=== PATIENT | male | born 1945 | race Caucasian/White ===

== ENCOUNTER 2022-12-08 12:51 | Inpatient (IN) | payer MEDICARE, BC ==
[2022-12-08] MEDS ORDERED: amLODIPine 5 MG TAB PO STA (13:08)
[2022-12-08] MEDS ORDERED: FUROSEMIDE 10 MG/ML 4 ML VIAL IV STA (13:16)
--- NOTE | 2022-12-08 13:17 | ED ---
General Adult HPI - General Chief complaint: Shortness of Breath Stated complaint: CHANELL Time Seen by Provider: 12/08/22 13:07 Source: patient, family, RN notes reviewed Mode of arrival: wheelchair Limitations: no limitations - History of Present Illness Initial comments: Patient is a pleasant 77-year-old male presenting to emergency department source of breath. Onset of symptoms was just an hour ago. Patient has had mild cough last couple of days. Patient does have history of atrial fibrillation. No chest pain. Patient does feel fatigued. No leg pain or leg swelling. - Related Data Home Medications Medication Instructions Recorded Confirmed Benzonatate [Tessalon Perles] 200 mg PO TID PRN 12/08/22 12/08/22 Calcium(Unknown Dose) 1 tab PO DAILY 12/08/22 12/08/22 Cholecalciferol [Vitamin D3 (25 25 mcg PO DAILY 12/08/22 12/08/22 Mcg = 1000 Iu)] Co Q-10(Unknown Dose) 1 cap PO DAILY 12/08/22 12/08/22 Insulin Aspart [NovoLOG Flexpen] See Protocol SQ AC-TID 12/08/22 12/08/22 Insulin Glargine,Hum.rec.anlog 17 units SQ HS 12/08/22 12/08/22 [Toujeo Solostar] Metoprolol Tartrate [Lopressor] 50 mg PO DAILY 12/08/22 12/08/22 Multivitamins, Thera [Multivitamin 1 tab PO DAILY 12/08/22 12/08/22 (formulary)] Simvastatin [Zocor] 20 mg PO DAILY 12/08/22 12/08/22 Warfarin Sodium 6 mg PO HS 12/08/22 12/08/22 Warfarin [Coumadin] 1 mg PO SUSA@2100 12/08/22 12/08/22 lisinopriL [Zestril] 10 mg PO DAILY 12/08/22 12/08/22 metFORMIN HCL 1,000 mg PO BID 12/08/22 12/08/22 predniSONE [Deltasone] See Taper PO DAILY 12/08/22 12/08/22 Allergies Allergy/AdvReac Type Severity Reaction Status Date / Time Penicillins Allergy Rash/Hives Verified 12/08/22 13:47 Sulfa (Sulfonamide Allergy Rash/Hives Verified 12/08/22 13:47 Antibiotics) Review of Systems ROS Statement: Those systems with pertinent positive or pertinent negative responses have been documented in the HPI. ROS Other: All systems not noted in ROS Statement are negative. Constitutional: Denies: fever ENT: Denies: ear pain Respiratory: Reports: as per HPI, cough, dyspnea Cardiovascular: Denies: chest pain Endocrine: Reports: fatigue Gastrointestinal: Denies: abdominal pain Genitourinary: Denies: dysuria Past Medical History Past Medical History: Hypertension History of Any Multi-Drug Resistant Organisms: None Reported Past Surgical History: Appendectomy, Orthopedic Surgery Smoking Status: Never smoker Past Alcohol Use History: None Reported Past Drug Use History: None Reported General Exam Limitations: no limitations General appearance: alert Head exam: Present: normocephalic Eye exam: Present: normal appearance Neck exam: Present: normal inspection Respiratory exam: Present: respiratory distress, rales Cardiovascular Exam: Present: tachycardia GI/Abdominal exam: Present: soft. Absent: tenderness Extremities exam: Present: normal inspection. Absent: pedal edema, calf tenderness Neurological exam: Present: alert Psychiatric exam: Present: normal affect, normal mood Skin exam: Present: normal color Course Vital Signs 12/08/22 12/08/22 12/08/22 12:57 13:15 13:40 Temperature 98 F Pulse Rate 140 H 188 H Respiratory 36 H 28 H Rate Blood Pressure 180/120 170/126 O2 Sat by Pulse 84 L 89 L Oximetry Fraction of 100 Inspired Oxygen (FIO2) 12/08/22 12/08/22 12/08/22 14:02 14:30 14:35 Temperature Pulse Rate 158 H Respiratory 35 H Rate Blood Pressure 192/137 O2 Sat by Pulse 89 L Oximetry Fraction of 100 100 Inspired Oxygen (FIO2) EKG Findings - EKG Results: EKG: interpreted by ERMD (Superior axis. Right bundle branch block. Nonspeci fic ST-T.) EKG shows: tachycardia, atrial fibrillation Procedures - Intubation Sedative: Versed Paralytic: Succinylcholine Laryngoscope: Nicole Size: 3 ET Tube Size: 8 Tube Placement Confirmation: visualized tube passing through cords, equal breath sounds bilaterally, no breath sounds over epigastrium Patient Tolerated Procedure: well, no complications Additional Comments: Blood visualized in the trachea Medical Decision Making - Medical Decision Making Was pt. sent in by a medical professional or institution (, PA, CUSTOMER CARE TEAM COACH, urgent care, hospital, or correction...) When possible be specific @ -No Did you speak to anyone other than the patient for history (EMS, parent, family, police, friend...)? What history was obtained from this source @ - is present and helps right history as patient is short of breath and difficulty with speech Did you review nursing and triage notes (agree or disagree)? Why? @ -I reviewed and agree with nursing and triage notes Were old charts reviewed (outside hosp., previous admission, EMS record, old EKG, old radiological studies, urgent care reports/EKG's, correction records)? Report findings @ -No old charts are available although I did look for Differential Diagnosis (chest pain, altered mental status, abdominal pain women, abdominal pain men, vaginal bleeding, weakness, fever, dyspnea, syncope, headache, dizziness, GI bleed, back pain, seizure, CVA, palpatations, mental health, musculoskeletal)? @ -Differential Dyspnea: Coronary syndrome, arrhythmia, tamponade, asthma, COPD, pulmonary embolism, pneumonia, pneumothorax, pulmonary effusion, anaphylaxis, diabetic ketoacidosis, flailed chest, pulmonary contusion, diaphragmatic rupture, anemia, neuromuscular, this is not meant to be an all-inclusive list. EKG interpreted by me (3pts min.). @ -As above X-rays interpreted by me (1pt min.). @ -Chest x-ray shows bilateral diffuse infiltrates CT interpreted by me (1pt min.). @ -None done U/S interpreted by me (1pt. min.). @ -None done What testing was considered but not performed or refused? (CT, X-rays, U/S, labs)? Why? @ -None What meds were considered but not given or refused? Why? @ -None Did you discuss the management of the patient with other professionals (professionals i.e. DrMaria Del Carmen, PA, CUSTOMER CARE TEAM COACH, lab, RT, psych nurse, social media assistant, robotic technician, teacher, transit police officer, case finishing machine adjuster)? Give summary @ -Case discussed with Dr. Gudino, who will admit for hospital call. Case also discussed with Dr. Hairston, who will consult Was smoking cessation discussed for >3mins.? @ -No Was critical care preformed (if so, how long)? @ -31 minutes critical care time Were there social determinants of health that impacted care today? How? (Homelessness, low income, unemployed, alcoholism, drug addiction, transportation, low edu. Level, literacy, decrease access to med. care, long term, rehab)? @ -No Was there de-escalation of care discussed even if they declined (Discuss DNR or withdrawal of care, Hospice)? DNR status @ -No What co-morbidities impacted this encounter? (DM, HTN, Smoking, COPD, CAD, Cancer, CVA, ARF, Chemo, Hep., AIDS, mental health diagnosis, sleep apnea, morbid obesity)? @ -History of atrial fibrillation Was patient admitted / discharged? Hospital course, mention meds given and route, prescriptions, significant lab abnormalities, going to OR and other pertinent info. @ -Patient presents with rest or distress and A. fib RVR. Patient placed on BiPAP however did not improve and started having hemoptysis. Patient was then intubated. Patient will be admitted with pulmonary and cardiology consults. Family is updated. Undiagnosed new problem with uncertain prognosis? @ -No Drug Therapy requiring intensive monitoring for toxicity (Heparin, Nitro, Insulin, Cardizem)? @ -Patient on Cardizem drip and will need monitoring Were any procedures done? @ -Intubation Diagnosis/symptom? @ -Flash pulmonary edema, A. fib with RVR Acute, or Chronic, or Acute on Chronic? @ -Acute, acute Uncomplicated (without systemic symptoms) or Complicated (systemic symptoms)? @ -A. fib, stated with pulmonary edema Side effects of treatment? @ -No Exacerbation, Progression, or Severe Exacerbation? @ -No Poses a threat to life or bodily function? How? (Chest pain, [place], [place], pneumonia, PE, COPD, DKA, ARF, appy, cholecystitis, CVA, Diverticulitis, Homicidal, Suicidal, threat to staff... and all critical care pts) @ -Hypoxia and respiratory failure 2. Threat to life - Lab Data Result diagrams: 12/08/22 13:18 12/08/22 13:18 Lab Results 12/08/22 12/08/22 12/08/22 Range/Units 13:18 13:18 13:18 WBC 13.5 H (3.8-10.6) k/uL RBC 4.79 (4.30-5.90) m/uL Hgb 14.4 (13.0-17.5) gm/dL Hct 44.4 (39.0-53.0) % MCV 92.6 (80.0-100.0) fL MCH 30.0 (25.0-35.0) pg MCHC 32.4 (31.0-37.0) g/dL RDW 13.8 (11.5-15.5) % Plt Count 244 (150-450) k/uL MPV 8.3 Neutrophils % 65 % Lymphocytes % 26 % Monocytes % 5 % Eosinophils % 2 % Basophils % 0 % Neutrophils # 8.8 H (1.3-7.7) k/uL Lymphocytes # 3.6 (1.0-4.8) k/uL Monocytes # 0.6 (0-1.0) k/uL Eosinophils # 0.3 (0-0.7) k/uL Basophils # 0.1 (0-0.2) k/uL PT 49.2 H (9.0-12.0) sec INR 5.0 H (<1.2) APTT 28.5 (22.0-30.0) sec Sodium 140 (137-145) mmol/L Potassium 4.0 (3.5-5.1) mmol/L Chloride 100 (98-107) mmol/L Carbon Dioxide 30 (22-30) mmol/L Anion Gap 10 mmol/L BUN 24 H (9-20) mg/dL Creatinine 0.97 (0.66-1.25) mg/dL Est GFR (CKD-EPI)AfAm 87 (>60 ml/min/1.73 sqM) Est GFR (CKD-EPI)NonAf 76 (>60 ml/min/1.73 sqM) Glucose 178 H (74-99) mg/dL Calcium 9.3 (8.4-10.2) mg/dL Magnesium 1.6 (1.6-2.3) mg/dL Total Bilirubin 0.8 (0.2-1.3) mg/dL AST 41 (17-59) U/L ALT 39 (4-49) U/L Alkaline Phosphatase 126 (38-126) U/L Troponin I (0.000-0.034) ng/mL NT-Pro-B Natriuret Pep 4050 pg/mL Total Protein 7.3 (6.3-8.2) g/dL Albumin 4.3 (3.5-5.0) g/dL TSH 2.420 (0.465-4.680) mIU/L Free T4 1.13 (0.78-2.19) ng/dL Free T3 pg/mL 3.2 (2.8-5.3) pg/ml Influenza Type A (PCR) (Not Detectd) Influenza Type B (PCR) (Not Detectd) RSV (PCR) (Not Detectd) SARS-CoV-2 (PCR) (Not Detectd) 12/08/22 12/08/22 Range/Units 13:18 13:49 WBC (3.8-10.6) k/uL RBC (4.30-5.90) m/uL Hgb (13.0-17.5) gm/dL Hct (39.0-53.0) % MCV (80.0-100.0) fL MCH (25.0-35.0) pg MCHC (31.0-37.0) g/dL RDW (11.5-15.5) % Plt Count (150-450) k/uL MPV Neutrophils % % Lymphocytes % % Monocytes % % Eosinophils % % Basophils % % Neutrophils # (1.3-7.7) k/uL Lymphocytes # (1.0-4.8) k/uL Monocytes # (0-1.0) k/uL Eosinophils # (0-0.7) k/uL Basophils # (0-0.2) k/uL PT (9.0-12.0) sec INR (<1.2) APTT (22.0-30.0) sec Sodium (137-145) mmol/L Potassium (3.5-5.1) mmol/L Chloride (98-107) mmol/L Carbon Dioxide (22-30) mmol/L Anion Gap mmol/L BUN (9-20) mg/dL Creatinine (0.66-1.25) mg/dL Est GFR (CKD-EPI)AfAm (>60 ml/min/1.73 sqM) Est GFR (CKD-EPI)NonAf (>60 ml/min/1.73 sqM) Glucose (74-99) mg/dL Calcium (8.4-10.2) mg/dL Magnesium (1.6-2.3) mg/dL Total Bilirubin (0.2-1.3) mg/dL AST (17-59) U/L ALT (4-49) U/L Alkaline Phosphatase (38-126) U/L Troponin I 0.753 H* (0.000-0.034) ng/mL NT-Pro-B Natriuret Pep pg/mL Total Protein (6.3-8.2) g/dL Albumin (3.5-5.0) g/dL TSH (0.465-4.680) mIU/L Free T4 (0.78-2.19) ng/dL Free T3 pg/mL (2.8-5.3) pg/ml Influenza Type A (PCR) Not Detected (Not Detectd) Influenza Type B (PCR) Not Detected (Not Detectd) RSV (PCR) Not Detected (Not Detectd) SARS-CoV-2 (PCR) Not Detected (Not Detectd) Disposition Clinical Impression: Acute pulmonary edema, Atrial fibrillation with RVR Disposition: ADMITTED IP TO THIS HOSP Condition: Critical Is patient prescribed a controlled substance at d/c from ED?: No Referrals: Nonstaff,Physician [Primary Care Provider] - 1-2 days Time of Disposition: 14:55
[2022-12-08] MEDS ORDERED: DILTIAZEM 125 MG in SODIUM CHLORIDE 0.9% 100 ML IV SCH (13:30)
[2022-12-08 13:34] LABS: Basophils # (A) 0.1 k/uL (0-0.2); Basophils % (A) 0 %; Eosinophils # (A) 0.3 k/uL (0-0.7); Eosinophils % (A) 2 %; HCT 44.4 % (39.0-53.0); HGB 14.4 gm/dL (13.0-17.5); Lymphocytes # (A) 3.6 k/uL (1.0-4.8); Lymphocytes % (A) 26 %; MCHC 32.4 g/dL (31.0-37.0); MCV 92.6 fL (80.0-100.0); Mean Platelet Volume 8.3; Monocytes # (A) 0.6 k/uL (0-1.0); Monocytes % (A) 5 %; Neutrophils # (A) 8.8 k/uL (1.3-7.7); Neutrophils % (A) 65 %; Platelet Count 244 k/uL (150-450); RBC 4.79 m/uL (4.30-5.90); RDW 13.8 % (11.5-15.5); WBC 13.5 k/uL (3.8-10.6)
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
[2022-12-08 13:46] LABS: Partial Thromboplastin Time 28.5 sec (22.0-30.0); Prothrombin Time 49.2 sec (9.0-12.0)
[2022-12-08 13:47] LABS: ALT 39 U/L (4-49); AST 41 U/L (17-59); African American GFR (CKD) 87 (>60 ml/min/1.73 sqM); Albumin 4.3 g/dL (3.5-5.0); Alkaline Phosphatase 126 U/L (38-126); Anion Gap 10 mmol/L; Blood Urea Nitrogen 24 mg/dL (9-20); Calcium 9.3 mg/dL (8.4-10.2); Carbon Dioxide 30 mmol/L (22-30); Chloride 100 mmol/L (98-107); Glucose 178 mg/dL (74-99); Magnesium 1.6 mg/dL (1.6-2.3); Non-African American GFR(CKD) 76 (>60 ml/min/1.73 sqM); Sodium 140 mmol/L (137-145); Total Bilirubin 0.8 mg/dL (0.2-1.3); Total Protein 7.3 g/dL (6.3-8.2)
[2022-12-08 13:53] LABS: NT-Pro-B-Type Natriuretic Pept 4050 pg/mL
[2022-12-08] MEDS ORDERED: DILTIAZEM DRIP BOLUS FROM BAG 1 MG SOLN IV ONE (14:00)
[2022-12-08 14:01] LABS: T4, Free (Free Thyroxine) 1.13 ng/dL (0.78-2.19)
[2022-12-08] MEDS ORDERED: LORazepam 2 MG/ML INJ IV PRN ×2 (14:48)
--- NOTE | 2022-12-08 14:51 | P.HPIM ---
History of Present Illness 77-year-old male came in with complaints of shortness of breath patient is presently being intubated much of the history is unknown. Patient started having mild cold for the last 2 days which progressively gotten worse patient is found to in atrial fibrillation with rapid and regular rate. Patient does have known history of A. fib does take Coumadin at home patient doesn't INR is 5. Chest x-ray showed bilateral infiltrates suspicious for pneumonia although seizures cannot be ruled out I'm unable to assess for JVD doesn't have any pedal edema. Patient does have elevated BNP of around 4000 baseline BNP is a known serum creatinine is within normal limits. No echo cardiac rhythm is available in the system. Patient does take metoprolol for atrial fibrillation. Patient is tachypneic tachycardic because of which patient is being intubated patient blood pressure is although not low. Pro-calcitonin will be ordered. REVIEW OF SYSTEMS: I would obtain due to his clinical condition PHYSICAL EXAMINATION: GENERAL: Patient is alert and respiratory distress is being intubated now HEENT: Pupils are round and equally reacting to light. EOMI. No scleral icterus. No conjunctival pallor. Normocephalic, atraumatic. No pharyngeal erythema. No thyromegaly. CARDIOVASCULAR: S1 and S2 present. No murmurs, rubs, or gallops. Tachycardic irregularly irregular rhythm PULMONARY: Bilateral rhonchi crackles Tachypneic ABDOMEN: Soft, nontender, nondistended, normoactive bowel sounds. No palpable organomegaly. MUSCULOSKELETAL: No joint swelling or deformity. EXTREMITIES: No cyanosis, clubbing, or pedal edema. NEUROLOGICAL: Unable to assess SKIN: No rashes. Assessment and plan -Acute hypoxic respiratory failure: Etiology is not clear, can be either pneumonia or congestive heart failure patient does have elevated troponin but chest x-ray is consistent with the pneumonia. Patient will be continue on Lasix 40 mg IV twice a day, echocardiogram will be obtained. Patient will be started on empiric antibiotics patient doesn't have any fever does have leukocytosis. Blood cultures will be obtained. -Atrial fibrillation with rapid ventricular rate, patient probably has proximal A. fib: Patient is weatherbeaten Coumadin hold off Coumadin patient is presently on Cardizem patient resumed on metoprolol via NG tube. -Hyperlipidemia -Type 2 diabetes mellitus: Sliding scale insulin DVT prophylaxis: Patient has supratherapeutic INR Past Medical History Past Medical History: Hypertension History of Any Multi-Drug Resistant Organisms: None Reported Past Surgical History: Appendectomy, Orthopedic Surgery Smoking Status: Never smoker Past Alcohol Use History: None Reported Past Drug Use History: None Reported Medications and Allergies Home Medications Medication Instructions Recorded Confirmed Type Benzonatate [Tessalon Perles] 200 mg PO TID PRN 12/08/22 12/08/22 History Calcium(Unknown Dose) 1 tab PO DAILY 12/08/22 12/08/22 History Cholecalciferol [Vitamin D3 (25 25 mcg PO DAILY 12/08/22 12/08/22 History Mcg = 1000 Iu)] Co Q-10(Unknown Dose) 1 cap PO DAILY 12/08/22 12/08/22 History Insulin Aspart [NovoLOG Flexpen] See Protocol SQ AC-TID 12/08/22 12/08/22 History Insulin Glargine,Hum.rec.anlog 17 units SQ HS 12/08/22 12/08/22 History [Toujeo Solostar] Metoprolol Tartrate [Lopressor] 50 mg PO DAILY 12/08/22 12/08/22 History Multivitamins, Thera [Multivitamin 1 tab PO DAILY 12/08/22 12/08/22 History (formulary)] Simvastatin [Zocor] 20 mg PO DAILY 12/08/22 12/08/22 History Warfarin Sodium 6 mg PO HS 12/08/22 12/08/22 History Warfarin [Coumadin] 1 mg PO SUSA@2100 12/08/22 12/08/22 History lisinopriL [Zestril] 10 mg PO DAILY 12/08/22 12/08/22 History metFORMIN HCL 1,000 mg PO BID 12/08/22 12/08/22 History predniSONE [Deltasone] See Taper PO DAILY 12/08/22 12/08/22 History Allergies Allergy/AdvReac Type Severity Reaction Status Date / Time Penicillins Allergy Rash/Hives Verified 12/08/22 13:47 Sulfa (Sulfonamide Allergy Rash/Hives Verified 12/08/22 13:47 Antibiotics) Physical Exam Vitals: Vital Signs Temp Pulse Resp BP Pulse Ox FiO2 12/08/22 14:35 100 12/08/22 14:30 100 12/08/22 14:02 158 H 35 H 192/137 89 L 12/08/22 13:40 188 H 28 H 170/126 89 L 12/08/22 13:15 100 12/08/22 12:57 98 F 140 H 36 H 180/120 84 L Intake and Output 12/07/22 12/08/22 12/08/22 22:59 06:59 14:59 Intake Total 2.25 Balance 2.25 Intake: Intake, IV Titration 2.25 Amount Diltiazem 125 mg In 2.25 Sodium Chloride 0.9% 100 ml @ 5 MG/HR 5 mls/hr IV .Q24H [facility] Rx#:[id number] Other: Weight 89.358 kg Results CBC & Chem 7: 12/08/22 13:18 12/08/22 13:18 Labs: Abnormal Lab Results - Last 24 Hours (Table) 12/08/22 12/08/22 12/08/22 Range/Units 13:18 13:18 13:18 WBC 13.5 H (3.8-10.6) k/uL Neutrophils # 8.8 H (1.3-7.7) k/uL PT 49.2 H (9.0-12.0) sec INR 5.0 H (<1.2) BUN 24 H (9-20) mg/dL Glucose 178 H (74-99) mg/dL Troponin I (0.000-0.034) ng/mL 12/08/22 Range/Units 13:18 WBC (3.8-10.6) k/uL Neutrophils # (1.3-7.7) k/uL PT (9.0-12.0) sec INR (<1.2) BUN (9-20) mg/dL Glucose (74-99) mg/dL Troponin I 0.753 H* (0.000-0.034) ng/mL
[2022-12-08] MEDS ORDERED: PHYTONADIONE 5 MG in SODIUM CHLORIDE 0.9% 50 ML IVPB STA (15:07)
[2022-12-08] MEDS ORDERED: PROPOFOL 10 MG/ML 20 ML VIAL IV ONE (15:13)
[2022-12-08] MEDS ORDERED: NOREPINEPHRINE 32 MG in SODIUM CHLORIDE 0.9% 218 ML IV SCH (15:15)
[2022-12-08 15:32] LABS: Glucose,Whole Blood 181 mg/dL (70-110)
[2022-12-08] MEDS: NOREPINEPHRINE 4 MG in SODIUM CHLORIDE 0.9% 250 ML IV ONE ×2 (15:44→20:00)
[2022-12-08] MEDS ORDERED: CISATRACURIUM 2 MG/ML 5 ML VIAL IV ONE (15:54)
--- NOTE | 2022-12-08 16:09 | P.PCN ---
Date of Procedure: 12/08/22 Operative Findings: Date of Procedure: 12/08/22 Preoperative Diagnosis: Acute hypoxic respiratory failure Postoperative Diagnosis: Acute hypoxic respiratory failure Procedure(s) Performed: Central line, arterial line Anesthesia: local Surgeon: Dipika Hairston Pathology: other Condition: critical Disposition: ICU Operative Findings: Indication: Hemodynamic monitoring/Intravenous access. A time-out was completed verifying correct patient, procedure, site, positioning, and implant(s) or special equipment if applicable. The patient was placed in a dependent position appropriate for central line placement based on the vein to be cannulated. The patients left neck prepped and draped in sterile fashion. 1% Lidocaine was used to anesthetize the surrounding skin area. A triple lumen 9F Cordis catheter was introduced into the left internal jugular using Seldinger technique. The catheter was threaded smoothly over the guide wire and appropriate blood return was obtained. Each lumen of the catheter was evacuated of air and flushed with sterile saline. The catheter was then sutured in place to the skin and a sterile dressing applied. Perfusion to the extremity distal to the point of catheter insertion was checked and found to be adequate. The patient tolerated the procedure well and there were no complications. Indication: Hemodynamic monitoring. A time-out was completed verifying correct patient, procedure, site, positioning, and implant(s) or special equipment if applicable. Allens test was performed to ensure adequate perfusion. The patients left wrist was prepped and draped in sterile fashion. 1% Lidocaine was used to anesthetize the area. An 18G Arrow arterial line was introduced into the radial artery. The catheter was threaded over the guide wire and the needle was removed with appropriate pulsatile blood return. Blood loss was minimal. The catheter was then sutured in place to the skin and a sterile dressing applied. Perfusion to the extremity distal to the point of catheter insertion was checked and found to be adequate. The patient tolerated the procedure well and there were no complications.
[2022-12-08] MEDS ORDERED: DEXTROSE 50% SYRINGE 50 ML IVP PRN ×2 (16:11)
[2022-12-08] MEDS ORDERED: DEXTROSE 5% IN WATER 100 ML with AMIODARONE 150 MG IV ONE (16:20)
[2022-12-08 16:25] LABS: ABG Base Excess 1.6 mmol/L; ABG HCO3 26 mmol/L (21-25); ABG PCO2 41 mmHg (35-45); ABG PH 7.42 (7.35-7.45); ABG PO2 84 mmHg (83-108); ABG TCO2 27 mmol/L (19-24)
[2022-12-08 16:26] LABS: Allen Test Performed? no
[2022-12-08] MEDS ORDERED: AMIODARONE 360 MG in DEXTROSE 5% IN WATER 200 ML IV ONE ×2 (16:30)
--- NOTE | 2022-12-08 16:40 | P.CNPUL ---
History of Present Illness Consult date: 12/08/22 Reason for consult: hypoxemia History of present illness: 77-year-old male patient, came into the emergency department because of shortness of breath. [place] and he has a primary care physician in [facility]. The patient was in the hospital with his who was having a mammogram. He acutely became short of breath and he felt that his lungs were filling up with fluid. He was brought into the emergency department. Noted around few days back, he was having some limited cough and the patient was given a course of steroid taper by his primary care physician. No fever. No chills. No chest pain. He is known to have chronic atrial fibrillation and the patient is also known to have diabetes mellitus and hype rlipidemia. No history of any coronary artery disease. No history of any stroke. No history of any DVTs or pulmonary embolism. No history of COPD or asthma. He is a nonsmoker. The patient came into the emergency and he was hypoxic, acutely short of breath, acutely tachycardic and hypertensive with a BP of 192/137 with a heart rate of 158 and the respiration all 35. The patient was placed on a BiPAP. He decompensated. Ultimately, he was intubated and placed on a mechanical ventilator. Chest x-ray showed bilateral lung consolidations mainly in the lower lobes. Post intubation, the patient started having bloody rest or secretions from his orotracheal tube. His cardiac rhythm is the nature fibrillation. At this point in time, the patient is intubated on a mechanical ventilator. I saw the patient in the emergency department and a lipase to the intensive care unit. Currently is on propofol which is currently is up to 50 mcg/kg/m. His well sedated on a mechanical ventilator. He was also given a dose of Nimbex 10 mg IV push as the sedation was being titrated. Note that the patient became also hypotensive while being on sedation. He was started on norepinephrine which is currently running at 0.27 Babar respiratory kilogram per minute. His heart rate is less tachycardic although distal in nature fibrillation. Cardizem drip was discontinued because of underlying hypotension. He was given a dose of Lasix in the emergency department and he has produced a total of 350 mL of urine output. He does have some lower extremity edema. His blood work is showing 15.5, hemoglobin is 14.4, platelet count of 244, sodium is at 140, BUN is at 24 with a creatinine of 0.9. ProBNP level is 4050. Troponin was 0.7. LFTs are normal. The vital screening including Covid 19 was negative. Thyroid function test was within normal limits. His INR was at 5.0 with a PTT of 49.2. The patient was given a total of 5 mg of vitamin K. Lines were established in the ICU including a triple-lumen catheter inserted in his left IJ and an arterial line for blood pressure monitoring. Given a dose of Rocephin. He is currently on a mechanical ventilator on assist control mode with a rate of 26, tidal volume of 450, FiO2 of 100% and a PEEP of 5. Review of Systems ROS unobtainable: due to endotracheal tube Past Medical History Past Medical History: Atrial Fibrillation, Diabetes Mellitus, Hypertension Additional Past Medical History / Comment(s): History of diabetic foot infection from which the patient has recovered and has been adequately treated History of Any Multi-Drug Resistant Organisms: None Reported Past Surgical History: Appendectomy, Orthopedic Surgery Smoking Status: Never smoker Past Alcohol Use History: None Reported Past Drug Use History: None Reported Medications and Allergies Home Medications Medication Instructions Recorded Confirmed Type Benzonatate [Tessalon Perles] 200 mg PO TID PRN 12/08/22 12/08/22 History Calcium(Unknown Dose) 1 tab PO DAILY 12/08/22 12/08/22 History Cholecalciferol [Vitamin D3 (25 25 mcg PO DAILY 12/08/22 12/08/22 History Mcg = 1000 Iu)] Co Q-10(Unknown Dose) 1 cap PO DAILY 12/08/22 12/08/22 History Insulin Aspart [NovoLOG Flexpen] See Protocol SQ AC-TID 12/08/22 12/08/22 History Insulin Glargine,Hum.rec.anlog 17 units SQ HS 12/08/22 12/08/22 History [Toujeo Solostar] Metoprolol Tartrate [Lopressor] 50 mg PO DAILY 12/08/22 12/08/22 History Multivitamins, Thera [Multivitamin 1 tab PO DAILY 12/08/22 12/08/22 History (formulary)] Simvastatin [Zocor] 20 mg PO DAILY 12/08/22 12/08/22 History Warfarin Sodium 6 mg PO HS 12/08/22 12/08/22 History Warfarin [Coumadin] 1 mg PO SUSA@2100 12/08/22 12/08/22 History lisinopriL [Zestril] 10 mg PO DAILY 12/08/22 12/08/22 History metFORMIN HCL 1,000 mg PO BID 12/08/22 12/08/22 History predniSONE [Deltasone] See Taper PO DAILY 12/08/22 12/08/22 History Allergies Allergy/AdvReac Type Severity Reaction Status Date / Time Penicillins Allergy Rash/Hives Verified 12/08/22 13:47 Sulfa (Sulfonamide Allergy Rash/Hives Verified 12/08/22 13:47 Antibiotics) Physical Exam Vitals: Vital Signs Temp Pulse Resp BP Pulse Ox FiO2 12/08/22 15:30 100 12/08/22 15:00 170 H 40 H 155/116 89 L 12/08/22 14:35 100 12/08/22 14:30 176 H 18 218/199 96 100 12/08/22 14:02 158 H 35 H 192/137 89 L 12/08/22 13:40 188 H 28 H 170/126 89 L 12/08/22 13:15 100 12/08/22 12:57 98 F 140 H 36 H 180/120 84 L Intake and Output 12/08/22 12/08/22 12/08/22 06:59 14:59 22:59 Intake Total 2.25 1.966 Balance 2.25 1.966 Intake: Intake, IV Titration 2.25 1.966 Amount Diltiazem 125 mg In 2.25 Sodium Chloride 0.9% 100 ml @ 5 MG/HR 5 mls/hr IV .Q24H VIDAL Rx#:[id number] propofoL 1,000 mg In 1.966 Empty Bag 1 bag @ 15 MCG/ KG/MIN 8.042 mls/hr IV . [id number] VIDAL Rx#:[id number] Other: Weight 89.358 kg Intubated, sedated, currently 6 is a mechanical ventilator. Orogastric and orotracheal tube are both in place. Head exam was generally normal. There was no scleral icterus or corneal arcus. Mucous membranes were moist. Neck was supple and without jugular venous distension, thyromegaly, or carotid bruits. Carotids were easily palpable bilaterally. There was no adenopathy. No significant JVD observed Lungs were clear to auscultation and percussion, and with normal diaphragmatic e xcursion. No wheezes or rales were noted. Diminished breath on lung bases bilaterally along with scattered rhonchi. Heart sounds are regular S1 and S2 consistent with atrial fibrillation. No cervical murmurs appreciated. Abdominal exam revealed normal bowel sounds. The abdomen was soft, non-tender, and without masses, organomegaly, or appreciable enlargement of the abdominal aorta. Examination of the extremities revealed easily palpable radial, femoral and pedal pulses. There was no cyanosis, clubbing and there is trace edema lower oximetry is bilaterally Examination of the skin revealed no evidence of significant rashes, suspicious appearing nevi or other concerning lesions. Neurologically the patient is sedated and the patient is calm and comfortable this point in time. Neurologic exam is nonfocal. Results - Laboratory Findings CBC and BMP: 12/08/22 13:18 12/08/22 13:18 ABG ABG pH 7.42 (7.35-7.45) 12/08/22 16:22 ABG pCO2 41 mmHg (35-45) 12/08/22 16:22 ABG pO2 84 mmHg (83-108) 12/08/22 16:22 ABG O2 Saturation 97.0 % (94-97) 12/08/22 16:22 PT/INR, D-dimer PT 49.2 sec (9.0-12.0) H 12/08/22 13:18 INR 5.0 (<1.2) H 12/08/22 13:18 Abnormal lab findings: Abnormal Labs 12/08/22 12/08/22 12/08/22 13:18 13:18 13:18 WBC 13.5 H Neutrophils # 8.8 H PT 49.2 H INR 5.0 H ABG HCO3 ABG Total CO2 BUN 24 H Glucose 178 H POC Glucose (mg/dL) Troponin I 12/08/22 12/08/22 12/08/22 13:18 15:30 16:22 WBC Neutrophils # PT INR ABG HCO3 26 H ABG Total CO2 27 H BUN Glucose POC Glucose (mg/dL) 181 H Troponin I 0.753 H* - Diagnostic Findings Chest x-ray: image reviewed Assessment and Plan Plan: Acute hypoxic respiratory failure on that investigation. The patient has perihilar and lower lobe pulmonary consolidation and the patient an acute presentation of shortness of breath and hypoxic respiratory failure, failed BiPAP and the patient to be intubated and placed on a mechanical ventilator. Consider acute hypertensive heart disease and flash pulmonary edema as the patient's blood pressure was quite elevated at time of admission to the emergency department. Disability other acute valvular destruction or systolic heart failure. Pneumonia is possible although less likely based on the acute presentation. The patient was having frothy secretions, bloody probably related to acute pulmonary edema. ProBNP level was elevated. Minimal elevation of the troponin. Acute dyspnea secondary to above Acute hypotension under investigation. Consider cardiogenic shock. Consider possibility of a septic shock. Currently on pressors and the patient is on norepinephrine which is being titrated. Atrial fibrillation, chronic with rapid ventricular response at the time of admission Supratherapeutic PT/INR Hemoptysis secondary to above Diabetes mellitus type 2 Hyperlipidemia Mild leukocytosis History of diabetic foot infection, recovered Plan Keep the patient on sedation with propofol and titrate the propofol to maintain adequate sedation and synchrony with a mechanical ventilator Increase the PEEP up to 10 and dropped FiO2 gradually. Blood gas was noted. Lines were established and a chest x-ray will be repeated Stat echocardiogram to evaluate LV function and valvular function Stop Cardizem drip and use amiodarone should the patient become tachycardic with atrial fibrillation. The patient will be started on amiodarone of the heart rate is about 120 Give a total of 5 mg vitamin K and repeat a PT/INR Norepinephrine for blood pressure support Check CVP Antibiotic coverage with IV Rocephin Sputum Gram stain and culture Blood culture NovoLog insulin size coverage IV Protonix Condition is critical. We'll obtain a cardiology consultation. We'll continue to follow make further recommendations based on his progression. Critical care evaluation that was done in more than one hour. Case was discussed with the at the bedside. Time with Patient: Greater than 30
[2022-12-08] MEDS ORDERED: INSULIN ASPART (NovoLOG) 100 UNIT/ML VIAL SQ SCH (17:30)
--- NOTE | 2022-12-08 17:30 | XR ---
EXAMINATION TYPE: XR chest 1V portable DATE OF EXAM: 12/08/2022 5:05 PM COMPARISON: Chest radiographs from 12/08/2022 TECHNIQUE: XR chest 1V portable Frontal view of the chest. CLINICAL INDICATION:Male, 77 years old with history of line placement; FINDINGS: Lungs/Pleura: Persistent bibasilar airspace opacities with improved aeration of the left lung. There is no evidence of pleural effusion, or pneumothorax. Pulmonary vascularity: Unremarkable. Heart/mediastinum: Cardiomediastinal silhouette is unremarkable. Musculoskeletal: No acute osseous pathology. Post fixation changes to the right rotator cuff. Other findings: None Lines/Tubes: Endotracheal tube with distal tip 4.2 Cm above the kelechi. Nasogastric tube with its distal tip and side-port projecting under the diaphragm. Left internal jugular central venous catheter with distal tip at the cavoatrial junction. IMPRESSION: 1. Right basilar airspace opacities with improved aeration of the left lung. 2. Support line and tubes in appropriate position.
[2022-12-08 17:33] LABS: Appearance,Urine Clear (Clear); Bilirubin,Urine Negative (Negative); Blood,Urine Large (Negative); Color,Urine Light Yellow; Glucose,Urine (UA) Negative (Negative); Hyaline Casts,Urine 6 /lpf (0-2); Ketones,Urine Negative (Negative); Leukocyte Esterase,Urine Negative (Negative); Mucus,Urine Rare /hpf; Nitrite,Urine Negative (Negative); Protein,Urine Negative (Negative); RBC,Urine 66 /hpf (0-5); Specific Gravity,Urine 1.009 (1.001-1.035); Squamous Epithelial Cell,Urine <1 /hpf (0-4); Urobilinogen,Urine <2.0 mg/dL (<2.0); WBC,Urine <1 /hpf (0-5)
[2022-12-08 17:58] LABS: Glucose,Whole Blood 240 mg/dL (70-110)
[2022-12-08] MEDS ORDERED: NITROGLYCERIN OINT 1 INCH/GM PACKET TOPICAL SCH (18:00)
[2022-12-08] MEDS: SODIUM CHLORIDE 0.9% 1,000 ML IV SCH (18:29)
[2022-12-08] MEDS ORDERED: LEVOFLOXACIN 750MG-D5W PMX 750 MG in DEXTROSE/WATER 1 150ML.BAG IVPB SCH (18:30)
[2022-12-08] MEDS: INSULIN ASPART (NovoLOG) 100 UNIT/ML VIAL SQ SCH (18:41)
[2022-12-08] MEDS: CEFEPIME 2 GM in SODIUM CHLORIDE 0.9% 100 ML IVPB SCH (19:23)
[2022-12-08 19:42] LABS: HCT 40.8 % (39.0-53.0); HGB 13.6 gm/dL (13.0-17.5); MCHC 33.4 g/dL (31.0-37.0); MCV 89.9 fL (80.0-100.0); Mean Platelet Volume 8.7; Platelet Count 220 k/uL (150-450); RBC 4.54 m/uL (4.30-5.90); RDW 13.9 % (11.5-15.5); WBC 11.3 k/uL (3.8-10.6)
[2022-12-08 19:55] LABS: ALT 29 U/L (4-49); AST 36 U/L (17-59); African American GFR (CKD) 66 (>60 ml/min/1.73 sqM); Alkaline Phosphatase 96 U/L (38-126); Anion Gap 9 mmol/L; Blood Urea Nitrogen 27 mg/dL (9-20); Calcium 8.2 mg/dL (8.4-10.2); Carbon Dioxide 22 mmol/L (22-30); Chloride 103 mmol/L (98-107); Glucose 227 mg/dL (74-99); Non-African American GFR(CKD) 57 (>60 ml/min/1.73 sqM); Potassium 3.8 mmol/L (3.5-5.1); Sodium 134 mmol/L (137-145); Total Bilirubin 0.6 mg/dL (0.2-1.3); Total Protein 5.3 g/dL (6.3-8.2)
[2022-12-08 19:58] LABS: INR 4.2 (<1.2); Partial Thromboplastin Time 27.5 sec (22.0-30.0); Prothrombin Time 40.7 sec (9.0-12.0)
[2022-12-08] MEDS ORDERED: Potassium Replacement Protocol 1 EACH MISC MISCELLANE PRN ×2 (20:21→20:39)
[2022-12-08] MEDS ORDERED: Magnesium Replacement Protocol 1 EACH MISC MISCELLANE PRN ×2 (20:22→20:40)
[2022-12-08 20:29] LABS: Band Neutrophils % 5 %; Basophils # (M) 0.11 k/uL (0-0.2); Eosinophils # (M) 0.23 k/uL (0-0.7); Metamyelocytes # (M) 0.23 k/uL (0); Metamyelocytes % 2 %; Neutrophils % (M) 69 %; Nucleated Red Blood Cells 0 /100 WBC (0-0); RBC Morphology Normal; Total Cells Counted 200
[2022-12-08] MEDS: VASOPRESSIN 20 UNIT in SODIUM CHLORIDE 0.9% 50 ML IV SCH (20:51)
[2022-12-08] MEDS ORDERED: FUROSEMIDE 10 MG/ML 4 ML VIAL IV SCH (21:00)
[2022-12-08] MEDS ORDERED: METOPROLOL TARTRATE 50 MG TAB PO SCH (21:00)
[2022-12-08] MEDS: POTASSIUM CHLORIDE 10 MEQ in WATER FOR INJECTION 1 100ML.BAG IVPB SCH ×2 (21:47→22:55)
[2022-12-08] MEDS: MAGNESIUM SULFATE-D5W PMX 1 GM in DEXTROSE/WATER 1 100ML.BAG IVPB SCH ×2 (21:48→22:56)
--- NOTE | 2022-12-08 22:07 | CONS ---
CONSULTATION HISTORY OF PRESENT ILLNESS: Jacoby is a 77-year-old gentleman with history of fau-[id number]-dlmphmnqz diabetes, permanent atrial fibrillation, and cardiomyopathy, who was at the hospital when he brought his for some testing and developed a sudden-onset shortness of breath and near-syncope. He was short of breath, hypotensive, and in respiratory failure requiring emergent intubation. His chest x-ray shows evidence of pulmonary edema. BNP is elevated at 4050, and the troponin is mildly elevated. TSH is normal. Hemoglobin is 14.4. The patient's states that he has had some runny nose and symptoms of bronchitis a few days ago and has just finished a course of Cipro for a foot infection. His INR is elevated at 5 and had received vitamin K. He is currently in atrial fibrillation with poorly-controlled ventricular rate, and amiodarone is being started for the same. He is on Lasix 40 mg b.i.d., and is also on Levophed. PAST MEDICAL HISTORY: Significant for cardiomyopathy, atrial fibrillation, diabetes, hypertension, and dyslipidemia. MEDICATIONS: Include: 1. Metformin. 2. Zestril. 3. Coumadin. 4. Zocor. 5. Lopressor. 6. Insulin. 7. Prednisone. ALLERGIES: 1. Penicillin. 2. Sulfa. FAMILY HISTORY: I am unable to obtain from the patient. SOCIAL HISTORY: I am unable to obtain from the patient. REVIEW OF SYSTEMS: I am unable to obtain from the patient. PHYSICAL EXAMINATION: VITAL SIGNS: His blood pressure is 110/70, heart rate is 130 beats per minute. CHEST: Reveals diminished air entry at the bases. HEART: Reveals first and second heart sounds. Irregular rhythm with a systolic murmur at the apex. ABDOMEN: Soft. EXTREMITIES: Exam of extremities reveals mild edema. Peripheral pulses are palpable. LABORATORY DATA: Show a potassium of 4, creatinine is 0.97. Troponin is 0.7. BNP is 4050. IMAGING STUDIES: Chest x-ray is as described above. EKG shows atrial fibrillation with right bundle-branch block and nonspecific ST-T wave changes. ASSESSMENT: 1. Acute onset pulmonary edema. 2. Permanent atrial fibrillation with poorly-controlled ventricular rate. 3. Cardiomyopathy. PLAN: Continue with the Levophed and IV Lasix. We will follow echo results. If blood pressure is tolerating, we will add beta-blockers and KASSIDY inhibitor. MMODL / IJN: [id number] /
[2022-12-08] MEDS: AMIODARONE 450 MG in DEXTROSE 5% IN WATER 250 ML IV SCH ×2 (22:44)
[2022-12-08 23:17] LABS: Glucose,Whole Blood 187 mg/dL (70-110)
[2022-12-09] MEDS: MAGNESIUM SULFATE-D5W PMX 1 GM in DEXTROSE/WATER 1 100ML.BAG IVPB SCH ×2 (00:01→01:29)
[2022-12-09] MEDS: NOREPINEPHRINE 4 MG in SODIUM CHLORIDE 0.9% 250 ML IV ONE ×2 (00:21→09:23)
[2022-12-09] MEDS: INSULIN ASPART (NovoLOG) 100 UNIT/ML VIAL SQ SCH ×4 (00:33→18:02)
[2022-12-09] MEDS: VASOPRESSIN 20 UNIT in SODIUM CHLORIDE 0.9% 50 ML IV SCH ×2 (02:06→13:23)
[2022-12-09 04:57] LABS: HCT 38.2 % (39.0-53.0); HGB 12.8 gm/dL (13.0-17.5); MCH 29.8 pg (25.0-35.0); MCHC 33.5 g/dL (31.0-37.0); MCV 88.8 fL (80.0-100.0); Mean Platelet Volume 8.9; Platelet Count 208 k/uL (150-450); WBC 20.7 k/uL (3.8-10.6)
[2022-12-09 05:05] LABS: INR 2.9 (<1.2); Partial Thromboplastin Time 29.2 sec (22.0-30.0); Prothrombin Time 28.5 sec (9.0-12.0)
[2022-12-09 05:17] LABS: ABG HCO3 23 mmol/L (21-25); ABG Oxygen Saturation 99.8 % (94-97); ABG PCO2 26 mmHg (35-45); ABG PH 7.54 (7.35-7.45); ABG PO2 247 mmHg (83-108); ABG TCO2 23 mmol/L (19-24)
[2022-12-09 05:19] LABS: Allen Test Performed? no
[2022-12-09 05:25] LABS: Band Neutrophils % 45 %; Lymphocytes # (M) 2.07 k/uL (1.0-4.8); Metamyelocytes # (M) 0.41 k/uL (0); Metamyelocytes % 2 %; Monocytes # (M) 1.24 k/uL (0-1.0); Neutrophils % (M) 37 %; Nucleated Red Blood Cells 0 /100 WBC (0-0); Total Cells Counted 200
[2022-12-09 05:26] LABS: Toxic Granulation Present; Toxic Vacuolation Present
[2022-12-09 05:35] LABS: ALT 26 U/L (4-49); AST 33 U/L (17-59); African American GFR (CKD) 86 (>60 ml/min/1.73 sqM); Albumin 2.7 g/dL (3.5-5.0); Alkaline Phosphatase 81 U/L (38-126); Anion Gap 8 mmol/L; Blood Urea Nitrogen 25 mg/dL (9-20); Carbon Dioxide 21 mmol/L (22-30); Chloride 101 mmol/L (98-107); Glucose 288 mg/dL (74-99); Magnesium 2.2 mg/dL (1.6-2.3); Non-African American GFR(CKD) 75 (>60 ml/min/1.73 sqM); Potassium 4.5 mmol/L (3.5-5.1); Sodium 130 mmol/L (137-145); Total Bilirubin 0.7 mg/dL (0.2-1.3); Total Protein 4.8 g/dL (6.3-8.2)
[2022-12-09 05:40] LABS: Glucose,Whole Blood 279 mg/dL (70-110)
[2022-12-09 06:21] LABS: Glucose,Whole Blood 262 mg/dL (70-110)
--- NOTE | 2022-12-09 07:19 | CA ---
Transthoracic Echo Report Name: Jacoby Borges Age: 77 Gender: M : 1945 Exam Date: 12/08/2022 16:17 Exam Location: [facility] Ht (in): 69 Wt (lb): 197 Ordering Physician: Chun Gudino MD Attending/Referring Phys: [employer] Project Manager Artemio Leigh Procedure CPT: Indications: Congestive heart failure Cardiac Hx: Technical Quality: Technically difficult study Contrast 1: Total Dose (mL): Contrast 2: Total Dose (mL): MEASUREMENTS (Male / Female) Normal Values 2D ECHO LV Diastolic Diameter PLAX 3.8 cm 4.2 - 5.9 / 3.9 - 5.3 cm IVS Diastolic Thickness 1.7 cm 0.6 - 1.0 / 0.6 - 0.9 cm LVPW Diastolic Thickness 1.0 cm 0.6 - 1.0 / 0.6 - 0.9 cm LV Relative Wall Thickness 0.7 RV Internal Dim ED PLAX 3.1 cm LVOT Diameter 2.0 cm Aortic Root Diameter 3.0 cm LA Systolic Diameter LX 2.9 cm 3.0 - 4.0 / 2.7 - 3.8 cm LV Diastolic Volume MOD BP 49.3 cm??? 67 - 155 / 56 - 104 cm??? LV Systolic Volume MOD BP 22.2 cm??? - 58 / 19 - 49 cm??? LV Ejection Fraction MOD BP 54.9 % >= 55 % LV Cardiac Index MOD BP 1543.8 cm???/min???m??? LV Diastolic Volume MOD 4C 65.3 cm??? LV Systolic Volume MOD 4C 24.2 cm??? LV Ejection Fraction MOD 4C 62.9 % LV Cardiac Index MOD 4C 2339.3 cm???/min???m??? LV Diastolic Length 4C 6.9 cm LV Systolic Length 4C 6.3 cm LV Diastolic Volume MOD 2C 31.0 cm??? LV Systolic Volume MOD 2C 17.9 cm??? LV Ejection Fraction MOD 2C 42.3 % LV Cardiac Index MOD 2C 748.3 cm???/min???m??? LV Diastolic Length 2C 5.8 cm LV Systolic Length 2C 5.4 cm LA Volume 62.1 cm??? 18 - 58 / 22 - 52 cm??? DOPPLER AV Peak Velocity 194.0 cm/s AV Peak Gradient 15.1 mmHg LVOT Peak Velocity 71.3 cm/s LVOT Peak Gradient 2.0 mmHg AV Area Cont Eq pk 1.1 cm??? MV Peak Velocity 138.3 cm/s MV Peak Gradient 7.7 mmHg MV Mean Velocity 66.5 cm/s MV Mean Gradient 2.4 mmHg MV Velocity Time Integral 21.0 cm MR Peak Velocity 288.4 cm/s MR Peak Gradient 33.3 mmHg TR Peak Velocity 240.5 cm/s TR Peak Gradient 23.1 mmHg Right Ventricular Systolic Press 28.1 mmHg FINDINGS Left Ventricle Moderately increased septal wall thickness. Left ventricular cavity size normal. Left ventricular ejection fraction is estimated at 50-55 %. Borderline right ventricle systolic pressure Right Ventricle RVSP= 28 millimeters mercury. Dilated right ventricle. Suggestion of VSD with [id number] shunting Right Atrium Normal right atrial size. Left Atrium LA Volume index= 30ml/m2 Mitral Valve Moderate mitral annulus calcification. Mild to Moderate MR. Aortic Valve Aortic valve not well visualized. AV appears moderate to severely calcified. Estimated AV Area= 1.1cm2 Tricuspid Valve Tricuspid valve not well visualized. Mild TR. Pulmonic Valve Pulmonic valve not well visualized. No pulmonic regurgitation. Pericardium Normal pericardium. Aorta Normal size aortic root . CONCLUSIONS Technically difficult, Limited views. Left ventricle systolic function borderline normal Dilated right ventricle with a suggestion of VSD with [id number] shunting Mild to moderate mitral and mild tricuspid regurgitation with no evidence of pulmonary hypertension Calcified aortic valve Previewed by: Dr. Britney Gray MD (Electronically Signed) Final Date: 09 December 2022 07:18
--- NOTE | 2022-12-09 08:07 | XR ---
EXAMINATION TYPE: XR chest 1V portable DATE OF EXAM: 12/09/2022 6:24 AM COMPARISON: Chest radiographs from 12/08/2022 TECHNIQUE: XR chest 1V portable Portable AP radiograph of the chest. CLINICAL INDICATION:Male, 77 years old with history of Tube placement; FINDINGS: Lungs/Pleura: No pleural effusion or pneumothorax. Slightly improved bibasilar patchy airspace opacit ies. Pulmonary vascularity: Unremarkable. Heart/mediastinum: Cardiomediastinal silhouette is unremarkable. Atherosclerotic calcifications are seen in the aorta. Musculoskeletal: No acute osseous pathology. Degenerative changes of the thoracic spine. Bilateral sh oulder arthropathy. Other findings: None Lines/Tubes: Stable position of endotracheal, left IJ central venous catheter, and NG tube. IMPRESSION: 1. Slightly improved bibasilar patchy airspace opacities. 2. Stable support lines and tubes.
[2022-12-09] MEDS: CEFEPIME 2 GM in SODIUM CHLORIDE 0.9% 100 ML IVPB SCH ×2 (08:34→16:11)
[2022-12-09] MEDS: PANTOPRAZOLE 40 MG/10 ML VIAL IVP SCH ×2 (08:34→21:36)
[2022-12-09] MEDS ORDERED: PANTOPRAZOLE 40 MG/10 ML VIAL IVP SCH (09:00)
[2022-12-09] MEDS: INSULIN DETEMIR (LEVEMIR) 100 UNIT/ML SYR SQ SCH (10:07)
--- NOTE | 2022-12-09 10:25 | P.PN ---
Subjective Progress Note Date: 12/09/22 77-year-old male patient, came into the emergency department because of shortness of breath. The [place] and he has a primary care physician in [facility]. The patient was in the hospital with his who was having a mammogram. He acutely became short of breath and he felt that his lungs were filling up with fluid. He was brought into the emergency department. Noted around few days back, he was having some limited cough and the patient was given a course of steroid taper by his primary care physician. No fever. No chills. No chest pain. He is known to have chronic atrial fibrillation and the patient is also known to have diabetes mellitus and hyperlipidemia. No history of any coronary artery disease. No history of any stroke. No history of any DVTs or pulmonary embolism. No history of COPD or asthma. He is a nonsmoker. The patient came into the emergency and he was hypoxic, acutely short of breath, acutely tachycardic and hypertensive with a BP of 192/137 with a heart rate of 158 and the respiration all 35. The patient was placed on a BiPAP. He decompensated. Ultimately, he was intubated and placed on a mechanical ventilator. Chest x-ray showed bilateral lung consolidations mainly in the lower lobes. Post intubation, the patient started having bloody rest or secretions from his orotracheal tube. His cardiac rhythm is the nature fibrillation. At this point in time, the patient is intubated on a mechanical ventilator. I saw the patient in the emergency department and a lipase to the intensive care unit. Currently is on propofol which is currently is up to 50 mcg/kg/m. His well sedated on a mechanical ventilator. He was also given a dose of Nimbex 10 mg IV push as the sedation was being titrated. Note that the patient became also hypotensive while being on sedation. He was started on norepinephrine which is currently running at 0.27 Babar respiratory kilogram per minute. His heart rate is less tachycardic although distal in nature fibrillation. Cardizem drip was discontinued because of underlying hypotension. He was given a dose of Lasix in the emergency department and he has produced a total of 350 mL of urine output. He does have some lower extremity edema. His blood work is showing 15.5, hemoglobin is 14.4, platelet count of 244, sodium is at 140, BUN is at 24 with a creatinine of 0.9. ProBNP level is 4050. Troponin was 0.7. LFTs are normal. The vital screening including Covid 19 was negative. Thyroid function test was within normal limits. His INR was at 5.0 with a PTT of 49.2. The patient was given a total of 5 mg of vitamin K. Lines were established in the ICU including a triple-lumen catheter inserted in his left IJ and an arterial line for blood pressure monitoring. Given a dose of Rocephin. He is currently on a mechanical ventilator on assist control mode with a rate of 26, tidal volume of 450, FiO2 of 100% and a PEEP of 5. On today's evaluation of a 12/09 2022, the patient remains intubated on a mechanical ventilator. The patient is calm and comfortable on mechanical ventilator. Is currently on propofol running at 45 mcg/kg/m. His symptoms of the mechanical ventilator. This is on assist-control mode of mechanical ventilation with a rate of 26, tidal volume of 450, FiO2 of 40% and a PEEP currently is at 10. The blood gas shows marked improvement and the patient has a pH of 7.54 consistent with respiratory alkalosis with a pCO2 of 26 and pO2 of 247. This was done an FiO2 of 60% and based on the difficult was weaned down to 40%. At the same time, the chest x-ray shows marked improvement compared to yesterday. The orotracheal tube is in a good location. There is improvement in the bibasilar patchy airspace opacities and the lines are all in place. The patient's echoes up to 20.7 with a hemoglobin 12.8. His INR dropped down to 2.9 after being given a total of 5 mg of vitamin K. His lactic acid level is at 2.3. BUN is at 25 with a creatinine of 0.9 and the sodium is at 1:30. His pro calcitonin level is at 0.03. The troponin peaked at 1.7 and cardiology is on the case. His cardiac rhythm is atrial fibrillation and the patient remains on amiodarone which is running at 0.5 mg/m for rate control. Echocardiogram was also completed yesterday that showed a dynamic LV. His left ventricular ejection fraction was normal with an ejection fraction of 50-55%. There was mild to moderate mitral and tricuspid regurgitation. There was some dilation of the right ventricle and there was a suggestion of a VSD with a [id number] shunting. This is to be further evaluated by cardiology. Objective - Vital Signs Vital signs: Vital Signs Temp 97.8 F 12/09/22 08:00 Pulse 77 12/09/22 09:00 Resp 26 H 12/09/22 09:00 BP 122/64 12/09/22 04:15 Pulse Ox 98 12/09/22 09:00 FiO2 40 12/09/22 09:15 Intake & Output 12/08/22 12/09/22 12/09/22 18:59 06:59 18:59 Intake Total 417.486 9688.607 185.639 Output Total 460 1000 175 Balance 128.014 493.607 10.639 Weight 89.358 kg 92.4 kg Intake: IV 700 60 Magnesium Sulfate-D5w Pmx 400 1 gm In Dextrose/Water 1 100ml.bag @ 100 mls/hr IVPB Q1H [facility] Rx#: [id number] Potassium Chloride 10 meq 200 In Water For Injection 1 100ml.bag @ 100 mls/hr IVPB Q1H [facility] Rx#: [id number] Sodium Chloride 0.9% 1, 100 60 000 ml @ 20 mls/hr IV . Q24H [facility] Rx#:[id number] Intake, IV Titration 588.014 793.607 125.639 Amount Amiodarone 360 mg In 33.3 33.3 Dextrose 5% in Water 200 ml @ 1 MG/MIN 33.333 mls/ hr IV .Q6H ONE Rx#: [id number] Dextrose 5% in Water 100 100 ml @ 618 mls/hr IV .Q10M ONE with Amiodarone 150 mg Rx#:[id number] Diltiazem 125 mg In 28.25 Sodium Chloride 0.9% 100 ml @ 5 MG/HR 5 mls/hr IV .Q24H [facility] Rx#:[id number] Levofloxacin 750Mg-D5w 100 Pmx 750 mg In Dextrose/ Water 1 150ml.bag @ 100 mls/hr IVPB Q24H [facility] Rx#: [id number] Norepinephrine 4 mg In 155.247 523.321 44.770 Sodium Chloride 0.9% 250 ml @ 0.03 MCG/KG/MIN 10. 214 mls/hr IV .Q24H [facility] Rx#:[id number] Phytonadione 5 mg In 50 Sodium Chloride 0.9% 50 ml @ 100 mls/hr IVPB ONCE [facility] Rx#:[id number] Sodium Chloride 0.9% 1, 20 000 ml @ 20 mls/hr IV . Q24H [facility] Rx#:[id number] Vasopressin 20 unit In 24.098 Sodium Chloride 0.9% 50 ml @ 0.03 UNITS/MIN 4.59 mls/hr IV .Q11H7M [facility] Rx# :[id number] cefTRIAXone 2 gm In 50 Sodium Chloride 0.9% 50 ml @ 100 mls/hr IVPB Q24HR [facility] Rx#:[id number] propofoL 1,000 mg In 71.217 192.888 80.869 Empty Bag 1 bag @ 15 MCG/ KG/MIN 8.042 mls/hr IV . [id number] [facility] Rx#:[id number] Output: Urine 460 1000 175 Other: Voiding Method Indwelling Catheter Indwelling Catheter Indwelling Catheter ABP, PAP, CO, CI - Last Documented Arterial Blood Pressure 112/52 - Exam Intubated, sedated, currently 6 is a mechanical ventilator. Orogastric and orot renee tube are both in place. Head exam was generally normal. There was no scleral icterus or corneal arcus. Mucous membranes were moist. Neck was supple and without jugular venous distension, thyromegaly, or carotid bruits. Carotids were easily palpable bilaterally. There was no adenopathy. No significant JVD observed Lungs were clear to auscultation and percussion, and with normal diaphragmatic excursion. No wheezes or rales were noted. Diminished breath on lung bases b ilaterally along with scattered rhonchi. Heart sounds are regular S1 and S2 consistent with atrial fibrillation. No cervical murmurs appreciated. Abdominal exam revealed normal bowel sounds. The abdomen was soft, non-tender, and without masses, organomegaly, or appreciable enlargement of the abdominal aorta. Examination of the extremities revealed easily palpable radial, femoral and pedal pulses. There was no cyanosis, clubbing and there is trace edema lower oximetry is bilaterally Examination of the skin revealed no evidence of significant rashes, suspicious a ppearing nevi or other concerning lesions. Neurologically the patient is sedated and the patient is calm and comfortable this point in time. Neurologic exam is nonfocal. - Labs CBC & Chem 7: 12/09/22 04:45 12/09/22 04:45 Labs: Abnormal Lab Results - Last 24 Hours (Table) 12/08/22 12/08/22 12/08/22 Range/Units 13:18 13:18 13:18 WBC 13.5 H (3.8-10.6) k/uL Hgb (13.0-17.5) gm/dL Hct (39.0-53.0) % Neutrophils # 8.8 H (1.3-7.7) k/uL Neutrophils # (Manual) (1.3-7.7) k/uL Monocytes # (Manual) (0-1.0) k/uL Metamyelocytes # (Man) (0) k/uL PT 49.2 H (9.0-12.0) sec INR 5.0 H (<1.2) ABG pH (7.35-7.45) ABG pCO2 (35-45) mmHg ABG pO2 (83-108) mmHg ABG HCO3 (21-25) mmol/L ABG Total CO2 (19-24) mmol/L ABG O2 Saturation (94-97) % ABG Lactic Acid (0.5-1.6) mmol/L Sodium (137-145) mmol/L Carbon Dioxide (22-30) mmol/L BUN 24 H (9-20) mg/dL Glucose 178 H (74-99) mg/dL POC Glucose (mg/dL) (70-110) mg/dL Hemoglobin A1c (<=6.0) % Calcium (8.4-10.2) mg/dL Magnesium (1.6-2.3) mg/dL Troponin I (0.000-0.034) ng/mL Total Protein (6.3-8.2) g/dL Albumin (3.5-5.0) g/dL Urine Blood (Negative) Urine RBC (0-5) /hpf Hyaline Casts (0-2) /lpf Urine Mucus (None) /hpf 12/08/22 12/08/22 12/08/22 Range/Units 13:18 15:30 16:22 WBC (3.8-10.6) k/uL Hgb (13.0-17.5) gm/dL Hct (39.0-53.0) % Neutrophils # (1.3-7.7) k/uL Neutrophils # (Manual) (1.3-7.7) k/uL Monocytes # (Manual) (0-1.0) k/uL Metamyelocytes # (Man) (0) k/uL PT (9.0-12.0) sec INR (<1.2) ABG pH (7.35-7.45) ABG pCO2 (35-45) mmHg ABG pO2 (83-108) mmHg ABG HCO3 26 H (21-25) mmol/L ABG Total CO2 27 H (19-24) mmol/L ABG O2 Saturation (94-97) % ABG Lactic Acid (0.5-1.6) mmol/L Sodium (137-145) mmol/L Carbon Dioxide (22-30) mmol/L BUN (9-20) mg/dL Glucose (74-99) mg/dL POC Glucose (mg/dL) 181 H (70-110) mg/dL Hemoglobin A1c (<=6.0) % Calcium (8.4-10.2) mg/dL Magnesium (1.6-2.3) mg/dL Troponin I 0.753 H* (0.000-0.034) ng/mL Total Protein (6.3-8.2) g/dL Albumin (3.5-5.0) g/dL Urine Blood (Negative) Urine RBC (0-5) /hpf Hyaline Casts (0-2) /lpf Urine Mucus (None) /hpf 12/08/22 12/08/22 12/08/22 Range/Units 17:00 17:57 19:34 WBC 11.3 H (3.8-10.6) k/uL Hgb (13.0-17.5) gm/dL Hct (39.0-53.0) % Neutrophils # (1.3-7.7) k/uL Neutrophils # (Manual) 8.30 H (1.3-7.7) k/uL Monocytes # (Manual) (0-1.0) k/uL Metamyelocytes # (Man) 0.23 H (0) k/uL PT (9.0-12.0) sec INR (<1.2) ABG pH (7.35-7.45) ABG pCO2 (35-45) mmHg ABG pO2 (83-108) mmHg ABG HCO3 (21-25) mmol/L ABG Total CO2 (19-24) mmol/L ABG O2 Saturation (94-97) % ABG Lactic Acid (0.5-1.6) mmol/L Sodium (137-145) mmol/L Carbon Dioxide (22-30) mmol/L BUN (9-20) mg/dL Glucose (74-99) mg/dL POC Glucose (mg/dL) 240 H (70-110) mg/dL Hemoglobin A1c (<=6.0) % Calcium (8.4-10.2) mg/dL Magnesium (1.6-2.3) mg/dL Troponin I (0.000-0.034) ng/mL Total Protein (6.3-8.2) g/dL Albumin (3.5-5.0) g/dL Urine Blood Large H (Negative) Urine RBC 66 H (0-5) /hpf Hyaline Casts 6 H (0-2) /lpf Urine Mucus Rare H (None) /hpf 12/08/22 12/08/22 12/08/22 Range/Units 19:34 19:34 19:34 WBC (3.8-10.6) k/uL Hgb (13.0-17.5) gm/dL Hct (39.0-53.0) % Neutrophils # (1.3-7.7) k/uL Neutrophils # (Manual) (1.3-7.7) k/uL Monocytes # (Manual) (0-1.0) k/uL Metamyelocytes # (Man) (0) k/uL PT 40.7 H (9.0-12.0) sec INR 4.2 H (<1.2) ABG pH (7.35-7.45) ABG pCO2 (35-45) mmHg ABG pO2 (83-108) mmHg ABG HCO3 (21-25) mmol/L ABG Total CO2 (19-24) mmol/L ABG O2 Saturation (94-97) % ABG Lactic Acid 2.3 H* (0.5-1.6) mmol/L Sodium 134 L (137-145) mmol/L Carbon Dioxide (22-30) mmol/L BUN 27 H (9-20) mg/dL Glucose 227 H (74-99) mg/dL POC Glucose (mg/dL) (70-110) mg/dL Hemoglobin A1c (<=6.0) % Calcium 8.2 L (8.4-10.2) mg/dL Magnesium (1.6-2.3) mg/dL Troponin I (0.000-0.034) ng/mL Total Protein 5.3 L (6.3-8.2) g/dL Albumin 3.0 L (3.5-5.0) g/dL Urine Blood (Negative) Urine RBC (0-5) /hpf Hyaline Casts (0-2) /lpf Urine Mucus (None) /hpf 12/08/22 12/08/22 12/08/22 Range/Units 19:34 19:36 20:19 WBC (3.8-10.6) k/uL Hgb (13.0-17.5) gm/dL Hct (39.0-53.0) % Neutrophils # (1.3-7.7) k/uL Neutrophils # (Manual) (1.3-7.7) k/uL Monocytes # (Manual) (0-1.0) k/uL Metamyelocytes # (Man) (0) k/uL PT (9.0-12.0) sec INR (<1.2) ABG pH (7.35-7.45) ABG pCO2 (35-45) mmHg ABG pO2 (83-108) mmHg ABG HCO3 (21-25) mmol/L ABG Total CO2 (19-24) mmol/L ABG O2 Saturation (94-97) % ABG Lactic Acid (0.5-1.6) mmol/L Sodium (137-145) mmol/L Carbon Dioxide (22-30) mmol/L BUN (9-20) mg/dL Glucose (74-99) mg/dL POC Glucose (mg/dL) (70-110) mg/dL Hemoglobin A1c 9.9 H (<=6.0) % Calcium (8.4-10.2) mg/dL Magnesium 1.2 L (1.6-2.3) mg/dL Troponin I 1.700 H* (0.000-0.034) ng/mL Total Protein (6.3-8.2) g/dL Albumin (3.5-5.0) g/dL Urine Blood (Negative) Urine RBC (0-5) /hpf Hyaline Casts (0-2) /lpf Urine Mucus (None) /hpf 12/08/22 12/09/22 12/09/22 Range/Units 23:16 04:45 04:45 WBC 20.7 H (3.8-10.6) k/uL Hgb 12.8 L (13.0-17.5) gm/dL Hct 38.2 L (39.0-53.0) % Neutrophils # (1.3-7.7) k/uL Neutrophils # (Manual) 16.90 H (1.3-7.7) k/uL Monocytes # (Manual) 1.24 H (0-1.0) k/uL Metamyelocytes # (Man) 0.41 H (0) k/uL PT 28.5 H (9.0-12.0) sec INR 2.9 H (<1.2) ABG pH (7.35-7.45) ABG pCO2 (35-45) mmHg ABG pO2 (83-108) mmHg ABG HCO3 (21-25) mmol/L ABG Total CO2 (19-24) mmol/L ABG O2 Saturation (94-97) % ABG Lactic Acid (0.5-1.6) mmol/L Sodium (137-145) mmol/L Carbon Dioxide (22-30) mmol/L BUN (9-20) mg/dL Glucose (74-99) mg/dL POC Glucose (mg/dL) 187 H (70-110) mg/dL Hemoglobin A1c (<=6.0) % Calcium (8.4-10.2) mg/dL Magnesium (1.6-2.3) mg/dL Troponin I (0.000-0.034) ng/mL Total Protein (6.3-8.2) g/dL Albumin (3.5-5.0) g/dL Urine Blood (Negative) Urine RBC (0-5) /hpf Hyaline Casts (0-2) /lpf Urine Mucus (None) /hpf 12/09/22 12/09/22 12/09/22 Range/Units 04:45 05:15 05:38 WBC (3.8-10.6) k/uL Hgb (13.0-17.5) gm/dL Hct (39.0-53.0) % Neutrophils # (1.3-7.7) k/uL Neutrophils # (Manual) (1.3-7.7) k/uL Monocytes # (Manual) (0-1.0) k/uL Metamyelocytes # (Man) (0) k/uL PT (9.0-12.0) sec INR (<1.2) ABG pH 7.54 H (7.35-7.45) ABG pCO2 26 L (35-45) mmHg ABG pO2 247 H (83-108) mmHg ABG HCO3 (21-25) mmol/L ABG Total CO2 (19-24) mmol/L ABG O2 Saturation 99.8 H (94-97) % ABG Lactic Acid (0.5-1.6) mmol/L Sodium 130 L (137-145) mmol/L Carbon Dioxide 21 L (22-30) mmol/L BUN 25 H (9-20) mg/dL Glucose 288 H (74-99) mg/dL POC Glucose (mg/dL) 279 H (70-110) mg/dL Hemoglobin A1c (<=6.0) % Calcium 8.0 L (8.4-10.2) mg/dL Magnesium (1.6-2.3) mg/dL Troponin I (0.000-0.034) ng/mL Total Protein 4.8 L (6.3-8.2) g/dL Albumin 2.7 L (3.5-5.0) g/dL Urine Blood (Negative) Urine RBC (0-5) /hpf Hyaline Casts (0-2) /lpf Urine Mucus (None) /hpf 12/09/22 12/09/22 Range/Units 06:20 08:49 WBC (3.8-10.6) k/uL Hgb (13.0-17.5) gm/dL Hct (39.0-53.0) % Neutrophils # (1.3-7.7) k/uL Neutrophils # (Manual) (1.3-7.7) k/uL Monocytes # (Manual) (0-1.0) k/uL Metamyelocytes # (Man) (0) k/uL PT (9.0-12.0) sec INR (<1.2) ABG pH (7.35-7.45) ABG pCO2 (35-45) mmHg ABG pO2 (83-108) mmHg ABG HCO3 (21-25) mmol/L ABG Total CO2 (19-24) mmol/L ABG O2 Saturation (94-97) % ABG Lactic Acid 2.3 H* (0.5-1.6) mmol/L Sodium (137-145) mmol/L Carbon Dioxide (22-30) mmol/L BUN (9-20) mg/dL Glucose (74-99) mg/dL POC Glucose (mg/dL) 262 H (70-110) mg/dL Hemoglobin A1c (<=6.0) % Calcium (8.4-10.2) mg/dL Magnesium (1.6-2.3) mg/dL Troponin I (0.000-0.034) ng/mL Total Protein (6.3-8.2) g/dL Albumin (3.5-5.0) g/dL Urine Blood (Negative) Urine RBC (0-5) /hpf Hyaline Casts (0-2) /lpf Urine Mucus (None) /hpf Assessment and Plan Plan: Acute hypoxic respiratory failure on that investigation. The patient has perihilar and lower lobe pulmonary consolidation and the patient an acute presentation of shortness of breath and hypoxic respiratory failure, failed BiPAP and the patient to be intubated and placed on a mechanical ventilator. Consider acute hypertensive heart disease and flash pulmonary edema as the patient's blood pressure was quite elevated at time of admission to the emergen cy department. Disability other acute valvular destruction or systolic heart failure. Pneumonia is possible although less likely based on the acute presentation. The patient was having frothy secretions, bloody probably related to acute pulmonary edema. ProBNP level was elevated. The patient's chest x-ray from today shows improvement in the bilateral pulmonary infiltrates and consolidation. Also, the pro calcitonin level is at 0.03 and a patient's sustained an acute non-ST segment elevation myocardial infarction with a troponin level of 1.7 max. Echocardiogram shows a normal LV, questionable VSD based on the echo findings and mild RV dilatation. Acute non-ST segment elevation myocardial infarctions troponin of 1.7. Consider VSD Acute shortness of breath secondary to above Acute hemoptysis secondary to above and the patient's PT/INR was subtherapeutic and INRs currently down to 2.9 after being given vitamin K Acute dyspnea secondary to above Acute hypotension under investigation. Consider cardiogenic shock. Consider possibility of a septic shock. Currently on pressors and the patient is on norepinephrine which is being titrated. The norepinephrine dose has been weaned down to 0.04 mcg/kg/m and the patient is also on a physiologic dose of vasopressin. Noted the patient is also covered with a combination of cefepime and Levaquin regarding the possibility of an underlying pneumonia and this is essentially a broad-spectrum empiric antibiotic coverage. Atrial fibrillation, chronic with rapid ventricular response at the time of admission, rate is under better control and the patient is currently on amiodarone drip Supratherapeutic PT/INR, most his INR is down to 2.9 Hemoptysis secondary to above Diabetes mellitus type 2 Hyperlipidemia Mild leukocytosis History of diabetic foot infection, recovered Plan Keep the patient on sedation with propofol and titrate the propofol to maintain adequate sedation and synchrony with a mechanical ventilator Dropped the PEEP down to 5 acute FiO2 of 40% Dropped respiratory rate down to 16 We'll discuss the echo findings with cardiology and assess the need for the SANJEEV versus a cardiac catheterization Increase the PEEP up to 10 and dropped FiO2 gradually. Blood gas was noted. Lines were established Norepinephrine for blood pressure support, and wean off pressors including the vasopressin and norepinephrine Check CVP level was 6 Give the patient single dose of Lasix 40 mg IV push Antibiotic coverage with IV cefepime and Levaquin for now Sputum Gram stain and culture pending Pro calcitonin level was not elevated Chest x-ray findings are improved Blood culture NovoLog insulin size coverage IV Protonix Condition is critical. We'll obtain a cardiology consultation. We'll continue to follow make further recommendations based on his progression. Critical care evaluation that was done in more than 30 minutes Time with Patient: Greater than 30
[2022-12-09] MEDS ORDERED: FUROSEMIDE 10 MG/ML 4 ML VIAL IV STA (10:47)
[2022-12-09 11:48] LABS: ABG Base Excess 1.3 mmol/L; ABG HCO3 25 mmol/L (21-25); ABG Oxygen Saturation 98.5 % (94-97); ABG PCO2 36 mmHg (35-45); ABG PH 7.45 (7.35-7.45); ABG PO2 120 mmHg (83-108); ABG TCO2 26 mmol/L (19-24); Allen Test Performed? Yes
[2022-12-09 11:50] LABS: Glucose,Whole Blood 280 mg/dL (70-110)
[2022-12-09] MEDS: AMIODARONE 450 MG in DEXTROSE 5% IN WATER 250 ML IV SCH ×4 (13:24→17:09)
[2022-12-09] MEDS: AZITHROMYCIN 500 MG TAB PO SCH (13:37)
[2022-12-09] MEDS: NOREPINEPHRINE 4 MG in SODIUM CHLORIDE 0.9% 250 ML IV SCH (16:10)
--- NOTE | 2022-12-09 16:32 | P.PN ---
Subjective Progress Note Date: 12/09/22 77-year-old male came in with complaints of shortness of breath patient is presently being intubated much of the history is unknown. Patient started having mild cold for the last 2 days which progressively gotten worse patient is found to in atrial fibrillation with rapid and regular rate. Patient does have known history of A. fib does take Coumadin at home patient doesn't INR is 5. Chest x-ray showed bilateral infiltrates suspicious for pneumonia although seizures cannot be ruled out I'm unable to assess for JVD doesn't have any pedal edema. Patient does have elevated BNP of around 4000 baseline BNP is a known serum creatinine is within normal limits. No echo cardiac rhythm is available in the system. Patient does take metoprolol for atrial fibrillation. Patient is tachypneic tachycardic because of which patient is being intubated patient blood pressure is although not low. Pro-calcitonin will be ordered. 12/09/2022 Patient remains in intensive care unit currently intubated and on mechanical vent with FiO2 40%. Oxygen saturations are 98%. He is afebrile last 24 hours. Chest x-ray reveals slightly improved bibasilar patchy airspace opacities. Viral panel is negative for Covid, RSV, influenza. An echocardiogram has been completed revealed an EF of 50-55% with dilated right ventricle with a suggestion of VSD with [id number] shunting, to moderate mitral and mild tricuspid regurgitation with no evidence of pulmonary hypertension. There is a calcified aortic valve. This is a technically difficult study with limited views. Patient remains on IV amiodarone drip with atrophic fibrillation heart rate is now controlled, and Biaxin as well as IV cefepime and IV levofloxacin in place. Patient remains on a propofol drip for sedation and is on vasopressin and norepinephrine. Her blood cell count today is up to 20.7, sodium of 134, blood glucose in the 260s hemoglobin A1c found to be 9.9. A pro-calcitonin level was completed and negative at 0.053. Review of Systems Unable to completely review of systems patient is currently intubated and sedated PHYSICAL EXAMINATION: GENERAL: Patient is sedated HEENT: Pupils are round and equally reacting to light. EOMI. No scleral icterus. No conjunctival pallor. Normocephalic, atraumatic. No pharyngeal erythema. No thyromegaly. CARDIOVASCULAR: S1 and S2 present. No murmurs, rubs, or gallops. Tachycardic irregularly irregular rhythm PULMONARY: Bilateral rhonchi crackles Tachypneic ABDOMEN: Soft, nontender, nondistended, normoactive bowel sounds. No palpable organomegaly. MUSCULOSKELETAL: No joint swelling or deformity. EXTREMITIES: No cyanosis, clubbing, or pedal edema. NEUROLOGICAL: Unable to assess SKIN: No rashes. Assessment and plan -Acute hypoxic respiratory failure is likely due to diastolic heart failure acute although unable to completely rule out pneumonia. Sputum culture and Legionella antigen are pending at this time. Blood cultures have also been completed and are pending. Procalcitonin level was negative. -Shock likely cardiogenic in nature requiring Levophed and Vasopressin -Atrial fibrillation with rapid ventricular rate on amiodarone drip and warfarin is on hold at this time -Leukocytosis likely reactive in nature -History of paroxysmal atrial fibrillation anticoagulated with warfarin outpatient patient had a supratherapeutic INR on admission -Diabetes Mellitus type 2 -Hyperlipidemia -Type 2 diabetes mellitus with hyperglycemia on s/s insulin Q6h and levemir daily has been added for glycemic control -Recently treated outpatient with oral Cipro for a diabetic toe infection which is not evident on physical examination. 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 Empiric antibiotics are continued at this time. Patient is being followed by pulmonary and cardiology services. INR has improved today down to 2.9. We will add a low dose of Levemir for tighter glycemic control and consider adding a scheduled dose every 6 hours. Patient remains on amiodarone drip for the atrial fibrillation rate is now controlled. Echocardiogram has been completed and reviewed. The impression and plan of care has been dictated by Kailyn Heck Nurse Practitioner as directed. Dr. Shahab MD I have performed a history and physical examination and medical decision making of this patient, discussed the same with the dictator, and agree with the dictators assessment and plan as written, documented as a scribe. Based on total visit time, I have performed more than 50% of this visit. Objective - Vital Signs Vital signs: Vital Signs Temp 97.8 F 12/09/22 08:00 Pulse 77 08/03/23 09:00 Resp 26 H 12/09/22 09:00 BP 122/64 12/09/22 04:15 Pulse Ox 98 12/09/22 09:00 FiO2 40 12/09/22 09:15 Intake & Output 12/08/22 12/09/22 12/09/22 18:59 06:59 18:59 Intake Total 667.491 2875.607 185.639 Output Total 460 1000 175 Balance 128.014 493.607 10.639 Weight 89.358 kg 92.4 kg Intake: IV 700 60 Magnesium Sulfate-D5w Pmx 400 1 gm In Dextrose/Water 1 100ml.bag @ 100 mls/hr IVPB Q1H VIDAL Rx#: [id number] Potassium Chloride 10 meq 200 In Water For Injection 1 100ml.bag @ 100 mls/hr IVPB Q1H VIDAL Rx#: [id number] Sodium Chloride 0.9% 1, 100 60 000 ml @ 20 mls/hr IV . Q24H VIDAL Rx#:[id number] Intake, IV Titration 588.014 793.607 125.639 Amount Amiodarone 360 mg In 33.3 33.3 Dextrose 5% in Water 200 ml @ 1 MG/MIN 33.333 mls/ hr IV .Q6H ONE Rx#: [id number] Dextrose 5% in Water 100 100 ml @ 618 mls/hr IV .Q10M ONE with Amiodarone 150 mg Rx#:[id number] Diltiazem 125 mg In 28.25 Sodium Chloride 0.9% 100 ml @ 5 MG/HR 5 mls/hr IV .Q24H VIDAL Rx#:[id number] Levofloxacin 750Mg-D5w 100 Pmx 750 mg In Dextrose/ Water 1 150ml.bag @ 100 mls/hr IVPB Q24H VIDAL Rx#: [id number] Norepinephrine 4 mg In 155.247 523.321 44.770 Sodium Chloride 0.9% 250 ml @ 0.03 MCG/KG/MIN 10. 214 mls/hr IV .Q24H ONE Rx#:[id number] Phytonadione 5 mg In 50 Sodium Chloride 0.9% 50 ml @ 100 mls/hr IVPB ONCE STA Rx#:[id number] Sodium Chloride 0.9% 1, 20 000 ml @ 20 mls/hr IV . Q24H VIDAL Rx#:[id number] Vasopressin 20 unit In 24.098 Sodium Chloride 0.9% 50 ml @ 0.03 UNITS/MIN 4.59 mls/hr IV .Q11H7M VIDAL Rx# :[id number] cefTRIAXone 2 gm In 50 Sodium Chloride 0.9% 50 ml @ 100 mls/hr IVPB Q24HR VIDAL Rx#:[id number] propofoL 1,000 mg In 71.217 192.888 80.869 Empty Bag 1 bag @ 15 MCG/ KG/MIN 8.042 mls/hr IV . [id number] VIDAL Rx#:[id number] Output: Urine 460 1000 175 Other: Voiding Method Indwelling Catheter Indwelling Catheter Indwelling Catheter ABP, PAP, CO, CI - Last Documented Arterial Blood Pressure 112/52 - Labs CBC & Chem 7: 12/09/22 04:45 12/09/22 04:45 Labs: Abnormal Lab Results - Last 24 Hours (Table) 12/08/22 12/08/22 12/08/22 Range/Units 13:18 13:18 13:18 WBC 13.5 H (3.8-10.6) k/uL Hgb (13.0-17.5) gm/dL Hct (39.0-53.0) % Neutrophils # 8.8 H (1.3-7.7) k/uL Neutrophils # (Manual) (1.3-7.7) k/uL Monocytes # (Manual) (0-1.0) k/uL Metamyelocytes # (Man) (0) k/uL PT 49.2 H (9.0-12.0) sec INR 5.0 H (<1.2) ABG pH (7.35-7.45) ABG pCO2 (35-45) mmHg ABG pO2 (83-108) mmHg ABG HCO3 (21-25) mmol/L ABG Total CO2 (19-24) mmol/L ABG O2 Saturation (94-97) % ABG Lactic Acid (0.5-1.6) mmol/L Sodium (137-145) mmol/L Carbon Dioxide (22-30) mmol/L BUN 24 H (9-20) mg/dL Glucose 178 H (74-99) mg/dL POC Glucose (mg/dL) (70-110) mg/dL Hemoglobin A1c (<=6.0) % Calcium (8.4-10.2) mg/dL Magnesium (1.6-2.3) mg/dL Troponin I (0.000-0.034) ng/mL Total Protein (6.3-8.2) g/dL Albumin (3.5-5.0) g/dL Urine Blood (Negative) Urine RBC (0-5) /hpf Hyaline Casts (0-2) /lpf Urine Mucus (None) /hpf 12/08/22 12/08/22 12/08/22 Range/Units 13:18 15:30 16:22 WBC (3.8-10.6) k/uL Hgb (13.0-17.5) gm/dL Hct (39.0-53.0) % Neutrophils # (1.3-7.7) k/uL Neutrophils # (Manual) (1.3-7.7) k/uL Monocytes # (Manual) (0-1.0) k/uL Metamyelocytes # (Man) (0) k/uL PT (9.0-12.0) sec INR (<1.2) ABG pH (7.35-7.45) ABG pCO2 (35-45) mmHg ABG pO2 (83-108) mmHg ABG HCO3 26 H (21-25) mmol/L ABG Total CO2 27 H (19-24) mmol/L ABG O2 Saturation (94-97) % ABG Lactic Acid (0.5-1.6) mmol/L Sodium (137-145) mmol/L Carbon Dioxide (22-30) mmol/L BUN (9-20) mg/dL Glucose (74-99) mg/dL POC Glucose (mg/dL) 181 H (70-110) mg/dL Hemoglobin A1c (<=6.0) % Calcium (8.4-10.2) mg/dL Magnesium (1.6-2.3) mg/dL Troponin I 0.753 H* (0.000-0.034) ng/mL Total Protein (6.3-8.2) g/dL Albumin (3.5-5.0) g/dL Urine Blood (Negative) Urine RBC (0-5) /hpf Hyaline Casts (0-2) /lpf Urine Mucus (None) /hpf 12/08/22 12/08/22 12/08/22 Range/Units 17:00 17:57 19:34 WBC 11.3 H (3.8-10.6) k/uL Hgb (13.0-17.5) gm/dL Hct (39.0-53.0) % Neutrophils # (1.3-7.7) k/uL Neutrophils # (Manual) 8.30 H (1.3-7.7) k/uL Monocytes # (Manual) (0-1.0) k/uL Metamyelocytes # (Man) 0.23 H (0) k/uL PT (9.0-12.0) sec INR (<1.2) ABG pH (7.35-7.45) ABG pCO2 (35-45) mmHg ABG pO2 (83-108) mmHg ABG HCO3 (21-25) mmol/L ABG Total CO2 (19-24) mmol/L ABG O2 Saturation (94-97) % ABG Lactic Acid (0.5-1.6) mmol/L Sodium (137-145) mmol/L Carbon Dioxide (22-30) mmol/L BUN (9-20) mg/dL Glucose (74-99) mg/dL POC Glucose (mg/dL) 240 H (70-110) mg/dL Hemoglobin A1c (<=6.0) % Calcium (8.4-10.2) mg/dL Magnesium (1.6-2.3) mg/dL Troponin I (0.000-0.034) ng/mL Total Protein (6.3-8.2) g/dL Albumin (3.5-5.0) g/dL Urine Blood Large H (Negative) Urine RBC 66 H (0-5) /hpf Hyaline Casts 6 H (0-2) /lpf Urine Mucus Rare H (None) /hpf 12/08/22 12/08/22 12/08/22 Range/Units 19:34 19:34 19:34 WBC (3.8-10.6) k/uL Hgb (13.0-17.5) gm/dL Hct (39.0-53.0) % Neutrophils # (1.3-7.7) k/uL Neutrophils # (Manual) (1.3-7.7) k/uL Monocytes # (Manual) (0-1.0) k/uL Metamyelocytes # (Man) (0) k/uL PT 40.7 H (9.0-12.0) sec INR 4.2 H (<1.2) ABG pH (7.35-7.45) ABG pCO2 (35-45) mmHg ABG pO2 (83-108) mmHg ABG HCO3 (21-25) mmol/L ABG Total CO2 (19-24) mmol/L ABG O2 Saturation (94-97) % ABG Lactic Acid 2.3 H* (0.5-1.6) mmol/L Sodium 134 L (137-145) mmol/L Carbon Dioxide (22-30) mmol/L BUN 27 H (9-20) mg/dL Glucose 227 H (74-99) mg/dL POC Glucose (mg/dL) (70-110) mg/dL Hemoglobin A1c (<=6.0) % Calcium 8.2 L (8.4-10.2) mg/dL Magnesium (1.6-2.3) mg/dL Troponin I (0.000-0.034) ng/mL Total Protein 5.3 L (6.3-8.2) g/dL Albumin 3.0 L (3.5-5.0) g/dL Urine Blood (Negative) Urine RBC (0-5) /hpf Hyaline Casts (0-2) /lpf Urine Mucus (None) /hpf 12/08/22 12/08/22 12/08/22 Range/Units 19:34 19:36 20:19 WBC (3.8-10.6) k/uL Hgb (13.0-17.5) gm/dL Hct (39.0-53.0) % Neutrophils # (1.3-7.7) k/uL Neutrophils # (Manual) (1.3-7.7) k/uL Monocytes # (Manual) (0-1.0) k/uL Metamyelocytes # (Man) (0) k/uL PT (9.0-12.0) sec INR (<1.2) ABG pH (7.35-7.45) ABG pCO2 (35-45) mmHg ABG pO2 (83-108) mmHg ABG HCO3 (21-25) mmol/L ABG Total CO2 (19-24) mmol/L ABG O2 Saturation (94-97) % ABG Lactic Acid (0.5-1.6) mmol/L Sodium (137-145) mmol/L Carbon Dioxide (22-30) mmol/L BUN (9-20) mg/dL Glucose (74-99) mg/dL POC Glucose (mg/dL) (70-110) mg/dL Hemoglobin A1c 9.9 H (<=6.0) % Calcium (8.4-10.2) mg/dL Magnesium 1.2 L (1.6-2.3) mg/dL Troponin I 1.700 H* (0.000-0.034) ng/mL Total Protein (6.3-8.2) g/dL Albumin (3.5-5.0) g/dL Urine Blood (Negative) Urine RBC (0-5) /hpf Hyaline Casts (0-2) /lpf Urine Mucus (None) /hpf 12/08/22 12/09/22 12/09/22 Range/Units 23:16 04:45 04:45 WBC 20.7 H (3.8-10.6) k/uL Hgb 12.8 L (13.0-17.5) gm/dL Hct 38.2 L (39.0-53.0) % Neutrophils # (1.3-7.7) k/uL Neutrophils # (Manual) 16.90 H (1.3-7.7) k/uL Monocytes # (Manual) 1.24 H (0-1.0) k/uL Metamyelocytes # (Man) 0.41 H (0) k/uL PT 28.5 H (9.0-12.0) sec INR 2.9 H (<1.2) ABG pH (7.35-7.45) ABG pCO2 (35-45) mmHg ABG pO2 (83-108) mmHg ABG HCO3 (21-25) mmol/L ABG Total CO2 (19-24) mmol/L ABG O2 Saturation (94-97) % ABG Lactic Acid (0.5-1.6) mmol/L Sodium (137-145) mmol/L Carbon Dioxide (22-30) mmol/L BUN (9-20) mg/dL Glucose (74-99) mg/dL POC Glucose (mg/dL) 187 H (70-110) mg/dL Hemoglobin A1c (<=6.0) % Calcium (8.4-10.2) mg/dL Magnesium (1.6-2.3) mg/dL Troponin I (0.000-0.034) ng/mL Total Protein (6.3-8.2) g/dL Albumin (3.5-5.0) g/dL Urine Blood (Negative) Urine RBC (0-5) /hpf Hyaline Casts (0-2) /lpf Urine Mucus (None) /hpf 12/09/22 12/09/22 12/09/22 Range/Units 04:45 05:15 05:38 WBC (3.8-10.6) k/uL Hgb (13.0-17.5) gm/dL Hct (39.0-53.0) % Neutrophils # (1.3-7.7) k/uL Neutrophils # (Manual) (1.3-7.7) k/uL Monocytes # (Manual) (0-1.0) k/uL Metamyelocytes # (Man) (0) k/uL PT (9.0-12.0) sec INR (<1.2) ABG pH 7.54 H (7.35-7.45) ABG pCO2 26 L (35-45) mmHg ABG pO2 247 H (83-108) mmHg ABG HCO3 (21-25) mmol/L ABG Total CO2 (19-24) mmol/L ABG O2 Saturation 99.8 H (94-97) % ABG Lactic Acid (0.5-1.6) mmol/L Sodium 130 L (137-145) mmol/L Carbon Dioxide 21 L (22-30) mmol/L BUN 25 H (9-20) mg/dL Glucose 288 H (74-99) mg/dL POC Glucose (mg/dL) 279 H (70-110) mg/dL Hemoglobin A1c (<=6.0) % Calcium 8.0 L (8.4-10.2) mg/dL Magnesium (1.6-2.3) mg/dL Troponin I (0.000-0.034) ng/mL Total Protein 4.8 L (6.3-8.2) g/dL Albumin 2.7 L (3.5-5.0) g/dL Urine Blood (Negative) Urine RBC (0-5) /hpf Hyaline Casts (0-2) /lpf Urine Mucus (None) /hpf 12/09/22 12/09/22 Range/Units 06:20 08:49 WBC (3.8-10.6) k/uL Hgb (13.0-17.5) gm/dL Hct (39.0-53.0) % Neutrophils # (1.3-7.7) k/uL Neutrophils # (Manual) (1.3-7.7) k/uL Monocytes # (Manual) (0-1.0) k/uL Metamyelocytes # (Man) (0) k/uL PT (9.0-12.0) sec INR (<1.2) ABG pH (7.35-7.45) ABG pCO2 (35-45) mmHg ABG pO2 (83-108) mmHg ABG HCO3 (21-25) mmol/L ABG Total CO2 (19-24) mmol/L ABG O2 Saturation (94-97) % ABG Lactic Acid 2.3 H* (0.5-1.6) mmol/L Sodium (137-145) mmol/L Carbon Dioxide (22-30) mmol/L BUN (9-20) mg/dL Glucose (74-99) mg/dL POC Glucose (mg/dL) 262 H (70-110) mg/dL Hemoglobin A1c (<=6.0) % Calcium (8.4-10.2) mg/dL Magnesium (1.6-2.3) mg/dL Troponin I (0.000-0.034) ng/mL Total Protein (6.3-8.2) g/dL Albumin (3.5-5.0) g/dL Urine Blood (Negative) Urine RBC (0-5) /hpf Hyaline Casts (0-2) /lpf Urine Mucus (None) /hpf Assessment and Plan Time with Patient: Less than 30
[2022-12-09 17:32] LABS: Glucose,Whole Blood 247 mg/dL (70-110)
[2022-12-09] MEDS ORDERED: POTASSIUM BICARBONATE/CIT AC 20 MEQ TABLET.EFF NG-TUBE SCH (19:00)
[2022-12-09] MEDS: SODIUM CHLORIDE 0.9% 1,000 ML IV SCH (21:18)
[2022-12-09 23:46] LABS: Glucose,Whole Blood 163 mg/dL (70-110)
[2022-12-10] MEDS: CEFEPIME 2 GM in SODIUM CHLORIDE 0.9% 100 ML IVPB SCH ×4 (00:28→23:29)
[2022-12-10] MEDS: INSULIN ASPART (NovoLOG) 100 UNIT/ML VIAL SQ SCH ×4 (00:33→18:19)
[2022-12-10] MEDS: AMIODARONE 450 MG in DEXTROSE 5% IN WATER 250 ML IV SCH ×2 (03:42)
[2022-12-10 05:37] LABS: ALT 23 U/L (4-49); AST 31 U/L (17-59); African American GFR (CKD) >90 (>60 ml/min/1.73 sqM); Albumin 2.7 g/dL (3.5-5.0); Alkaline Phosphatase 78 U/L (38-126); Anion Gap 5 mmol/L; Blood Urea Nitrogen 24 mg/dL (9-20); Calcium 7.7 mg/dL (8.4-10.2); Carbon Dioxide 27 mmol/L (22-30); Chloride 96 mmol/L (98-107); Glucose 157 mg/dL (74-99); Non-African American GFR(CKD) 83 (>60 ml/min/1.73 sqM); Potassium 3.5 mmol/L (3.5-5.1); Sodium 128 mmol/L (137-145); Total Protein 4.9 g/dL (6.3-8.2)
[2022-12-10] MEDS ORDERED: Potassium Replacement Protocol 1 EACH MISC MISCELLANE PRN (05:42)
[2022-12-10 05:45] LABS: Basophils % (A) 0 %; Eosinophils # (A) 0.4 k/uL (0-0.7); Eosinophils % (A) 3 %; HCT 33.8 % (39.0-53.0); HGB 11.8 gm/dL (13.0-17.5); Lymphocytes # (A) 0.9 k/uL (1.0-4.8); Lymphocytes % (A) 7 %; MCH 30.6 pg (25.0-35.0); MCHC 34.8 g/dL (31.0-37.0); MCV 87.8 fL (80.0-100.0); Mean Platelet Volume 8.6; Monocytes # (A) 0.6 k/uL (0-1.0); Monocytes % (A) 4 %; Neutrophils # (A) 12.3 k/uL (1.3-7.7); Neutrophils % (A) 86 %; Platelet Count 159 k/uL (150-450); RBC 3.85 m/uL (4.30-5.90); RDW 13.9 % (11.5-15.5); WBC 14.3 k/uL (3.8-10.6)
[2022-12-10 06:18] LABS: Glucose,Whole Blood 160 mg/dL (70-110)
[2022-12-10] MEDS: POTASSIUM CHLORIDE 20 MEQ in WATER FOR INJECTION 1 100ML.BAG IVPB SCH ×2 (06:24→08:55)
[2022-12-10 06:27] LABS: ABG Base Excess 4.5 mmol/L; ABG HCO3 28 mmol/L (21-25); ABG Oxygen Saturation 98.1 % (94-97); ABG PCO2 37 mmHg (35-45); ABG PH 7.48 (7.35-7.45); ABG PO2 103 mmHg (83-108); ABG TCO2 29 mmol/L (19-24)
[2022-12-10] MEDS: VASOPRESSIN 20 UNIT in SODIUM CHLORIDE 0.9% 50 ML IV SCH ×2 (06:48→17:16)
[2022-12-10] MEDS: INSULIN DETEMIR (LEVEMIR) 100 UNIT/ML SYR SQ SCH (07:01)
--- NOTE | 2022-12-10 08:25 | XR ---
EXAMINATION TYPE: XR chest 1V portable DATE OF EXAM: 12/10/2022 Comparison: 12/09/2022 Clinical History: 77-year-old male Tube placement Findings: Heart normal size. Atherosclerotic arch calcifications. Hazy densities in the right mid and lower pamela g and retrocardiac region have increased. NG tube is in place. ET tube satisfactory. Left IJ CVC tip at the mid SVC level. Impression: Increasing hazy density right mid and lower lung as well as in the left retrocardiac region.
[2022-12-10] MEDS ORDERED: DILTIAZEM DRIP BOLUS FROM BAG 1 MG SOLN IV ONE (08:45)
[2022-12-10] MEDS ORDERED: DIGOXIN 250 MCG/ML 2 ML AMP IVP ONE (09:00)
[2022-12-10] MEDS: DILTIAZEM 125 MG in SODIUM CHLORIDE 0.9% 100 ML IV SCH ×3 (09:04→20:02)
[2022-12-10] MEDS: AZITHROMYCIN 500 MG TAB PO SCH (09:05)
[2022-12-10] MEDS: AMIODARONE 200 MG TAB PO SCH ×2 (09:05→20:04)
[2022-12-10] MEDS ORDERED: FUROSEMIDE 10 MG/ML 4 ML VIAL IV STA (09:38)
--- NOTE | 2022-12-10 09:42 | P.PN ---
Subjective Progress Note Date: 12/10/22 77-year-old male patient, came into the emergency department because of shortness of breath. The patient lives up [place] and he has a primary care physician in [place]. The patient was in the hospital with his who was having a mammogram. He acutely became short of breath and he felt that his lungs were filling up with fluid. He was brought into the emergency department. Noted around few days back, he was having some limited cough and the patient was given a course of steroid taper by his primary care physician. No fever. No chills. No chest pain. He is known to have chronic atrial fibrillation and the patient is also known to have diabetes mellitus and hyperlipidemia. No history of any coronary artery disease. No history of any stroke. No history of any DVTs or pulmonary embolism. No history of COPD or asthma. He is a nonsmoker. The patient came into the emergency and he was hypoxic, acutely short of breath, acutely tachycardic and hypertensive with a BP of 192/137 with a heart rate of 158 and the respiration all 35. The patient was placed on a BiPAP. He decompensated. Ultimately, he was intubated and placed on a mechanical ventilator. Chest x-ray showed bilateral lung consolidations mainly in the lower lobes. Post intubation, the patient started having bloody rest or secretions from his orotracheal tube. His cardiac rhythm is the nature fibrillation. At this point in time, the patient is intubated on a mechanical ventilator. I saw the patient in the emergency department and a lipase to the intensive care unit. Currently is on propofol which is currently is up to 50 mcg/kg/m. His well sedated on a mechanical ventilator. He was also given a dose of Nimbex 10 mg IV push as the sedation was being titrated. Note that the patient became also hypotensive while being on sedation. He was started on norepinephrine which is currently running at 0.27 Babar respiratory kilogram per minute. His heart rate is less tachycardic although distal in nature fibrillation. Cardizem drip was discontinued because of underlying hypotension. He was given a dose of Lasix in the emergency department and he has produced a total of 350 mL of urine output. He does have some lower extremity edema. His blood work is showing 15.5, hemoglobin is 14.4, platelet count of 244, sodium is at 140, BUN is at 24 with a creatinine of 0.9. ProBNP level is 4050. Troponin was 0.7. LFTs are normal. The vital screening including Covid 19 was negative. Thyroid function test was within normal limits. His INR was at 5.0 with a PTT of 49.2. The patient was given a total of 5 mg of vitamin K. Lines were established in the ICU including a triple-lumen catheter inserted in his left IJ and an arterial line for blood pressure monitoring. Given a dose of Rocephin. He is currently on a mechanical ventilator on assist control mode with a rate of 26, tidal volume of 450, FiO2 of 100% and a PEEP of 5. On today's evaluation of a 12/09 2022, the patient remains intubated on a mechanical ventilator. The patient is calm and comfortable on mechanical ventilator. Is currently on propofol running at 45 mcg/kg/m. His symptoms of the mechanical ventilator. This is on assist-control mode of mechanical ventilation with a rate of 26, tidal volume of 450, FiO2 of 40% and a PEEP currently is at 10. The blood gas shows marked improvement and the patient has a pH of 7.54 consistent with respiratory alkalosis with a pCO2 of 26 and pO2 of 247. This was done an FiO2 of 60% and based on the difficult was weaned down to 40%. At the same time, the chest x-ray shows marked improvement compared to yesterday. The orotracheal tube is in a good location. There is improvement in the bibasilar patchy airspace opacities and the lines are all in place. The patient's echoes up to 20.7 with a hemoglobin 12.8. His INR dropped down to 2.9 after being given a total of 5 mg of vitamin K. His lactic acid level is at 2.3. BUN is at 25 with a creatinine of 0.9 and the sodium is at 1:30. His pro calcitonin level is at 0.03. The troponin peaked at 1.7 and cardiology is on the case. His cardiac rhythm is atrial fibrillation and the patient remains on amiodarone which is running at 0.5 mg/m for rate control. Echocardiogram was also completed yesterday that showed a dynamic LV. His left ventricular ejection fraction was normal with an ejection fraction of 50-55%. There was mild to moderate mitral and tricuspid regurgitation. There was some dilation of the right ventricle and there was a suggestion of a VSD with a [id number] shunting. This is to be further evaluated by cardiology. On 12/10/2022, the patient is being seen for a follow-up. The patient is still on a mechanical ventilator. Propofol is being weaned this morning. Overnight, the patient was kept on propofol for sedation. At the same time, the patient is currently on a mechanical ventilator on assist control mode with a rate of 16, tidal volume of 450, FiO2 down to 40% with a PEEP of 5. Pulse ox is in order of 97%.Chest x-ray showing increased haziness in the right middle and right lower lobe as well as the left atrial cardiac area. This was not seen on yesterday's chest x-ray. Blood gas from today shows a pH of 7.48 with a pCO2 of 37 and pO2 of 103 and this was done above-mentioned ventilator setting. The patient remained nature fibrillation. He is currently on a Cardizem drip at 10 mg an hour and amiodarone by mouth 400 mg twice a day. He was also given digoxin by cardiology 250 g on a daily basis and this was given to him for rate control. His INR today is pending. Yesterday's INR was at 2.9 and the warfarin was discontinued. The patient was in negative fluid balance of 1.3 L over the past 24 hours. A repeat echocardiogram was done today and I was informed by cardiology and there is no concern for underlying VSD. The BMs thousand 14.3 with a hemoglobin 11.8. He has 24 with a creatinine of 0.8 and a sodium level is at 128. LFTs are within normal limits. Objective - Vital Signs Vital signs: Vital Signs Temp 98.5 F 12/10/22 08:00 Pulse 149 H 12/10/22 08:30 Resp 16 12/10/22 08:30 BP 95/69 12/09/22 22:30 Pulse Ox 95 12/10/22 08:30 FiO2 40 12/10/22 08:00 Intake & Output 12/09/22 12/10/22 12/10/22 18:59 06:59 18:59 Intake Total 1337.721 882.962 65.556 Output Total 3055 530 370 Balance -1717.279 352.962 -304.444 Weight 92.4 kg 90.6 kg Intake: IV 240 440 40 Cefepime 2 gm In Sodium 100 Chloride 0.9% 100 ml @ 25 mls/hr IVPB Q12HR [facility] Rx #:[id number] Potassium Chloride 20 meq 100 In Water For Injection 1 100ml.bag @ 50 mls/hr IVPB Q2H [facility] Rx#: [id number] Sodium Chloride 0.9% 1, 240 240 40 000 ml @ 20 mls/hr IV . Q24H [facility] Rx#:[id number] Intake, IV Titration 977.721 442.962 25.556 Amount Amiodarone 450 mg In 244.449 Dextrose 5% in Water 250 ml @ 0.5 MG/MIN 16.667 mls/hr IV .Q15H [facility] Rx#: [id number] Amiodarone 450 mg In 149.4 16.6 Dextrose 5% in Water 250 ml @ 0.5 MG/MIN 16.667 mls/hr IV .Q15H [facility] Rx#: [id number] Cefepime 2 gm In Sodium 100 Chloride 0.9% 100 ml @ 25 mls/hr IVPB Q8HR [facility] Rx# :[id number] Norepinephrine 4 mg In 133.062 Sodium Chloride 0.9% 250 ml @ 0.03 MCG/KG/MIN 10. 214 mls/hr IV .Q24H [facility] Rx#:[id number] Norepinephrine 4 mg In 28.338 35.027 Sodium Chloride 0.9% 250 ml @ 0.03 MCG/KG/MIN 10. 561 mls/hr IV .Q24H [facility] Rx#:[id number] Vasopressin 20 unit In 51 51 Sodium Chloride 0.9% 50 ml @ 0.03 UNITS/MIN 4.59 mls/hr IV .Q11H7M [facility] Rx# :[id number] propofoL 1,000 mg In 271.472 340.335 25.556 Empty Bag 1 bag @ 15 MCG/ KG/MIN 8.042 mls/hr IV . [id number] [facility] Rx#:[id number] Other 120 Output: Gastric Drainage 100 Urine 2855 530 270 Oral Regurgitation 200 Other: Voiding Method Indwelling Catheter Indwelling Catheter ABP, PAP, CO, CI - Last Documented Arterial Blood Pressure 109/61 - Exam Intubated, sedated, currently 6 is a mechanical ventilator. Orogastric and orotracheal tube are both in place. Head exam was generally normal. There was no scleral icterus or corneal arcus. Mucous membranes were moist. Neck was supple and without jugular venous distension, thyromegaly, or carotid bruits. Carotids were easily palpable bilaterally. There was no adenopathy. No significant JVD observed Lungs were clear to auscultation and percussion, and with normal diaphragmatic excursion. No wheezes or rales were noted. Diminished breath on lung bases bilaterally along with scattered rhonchi. Heart sounds are regular S1 and S2 consistent with atrial fibrillation. No cervical murmurs appreciated. Abdominal exam revealed normal bowel sounds. The abdomen was soft, non-tender, and without masses, organomegaly, or appreciable enlargement of the abdominal aorta. Examination of the extremities revealed easily palpable radial, femoral and pedal pulses. There was no cyanosis, clubbing and there is trace edema lower oximetry is bilaterally Examination of the skin revealed no evidence of significant rashes, suspicious appearing nevi or other concerning lesions. Neurologically the patient is sedated and the patient is calm and comfortable this point in time. Neurologic exam is nonfocal. - Labs CBC & Chem 7: 12/10/22 05:15 12/10/22 05:15 Labs: Abnormal Lab Results - Last 24 Hours (Table) 12/09/22 12/09/22 12/09/22 Range/Units 11:44 11:46 17:30 WBC (3.8-10.6) k/uL RBC (4.30-5.90) m/uL Hgb (13.0-17.5) gm/dL Hct (39.0-53.0) % Neutrophils # (1.3-7.7) k/uL Lymphocytes # (1.0-4.8) k/uL ABG pH (7.35-7.45) ABG pO2 120 H (83-108) mmHg ABG HCO3 (21-25) mmol/L ABG Total CO2 26 H (19-24) mmol/L ABG O2 Saturation 98.5 H (94-97) % Sodium (137-145) mmol/L Chloride (98-107) mmol/L BUN (9-20) mg/dL Glucose (74-99) mg/dL POC Glucose (mg/dL) 280 H 247 H (70-110) mg/dL Calcium (8.4-10.2) mg/dL Total Protein (6.3-8.2) g/dL Albumin (3.5-5.0) g/dL 12/09/22 12/10/22 12/10/22 Range/Units 23:45 05:15 05:15 WBC 14.3 H (3.8-10.6) k/uL RBC 3.85 L (4.30-5.90) m/uL Hgb 11.8 L (13.0-17.5) gm/dL Hct 33.8 L (39.0-53.0) % Neutrophils # 12.3 H (1.3-7.7) k/uL Lymphocytes # 0.9 L (1.0-4.8) k/uL ABG pH (7.35-7.45) ABG pO2 (83-108) mmHg ABG HCO3 (21-25) mmol/L ABG Total CO2 (19-24) mmol/L ABG O2 Saturation (94-97) % Sodium 128 L (137-145) mmol/L Chloride 96 L (98-107) mmol/L BUN 24 H (9-20) mg/dL Glucose 157 H (74-99) mg/dL POC Glucose (mg/dL) 163 H (70-110) mg/dL Calcium 7.7 L (8.4-10.2) mg/dL Total Protein 4.9 L (6.3-8.2) g/dL Albumin 2.7 L (3.5-5.0) g/dL 12/10/22 12/10/22 Range/Units 06:16 06:23 WBC (3.8-10.6) k/uL RBC (4.30-5.90) m/uL Hgb (13.0-17.5) gm/dL Hct (39.0-53.0) % Neutrophils # (1.3-7.7) k/uL Lymphocytes # (1.0-4.8) k/uL ABG pH 7.48 H (7.35-7.45) ABG pO2 (83-108) mmHg ABG HCO3 28 H (21-25) mmol/L ABG Total CO2 29 H (19-24) mmol/L ABG O2 Saturation 98.1 H (94-97) % Sodium (137-145) mmol/L Chloride (98-107) mmol/L BUN (9-20) mg/dL Glucose (74-99) mg/dL POC Glucose (mg/dL) 160 H (70-110) mg/dL Calcium (8.4-10.2) mg/dL Total Protein (6.3-8.2) g/dL Albumin (3.5-5.0) g/dL Microbiology - Last 24 Hours (Table) 12/08/22 17:00 Gram Stain - Final Sputum Sputum Culture - Final 12/08/22 17:00 Blood Culture - Preliminary Blood Assessment and Plan Plan: Acute hypoxic respiratory failure on that investigation. The patient has perihilar and lower lobe pulmonary consolidation and the patient an acute presentation of shortness of breath and hypoxic respiratory failure, failed BiPAP and the patient to be intubated and placed on a mechanical ventilator. Consider acute hypertensive heart disease and flash pulmonary edema as the patient's blood pressure was quite elevated at time of admission to the emergency department. Disability other acute valvular destruction or systolic heart failure. Pneumonia is possible although less likely based on the acute presentation. The patient was having frothy secretions, bloody probably related to acute pulmonary edema. ProBNP level was elevated. The patient's chest x-ray from today shows improvement in the bilateral pulmonary infiltrates and consolidation. Also, the pro calcitonin level is at 0.03 and a patient's sustained an acute non-ST segment elevation myocardial infarction with a troponin level of 1.7 max. Echocardiogram shows a normal LV, questionable VSD based on the echo findings and mild RV dilatation. Noted the patient's subsequent chest x-ray showed significant clearing and a chest x-ray showing some haziness in lung bases more so on the right. Oxygenation is improved. The patient is hemodynamically stable still in atrial fibrillation. Remains on mechanical ventilation. Chest x-ray and blood gases were noted from today. He'll Acute non-ST segment elevation myocardial infarctions troponin of 1.7. Repeat echocardiogram today showed no concerns of VSD Acute shortness of breath secondary to above Acute hemoptysis secondary to above and the patient's PT/INR was subtherapeutic and INRs currently down to 2.9 after being given vitamin K, awaiting PT/INR from today Acute dyspnea secondary to above Acute hypotension under investigation. Consider cardiogenic shock. Consider possibility of a septic shock. The patient is currently off pressors Atrial fibrillation, chronic with rapid ventricular response at the time of admission, rate is under better control and the patient is currently on amiodarone by mouth, digoxin and Cardizem drip at 10 mg an hour Supratherapeutic PT/INR, most his INR is down to 2.9 from yesterday Hemoptysis secondary to above Diabetes mellitus type 2 Hyperlipidemia Mild leukocytosis History of diabetic foot infection, recovered Plan Continue vent support, dropped a tidal volume to 400 Give the patient goes of Lasix 40 mg IV push Pressors have been discontinued Continue IV cefepime and Levaquin for now, pending cultures Sputum Gram stain and culture pending Pro calcitonin level was not elevated Chest x-ray findings showing haziness in lung bases worse on the right NovoLog insulin size coverage IV Protonix Condition is critical. We'll obtain a cardiology consultation. We'll continue to follow make further recommendations based on his progression. I'm inclined in giving this patient has sedation holiday and checking his weaning parameters and assessing his readiness to wean. Overall condition is more stable. Critical care evaluation that was done in more than 30 minutes Time with Patient: Greater than 30
[2022-12-10] MEDS: PANTOPRAZOLE 40 MG/10 ML VIAL IVP SCH ×2 (09:48→20:04)
[2022-12-10] MEDS ORDERED: MAGNESIUM SULFATE-D5W PMX 1 GM in DEXTROSE/WATER 1 100ML.BAG IVPB ONE (10:00)
[2022-12-10 10:05] LABS: INR 1.5 (<1.2); Partial Thromboplastin Time 28.1 sec (22.0-30.0); Prothrombin Time 14.8 sec (9.0-12.0)
--- NOTE | 2022-12-10 10:44 | PN ---
PROGRESS NOTE SUBJECTIVE: This is a 77-year-old gentleman with history of obesity, permanent atrial fibrillation, dyslipidemia, and insulin-requiring diabetes who presented to hospital with shortness of breath and sudden onset respiratory failure and had to be intubated and then placed on vent. He was in atrial fibrillation with rapid ventricular rate and has been treated with intravenous amiodarone. Heart rate was better controlled yesterday, but he is back in atrial fibrillation with RVR this morning. I am switching him to oral amiodarone at 400 b.i.d., start him on digoxin 0.25 mg daily and start him on intravenous Cardizem. He was hypotensive and required pressors and is currently off them. His echocardiogram showed preserved LV function with mild apical hypokinesis and limited bedside echo that I performed, there is no evidence of ventricular septal defect. His physical exam does not reveal any murmur either. Plan at this stage is to control the heart rate, wait until he is extubated and consider doing a cardiac catheterization on him. His INR today is 1.5 and I will start him on heparin per protocol. OBJECTIVE: VITAL SIGNS: On exam, heart rate is 110 beats per minute, blood pressure is 110/59, respiratory rate 18, O2 saturation is 97% with an FiO2 of 40%. NECK: There is no jugular venous distention. CHEST: Diminished air entry at the bases without any crackles or rhonchi. HEART: First and second heart sounds. Irregular rhythm. ABDOMEN: Soft. EXTREMITIES: Did not reveal any edema. Peripheral pulses are felt. LABORATORY DATA: Renal functions are normal. INR is 1.5. His chest x-ray showed resolution of the pulmonary congestion on his initial presentation. ASSESSMENT: 1. Acute onset respiratory failure, probably related to the pulmonary edema. 2. Permanent atrial fibrillation with rapid ventricular rate. 3. [id number] elevation CA with a troponin of 1.5. PLAN: I will start the patient on heparin, wait until he is extubated and decide on further course of action. MMODL / IJN: [id number] /
[2022-12-10] MEDS: DIGOXIN 250 MCG TAB PO SCH (11:53)
[2022-12-10 11:59] LABS: Glucose,Whole Blood 133 mg/dL (70-110)
[2022-12-10] MEDS: HEPARIN SOD,PORK IN 0.45% NACL 25,000 UNIT in 0.45% NACL 1 250ML.BAG IV SCH (12:53)
--- NOTE | 2022-12-10 15:16 | P.PN ---
Subjective Progress Note Date: 12/10/22 77-year-old male came in with complaints of shortness of breath patient is presently being intubated much of the history is unknown. Patient started having mild cold for the last 2 days which progressively gotten worse patient is found to in atrial fibrillation with rapid and regular rate. Patient does have known history of A. fib does take Coumadin at home patient doesn't INR is 5. Chest x-ray showed bilateral infiltrates suspicious for pneumonia although seizures cannot be ruled out I'm unable to assess for JVD doesn't have any pedal edema. Patient does have elevated BNP of around 4000 baseline BNP is a known serum creatinine is within normal limits. No echo cardiac rhythm is available in the system. Patient does take metoprolol for atrial fibrillation. Patient is tachypneic tachycardic because of which patient is being intubated patient blood pressure is although not low. Pro-calcitonin will be ordered. 12/09/2022 Patient remains in intensive care unit currently intubated and on mechanical vent with FiO2 40%. Oxygen saturations are 98%. He is afebrile last 24 hours. Chest x-ray reveals slightly improved bibasilar patchy airspace opacities. Viral panel is negative for Covid, RSV, influenza. An echocardiogram has been completed revealed an EF of 50-55% with dilated right ventricle with a suggestion of VSD with orxm-ak-zqiop shunting, to moderate mitral and mild tricuspid regurgitation with no evidence of pulmonary hypertension. There is a calcified aortic valve. This is a technically difficult study with limited views. Patient remains on IV amiodarone drip with atrophic fibrillation heart rate is now controlled, and Biaxin as well as IV cefepime and IV levofloxacin in place. Patient remains on a propofol drip for sedation and is on vasopressin and norepinephrine. Her blood cell count today is up to 20.7, sodium of 134, blood glucose in the 260s hemoglobin A1c found to be 9.9. A pro-calcitonin level was completed and negative at 0.053. 12/10/2022 Patient is evaluated today remains in the intensive care unit currently intubated and on mechanical ventilator with FiO2 40% and a PEEP of 5. X-ray today shows an increased hazy density right mid lower lung as well as in the left retrocardiac region. Chest x-ray does look improved as compared to admission x-ray. He continues on propofol for sedation has been weaned off levo fed and vasopressin at this time. Continues on IV heparin. He remains on IV Cardizem drip has been transitioned to oral amiodarone also been started on oral digoxin daily. Continues on antibiotics in the form of IV cefepime and oral azithromycin. Continues on enteral tube feedings with vital high protein. White count is down to 14.3, sodium at 128, BUN 24, creatinine 0.89, blood glucose in the 130s. Sputum culture is negative and blood culture remains negative and pending final results. Review of Systems Unable to completely review of systems patient is currently intubated and sedated PHYSICAL EXAMINATION: GENERAL: Patient is sedated HEENT: Pupils are round and equally reacting to light. EOMI. No scleral icterus. No conjunctival pallor. Normocephalic, atraumatic. No pharyngeal erythema. No thyromegaly. CARDIOVASCULAR: S1 and S2 present. No murmurs, rubs, or gallops. Tachycardic irregularly irregular rhythm PULMONARY: Bilateral rhonchi crackles Tachypneic ABDOMEN: Soft, nontender, nondistended, normoactive bowel sounds. No palpable organomegaly. MUSCULOSKELETAL: No joint swelling or deformity. EXTREMITIES: No cyanosis, clubbing, or pedal edema. NEUROLOGICAL: Unable to assess SKIN: No rashes. Assessment and plan -Acute hypoxic respiratory failure is likely due to diastolic heart failure acut e although unable to completely rule out pneumonia. Procalcitonin level was negative. -Shock likely cardiogenic in nature requiring Levophed and Vasopressin currently weaned off -Atrial fibrillation with rapid ventricular rate -Troponin elevation due to acute nstemi -Leukocytosis likely reactive in nature -History of paroxysmal atrial fibrillation anticoagulated with warfarin outpatient patient had a supratherapeutic INR on admission -Hyperlipidemia -Type 2 diabetes mellitus with hyperglycemia on s/s insulin Q6h and levemir daily -Recently treated outpatient with oral Cipro for a diabetic toe infection which is not evident on physical examination. He follows with a bilingual administrative assistant DVT prophylaxis: IV heparin GI prophylaxis: IV protonix Full Code Plan patient remains in the intensive care unit intubated and sedated. He has been weaned off vasopressin and levophed. Empiric antibiotics are continued at this time. Patient is being followed by pulmonary and cardiology services. Patient placed on cardizem gtt has been weaned off IV amiodarone and on oral amiodarone now he has also been started on daily digoxin by cardiology for rate control. Received IV lasix yesterday sodium down to 128 today and will repeat labs in the AM. The impression and plan of care has been dictated by Kailyn Heck, Nurse Practitioner as directed. Dr. Shahab MD I have performed a history and physical examination and medical decision making of this patient, discussed the same with the dictator, and agree with the dictators assessment and plan as written, documented as a scribe. Based on total visit time, I have performed more than 50% of this visit. Objective - Vital Signs Vital signs: Vital Signs Temp 97.9 F 12/10/22 12:00 Pulse 108 H 12/10/22 14:00 Resp 17 12/10/22 14:00 BP 95/69 12/09/22 22:30 Pulse Ox 97 12/10/22 14:00 FiO2 40 12/10/22 14:00 Intake & Output 12/09/22 12/10/22 12/10/22 18:59 06:59 18:59 Intake Total 1337.721 882.962 696.486 Output Total 3055 530 3060 Balance -1717.279 352.962 -2363.514 Weight 92.4 kg 90.6 kg 90.6 kg Intake: IV 240 440 460 Cefepime 2 gm In Sodium 100 100 Chloride 0.9% 100 ml @ 25 mls/hr IVPB Q12HR [facility] Rx #:[id number] Magnesium Sulfate-D5w Pmx 100 1 gm In Dextrose/Water 1 100ml.bag @ 100 mls/hr IVPB ONCE ONE Rx#: [id number] Potassium Chloride 20 meq 100 100 In Water For Injection 1 100ml.bag @ 50 mls/hr IVPB Q2H [facility] Rx#: [id number] Sodium Chloride 0.9% 1, 240 240 160 000 ml @ 20 mls/hr IV . Q24H [facility] Rx#:[id number] Intake, IV Titration 977.721 442.962 226.486 Amount Amiodarone 450 mg In 244.449 Dextrose 5% in Water 250 ml @ 0.5 MG/MIN 16.667 mls/hr IV .Q15H [facility] Rx#: [id number] Amiodarone 450 mg In 149.4 16.6 Dextrose 5% in Water 250 ml @ 0.5 MG/MIN 16.667 mls/hr IV .Q15H [facility] Rx#: [id number] Cefepime 2 gm In Sodium 100 Chloride 0.9% 100 ml @ 25 mls/hr IVPB Q8HR [facility] Rx# :[id number] Norepinephrine 4 mg In 133.062 Sodium Chloride 0.9% 250 ml @ 0.03 MCG/KG/MIN 10. 214 mls/hr IV .Q24H [facility] Rx#:[id number] Norepinephrine 4 mg In 28.338 35.027 Sodium Chloride 0.9% 250 ml @ 0.03 MCG/KG/MIN 10. 561 mls/hr IV .Q24H [facility] Rx#:[id number] Vasopressin 20 unit In 51 51 Sodium Chloride 0.9% 50 ml @ 0.03 UNITS/MIN 4.59 mls/hr IV .[id number] [facility] Rx# :[id number] propofoL 1,000 mg In 271.472 340.335 226.486 Empty Bag 1 bag @ 15 MCG/ KG/MIN 8.042 mls/hr IV . [id number] [facility] Rx#:[id number] Tube Feeding 10 Other 120 Output: Gastric Drainage 100 Urine 2855 530 2960 Oral Regurgitation 200 Other: Voiding Method Indwelling Catheter Indwelling Catheter Indwelling Catheter ABP, PAP, CO, CI - Last Documented Arterial Blood Pressure 122/51 - Labs CBC & Chem 7: 12/10/22 05:15 12/10/22 05:15 Labs: Abnormal Lab Results - Last 24 Hours (Table) 12/09/22 12/09/22 12/10/22 Range/Units 17:30 23:45 05:15 WBC 14.3 H (3.8-10.6) k/uL RBC 3.85 L (4.30-5.90) m/uL Hgb 11.8 L (13.0-17.5) gm/dL Hct 33.8 L (39.0-53.0) % Neutrophils # 12.3 H (1.3-7.7) k/uL Lymphocytes # 0.9 L (1.0-4.8) k/uL PT (9.0-12.0) sec INR (<1.2) ABG pH (7.35-7.45) ABG HCO3 (21-25) mmol/L ABG Total CO2 (19-24) mmol/L ABG O2 Saturation (94-97) % Sodium (137-145) mmol/L Chloride (98-107) mmol/L BUN (9-20) mg/dL Glucose (74-99) mg/dL POC Glucose (mg/dL) 247 H 163 H (70-110) mg/dL Calcium (8.4-10.2) mg/dL Total Protein (6.3-8.2) g/dL Albumin (3.5-5.0) g/dL 12/10/22 12/10/22 12/10/22 Range/Units 05:15 06:16 06:23 WBC (3.8-10.6) k/uL RBC (4.30-5.90) m/uL Hgb (13.0-17.5) gm/dL Hct (39.0-53.0) % Neutrophils # (1.3-7.7) k/uL Lymphocytes # (1.0-4.8) k/uL PT (9.0-12.0) sec INR (<1.2) ABG pH 7.48 H (7.35-7.45) ABG HCO3 28 H (21-25) mmol/L ABG Total CO2 29 H (19-24) mmol/L ABG O2 Saturation 98.1 H (94-97) % Sodium 128 L (137-145) mmol/L Chloride 96 L (98-107) mmol/L BUN 24 H (9-20) mg/dL Glucose 157 H (74-99) mg/dL POC Glucose (mg/dL) 160 H (70-110) mg/dL Calcium 7.7 L (8.4-10.2) mg/dL Total Protein 4.9 L (6.3-8.2) g/dL Albumin 2.7 L (3.5-5.0) g/dL 12/10/22 12/10/22 Range/Units 09:40 11:58 WBC (3.8-10.6) k/uL RBC (4.30-5.90) m/uL Hgb (13.0-17.5) gm/dL Hct (39.0-53.0) % Neutrophils # (1.3-7.7) k/uL Lymphocytes # (1.0-4.8) k/uL PT 14.8 H (9.0-12.0) sec INR 1.5 H (<1.2) ABG pH (7.35-7.45) ABG HCO3 (21-25) mmol/L ABG Total CO2 (19-24) mmol/L ABG O2 Saturation (94-97) % Sodium (137-145) mmol/L Chloride (98-107) mmol/L BUN (9-20) mg/dL Glucose (74-99) mg/dL POC Glucose (mg/dL) 133 H (70-110) mg/dL Calcium (8.4-10.2) mg/dL Total Protein (6.3-8.2) g/dL Albumin (3.5-5.0) g/dL Microbiology - Last 24 Hours (Table) 12/08/22 17:00 Gram Stain - Final Sputum Sputum Culture - Final 12/08/22 17:00 Blood Culture - Preliminary Blood Assessment and Plan Time with Patient: Less than 30
[2022-12-10 16:19] LABS: ABG Base Excess 5.1 mmol/L; ABG HCO3 30 mmol/L (21-25); ABG PCO2 46 mmHg (35-45); ABG PH 7.41 (7.35-7.45); ABG PO2 168 mmHg (83-108); ABG TCO2 31 mmol/L (19-24)
[2022-12-10] MEDS: NOREPINEPHRINE 4 MG in SODIUM CHLORIDE 0.9% 250 ML IV SCH (17:16)
[2022-12-10] MEDS: ACETAMINOPHEN IV (For NPO) 1,000 MG in EMPTY BAG 1 BAG IVPB PRN (18:03)
[2022-12-10 18:13] LABS: Glucose,Whole Blood 134 mg/dL (70-110)
[2022-12-10] MEDS: HEPARIN SODIUM 1,000 UN/ML (10ML VL) IV PRN (19:16)
[2022-12-10] MEDS: SODIUM CHLORIDE 0.9% 1,000 ML IV SCH (20:04)
[2022-12-10 20:16] LABS: Glucose,Whole Blood 120 mg/dL (70-110)
[2022-12-11 00:40] LABS: Glucose,Whole Blood 115 mg/dL (70-110)
[2022-12-11] MEDS: INSULIN ASPART (NovoLOG) 100 UNIT/ML VIAL SQ SCH ×6 (00:40→22:05)
[2022-12-11] MEDS: VASOPRESSIN 20 UNIT in SODIUM CHLORIDE 0.9% 50 ML IV SCH (04:58)
[2022-12-11 05:07] LABS: Glucose,Whole Blood 126 mg/dL (70-110)
[2022-12-11 05:26] LABS: Basophils # (A) 0.1 k/uL (0-0.2); Basophils % (A) 0 %; Eosinophils # (A) 0.5 k/uL (0-0.7); Eosinophils % (A) 4 %; HCT 40.2 % (39.0-53.0); HGB 13.3 gm/dL (13.0-17.5); Lymphocytes % (A) 8 %; MCH 29.7 pg (25.0-35.0); MCHC 33.1 g/dL (31.0-37.0); MCV 89.7 fL (80.0-100.0); Mean Platelet Volume 8.9; Monocytes # (A) 0.7 k/uL (0-1.0); Monocytes % (A) 5 %; Neutrophils # (A) 11.1 k/uL (1.3-7.7); Neutrophils % (A) 82 %; Platelet Count 204 k/uL (150-450); RBC 4.48 m/uL (4.30-5.90); RDW 14.1 % (11.5-15.5); WBC 13.5 k/uL (3.8-10.6)
[2022-12-11] MEDS: DILTIAZEM 125 MG in SODIUM CHLORIDE 0.9% 100 ML IV SCH ×3 (05:56→14:35)
[2022-12-11 05:59] LABS: ALT 33 U/L (4-49); AST 82 U/L (17-59); African American GFR (CKD) >90 (>60 ml/min/1.73 sqM); Albumin 3.1 g/dL (3.5-5.0); Alkaline Phosphatase 101 U/L (38-126); Anion Gap 8 mmol/L; Blood Urea Nitrogen 19 mg/dL (9-20); Calcium 8.4 mg/dL (8.4-10.2); Carbon Dioxide 28 mmol/L (22-30); Chloride 104 mmol/L (98-107); Glucose 131 mg/dL (74-99); Non-African American GFR(CKD) 80 (>60 ml/min/1.73 sqM); Potassium 4.1 mmol/L (3.5-5.1); Sodium 140 mmol/L (137-145); Total Bilirubin 1.5 mg/dL (0.2-1.3); Total Protein 5.6 g/dL (6.3-8.2)
[2022-12-11] MEDS: INSULIN DETEMIR (LEVEMIR) 100 UNIT/ML SYR SQ SCH (06:55)
[2022-12-11] MEDS ORDERED: DIGOXIN 250 MCG TAB PO SCH (09:00)
[2022-12-11] MEDS: CEFEPIME 2 GM in SODIUM CHLORIDE 0.9% 100 ML IVPB SCH (09:40)
[2022-12-11] MEDS: PANTOPRAZOLE 40 MG/10 ML VIAL IVP SCH ×2 (09:42→21:36)
[2022-12-11] MEDS: AZITHROMYCIN 500 MG TAB PO SCH (09:50)
[2022-12-11] MEDS: DIGOXIN 250 MCG TAB PO SCH (09:50)
[2022-12-11] MEDS: AMIODARONE 200 MG TAB PO SCH ×2 (09:57→21:37)
--- NOTE | 2022-12-11 10:08 | P.PN ---
Subjective Progress Note Date: 12/11/22 77-year-old male patient, came into the emergency department because of shortness of breath. The patient lives up [place] and he has a primary care physician in [facility]. The patient was in the hospital with his who was having a mammogram. He acutely became short of breath and he felt that his lungs were filling up with fluid. He was brought into the emergency department. Noted around few days back, he was having some limited cough and the patient was given a course of steroid taper by his primary care physician. No fever. No chills. No chest pain. He is known to have chronic atrial fibrillation and the patient is also known to have diabetes mellitus and hyperlipidemia. No history of any coronary artery disease. No history of any stroke. No history of any DVTs or pulmonary embolism. No history of COPD or asthma. He is a nonsmoker. The patient came into the emergency and he was hypoxic, acutely short of breath, acutely tachycardic and hypertensive with a BP of 192/137 with a heart rate of 158 and the respiration all 35. The patient was placed on a BiPAP. He decompensated. Ultimately, he was intubated and placed on a mechanical ventilator. Chest x-ray showed bilateral lung consolidations mainly in the lower lobes. Post intubation, the patient started having bloody rest or secretions from his orotracheal tube. His cardiac rhythm is the nature fibrillation. At this point in time, the patient is intubated on a mechanical ventilator. I saw the patient in the emergency department and a lipase to the intensive care unit. Currently is on propofol which is currently is up to 50 mcg/kg/m. His well sedated on a mechanical ventilator. He was also given a dose of Nimbex 10 mg IV push as the sedation was being titrated. Note that the patient became also hypotensive while being on sedation. He was started on norepinephrine which is currently running at 0.27 Babar respiratory kilogram per minute. His heart rate is less tachycardic although distal in nature fibrillation. Cardizem drip was discontinued because of underlying hypotension. He was given a dose of Lasix in the emergency department and he has produced a total of 350 mL of urine output. He does have some lower extremity edema. His blood work is showing 15.5, hemoglobin is 14.4, platelet count of 244, sodium is at 140, BUN is at 24 with a creatinine of 0.9. ProBNP level is 4050. Troponin was 0.7. LFTs are normal. The vital screening including Covid 19 was negative. Thyroid function test was within normal limits. His INR was at 5.0 with a PTT of 49.2. The patient was given a total of 5 mg of vitamin K. Lines were established in the ICU including a triple-lumen catheter inserted in his left IJ and an arterial line for blood pressure monitoring. Given a dose of Rocephin. He is currently on a mechanical ventilator on assist control mode with a rate of 26, tidal volume of 450, FiO2 of 100% and a PEEP of 5. On today's evaluation of a 12/09 2022, the patient remains intubated on a mechanical ventilator. The patient is calm and comfortable on mechanical ventilator. Is currently on propofol running at 45 mcg/kg/m. His symptoms of the mechanical ventilator. This is on assist-control mode of mechanical ventilation with a rate of 26, tidal volume of 450, FiO2 of 40% and a PEEP currently is at 10. The blood gas shows marked improvement and the patient has a pH of 7.54 consistent with respiratory alkalosis with a pCO2 of 26 and pO2 of 247. This was done an FiO2 of 60% and based on the difficult was weaned down to 40%. At the same time, the chest x-ray shows marked improvement compared to yesterday. The orotracheal tube is in a good location. There is improvement in the bibasilar patchy airspace opacities and the lines are all in place. The patient's echoes up to 20.7 with a hemoglobin 12.8. His INR dropped down to 2.9 after being given a total of 5 mg of vitamin K. His lactic acid level is at 2.3. BUN is at 25 with a creatinine of 0.9 and the sodium is at 1:30. His pro calcitonin level is at 0.03. The troponin peaked at 1.7 and cardiology is on the case. His cardiac rhythm is atrial fibrillation and the patient remains on amiodarone which is running at 0.5 mg/m for rate control. Echocardiogram was also completed yesterday that showed a dynamic LV. His left ventricular ejection fraction was normal with an ejection fraction of 50-55%. There was mild to moderate mitral and tricuspid regurgitation. There was some dilation of the right ventricle and there was a suggestion of a VSD with a clav-rv-zyygq shunting. This is to be further evaluated by cardiology. On 12/10/2022, the patient is being seen for a follow-up. The patient is still on a mechanical ventilator. Propofol is being weaned this morning. Overnight, the patient was kept on propofol for sedation. At the same time, the patient is currently on a mechanical ventilator on assist control mode with a rate of 16, tidal volume of 450, FiO2 down to 40% with a PEEP of 5. Pulse ox is in order of 97%.Chest x-ray showing increased haziness in the right middle and right lower lobe as well as the left atrial cardiac area. This was not seen on yesterday's chest x-ray. Blood gas from today shows a pH of 7.48 with a pCO2 of 37 and pO2 of 103 and this was done above-mentioned ventilator setting. The patient remained nature fibrillation. He is currently on a Cardizem drip at 10 mg an hour and amiodarone by mouth 400 mg twice a day. He was also given digoxin by cardiology 250 g on a daily basis and this was given to him for rate control. His INR today is pending. Yesterday's INR was at 2.9 and the warfarin was discontinued. The patient was in negative fluid balance of 1.3 L over the past 24 hours. A repeat echocardiogram was done today and I was informed by cardiology and there is no concern for underlying VSD. The BMs thousand 14.3 with a hemoglobin 11.8. He has 24 with a creatinine of 0.8 and a sodium level is at 128. LFTs are within normal limits. On today's evaluation of 12/11/2022, I'm seeing the patient for a follow-up. Th e patient was weaned off the mechanical ventilator and the patient was extubated yesterday without any major difficulties. This morning, he is extubated and is currently on oxygen at room air. The patient is in negative fluid balance. He has been in negative fluid balance of 4.5 L over the past 24 hours as the patient was diuresed. He was already making adequate urine without diuretics. He was given Lasix also to augment his urine output. No major respiratory difficulties. His cardiac rhythm is a chest fibrillation. The patient is currently on IV heparin. The patient is also on Cardizem at 15 mg an hour. PTT therapeutic. BUN is at 19 with a creatinine of 0.9. LFTs are normal at this point in time. The white suppositive 13.5, hemoglobin 13.3 and a platelet count is at 208. Noted the patient was on warfarin prior to him coming into the hospital. His INR was supratherapeutic and his INR on yesterday's down to 1.5. He does have a deep tissue injury to his left buttocks and currently is laying down his right. Antibiotic coverage included a combination of cefepime and Zith romax. His pro calcitonin level was low. Cultures were negative. White cell cause that 13.5. His pro calcitonin level is at 0.03. Objective - Vital Signs Vital signs: Vital Signs Temp 97.9 F 12/11/22 08:00 Pulse 93 12/11/22 09:00 Resp 10 L 12/11/22 09:00 BP 127/68 12/11/22 09:00 Pulse Ox 95 12/11/22 09:00 FiO2 4 12/10/22 16:30 Intake & Output 12/10/22 12/11/22 12/11/22 18:59 06:59 18:59 Intake Total 860.819 480.667 180 Output Total 4160 1700 190 Balance -3299.181 -1219.333 -10 Weight 90.6 kg 82.4 kg Intake: IV 540 240 60 Cefepime 2 gm In Sodium 100 Chloride 0.9% 100 ml @ 25 mls/hr IVPB Q12HR [facility] Rx #:[id number] Magnesium Sulfate-D5w Pmx 100 1 gm In Dextrose/Water 1 100ml.bag @ 100 mls/hr IVPB ONCE ONE Rx#: [id number] Potassium Chloride 20 meq 100 In Water For Injection 1 100ml.bag @ 50 mls/hr IVPB Q2H [facility] Rx#: [id number] Sodium Chloride 0.9% 1, 240 240 60 000 ml @ 20 mls/hr IV . Q24H [facility] Rx#:[id number] Intake, IV Titration 300.819 240.667 Amount Diltiazem 125 mg In 74.333 178 Sodium Chloride 0.9% 100 ml @ 15 MG/HR 15 mls/hr IV .Q8H20M [facility] Rx#: [id number] Heparin Sod,Pork in 0.45% 62.667 NaCl 25,000 unit In 0.45 % NaCl 1 250ml.bag @ 11. 038 UNITS/KG/HR 10 mls/hr IV .Q24H [facility] Rx#: [id number] Norepinephrine 4 mg In 0 Sodium Chloride 0.9% 250 ml @ 0.03 MCG/KG/MIN 10. 561 mls/hr IV .Q24H [facility] Rx#:[id number] propofoL 1,000 mg In 226.486 Empty Bag 1 bag @ 15 MCG/ KG/MIN 8.042 mls/hr IV . [id number] [facility] Rx#:[id number] Oral 120 Tube Feeding 20 Output: Gastric Drainage 100 Urine 4060 1700 190 Other: Voiding Method Indwelling Catheter Indwelling Catheter Indwelling Catheter ABP, PAP, CO, CI - Last Documented Arterial Blood Pressure 133/56 - Exam Intubated, sedated, currently extubated on room air oxygen Head exam was generally normal. There was no scleral icterus or corneal arcus. Mucous membranes were moist. Neck was supple and without jugular venous distension, thyromegaly, or carotid bruits. Carotids were easily palpable bilaterally. There was no adenopathy. No significant JVD observed Lungs were clear to auscultation and percussion, and with normal diaphragmatic excursion. No wheezes or rales were noted. Diminished breath on lung bases bilaterally along with scattered rhonchi. Heart sounds are regular S1 and S2 consistent with atrial fibrillation. No cervical murmurs appreciated. Abdominal exam revealed normal bowel sounds. The abdomen was soft, non-tender, and without masses, organomegaly, or appreciable enlargement of the abdominal ao rta. Examination of the extremities revealed easily palpable radial, femoral and pedal pulses. There was no cyanosis, clubbing and there is trace edema lower oximetry is bilaterally Examination of the skin revealed no evidence of significant rashes, suspicious appearing nevi or other concerning lesions. DTI to his left buttocks Neurologically the patient is awake and oriented 3 - Labs CBC & Chem 7: 12/11/22 05:00 12/11/22 05:00 Labs: Abnormal Lab Results - Last 24 Hours (Table) 12/10/22 12/10/22 12/10/22 Range/Units 09:40 11:58 16:16 WBC (3.8-10.6) k/uL Neutrophils # (1.3-7.7) k/uL PT 14.8 H (9.0-12.0) sec INR 1.5 H (<1.2) APTT (22.0-30.0) sec ABG pCO2 46 H (35-45) mmHg ABG pO2 168 H (83-108) mmHg ABG HCO3 30 H (21-25) mmol/L ABG Total CO2 31 H (19-24) mmol/L ABG O2 Saturation 99.0 H (94-97) % Glucose (74-99) mg/dL POC Glucose (mg/dL) 133 H (70-110) mg/dL Total Bilirubin (0.2-1.3) mg/dL AST (17-59) U/L Total Protein (6.3-8.2) g/dL Albumin (3.5-5.0) g/dL 12/10/22 12/10/22 12/10/22 Range/Units 18:05 18:11 20:15 WBC (3.8-10.6) k/uL Neutrophils # (1.3-7.7) k/uL PT (9.0-12.0) sec INR (<1.2) APTT 38.1 H (22.0-30.0) sec ABG pCO2 (35-45) mmHg ABG pO2 (83-108) mmHg ABG HCO3 (21-25) mmol/L ABG Total CO2 (19-24) mmol/L ABG O2 Saturation (94-97) % Glucose (74-99) mg/dL POC Glucose (mg/dL) 134 H 120 H (70-110) mg/dL Total Bilirubin (0.2-1.3) mg/dL AST (17-59) U/L Total Protein (6.3-8.2) g/dL Albumin (3.5-5.0) g/dL 12/11/22 12/11/22 12/11/22 Range/Units 00:38 00:39 05:00 WBC 13.5 H (3.8-10.6) k/uL Neutrophils # 11.1 H (1.3-7.7) k/uL PT (9.0-12.0) sec INR (<1.2) APTT 77.3 H (22.0-30.0) sec ABG pCO2 (35-45) mmHg ABG pO2 (83-108) mmHg ABG HCO3 (21-25) mmol/L ABG Total CO2 (19-24) mmol/L ABG O2 Saturation (94-97) % Glucose (74-99) mg/dL POC Glucose (mg/dL) 115 H (70-110) mg/dL Total Bilirubin (0.2-1.3) mg/dL AST (17-59) U/L Total Protein (6.3-8.2) g/dL Albumin (3.5-5.0) g/dL 12/11/22 12/11/22 12/11/22 Range/Units 05:00 05:05 05:06 WBC (3.8-10.6) k/uL Neutrophils # (1.3-7.7) k/uL PT (9.0-12.0) sec INR (<1.2) APTT 58.9 H (22.0-30.0) sec ABG pCO2 (35-45) mmHg ABG pO2 (83-108) mmHg ABG HCO3 (21-25) mmol/L ABG Total CO2 (19-24) mmol/L ABG O2 Saturation (94-97) % Glucose 131 H (74-99) mg/dL POC Glucose (mg/dL) 126 H (70-110) mg/dL Total Bilirubin 1.5 H (0.2-1.3) mg/dL AST 82 H (17-59) U/L Total Protein 5.6 L (6.3-8.2) g/dL Albumin 3.1 L (3.5-5.0) g/dL Microbiology - Last 24 Hours (Table) 12/08/22 17:00 Blood Culture - Preliminary Blood 12/08/22 17:00 Gram Stain - Final Sputum Sputum Culture - Final Assessment and Plan Plan: Acute hypoxic respiratory failure on that investigation. The patient has perihilar and lower lobe pulmonary consolidation and the patient an acute presentation of shortness of breath and hypoxic respiratory failure, failed BiPAP and the patient to be intubated and placed on a mechanical ventilator. Consider acute hypertensive heart disease and flash pulmonary edema as the patient's blood pressure was quite elevated at time of admission to the emergency department. The patient was extubated and the patient is currently on room and oxygen. Chest x-ray findings are improved considerably. He does have some residual perihilar infiltration on today's chest x-ray. Is using the incentive spirometer. He is using it on a regular basis and pulling approximately thousand. He is hemodynamically stable. He remains in nature fibrillation. Acute non-ST segment elevation myocardial infarctions troponin of 1.7. Repeat echocardiogram today showed no concerns of VSD Acute shortness of breath secondary to above, improved Acute hemoptysis secondary to above and the patient's PT/INR was subtherapeutic at time of admission, INR is down to 1.7 the patient is currently on IV heparin Acute dyspnea secondary to above, improved Acute hypotension under investigation. Consider cardiogenic shock. Consider possibility of a septic shock. The patient is currently off pressors Atrial fibrillation, chronic with rapid ventricular response at the time of admission, rate is under better control and the patient is currently on amiodarone by mouth, digoxin and Cardizem drip at 15 mg an hour Supratherapeutic PT/INR, , treated Hemoptysis secondary to above, recovered Diabetes mellitus type 2 Hyperlipidemia Mild leukocytosis History of diabetic foot infection, recovered Deep tissue injury to his left buttocks Plan start The patient on metoprolol 25 mg by mouth twice a day and wean down the Cardizem drip and discontinue Continue amiodarone Continue IV heparin May start the patient back on warfarin over the next 24 hours Discontinue antibiotics Pro calcitonin level was not elevated NovoLog insulin size coverage IV Protonix optifoam and Silvadene cream to his left buttocks Advance diet Urine output is still adequate. No need for any further diuretics Continue using incentive spirometer Advance diet We'll follow
[2022-12-11] MEDS: METOPROLOL TARTRATE 25 MG TAB PO SCH ×2 (11:11→21:36)
[2022-12-11] MEDS: HEPARIN SOD,PORK IN 0.45% NACL 25,000 UNIT in 0.45% NACL 1 250ML.BAG IV SCH (11:11)
[2022-12-11] MEDS: ACETAMINOPHEN IV (For NPO) 1,000 MG in EMPTY BAG 1 BAG IVPB PRN (11:12)
[2022-12-11 11:24] LABS: Glucose,Whole Blood 175 mg/dL (70-110)
--- NOTE | 2022-12-11 11:50 | PN ---
PROGRESS NOTE SUBJECTIVE: Jacoby is a 77-year-old gentleman that is admitted to hospital with pulmonary edema with respiratory failure. He remains in atrial fibrillation with better controlled ventricular rate. Metoprolol had been resumed and Cardizem is going to be tapered. He is on IV heparin and the plan at this stage is to perform a cardiac catheterization on him when he is most stable. OBJECTIVE: VITAL SIGNS: On exam today, heart rate is 90 beats per minute, blood pressure is 124/57, respiratory rate is 14, O2 saturation is 92% on room air. NECK: There is no jugular venous distention. Carotid upstroke is normal. There is no bruit. CHEST: Reveals diminished air entry at the bases. HEART: Reveals first and second heart sounds. Irregular rhythm and a systolic murmur at the apex. ABDOMEN: Soft. EXTREMITIES: Exam of extremities did not reveal any edema. Peripheral pulses are felt. LABORATORY DATA: Labs showed creatinine 0.9, hemoglobin is 13.3, and platelet count is 204. ASSESSMENT AND PLAN: 1. Acute pulmonary edema with vent requiring respiratory failure. 2. Atrial fibrillation with rapid ventricular rate. 3. [id number] elevation myocardial infarction. PLAN: I will taper and stop the Cardizem. Increase the dose of metoprolol. Continue the amiodarone. Continue the IV heparin. Cardiac catheterization over the next 48 hours. MMODL / IJN: [id number] /
[2022-12-11] MEDS: BENZOCAINE/MENTHOL LOZENG 1 EACH LOZENGE MUCOUS MEM PRN ×2 (12:51→21:36)
--- NOTE | 2022-12-11 16:22 | P.PN ---
Subjective Progress Note Date: 12/11/22 77-year-old male came in with complaints of shortness of breath patient is presently being intubated much of the history is unknown. Patient started having mild cold for the last 2 days which progressively gotten worse patient is found to in atrial fibrillation with rapid and regular rate. Patient does have known history of A. fib does take Coumadin at home patient doesn't INR is 5. Chest x-ray showed bilateral infiltrates suspicious for pneumonia although seizures cannot be ruled out I'm unable to assess for JVD doesn't have any pedal edema. Patient does have elevated BNP of around 4000 baseline BNP is a known serum creatinine is within normal limits. No echo cardiac rhythm is available in the system. Patient does take metoprolol for atrial fibrillation. Patient is tachypneic tachycardic because of which patient is being intubated patient blood pressure is although not low. Pro-calcitonin will be ordered. 12/09/2022 Patient remains in intensive care unit currently intubated and on mechanical vent with FiO2 40%. Oxygen saturations are 98%. He is afebrile last 24 hours. Chest x-ray reveals slightly improved bibasilar patchy airspace opacities. Viral panel is negative for Covid, RSV, influenza. An echocardiogram has been completed revealed an EF of 50-55% with dilated right ventricle with a suggestion of VSD with [id number] shunting, to moderate mitral and mild tricuspid regurgitation with no evidence of pulmonary hypertension. There is a calcified aortic valve. This is a technically difficult study with limited views. Patient remains on IV amiodarone drip with atrophic fibrillation heart rate is now controlled, and Biaxin as well as IV cefepime and IV levofloxacin in place. Patient remains on a propofol drip for sedation and is on vasopressin and norepinephrine. Her blood cell count today is up to 20.7, sodium of 134, blood glucose in the 260s hemoglobin A1c found to be 9.9. A pro-calcitonin level was completed and negative at 0.053. 12/10/2022 Patient is evaluated today remains in the intensive care unit currently intubated and on mechanical ventilator with FiO2 40% and a PEEP of 5. X-ray today shows an increased hazy density right mid lower lung as well as in the left retrocardiac region. Chest x-ray does look improved as compared to admission x-ray. He continues on propofol for sedation has been weaned off levo fed and vasopressin at this time. Continues on IV heparin. He remains on IV Cardizem drip has been transitioned to oral amiodarone also been started on oral digoxin daily. Continues on antibiotics in the form of IV cefepime and oral azithromycin. Continues on enteral tube feedings with vital high protein. White count is down to 14.3, sodium at 128, BUN 24, creatinine 0.89, blood glucose in the 130s. Sputum culture is negative and blood culture remains negative and pending final results. 12/11/2022 Patient is evaluated today in intensive care unit. He was extubated and is now on 2 L of nasal cannula with oxygen saturation of 95%. Chest x-ray appears to be improving at this time although the radiology report has not been read yet. Remains on IV Cardizem transitioned to oral amiodarone and has been started on oral digoxin heart rate is improved today down to the 80-90s and he is controlled at this time. Patient remains on IV heparin. Oral and IV antibiotics have been discontinued. Currently denying any shortness of breath denies any chest pain. White count was down to 13.5 today. Sodium is improving 143 function is normal. Blood glucose is 170s. Patient is noted to have a large ulcer on his left buttock which is causing him significant pain and tenderness to touch. There is shearing of the skin with bruising underneath likely a deep tissue injury. Review of Systems Constitutional: Reports fatigue denied any fever. Cardio vascular: denied any chest pain, palpitations Gastrointestinal: denied any nausea, vomiting, diarrhea Pulmonary: Reports shortness of breath and cough. Neurologic denied any new focal deficits Reports diffuse weakness. All inpatient medications were reviewed and appropriate changes in these medications as dictated in the interval history and assessment and plan. PHYSICAL EXAMINATION: GENERAL: The patient is alert and oriented x3, not in any acute distress. Well developed, well nourished. on 2L nasal cannula. HEENT: Pupils are round and equally reacting to light. EOMI. No scleral icterus. No conjunctival pallor. Normocephalic, atraumatic. No pharyngeal erythema. No thyromegaly. CARDIOVASCULAR: S1 and S2 present. No murmurs, rubs, or gallops. PULMONARY: Chest is clear to auscultation, no wheezing or crackles. ABDOMEN: Soft, nontender, nondistended, normoactive bowel sounds. No palpable organomegaly. MUSCULOSKELETAL: No joint swelling or deformity. EXTREMITIES: No cyanosis, clubbing, or pedal edema. NEUROLOGICAL: Gross neurological examination did not reveal any focal deficits. Diffuse weakness. SKIN: No rashes. Has deep tissue injury to the left buttock with shearing of skin and bruised. Tender to touch/palpate. Assessment and plan -Acute hypoxic respiratory failure is likely due to diastolic heart failure acute although unable to completely rule out pneumonia. Procalcitonin level was negative. Patient was given IV lasix. -Shock likely cardiogenic in nature requiring Levophed and Vasopressin currently weaned off -Acute pulmonary edema -Atrial fibrillation with rapid ventricular rate currently rate controlled -Troponin elevation due to acute nstemi -Leukocytosis likely reactive in nature -History of paroxysmal atrial fibrillation anticoagulated with warfarin outpatient patient had a supratherapeutic INR on admission -Hyperlipidemia -Type 2 diabetes mellitus with hyperglycemia -Recently treated outpatient with oral Cipro for a diabetic toe infection which is not evident on physical examination. 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 Antibiotics have been discontinued. Wound care has been consult to the deep tissue injury to the left buttock and patient can use medihoney for this change daily and cover with Optifoam in the mean time. Continue with pressure offloading. PT/OT consultation. Continue to encourage incentive spirometer use in the next 24 hours. The impression and plan of care has been dictated by Kailyn Heck Nurse Practitioner as directed. Dr. Shahab MD I have performed a history and physical examination and medical decision making of this patient, discussed the same with the dictator, and agree with the dictators assessment and plan as written, documented as a scribe. Based on total visit time, I have performed more than 50% of this visit. Objective - Vital Signs Vital signs: Vital Signs Temp 97.9 F 12/11/22 08:00 Pulse 97 12/11/22 08:00 Resp 16 12/11/22 08:00 BP 95/69 12/09/22 22:30 Pulse Ox 93 L 12/11/22 08:00 FiO2 4 12/10/22 16:30 Intake & Output 12/10/22 12/11/22 12/11/22 18:59 06:59 18:59 Intake Total 860.819 480.667 40 Output Total 4160 1700 110 Balance -3299.181 -1219.333 -70 Weight 90.6 kg 82.4 kg Intake: IV 540 240 40 Cefepime 2 gm In Sodium 100 Chloride 0.9% 100 ml @ 25 mls/hr IVPB Q12HR VIDAL Rx #:[id number] Magnesium Sulfate-D5w Pmx 100 1 gm In Dextrose/Water 1 100ml.bag @ 100 mls/hr IVPB ONCE ONE Rx#: [id number] Potassium Chloride 20 meq 100 In Water For Injection 1 100ml.bag @ 50 mls/hr IVPB Q2H VIDAL Rx#: [id number] Sodium Chloride 0.9% 1, 240 240 40 000 ml @ 20 mls/hr IV . Q24H VIDAL Rx#:[id number] Intake, IV Titration 300.819 240.667 Amount Diltiazem 125 mg In 74.333 178 Sodium Chloride 0.9% 100 ml @ 15 MG/HR 15 mls/hr IV .Q8H20M [facility]IDAL Rx#: [id number] Heparin Sod,Pork in 0.45% 62.667 NaCl 25,000 unit In 0.45 % NaCl 1 250ml.bag @ 11. 038 UNITS/KG/HR 10 mls/hr IV .Q24H VIDAL Rx#: [id number] Norepinephrine 4 mg In 0 Sodium Chloride 0.9% 250 ml @ 0.03 MCG/KG/MIN 10. 561 mls/hr IV .Q24H VIDAL Rx#:[id number] propofoL 1,000 mg In 226.486 Empty Bag 1 bag @ 15 MCG/ KG/MIN 8.042 mls/hr IV . [id number] VIDAL Rx#:[id number] Tube Feeding 20 Output: Gastric Drainage 100 Urine 4060 1700 110 Other: Voiding Method Indwelling Catheter Indwelling Catheter Indwelling Catheter ABP, PAP, CO, CI - Last Documented Arterial Blood Pressure 114/44 - Labs CBC & Chem 7: 12/11/22 05:00 12/11/22 05:00 Labs: Abnormal Lab Results - Last 24 Hours (Table) 12/10/22 12/10/22 12/10/22 Range/Units 09:40 11:58 16:16 WBC (3.8-10.6) k/uL Neutrophils # (1.3-7.7) k/uL PT 14.8 H (9.0-12.0) sec INR 1.5 H (<1.2) APTT (22.0-30.0) sec ABG pCO2 46 H (35-45) mmHg ABG pO2 168 H (83-108) mmHg ABG HCO3 30 H (21-25) mmol/L ABG Total CO2 31 H (19-24) mmol/L ABG O2 Saturation 99.0 H (94-97) % Glucose (74-99) mg/dL POC Glucose (mg/dL) 133 H (70-110) mg/dL Total Bilirubin (0.2-1.3) mg/dL AST (17-59) U/L Total Protein (6.3-8.2) g/dL Albumin (3.5-5.0) g/dL 12/10/22 12/10/22 12/10/22 Range/Units 18:05 18:11 20:15 WBC (3.8-10.6) k/uL Neutrophils # (1.3-7.7) k/uL PT (9.0-12.0) sec INR (<1.2) APTT 38.1 H (22.0-30.0) sec ABG pCO2 (35-45) mmHg ABG pO2 (83-108) mmHg ABG HCO3 (21-25) mmol/L ABG Total CO2 (19-24) mmol/L ABG O2 Saturation (94-97) % Glucose (74-99) mg/dL POC Glucose (mg/dL) 134 H 120 H (70-110) mg/dL Total Bilirubin (0.2-1.3) mg/dL AST (17-59) U/L Total Protein (6.3-8.2) g/dL Albumin (3.5-5.0) g/dL 12/11/22 12/11/22 12/11/22 Range/Units 00:38 00:39 05:00 WBC 13.5 H (3.8-10.6) k/uL Neutrophils # 11.1 H (1.3-7.7) k/uL PT (9.0-12.0) sec INR (<1.2) APTT 77.3 H (22.0-30.0) sec ABG pCO2 (35-45) mmHg ABG pO2 (83-108) mmHg ABG HCO3 (21-25) mmol/L ABG Total CO2 (19-24) mmol/L ABG O2 Saturation (94-97) % Glucose (74-99) mg/dL POC Glucose (mg/dL) 115 H (70-110) mg/dL Total Bilirubin (0.2-1.3) mg/dL AST (17-59) U/L Total Protein (6.3-8.2) g/dL Albumin (3.5-5.0) g/dL 12/11/22 12/11/22 12/11/22 Range/Units 05:00 05:05 05:06 WBC (3.8-10.6) k/uL Neutrophils # (1.3-7.7) k/uL PT (9.0-12.0) sec INR (<1.2) APTT 58.9 H (22.0-30.0) sec ABG pCO2 (35-45) mmHg ABG pO2 (83-108) mmHg ABG HCO3 (21-25) mmol/L ABG Total CO2 (19-24) mmol/L ABG O2 Saturation (94-97) % Glucose 131 H (74-99) mg/dL POC Glucose (mg/dL) 126 H (70-110) mg/dL Total Bilirubin 1.5 H (0.2-1.3) mg/dL AST 82 H (17-59) U/L Total Protein 5.6 L (6.3-8.2) g/dL Albumin 3.1 L (3.5-5.0) g/dL Microbiology - Last 24 Hours (Table) 12/08/22 17:00 Blood Culture - Preliminary Blood 12/08/22 17:00 Gram Stain - Final Sputum Sputum Culture - Final Assessment and Plan Time with Patient: Less than 30
[2022-12-11 17:58] LABS: Glucose,Whole Blood 381 mg/dL (70-110)
[2022-12-11] MEDS: SODIUM CHLORIDE 0.9% 1,000 ML IV SCH (20:11)
[2022-12-11 21:36] LABS: Glucose,Whole Blood 209 mg/dL (70-110)
--- NOTE | 2022-12-12 00:01 | XR ---
EXAMINATION TYPE: XR chest 1V portable DATE OF EXAM: 12/11/2022 COMPARISON: 12/10/2022 INDICATION: Short of breath TECHNIQUE: Single frontal view of the chest is obtained. FINDINGS: The heart size is normal. The pulmonary vasculature is normal. The lungs are clear. Left central venous catheter tip is in the proximal superior vena cava region. Endotracheal tube and nasogastric tube is been removed. There is improved aeration. IMPRESSION: 1. No acute pulmonary process.
[2022-12-12] MEDS: BENZOCAINE/MENTHOL LOZENG 1 EACH LOZENGE MUCOUS MEM PRN ×3 (02:02→11:37)
[2022-12-12 05:06] LABS: Basophils % (A) 0 %; Eosinophils # (A) 0.5 k/uL (0-0.7); Eosinophils % (A) 4 %; HCT 36.1 % (39.0-53.0); HGB 12.2 gm/dL (13.0-17.5); Lymphocytes # (A) 1.4 k/uL (1.0-4.8); Lymphocytes % (A) 13 %; MCH 30.3 pg (25.0-35.0); MCHC 33.8 g/dL (31.0-37.0); MCV 89.9 fL (80.0-100.0); Mean Platelet Volume 8.7; Monocytes # (A) 0.7 k/uL (0-1.0); Monocytes % (A) 6 %; Neutrophils # (A) 7.9 k/uL (1.3-7.7); Neutrophils % (A) 74 %; Platelet Count 204 k/uL (150-450); RBC 4.02 m/uL (4.30-5.90); RDW 13.7 % (11.5-15.5); WBC 10.7 k/uL (3.8-10.6)
[2022-12-12 05:40] LABS: ALT 28 U/L (4-49); AST 51 U/L (17-59); African American GFR (CKD) >90 (>60 ml/min/1.73 sqM); Albumin 2.8 g/dL (3.5-5.0); Alkaline Phosphatase 109 U/L (38-126); Anion Gap 2 mmol/L; Blood Urea Nitrogen 16 mg/dL (9-20); Calcium 8.2 mg/dL (8.4-10.2); Carbon Dioxide 30 mmol/L (22-30); Chloride 104 mmol/L (98-107); Glucose 185 mg/dL (74-99); Non-African American GFR(CKD) 87 (>60 ml/min/1.73 sqM); Potassium 4.5 mmol/L (3.5-5.1); Sodium 136 mmol/L (137-145); Total Bilirubin 1.5 mg/dL (0.2-1.3); Total Protein 5.3 g/dL (6.3-8.2)
[2022-12-12] MEDS: HEPARIN SOD,PORK IN 0.45% NACL 25,000 UNIT in 0.45% NACL 1 250ML.BAG IV SCH (05:58)
[2022-12-12 06:07] LABS: Glucose,Whole Blood 178 mg/dL (70-110)
[2022-12-12] MEDS: INSULIN DETEMIR (LEVEMIR) 100 UNIT/ML SYR SQ SCH ×2 (06:13→21:13)
[2022-12-12] MEDS: INSULIN ASPART (NovoLOG) 100 UNIT/ML VIAL SQ SCH ×4 (06:13→21:13)
[2022-12-12] MEDS: DILTIAZEM 125 MG in SODIUM CHLORIDE 0.9% 100 ML IV SCH (08:10)
--- NOTE | 2022-12-12 08:50 | XR ---
EXAMINATION TYPE: XR chest 1V portable DATE OF EXAM: 12/12/2022 COMPARISON: 12/11/2022 INDICATION: Pulmonary edema TECHNIQUE: Single frontal view of the chest is obtained. FINDINGS: The heart size is normal. The pulmonary vasculature is normal. The lungs are clear. IMPRESSION: 1. No acute pulmonary process.
[2022-12-12] MEDS: DIGOXIN 250 MCG TAB PO SCH (08:52)
[2022-12-12] MEDS: METOPROLOL TARTRATE 50 MG TAB PO SCH ×2 (08:52→21:14)
[2022-12-12] MEDS: PANTOPRAZOLE 40 MG/10 ML VIAL IVP SCH ×2 (08:52→21:14)
--- NOTE | 2022-12-12 09:23 | P.PN ---
Subjective Progress Note Date: 12/12/22 77-year-old male patient, came into the emergency department because of shortness of breath. The patient lives [place] and he has a primary care physician in [place]. The patient was in the hospital with his who was having a mammogram. He acutely became short of breath and he felt that his lungs were filling up with fluid. He was brought into the emergency department. Noted around few days back, he was having some limited cough and the patient was given a course of steroid taper by his primary care physician. No fever. No chills. No chest pain. He is known to have chronic atrial fibrillation and the patient is also known to have diabetes mellitus and hyperlipidemia. No history of any coronary artery disease. No history of any stroke. No history of any DVTs or pulmonary embolism. No history of COPD or asthma. He is a nonsmoker. The patient came into the emergency and he was hypoxic, acutely short of breath, acutely tachycardic and hypertensive with a BP of 192/137 with a heart rate of 158 and the respiration all 35. The patient was placed on a BiPAP. He decompensated. Ultimately, he was intubated and placed on a mechanical ventilator. Chest x-ray showed bilateral lung consolidations mainly in the lower lobes. Post intubation, the patient started having bloody rest or secretions from his orotracheal tube. His cardiac rhythm is the nature fibrillation. At this point in time, the patient is intubated on a mechanical ventilator. I saw the patient in the emergency department and a lipase to the intensive care unit. Currently is on propofol which is currently is up to 50 mcg/kg/m. His well sedated on a mechanical ventilator. He was also given a dose of Nimbex 10 mg IV push as the sedation was being titrated. Note that the patient became also hypotensive while being on sedation. He was started on norepinephrine which is currently running at 0.27 Babar respiratory kilogram per minute. His heart rate is less tachycardic although distal in nature fibrillation. Cardizem drip was discontinued because of underlying hypotension. He was given a dose of Lasix in the emergency department and he has produced a total of 350 mL of urine output. He does have some lower extremity edema. His blood work is showing 15.5, hemoglobin is 14.4, platelet count of 244, sodium is at 140, BUN is at 24 with a creatinine of 0.9. ProBNP level is 4050. Troponin was 0.7. LFTs are normal. The vital screening including Covid 19 was negative. Thyroid function test was within normal limits. His INR was at 5.0 with a PTT of 49.2. The patient was given a total of 5 mg of vitamin K. Lines were established in the ICU including a triple-lumen catheter inserted in his left IJ and an arterial line for blood pressure monitoring. Given a dose of Rocephin. He is currently on a mechanical ventilator on assist control mode with a rate of 26, tidal volume of 450, FiO2 of 100% and a PEEP of 5. On today's evaluation of a 12/09 2022, the patient remains intubated on a mechanical ventilator. The patient is calm and comfortable on mechanical ventilator. Is currently on propofol running at 45 mcg/kg/m. His symptoms of the mechanical ventilator. This is on assist-control mode of mechanical ventilation with a rate of 26, tidal volume of 450, FiO2 of 40% and a PEEP currently is at 10. The blood gas shows marked improvement and the patient has a pH of 7.54 consistent with respiratory alkalosis with a pCO2 of 26 and pO2 of 247. This was done an FiO2 of 60% and based on the difficult was weaned down to 40%. At the same time, the chest x-ray shows marked improvement compared to yesterday. The orotracheal tube is in a good location. There is improvement in the bibasilar patchy airspace opacities and the lines are all in place. The patient's echoes up to 20.7 with a hemoglobin 12.8. His INR dropped down to 2.9 after being given a total of 5 mg of vitamin K. His lactic acid level is at 2.3. BUN is at 25 with a creatinine of 0.9 and the sodium is at 1:30. His pro calcitonin level is at 0.03. The troponin peaked at 1.7 and cardiology is on the case. His cardiac rhythm is atrial fibrillation and the patient remains on amiodarone which is running at 0.5 mg/m for rate control. Echocardiogram was also completed yesterday that showed a dynamic LV. His left ventricular ejection fraction was normal with an ejection fraction of 50-55%. There was mild to moderate mitral and tricuspid regurgitation. There was some dilation of the right ventricle and there was a suggestion of a VSD with a [id number] shunting. This is to be further evaluated by cardiology. On 12/10/2022, the patient is being seen for a follow-up. The patient is still on a mechanical ventilator. Propofol is being weaned this morning. Overnight, the patient was kept on propofol for sedation. At the same time, the patient is currently on a mechanical ventilator on assist control mode with a rate of 16, tidal volume of 450, FiO2 down to 40% with a PEEP of 5. Pulse ox is in order of 97%.Chest x-ray showing increased haziness in the right middle and right lower lobe as well as the left atrial cardiac area. This was not seen on yesterday's chest x-ray. Blood gas from today shows a pH of 7.48 with a pCO2 of 37 and pO2 of 103 and this was done above-mentioned ventilator setting. The patient remained nature fibrillation. He is currently on a Cardizem drip at 10 mg an hour and amiodarone by mouth 400 mg twice a day. He was also given digoxin by cardiology 250 g on a daily basis and this was given to him for rate control. His INR today is pending. Yesterday's INR was at 2.9 and the warfarin was discontinued. The patient was in negative fluid balance of 1.3 L over the past 24 hours. A repeat echocardiogram was done today and I was informed by cardiology and there is no concern for underlying VSD. The BMs thousand 14.3 with a hemoglobin 11.8. He has 24 with a creatinine of 0.8 and a sodium level is at 128. LFTs are within normal limits. On today's evaluation of 12/11/2022, I'm seeing the patient for a follow-up. Th e patient was weaned off the mechanical ventilator and the patient was extubated yesterday without any major difficulties. This morning, he is extubated and is currently on oxygen at room air. The patient is in negative fluid balance. He has been in negative fluid balance of 4.5 L over the past 24 hours as the patient was diuresed. He was already making adequate urine without diuretics. He was given Lasix also to augment his urine output. No major respiratory difficulties. His cardiac rhythm is a chest fibrillation. The patient is currently on IV heparin. The patient is also on Cardizem at 15 mg an hour. PTT therapeutic. BUN is at 19 with a creatinine of 0.9. LFTs are normal at this point in time. The white suppositive 13.5, hemoglobin 13.3 and a platelet count is at 208. Noted the patient was on warfarin prior to him coming into the hospital. His INR was supratherapeutic and his INR on yesterday's down to 1.5. He does have a deep tissue injury to his left buttocks and currently is laying down his right. Antibiotic coverage included a combination of cefepime and Zith romax. His pro calcitonin level was low. Cultures were negative. White cell cause that 13.5. His pro calcitonin level is at 0.03. 12/11/2022, the patient is doing well and he remains extubated and currently is on oxygen at 2 L. Pulse ox is adequate. He remains in atrial fibrillation. Hemodynamically stable. He is on no pressors at this point in time. The patient remains on IV heparin. Warfarin will be started today. He was taken off the Cardizem drip and currently is on a combination of metoprolol at a dose of 50 mg by mouth twice a day, Cardizem drip has been discontinued and the patient was also given digoxin 0.25 mg on a daily basis. He is on Levemir insulin 10 units and the signs Coverage. His oral intake is still diminished over this is improving. The chest x-ray is rotated minutes essentially clear. The patient has developed a deep tissue injury to his left buttocks. This could be related also to a prior to intubation trauma. His respiratory failure was brief to cause this extent of deep tissue injury. Currently he has a Opteform applied to the area. seconds at 10.7. Hemoglobin is 12.2. Platelet count is 204. BUN is 16. Creatinine is at 0.8. Urine operas adequate. Cardiac rhythm is A. fib Objective - Vital Signs Vital signs: Vital Signs Temp 98.0 F 12/12/22 04:00 Pulse 98 12/12/22 07:00 Resp 20 12/12/22 07:00 BP 149/76 12/12/22 07:00 Pulse Ox 97 12/12/22 07:00 FiO2 4 12/10/22 16:30 Intake & Output 12/11/22 12/12/22 12/12/22 18:59 06:59 18:59 Intake Total 1041.083 533.869 26 Output Total 835 1155 75 Balance 206.083 -621.131 -49 Weight 85.8 kg Intake: IV 270 312 26 0.9 sodium chloride for 70 72 6 pressure bag Sodium Chloride 0.9% 1, 200 240 20 000 ml @ 20 mls/hr IV . Q24H [facility]IDAL Rx#:[id number] Intake, IV Titration 281.083 221.869 Amount Diltiazem 125 mg In 93.75 Sodium Chloride 0.9% 100 ml @ 15 MG/HR 15 mls/hr IV .Q8H20M [facility] Rx#: [id number] Heparin Sod,Pork in 0.45% 187.333 221.869 NaCl 25,000 unit In 0.45 % NaCl 1 250ml.bag @ 11. 038 UNITS/KG/HR 10 mls/hr IV .Q24H [facility]AL Rx#: [id number] Oral 490 Output: Urine 835 1155 75 Other: Voiding Method Indwelling Catheter Indwelling Catheter ABP, PAP, CO, CI - Last Documented Arterial Blood Pressure 80/45 - Exam Awake and alert currently extubated on 2 L O2 nasal cannula Head exam was generally normal. There was no scleral icterus or corneal arcus. Mucous membranes were moist. Neck was supple and without jugular venous distension, thyromegaly, or carotid bruits. Carotids were easily palpable bilaterally. There was no adenopathy. No significant JVD observed Lungs were clear to auscultation and percussion, and with normal diaphragmatic excursion. No wheezes or rales were noted. Diminished breath on lung bases bilaterally along with scattered rhonchi. Heart sounds are regular S1 and S2 consistent with atrial fibrillation. No cervical murmurs appreciated. Abdominal exam revealed normal bowel sounds. The abdomen was soft, non-tender, and without masses, organomegaly, or appreciable enlargement of the abdominal aorta. Examination of the extremities revealed easily palpable radial, femoral and pedal pulses. There was no cyanosis, clubbing and there is trace edema lower oximetry is bilaterally Examination of the skin revealed no evidence of significant rashes, suspicious appearing nevi or other concerning lesions. DTI to his left buttocks Neurologically the patient is awake and oriented 3 - Labs CBC & Chem 7: 12/12/22 04:05 12/12/22 04:05 Labs: Abnormal Lab Results - Last 24 Hours (Table) 12/11/22 12/11/22 12/11/22 Range/Units 11:22 17:57 21:34 WBC (3.8-10.6) k/uL RBC (4.30-5.90) m/uL Hgb (13.0-17.5) gm/dL Hct (39.0-53.0) % Neutrophils # (1.3-7.7) k/uL APTT (22.0-30.0) sec Sodium (137-145) mmol/L Glucose (74-99) mg/dL POC Glucose (mg/dL) 175 H 381 H 209 H (70-110) mg/dL Calcium (8.4-10.2) mg/dL Total Bilirubin (0.2-1.3) mg/dL Total Protein (6.3-8.2) g/dL Albumin (3.5-5.0) g/dL 12/12/22 12/12/22 12/12/22 Range/Units 04:05 04:05 04:05 WBC 10.7 H (3.8-10.6) k/uL RBC 4.02 L (4.30-5.90) m/uL Hgb 12.2 L (13.0-17.5) gm/dL Hct 36.1 L (39.0-53.0) % Neutrophils # 7.9 H (1.3-7.7) k/uL APTT 53.6 H (22.0-30.0) sec Sodium 136 L (137-145) mmol/L Glucose 185 H (74-99) mg/dL POC Glucose (mg/dL) (70-110) mg/dL Calcium 8.2 L (8.4-10.2) mg/dL Total Bilirubin 1.5 H (0.2-1.3) mg/dL Total Protein 5.3 L (6.3-8.2) g/dL Albumin 2.8 L (3.5-5.0) g/dL 12/12/22 Range/Units 06:06 WBC (3.8-10.6) k/uL RBC (4.30-5.90) m/uL Hgb (13.0-17.5) gm/dL Hct (39.0-53.0) % Neutrophils # (1.3-7.7) k/uL APTT (22.0-30.0) sec Sodium (137-145) mmol/L Glucose (74-99) mg/dL POC Glucose (mg/dL) 178 H (70-110) mg/dL Calcium (8.4-10.2) mg/dL Total Bilirubin (0.2-1.3) mg/dL Total Protein (6.3-8.2) g/dL Albumin (3.5-5.0) g/dL Microbiology - Last 24 Hours (Table) 12/08/22 17:00 Blood Culture - Preliminary Blood Assessment and Plan Plan: Acute hypoxic respiratory failure on that investigation. The patient has perihilar and lower lobe pulmonary consolidation and the patient an acute presentation of shortness of breath and hypoxic respiratory failure, failed BiPAP and the patient to be intubated and placed on a mechanical ventilator. Consider acute hypertensive heart disease and flash pulmonary edema as the patient's blood pressure was quite elevated at time of admission to the emergency department. The patient was extubated and the patient is currently on room and oxygen. Chest x-ray findings are improved considerably. The chest x- ray from today is normal and the patient is currently on 2 L of oxygen by nasal cannula. No signs of any respiratory distress Acute non-ST segment elevation myocardial infarctions troponin of 1.7. Repeat echocardiogram today showed no concerns of VSD Acute shortness of breath secondary to above, improved Acute hemoptysis secondary to above and the patient's PT/INR was subtherapeutic, treated and this has recovered Acute dyspnea secondary to above, improved Acute hypotension under investigation. Consider cardiogenic shock. Consider possibility of a septic shock. The patient is currently off pressors Atrial fibrillation, chronic with rapid ventricular response at the time of admission, rate is under better control and the patient is currently off the Cardizem drip on IV heparin Supratherapeutic PT/INR, , treated Hemoptysis secondary to above, recovered Diabetes mellitus type 2 Hyperlipidemia Mild leukocytosis History of diabetic foot infection, recovered Deep tissue injury to his left buttocks Plan Continue metoprolol 50 mg by mouth daily Continue digoxin Amiodarone was discontinued Start the patient on Coumadin and given a total dose of 10 mg a day and do a daily PT/INR monitoring Continue IV heparin Levemir insulin NovoLog insulin size coverage IV Protonix optifoam and Silvadene cream to his left buttocks Advance diet Urine output is still adequate Discontinue the arterial line Discontinue Gunderson catheter Continue using incentive spirometer Advance diet We'll follow Allow physical therapy to evaluate this patient.
[2022-12-12 11:12] LABS: Glucose,Whole Blood 239 mg/dL (70-110)
[2022-12-12] MEDS: ACETAMINOPHEN TAB 500 MG TAB PO PRN ×3 (11:41→21:14)
--- NOTE | 2022-12-12 12:41 | PN ---
PROGRESS NOTE SUBJECTIVE: Jacoby is a 77-year-old gentleman, who is admitted to hospital with sudden-onset pulmonary edema and vent requiring respiratory failure. He was also in atrial fibrillation with poorly controlled ventricular rate. This morning, he is awake, alert, and is free of significant symptoms. PHYSICAL EXAMINATION: VITAL SIGNS: Heart rate is around 98 beats per minute, blood pressure is 140/72, respiratory rate is 18. CHEST: Reveals good air entry bilaterally. I do not hear any crackles or rhonchi. HEART: Reveals first and second heart sounds and a systolic murmur at the apex. ABDOMEN: Normal. EXTREMITIES: Do not reveal any edema. LABORATORY DATA: Labs show that the creatinine is 0.8, hemoglobin is 12.2. ASSESSMENT: 1. Non ST-segment elevation myocardial infarction. 2. Acute pulmonary edema. 3. Permanent atrial fibrillation. PLAN: I am going to continue the patient on IV heparin at this time, increase the dose of metoprolol, stop the amiodarone which I was using for rate control, and consider cardiac catheterization. If he is stable, I may do this tomorrow morning. If not, I will do it on Tuesday. MMODL / IJN: [id number] /
--- NOTE | 2022-12-12 15:18 | P.PN ---
Subjective Progress Note Date: 12/12/22 77-year-old male came in with complaints of shortness of breath patient is presently being intubated much of the history is unknown. Patient started having mild cold for the last 2 days which progressively gotten worse patient is found to in atrial fibrillation with rapid and regular rate. Patient does have known history of A. fib does take Coumadin at home patient doesn't INR is 5. Chest x-ray showed bilateral infiltrates suspicious for pneumonia although seizures cannot be ruled out I'm unable to assess for JVD doesn't have any pedal edema. Patient does have elevated BNP of around 4000 baseline BNP is a known serum creatinine is within normal limits. No echo cardiac rhythm is available in the system. Patient does take metoprolol for atrial fibrillation. Patient is tachypneic tachycardic because of which patient is being intubated patient blood pressure is although not low. Pro-calcitonin will be ordered. 12/09/2022 Patient remains in intensive care unit currently intubated and on mechanical vent with FiO2 40%. Oxygen saturations are 98%. He is afebrile last 24 hours. Chest x-ray reveals slightly improved bibasilar patchy airspace opacities. Viral panel is negative for Covid, RSV, influenza. An echocardiogram has been completed revealed an EF of 50-55% with dilated right ventricle with a suggestion of VSD with [id number] shunting, to moderate mitral and mild tricuspid regurgitation with no evidence of pulmonary hypertension. There is a calcified aortic valve. This is a technically difficult study with limited views. Patient remains on IV amiodarone drip with atrophic fibrillation heart rate is now controlled, and Biaxin as well as IV cefepime and IV levofloxacin in place. Patient remains on a propofol drip for sedation and is on vasopressin and norepinephrine. Her blood cell count today is up to 20.7, sodium of 134, blood glucose in the 260s hemoglobin A1c found to be 9.9. A pro-calcitonin level was completed and negative at 0.053. 12/10/2022 Patient is evaluated today remains in the intensive care unit currently intubated and on mechanical ventilator with FiO2 40% and a PEEP of 5. X-ray today shows an increased hazy density right mid lower lung as well as in the left retrocardiac region. Chest x-ray does look improved as compared to admission x-ray. He continues on propofol for sedation has been weaned off levo fed and vasopressin at this time. Continues on IV heparin. He remains on IV Cardizem drip has been transitioned to oral amiodarone also been started on oral digoxin daily. Continues on antibiotics in the form of IV cefepime and oral azithromycin. Continues on enteral tube feedings with vital high protein. White count is down to 14.3, sodium at 128, BUN 24, creatinine 0.89, blood glucose in the 130s. Sputum culture is negative and blood culture remains negative and pending final results. 12/11/2022 Patient is evaluated today in intensive care unit. He was extubated and is now on 2 L of nasal cannula with oxygen saturation of 95%. Chest x-ray appears to be improving at this time although the radiology report has not been read yet. Remains on IV Cardizem transitioned to oral amiodarone and has been started on oral digoxin heart rate is improved today down to the 80-90s and he is controlled at this time. Patient remains on IV heparin. Oral and IV antibiotics have been discontinued. Currently denying any shortness of breath denies any chest pain. White count was down to 13.5 today. Sodium is improving 143 function is normal. Blood glucose is 170s. Patient is noted to have a large ulcer on his left buttock which is causing him significant pain and tenderness to touch. There is shearing of the skin with bruising underneath likely a deep tissue injury. 12/12/2022 Patient remains in the intensive care unit. He has been waned to room air and reporting no shortness of breath. His lungs are clear. Amiodarone and Cardizem has been discontinued he continues on 50 g of oral digoxin daily and his heart rate is controlled. He remains in atrial fibrillation. He continues on IV heparin and warfarin has been resumed. Cardiology planning to perform a cardiac catheterization tomorrow. He has a large deep tissue injury to his left buttock wound care in place and we will consult wound care for evaluation tomorrow. Review of Systems Constitutional: Reports fatigue denied any fever. Cardio vascular: denied any chest pain, palpitations Gastrointestinal: denied any nausea, vomiting, diarrhea Pulmonary: Reports shortness of breath and cough. Neurologic denied any new focal deficits Reports diffuse weakness. All inpatient medications were reviewed and appropriate changes in these m edications as dictated in the interval history and assessment and plan. PHYSICAL EXAMINATION: GENERAL: The patient is alert and oriented x3, not in any acute distress. Well developed, well nourished. on 2L nasal cannula. HEENT: Pupils are round and equally reacting to light. EOMI. No scleral icterus. No conjunctival pallor. Normocephalic, atraumatic. No pharyngeal erythema. No thyromegaly. CARDIOVASCULAR: S1 and S2 present. No murmurs, rubs, or gallops. PULMONARY: Chest is clear to auscultation, no wheezing or crackles. ABDOMEN: Soft, nontender, nondistended, normoactive bowel sounds. No palpable organomegaly. MUSCULOSKELETAL: No joint swelling or deformity. EXTREMITIES: No cyanosis, clubbing, or pedal edema. NEUROLOGICAL: Gross neurological examination did not reveal any focal deficits. Diffuse weakness. SKIN: No rashes. Has deep tissue injury to the left buttock with shearing of skin and bruised. Tender to touch/palpate. Assessment and plan -Acute hypoxic respiratory failure is likely due to diastolic heart failure. Procalcitonin level was negative. Patient was given IV lasix. -Shock likely cardiogenic in nature requiring Levophed and Vasopressin currently weaned off -Acute pulmonary edema -Atrial fibrillation with rapid ventricular rate currently rate controlled -Troponin elevation due to acute nstemi -Leukocytosis likely reactive in nature -History of paroxysmal atrial fibrillation anticoagulated with warfarin outpatient patient had a supratherapeutic INR on admission -Hyperlipidemia -Type 2 diabetes mellitus with hyperglycemia -Recently treated outpatient with oral Cipro for a diabetic toe infection which is not evident on physical examination. 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 GI prophylaxis: IV protonix Full Code Plan Patient is evaluated in intensive care unit. Heart rate remains controlled on o ral digoxin and increased dose of oral metoprolol. Antibiotics have been discontinued. Wound care has been consult to the deep tissue injury to the left buttock and patient can use Kwestrhoney for this change daily and cover with Optifoam in the mean time. Continue with pressure offloading. PT/OT cons ultation. Continue to encourage incentive spirometer use in the next 24 hours. Patient to undergo cardiac catheterization in the next 24 hours. The impression and plan of care has been dictated by Kailyn Heck, Nurse Practitioner as directed. Dr. Shahab MD I have performed a history and physical examination and medical decision making of this patient, discussed the same with the dictator, and agree with the dictators assessment and plan as written, documented as a scribe. Based on total visit time, I have performed more than 50% of this visit. Objective - Vital Signs Vital signs: Vital Signs Temp 98.4 F 12/12/22 08:00 Pulse 84 12/12/22 14:00 Resp 22 12/12/22 14:00 BP 135/76 12/12/22 09:00 Pulse Ox 95 12/12/22 14:00 FiO2 4 12/10/22 16:30 Intake & Output 12/11/22 12/12/22 12/12/22 18:59 06:59 18:59 Intake Total 1041.083 533.869 188 Output Total 835 1155 725 Balance 206.083 -621.131 -537 Weight 85.8 kg Intake: IV 270 312 188 0.9 sodium chloride for 70 72 48 pressure bag Sodium Chloride 0.9% 1, 200 240 140 000 ml @ 20 mls/hr IV . Q24H [facility] Rx#:[id number] Intake, IV Titration 281.083 221.869 Amount Diltiazem 125 mg In 93.75 Sodium Chloride 0.9% 100 ml @ 15 MG/HR 15 mls/hr IV .Q8H20M [facility] Rx#: [id number] Heparin Sod,Pork in 0.45% 187.333 221.869 NaCl 25,000 unit In 0.45 % NaCl 1 250ml.bag @ 11. 038 UNITS/KG/HR 10 mls/hr IV .Q24H [facility] Rx#: [id number] Oral 490 Output: Urine 835 1155 725 Other: Voiding Method Indwelling Catheter Indwelling Catheter Indwelling Catheter ABP, PAP, CO, CI - Last Documented Arterial Blood Pressure 144/46 - Labs CBC & Chem 7: 12/12/22 04:05 12/12/22 04:05 Labs: Abnormal Lab Results - Last 24 Hours (Table) 12/11/22 12/11/22 12/12/22 Range/Units 17:57 21:34 04:05 WBC (3.8-10.6) k/uL RBC (4.30-5.90) m/uL Hgb (13.0-17.5) gm/dL Hct (39.0-53.0) % Neutrophils # (1.3-7.7) k/uL APTT 53.6 H (22.0-30.0) sec Sodium (137-145) mmol/L Glucose (74-99) mg/dL POC Glucose (mg/dL) 381 H 209 H (70-110) mg/dL Calcium (8.4-10.2) mg/dL Total Bilirubin (0.2-1.3) mg/dL Total Protein (6.3-8.2) g/dL Albumin (3.5-5.0) g/dL 12/12/22 12/12/22 12/12/22 Range/Units 04:05 04:05 06:06 WBC 10.7 H (3.8-10.6) k/uL RBC 4.02 L (4.30-5.90) m/uL Hgb 12.2 L (13.0-17.5) gm/dL Hct 36.1 L (39.0-53.0) % Neutrophils # 7.9 H (1.3-7.7) k/uL APTT (22.0-30.0) sec Sodium 136 L (137-145) mmol/L Glucose 185 H (74-99) mg/dL POC Glucose (mg/dL) 178 H (70-110) mg/dL Calcium 8.2 L (8.4-10.2) mg/dL Total Bilirubin 1.5 H (0.2-1.3) mg/dL Total Protein 5.3 L (6.3-8.2) g/dL Albumin 2.8 L (3.5-5.0) g/dL 12/12/22 Range/Units 11:11 WBC (3.8-10.6) k/uL RBC (4.30-5.90) m/uL Hgb (13.0-17.5) gm/dL Hct (39.0-53.0) % Neutrophils # (1.3-7.7) k/uL APTT (22.0-30.0) sec Sodium (137-145) mmol/L Glucose (74-99) mg/dL POC Glucose (mg/dL) 239 H (70-110) mg/dL Calcium (8.4-10.2) mg/dL Total Bilirubin (0.2-1.3) mg/dL Total Protein (6.3-8.2) g/dL Albumin (3.5-5.0) g/dL Microbiology - Last 24 Hours (Table) 12/08/22 17:00 Blood Culture - Preliminary Blood Assessment and Plan Time with Patient: Less than 30
[2022-12-12 16:07] LABS: Glucose,Whole Blood 257 mg/dL (70-110)
[2022-12-12] MEDS ORDERED: WARFARIN 10 MG TAB PO ONE (18:00)
[2022-12-12 19:59] LABS: Glucose,Whole Blood 169 mg/dL (70-110)
[2022-12-12] MEDS: SODIUM CHLORIDE 0.9% 1,000 ML IV SCH (21:23)
[2022-12-13] MEDS: HEPARIN SOD,PORK IN 0.45% NACL 25,000 UNIT in 0.45% NACL 1 250ML.BAG IV SCH (01:47)
[2022-12-13 04:04] LABS: Basophils # (A) 0.1 k/uL (0-0.2); Basophils % (A) 1 %; Eosinophils # (A) 0.5 k/uL (0-0.7); Eosinophils % (A) 5 %; HCT 40.1 % (39.0-53.0); HGB 12.6 gm/dL (13.0-17.5); Hypochromasia Slight; INR 1.1 (<1.2); Lymphocytes # (A) 1.9 k/uL (1.0-4.8); Lymphocytes % (A) 16 %; MCH 28.9 pg (25.0-35.0); MCHC 31.5 g/dL (31.0-37.0); MCV 91.7 fL (80.0-100.0); Mean Platelet Volume 8.6; Monocytes # (A) 1.4 k/uL (0-1.0); Monocytes % (A) 11 %; Neutrophils # (A) 7.6 k/uL (1.3-7.7); Neutrophils % (A) 63 %; Partial Thromboplastin Time 39.5 sec (22.0-30.0); Platelet Count 190 k/uL (150-450); Prothrombin Time 11.8 sec (9.0-12.0); RBC 4.37 m/uL (4.30-5.90); RDW 13.7 % (11.5-15.5); WBC 11.9 k/uL (3.8-10.6)
[2022-12-13 04:11] LABS: African American GFR (CKD) >90 (>60 ml/min/1.73 sqM); Anion Gap 6 mmol/L; Blood Urea Nitrogen 17 mg/dL (9-20); Calcium 8.5 mg/dL (8.4-10.2); Carbon Dioxide 27 mmol/L (22-30); Chloride 103 mmol/L (98-107); Glucose 117 mg/dL (74-99); Non-African American GFR(CKD) 85 (>60 ml/min/1.73 sqM); Potassium 4.7 mmol/L (3.5-5.1); Sodium 136 mmol/L (137-145)
[2022-12-13] MEDS: HEPARIN SODIUM 1,000 UN/ML (10ML VL) IV PRN (05:49)
[2022-12-13] MEDS: INSULIN DETEMIR (LEVEMIR) 100 UNIT/ML SYR SQ SCH ×2 (06:35→20:08)
[2022-12-13 06:37] LABS: Glucose,Whole Blood 135 mg/dL (70-110)
[2022-12-13] MEDS: INSULIN ASPART (NovoLOG) 100 UNIT/ML VIAL SQ SCH ×4 (06:41→20:15)
[2022-12-13] MEDS: DIGOXIN 250 MCG TAB PO SCH (08:57)
[2022-12-13] MEDS: METOPROLOL TARTRATE 50 MG TAB PO SCH ×2 (08:57→20:17)
[2022-12-13] MEDS: PANTOPRAZOLE 40 MG/10 ML VIAL IVP SCH ×2 (08:57→20:17)
[2022-12-13] MEDS ORDERED: NITROGLYCERIN SL TABS 0.4 MG TAB SUBLINGUAL PRN (09:49)
[2022-12-13] MEDS ORDERED: ALPRAZolam 0.5 MG TAB PO PRN (09:49)
[2022-12-13] MEDS ORDERED: ALPRAZolam 0.25 MG TAB PO PRN (09:49)
[2022-12-13] MEDS: ACETAMINOPHEN TAB 500 MG TAB PO PRN (10:17)
[2022-12-13 11:41] LABS: Glucose,Whole Blood 225 mg/dL (70-110)
[2022-12-13 11:41] LABS: Glucose,Whole Blood 255 mg/dL (70-110)
--- NOTE | 2022-12-13 12:06 | P.CONS ---
History of Present Illness - Reason for Consult Consult date: 12/13/22 wound care - History of Present Illness This is a 77-year-old gentleman being seen in ICU for a stage II pressure ulcer to the left buttocks. It appears that the ulceration man started as a skin tear. At this time patient has an ulceration that measures 1.4 x 2.5 x 0.1 cm approximately. Wound edges are attached to the wound base there is granulation noted within the wound bed. Minimal slough noted. No tunneling or undermining noted. Review Of Systems: Constitutional: No fever, no chills, no night sweats. No weight change. No weakness, fatigue or lethargy. No daytime sleepiness. Integumentary:reports wounds, no lesions. No rash or pruritus. No unusual bruising. No change in hair or nails. Physical exam: General Appearance: Alert, cooperative, no distress, appears stated age. Skin: See HPI all other Skin color, texture, tugor normal, no rashes or lesions. Neurologic: Alert oriented x3 Assessment: 1. Stage II pressure ulcer left buttocks 2. Diabetes with skin ulceration Plan: 1. Apply triad to the site daily. May cover with a border foam if necessary. Utilize air-filled cushion when sitting. Turn patient every 2 hours as needed. Thank you for the consultation any questions was contact the wound care center DNP note has been reviewed and discussed with Dr. Leblanc and the impression and plan of care has been directed as dictated. Past Medical History Past Medical History: Atrial Fibrillation, Diabetes Mellitus, Hypertension Additional Past Medical History / Comment(s): History of diabetic foot infection from which the patient has recovered and has been adequately treated History of Any Multi-Drug Resistant Organisms: None Reported Past Surgical History: Appendectomy, Orthopedic Surgery Past Anesthesia/Blood Transfusion Reactions: No Reported Reaction Smoking Status: Never smoker - Past Family History Father Additional Family Medical History / Comment(s): "brown lung", emphysema Brother(s) Family Medical History: AFIB, Congestive Heart Failure (CHF), Diabetes Mellitus Mother Family Medical History: Diabetes Mellitus Medications and Allergies Home Medications Medication Instructions Recorded Confirmed Type Benzonatate [Tessalon Perles] 200 mg PO TID PRN 12/08/22 12/08/22 History Calcium(Unknown Dose) 1 tab PO DAILY 12/08/22 12/08/22 History Cholecalciferol [Vitamin D3 (25 25 mcg PO DAILY 12/08/22 12/08/22 History Mcg = 1000 Iu)] Co Q-10(Unknown Dose) 1 cap PO DAILY 12/08/22 12/08/22 History Insulin Aspart [NovoLOG Flexpen] See Protocol SQ AC-TID 12/08/22 12/08/22 History Insulin Glargine,Hum.rec.anlog 17 units SQ HS 12/08/22 12/08/22 History [Toujeo Solostar] Metoprolol Tartrate [Lopressor] 50 mg PO DAILY 12/08/22 12/08/22 History Multivitamins, Thera [Multivitamin 1 tab PO DAILY 12/08/22 12/08/22 History (formulary)] Simvastatin [Zocor] 20 mg PO DAILY 12/08/22 12/08/22 History Warfarin Sodium 6 mg PO HS 12/08/22 12/08/22 History Warfarin [Coumadin] 1 mg PO SUSA@2100 12/08/22 12/08/22 History lisinopriL [Zestril] 10 mg PO DAILY 12/08/22 12/08/22 History metFORMIN HCL 1,000 mg PO BID 12/08/22 12/08/22 History predniSONE [Deltasone] See Taper PO DAILY 12/08/22 12/08/22 History Allergies Allergy/AdvReac Type Severity Reaction Status Date / Time Penicillins Allergy Rash/Hives Verified 12/08/22 13:47 Sulfa (Sulfonamide Allergy Rash/Hives Verified 12/08/22 13:47 Antibiotics) Physical Exam Vitals: Vital Signs Temp Pulse Pulse Resp BP BP Pulse Ox 12/13/22 08:18 92 L 12/13/22 08:00 98 F 101 H 18 101/73 97 12/13/22 06:00 91 20 137/84 95 12/13/22 05:00 90 22 125/74 95 12/13/22 04:00 93 12 149/79 95 12/13/22 03:00 83 16 123/82 94 L 12/13/22 02:00 88 21 126/66 91 L 12/13/22 01:00 81 23 106/66 95 12/13/22 00:00 81 21 121/65 92 L 12/12/22 23:00 80 19 145/80 92 L 12/12/22 22:00 86 16 126/79 93 L 12/12/22 21:00 88 23 120/81 95 12/12/22 20:00 98.2 F 101 H 16 160/86 94 L 12/12/22 19:00 98 18 96/75 94 L 12/12/22 18:00 105 H 17 139/75 95 12/12/22 17:00 105 H 13 116/65 95 12/12/22 16:00 98.2 F 86 26 H 122/75 95 12/12/22 15:00 85 13 94 L 12/12/22 14:00 84 22 95 12/12/22 13:00 88 18 96 Intake and Output 12/12/22 12/13/22 12/13/22 22:59 06:59 14:59 Intake Total 190 461.913 80 Output Total 675 550 100 Balance -485 -88.087 -20 Intake: IV 190 180 80 0.9 sodium chloride for 30 pressure bag Sodium Chloride 0.9% 1, 160 180 80 000 ml @ 20 mls/hr IV . Q24H [facility] Rx#:[id number] Intake, IV Titration 281.913 Amount Heparin Sod,Pork in 0.45% 281.913 NaCl 25,000 unit In 0.45 % NaCl 1 250ml.bag @ 11. 038 UNITS/KG/HR 10 mls/hr IV .Q24H [facility] Rx#: [id number] Output: Urine 675 550 100 Other: Voiding Method Indwelling Catheter Indwelling Catheter Urinal # Voids 1 1 1 Weight 84.5 kg Results CBC & Chem 7: 12/13/22 03:35 12/13/22 03:35 Labs: Abnormal Lab Results - Last 24 Hours (Table) 12/12/22 12/12/22 12/13/22 Range/Units 16:06 19:57 03:35 WBC (3.8-10.6) k/uL Hgb (13.0-17.5) gm/dL Monocytes # (0-1.0) k/uL APTT 39.5 H (22.0-30.0) sec Sodium (137-145) mmol/L Glucose (74-99) mg/dL POC Glucose (mg/dL) 257 H 169 H (70-110) mg/dL 12/13/22 12/13/22 12/13/22 Range/Units 03:35 03:35 06:36 WBC 11.9 H (3.8-10.6) k/uL Hgb 12.6 L (13.0-17.5) gm/dL Monocytes # 1.4 H (0-1.0) k/uL APTT (22.0-30.0) sec Sodium 136 L (137-145) mmol/L Glucose 117 H (74-99) mg/dL POC Glucose (mg/dL) 135 H (70-110) mg/dL 12/13/22 12/13/22 Range/Units 11:37 11:39 WBC (3.8-10.6) k/uL Hgb (13.0-17.5) gm/dL Monocytes # (0-1.0) k/uL APTT (22.0-30.0) sec Sodium (137-145) mmol/L Glucose (74-99) mg/dL POC Glucose (mg/dL) 225 H 255 H (70-110) mg/dL Assessment and Plan (1) Pressure injury of left buttock, stage 2 Current Visit: Yes Status: Acute Code(s): L89.322 - PRESSURE ULCER OF LEFT BUTTOCK, STAGE 2 SNOMED Code(s): 40311663336357 (2) Type 2 diabetes mellitus with other skin ulcer Current Visit: Yes Status: Acute Code(s): E11.622 - TYPE 2 DIABETES MELLITUS WITH OTHER SKIN ULCER; L98.499 - NON-PRESSURE CHRONIC ULCER OF SKIN OF SITES W UNSP SEVERITY SNOMED Code(s): 298725373
--- NOTE | 2022-12-13 13:54 | P.PN ---
Subjective Progress Note Date: 12/13/22 Principal diagnosis: Acute hypoxic respiratory failure secondary to Acute pulmonary edema with hypertensive emergency and acute non-ST elevation myocardial infarction 77-year-old male patient, came into the emergency department because of shortness of breath. The patient [place] and he has a primary care physician in [facility]. The patient was in the hospital with his who was having a mammogram. He acutely became short of breath and he felt that his lungs were filling up with fluid. He was brought into the emergency department. Noted around few days back, he was having some limited cough and the patient was given a course of steroid taper by his primary care physician. No fever. No chills. No chest pain. He is known to have chronic atrial fi brillation and the patient is also known to have diabetes mellitus and hyperlipidemia. No history of any coronary artery disease. No history of any stroke. No history of any DVTs or pulmonary embolism. No history of COPD or asthma. He is a nonsmoker. The patient came into the emergency and he was hypoxic, acutely short of breath, acutely tachycardic and hypertensive with a BP of 192/137 with a heart rate of 158 and the respiration all 35. The patient was placed on a BiPAP. He decompensated. Ultimately, he was intubated and placed on a mechanical ventilator. Chest x-ray showed bilateral lung consolidations mainly in the lower lobes. Post intubation, the patient started having bloody rest or secretions from his orotracheal tube. His cardiac rhythm is the nature fibrillation. At this point in time, the patient is intubated on a mechanical ventilator. I saw the patient in the emergency department and a lipase to the intensive care unit. Currently is on propofol which is currently is up to 50 mcg/kg/m. His well sedated on a mechanical ventilator. He was also given a dose of Nimbex 10 mg IV push as the sedation was being titrated. Note that the patient became also hypotensive while being on sedation. He was started on norepinephrine which is currently running at 0.27 Babar respiratory kilogram per minute. His heart rate is less tachycardic although distal in nature fibrillation. Cardizem drip was discontinued because of underlying hypotension. He was given a dose of Lasix in the emergency department and he has produced a total of 350 mL of urine output. He does have some lower extremity edema. His blood work is showing 15.5, hemoglobin is 14.4, platelet count of 244, sodium is at 140, BUN is at 24 with a creatinine of 0.9. ProBNP level is 4050. Troponin was 0.7. LFTs are normal. The vital screening including Covid 19 was negative. Thyroid function test was within normal limits. His INR was at 5.0 with a PTT of 49.2. The patient was given a total of 5 mg of vitamin K. Lines were established in the ICU including a triple-lumen catheter inserted in his left IJ and an arterial line for blood pressure monitoring. Given a dose of Rocephin. He is currently on a mechanical ventilator on assist control mode with a rate of 26, tidal volume of 450, FiO2 of 100% and a PEEP of 5. On today's evaluation of a 12/09 2022, the patient remains intubated on a mechanical ventilator. The patient is calm and comfortable on mechanical ventilator. Is currently on propofol running at 45 mcg/kg/m. His symptoms of the mechanical ventilator. This is on assist-control mode of mechanical ventilation with a rate of 26, tidal volume of 450, FiO2 of 40% and a PEEP currently is at 10. The blood gas shows marked improvement and the patient has a pH of 7.54 consistent with respiratory alkalosis with a pCO2 of 26 and pO2 of 247. This was done an FiO2 of 60% and based on the difficult was weaned down to 40%. At the same time, the chest x-ray shows marked improvement compared to yesterday. The orotracheal tube is in a good location. There is improvement in the bibasilar patchy airspace opacities and the lines are all in place. The patient's echoes up to 20.7 with a hemoglobin 12.8. His INR dropped down to 2.9 after being given a total of 5 mg of vitamin K. His lactic acid level is at 2.3. BUN is at 25 with a creatinine of 0.9 and the sodium is at 1:30. His pro calcitonin level is at 0.03. The troponin peaked at 1.7 and cardiology is on the case. His cardiac rhythm is atrial fibrillation and the patient remains on amiodarone which is running at 0.5 mg/m for rate control. Echocardiogram was also completed yesterday that showed a dynamic LV. His left ventricular ejection fraction was normal with an ejection fraction of 50-55%. There was mild to moderate mitral and tricuspid regurgitation. There was some dilation of the right ventricle and there was a suggestion of a VSD with a [id number] shunting. This is to be further evaluated by cardiology. On 12/10/2022, the patient is being seen for a follow-up. The patient is still on a mechanical ventilator. Propofol is being weaned this morning. Overnight, the patient was kept on propofol for sedation. At the same time, the patient is currently on a mechanical ventilator on assist control mode with a rate of 16, tidal volume of 450, FiO2 down to 40% with a PEEP of 5. Pulse ox is in order of 97%.Chest x-ray showing increased haziness in the right middle and right lower lobe as well as the left atrial cardiac area. This was not seen on yesterday's chest x-ray. Blood gas from today shows a pH of 7.48 with a pCO2 of 37 and pO2 of 103 and this was done above-mentioned ventilator setting. The patient remained nature fibrillation. He is currently on a Cardizem drip at 10 mg an hour and amiodarone by mouth 400 mg twice a day. He was also given digoxin by cardiology 250 g on a daily basis and this was given to him for rate control. His INR today is pending. Yesterday's INR was at 2.9 and the warfarin was discontinued. The patient was in negative fluid balance of 1.3 L over the past 24 hours. A repeat echocardiogram was done today and I was informed by cardiology and there is no concern for underlying VSD. The BMs thousand 14.3 with a hemoglobin 11.8. He has 24 with a creatinine of 0.8 and a sodium level is at 128. LFTs are within normal limits. On today's evaluation of 12/11/2022, I'm seeing the patient for a follow-up. The patient was weaned off the mechanical ventilator and the patient was extubated yesterday without any major difficulties. This morning, he is extubated and is currently on oxygen at room air. The patient is in negative fluid balance. He has been in negative fluid balance of 4.5 L over the past 24 hours as the patient was diuresed. He was already making adequate urine without diuretics. He was given Lasix also to augment his urine output. No major respiratory difficulties. His cardiac rhythm is a chest fibrillation. The patient is currently on IV heparin. The patient is also on Cardizem at 15 mg an hour. PTT therapeutic. BUN is at 19 with a creatinine of 0.9. LFTs are normal at this point in time. The white suppositive 13.5, hemoglobin 13.3 and a platelet count is at 208. Noted the patient was on warfarin prior to him coming into the hospital. His INR was supratherapeutic and his INR on yesterday's down to 1.5. He does have a deep tissue injury to his left buttocks and currently is laying down his right. Antibiotic coverage included a combination of cefepime and Zithromax. His pro calcitonin level was low. Cultures were negative. White cell cause that 13.5. His pro calcitonin level is at 0.03. 12/12/2022, the patient is doing well and he remains extubated and currently is on oxygen at 2 L. Pulse ox is adequate. He remains in atrial fibrillation. Hemodynamically stable. He is on no pressors at this point in time. The patient remains on IV heparin. Warfarin will be started today. He was taken off the Cardizem drip and currently is on a combination of metoprolol at a dose of 50 mg by mouth twice a day, Cardizem drip has been discontinued and the patient was also given digoxin 0.25 mg on a daily basis. He is on Levemir insulin 10 units and the signs Coverage. His oral intake is still diminished over this is improving. The chest x-ray is rotated minutes essentially clear. The patient has developed a deep tissue injury to his left buttocks. This could be related also to a prior to intubation trauma. His respiratory failure was brief to cause this extent of deep tissue injury. Currently he has a Opteform applied to the area. seconds at 10.7. Hemoglobin is 12.2. Platelet count is 204. BUN is 16. Creatinine is at 0.8. Urine operas adequate. Cardiac rhythm is A. fib Patient was reevaluated today on 12/13/2022, patient remains in the ICU, he is presently on room air, not in any distress, he is actually an overflow to the cardiac floor 3 S., and he may be scheduled to undergo cardiac catheterization today. Patient was intubated on 12/08, extubated on 12/10 tolerated the extubation well, and he is relatively asymptomatic, remains on heparin PTT is 58/therapeutic the lips count is 11.9 hemoglobin is 12.6 and the first are carolin l renal profile is normal. Chest x-ray from yesterday showed no evidence of acute pulmonary process Objective - Vital Signs Vital signs: Vital Signs Temp 98 F 12/13/22 12:00 Pulse 97 12/13/22 12:00 Resp 18 12/13/22 12:00 BP 134/78 12/13/22 12:00 Pulse Ox 97 12/13/22 12:00 FiO2 4 12/10/22 16:30 Intake & Output 12/12/22 12/13/22 12/13/22 18:59 06:59 18:59 Intake Total 292 547.913 120 Output Total 900 1050 250 Balance -608 -502.087 -130 Weight 84.5 kg 84.5 kg Intake: IV 292 266 120 0.9 sodium chloride for 72 6 pressure bag Sodium Chloride 0.9% 1, 220 260 120 000 ml @ 20 mls/hr IV . Q24H VIDAL Rx#:[id number] Intake, IV Titration 281.913 Amount Heparin Sod,Pork in 0.45% 281.913 NaCl 25,000 unit In 0.45 % NaCl 1 250ml.bag @ 11. 038 UNITS/KG/HR 10 mls/hr IV .Q24H VIDAL Rx#: [id number] Output: Urine 900 1050 250 Other: Voiding Method Indwelling Catheter Indwelling Catheter Urinal # Voids 1 1 1 ABP, PAP, CO, CI - Last Documented Arterial Blood Pressure 165/66 - Exam Physical Exam: Revealed a 77-year-old white male in no distress on room air Head: Atraumatic normocephalic HEENT:[Neck is supple.] [No neck masses.] [No thyromegaly.] [No JVD.] Chest: [Clear throughout, no crackles, no rhonchi, no wheezes.] Cardiac Exam: [Normal S1 and S2, no S3 gallop, no murmur.] Abdomen: [Soft, nontender, no megaly, no rebound, no guarding, normal bowel sounds.] Extremities: [No clubbing, no edema, no cyanosis.] Neurological Exam: [No focal neurologic deficit.] Alert oriented 3 Psychiatric: Normal mood affect and normal mental status exam. Skin: No rashes - Labs CBC & Chem 7: 12/13/22 03:35 12/13/22 03:35 Labs: Abnormal Lab Results - Last 24 Hours (Table) 12/12/22 12/12/22 12/13/22 Range/Units 16:06 19:57 03:35 WBC (3.8-10.6) k/uL Hgb (13.0-17.5) gm/dL Monocytes # (0-1.0) k/uL APTT 39.5 H (22.0-30.0) sec Sodium (137-145) mmol/L Glucose (74-99) mg/dL POC Glucose (mg/dL) 257 H 169 H (70-110) mg/dL 12/13/22 12/13/22 12/13/22 Range/Units 03:35 03:35 06:36 WBC 11.9 H (3.8-10.6) k/uL Hgb 12.6 L (13.0-17.5) gm/dL Monocytes # 1.4 H (0-1.0) k/uL APTT (22.0-30.0) sec Sodium 136 L (137-145) mmol/L Glucose 117 H (74-99) mg/dL POC Glucose (mg/dL) 135 H (70-110) mg/dL 12/13/22 12/13/22 12/13/22 Range/Units 11:37 11:39 12:10 WBC (3.8-10.6) k/uL Hgb (13.0-17.5) gm/dL Monocytes # (0-1.0) k/uL APTT 58.0 H (22.0-30.0) sec Sodium (137-145) mmol/L Glucose (74-99) mg/dL POC Glucose (mg/dL) 225 H 255 H (70-110) mg/dL Assessment and Plan Assessment: Impression: Acute hypoxic respiratory failure secondary to acute pulmonary edema/flash pulmonary edema exact etiology is not clear could be related to hypertension Acute non-ST elevation myocardial infarction Atrial fibrillation, chronic but the patient presented with atrial fibrillation with RVR on admission Type 2 diabetes Dyslipidemia History of diabetic foot infection, recovered Deep tissue injury to his left buttocks Recommendation: Continue present supportive care measures Continue IV heparin until the patient could be restarted back on Coumadin Continue Levemir insulin and NovoLog insulin Continue GI and DVT prophylaxis Continue Silvadene cream and optifoam to left buttock Proceed with cardiac catheterization today Consider transfer to a cardiac floor today once a bed is available Advanced diet as tolerated We'll continue to follow Time with Patient: Less than 30
[2022-12-13] MEDS: HYDROPHILIC CREAM 180 GM TUBE TOPICAL SCH (15:09)
--- NOTE | 2022-12-13 16:17 | P.PN ---
Subjective Progress Note Date: 12/13/22 Subjective: No acute overnight events Summary: Patient is a 77-year-old gentleman who got admitted to the hospital with acute worsening shortness of breath and chest pressure. He was ruled in for non-ST segment elevation myocardial infarction Physical examination: Patient's vitals are stable General: Resting in bed, and alert and oriented Cardiac: Normal S1 and S2, no murmurs appreciated Respiratory: Good air entry in bilateral lung brtiton, some crackles audible in bilateral lower lung britton Abdomen is soft Neurological exam is nonfocal Extremities: No edema Assessment 1 non-ST elevation myocardial conduction 2 acute pulmonary edema 3 terminated fibrillation Plan Continue IV heparin drip, continue metoprolol, continue aspirin Plan for cardiac catheterization with Dr. Mclean tomorrow Objective - Vital Signs Vital signs: Vital Signs Temp 97.8 F 12/13/22 16:01 Pulse 74 12/13/22 16:01 Resp 16 12/13/22 16:01 BP 109/64 12/13/22 16:01 Pulse Ox 98 12/13/22 16:01 FiO2 4 12/10/22 16:30 Intake & Output 12/12/22 12/13/22 12/13/22 18:59 06:59 18:59 Intake Total 292 547.913 380 Output Total 900 1050 350 Balance -608 -502.087 30 Weight 84.5 kg 84.5 kg Intake: IV 292 266 180 0.9 sodium chloride for 72 6 pressure bag Sodium Chloride 0.9% 1, 220 260 180 000 ml @ 20 mls/hr IV . Q24H VIDAL Rx#:[id number] Intake, IV Titration 281.913 Amount Heparin Sod,Pork in 0.45% 281.913 NaCl 25,000 unit In 0.45 % NaCl 1 250ml.bag @ 11. 038 UNITS/KG/HR 10 mls/hr IV .Q24H VIDAL Rx#: [id number] Oral 200 Output: Urine 900 1050 350 Other: Voiding Method Indwelling Catheter Indwelling Catheter Urinal # Voids 1 1 1 ABP, PAP, CO, CI - Last Documented Arterial Blood Pressure 165/66 - Labs CBC & Chem 7: 12/13/22 03:35 12/13/22 03:35 Labs: Abnormal Lab Results - Last 24 Hours (Table) 12/12/22 12/13/22 12/13/22 Range/Units 19:57 03:35 03:35 WBC 11.9 H (3.8-10.6) k/uL Hgb 12.6 L (13.0-17.5) gm/dL Monocytes # 1.4 H (0-1.0) k/uL APTT 39.5 H (22.0-30.0) sec Sodium (137-145) mmol/L Glucose (74-99) mg/dL POC Glucose (mg/dL) 169 H (70-110) mg/dL 12/13/22 12/13/22 12/13/22 Range/Units 03:35 06:36 11:37 WBC (3.8-10.6) k/uL Hgb (13.0-17.5) gm/dL Monocytes # (0-1.0) k/uL APTT (22.0-30.0) sec Sodium 136 L (137-145) mmol/L Glucose 117 H (74-99) mg/dL POC Glucose (mg/dL) 135 H 225 H (70-110) mg/dL 12/13/22 12/13/22 Range/Units 11:39 12:10 WBC (3.8-10.6) k/uL Hgb (13.0-17.5) gm/dL Monocytes # (0-1.0) k/uL APTT 58.0 H (22.0-30.0) sec Sodium (137-145) mmol/L Glucose (74-99) mg/dL POC Glucose (mg/dL) 255 H (70-110) mg/dL
[2022-12-13 17:01] LABS: Glucose,Whole Blood 259 mg/dL (70-110)
[2022-12-13] MEDS: SODIUM CHLORIDE 0.9% 1,000 ML IV SCH (17:12)
[2022-12-13 19:50] LABS: Glucose,Whole Blood 200 mg/dL (70-110)
[2022-12-13] MEDS: SODIUM CHLORIDE 0.9% 1,000 ML in EMPTY BAG 1 BAG IV SCH (23:17)
[2022-12-14] MEDS ORDERED: SODIUM CHLORIDE 0.9% 1,000 ML IV SCH (01:00)
[2022-12-14] MEDS ORDERED: ASPIRIN 325 MG TAB PO ONE (05:00)
[2022-12-14] MEDS ORDERED: ATORVASTATIN 80 MG TAB PO ONE (05:00)
[2022-12-14 05:03] LABS: Glucose,Whole Blood 243 mg/dL (70-110)
[2022-12-14] MEDS: INSULIN DETEMIR (LEVEMIR) 100 UNIT/ML SYR SQ SCH ×2 (05:07→21:34)
[2022-12-14] MEDS: PANTOPRAZOLE 40 MG/10 ML VIAL IVP SCH ×2 (05:31→21:34)
[2022-12-14] MEDS: METOPROLOL TARTRATE 50 MG TAB PO SCH ×2 (05:32→21:34)
[2022-12-14] MEDS: INSULIN ASPART (NovoLOG) 100 UNIT/ML VIAL SQ SCH ×4 (05:32→21:34)
[2022-12-14] MEDS: DIGOXIN 250 MCG TAB PO SCH (06:00)
[2022-12-14] MEDS ORDERED: HEPARIN SODIUM,PORCINE 10,000 UNIT in SODIUM CHLORIDE 0.9% 1,000 ML IRRIGATION PRN (07:00)
[2022-12-14] MEDS ORDERED: HEPARIN SODIUM,PORCINE (1 ML) 2,500 UNIT in SODIUM CHLORIDE 0.9% 250 ML IRRIGATION PRN (07:00)
[2022-12-14] MEDS ORDERED: IV FLUID CONTINUATION 1,000 ML IV ONE (07:27)
[2022-12-14] MEDS ORDERED: MIDAZOLAM 2 MG/2 ML VIAL IVP ONE (07:36)
[2022-12-14] MEDS: fentaNYL (PF) 50 MCG/1 ML VIAL IVP ONE ×2 (07:36→08:23)
[2022-12-14] MEDS ORDERED: LIDOCAINE 1% INJ 10MG/ML (5 ML VIAL-PF) SQ ONE (07:37)
[2022-12-14] MEDS ORDERED: LIDOCAINE 1% INJ 10MG/ML (20 ML MDV) SQ ONE (07:51)
[2022-12-14] MEDS ORDERED: IOPAMIDOL-300 100ML BTL INJ ONE (08:12)
[2022-12-14 08:17] LABS: Basophils # (A) 0.1 k/uL (0-0.2); Basophils % (A) 1 %; Eosinophils # (A) 0.4 k/uL (0-0.7); Eosinophils % (A) 3 %; HCT 35.8 % (39.0-53.0); HGB 11.7 gm/dL (13.0-17.5); Lymphocytes # (A) 1.7 k/uL (1.0-4.8); Lymphocytes % (A) 17 %; MCH 29.5 pg (25.0-35.0); MCHC 32.6 g/dL (31.0-37.0); MCV 90.3 fL (80.0-100.0); Mean Platelet Volume 8.3; Monocytes # (A) 0.9 k/uL (0-1.0); Monocytes % (A) 9 %; Neutrophils # (A) 6.9 k/uL (1.3-7.7); Neutrophils % (A) 67 %; Platelet Count 259 k/uL (150-450); RBC 3.97 m/uL (4.30-5.90); RDW 13.8 % (11.5-15.5); WBC 10.3 k/uL (3.8-10.6)
[2022-12-14 08:39] LABS: ALT 46 U/L (4-49); AST 67 U/L (17-59); African American GFR (CKD) >90 (>60 ml/min/1.73 sqM); Albumin 2.6 g/dL (3.5-5.0); Alkaline Phosphatase 125 U/L (38-126); Anion Gap 4 mmol/L; Blood Urea Nitrogen 20 mg/dL (9-20); Calcium 7.6 mg/dL (8.4-10.2); Carbon Dioxide 29 mmol/L (22-30); Chloride 103 mmol/L (98-107); Glucose 183 mg/dL (74-99); Non-African American GFR(CKD) 85 (>60 ml/min/1.73 sqM); Potassium 4.4 mmol/L (3.5-5.1); Sodium 136 mmol/L (137-145); Total Bilirubin 0.7 mg/dL (0.2-1.3)
[2022-12-14] MEDS ORDERED: IOPAMIDOL-370 100ML BTL INJ ONE (08:42)
[2022-12-14 08:50] LABS: Partial Thromboplastin Time 27.3 sec (22.0-30.0); Prothrombin Time 10.9 sec (9.0-12.0)
--- NOTE | 2022-12-14 09:13 | XR ---
EXAMINATION TYPE: XR chest 1V portable DATE OF EXAM: 12/14/2022 7:13 AM COMPARISON: Chest radiographs from 12/12/2022 TECHNIQUE: XR chest 1V portable Frontal view of the chest. CLINICAL INDICATION:Male, 77 years old with history of CHF; FINDINGS: Lungs/Pleura: There is no evidence of pleural effusion, focal consolidation, or pneumothorax. Pulmonary vascularity: Unremarkable. Heart/mediastinum: Cardiomediastinal silhouette is unremarkable. Musculoskeletal: No acute osseous pathology. IMPRESSION: No acute cardiopulmonary disease/process. No evidence for acute heart failure.
--- NOTE | 2022-12-14 09:20 | PN ---
PROGRESS NOTE DATE OF SERVICE: 12/13/2022 SUBJECTIVE: This 77-year-old gentleman was admitted with acute hypoxic respiratory failure, possibly secondary to acute diastolic CHF, is being closely monitored at this time. The patient is extubated. The patient is mildly confused. Otherwise, the patient also had possibly hypertensive urgency, and acute lyu-VR-iczvpzd-elevation myocardial infarction also. PAST MEDICAL HISTORY: Reviewed. REVIEW OF SYSTEMS: A 14-point review is negative except as mentioned earlier. CURRENT MEDICATIONS: Reviewed include Lanoxin, dose and rest of medications noted. PHYSICAL EXAMINATION: VITAL SIGNS: Pulse is 97, blood pressure 130/70, respirations 18. HEENT: Conjunctivae normal. NECK: No jugular vein distention. CARDIOVASCULAR: S1, S2. RESPIRATIONS: Bilateral scattered rhonchi. ABDOMEN: Soft. NERVOUS SYSTEM: No focal deficits. LABORATORY DATA: Reviewed. ASSESSMENT: 1. Acute hypoxic respiratory failure secondary to CHF exacerbation, acute diastolic is diastolic congestive heart failure. 2. Hypertensive emergency. 3. Acute jtg-TM-vojpmyd-elevation myocardial infarction. 4. Atrial fibrillation. 5. Dyslipidemia. 6. Diabetes mellitus, type 2. 7. Diabetic foot infection. RECOMMENDATIONS: Recommended to continue management, continue symptomatic treatment, otherwise repeat labs. Continue with diuretics, bronchodilators. Ensure oxygenation. DVT prophylaxis. Guarded prognosis because of multiple complex medical problems. See orders for further details. Closely follow with cardiology and pulmonology. MMODL / IJN: [id number] /
[2022-12-14] MEDS ORDERED: RX INFO: IV CONTRAST WAS GIVEN 1 EACH MISC MISCELLANE PRN (10:42)
[2022-12-14 11:30] LABS: Glucose,Whole Blood 330 mg/dL (70-110)
--- NOTE | 2022-12-14 12:35 | P.PN ---
Subjective Progress Note Date: 12/14/22 Principal diagnosis: Acute hypoxic respiratory failure secondary to Acute pulmonary edema with hypertensive emergency and acute non-ST elevation myocardial infarction 77-year-old male patient, came into the emergency department because of shortness of breath. The patient [place] and he has a primary care physician in [facility]. The patient was in the hospital with his who was having a mammogram. He acutely became short of breath and he felt that his lungs were filling up with fluid. He was brought into the emergency department. Noted around few days back, he was having some limited cough and the patient was given a course of steroid taper by his primary care physician. No fever. No chills. No chest pain. He is known to have chronic atrial fi brillation and the patient is also known to have diabetes mellitus and hyperlipidemia. No history of any coronary artery disease. No history of any stroke. No history of any DVTs or pulmonary embolism. No history of COPD or asthma. He is a nonsmoker. The patient came into the emergency and he was hypoxic, acutely short of breath, acutely tachycardic and hypertensive with a BP of 192/137 with a heart rate of 158 and the respiration all 35. The patient was placed on a BiPAP. He decompensated. Ultimately, he was intubated and placed on a mechanical ventilator. Chest x-ray showed bilateral lung consolidations mainly in the lower lobes. Post intubation, the patient started having bloody rest or secretions from his orotracheal tube. His cardiac rhythm is the nature fibrillation. At this point in time, the patient is intubated on a mechanical ventilator. I saw the patient in the emergency department and a lipase to the intensive care unit. Currently is on propofol which is currently is up to 50 mcg/kg/m. His well sedated on a mechanical ventilator. He was also given a dose of Nimbex 10 mg IV push as the sedation was being titrated. Note that the patient became also hypotensive while being on sedation. He was started on norepinephrine which is currently running at 0.27 Babar respiratory kilogram per minute. His heart rate is less tachycardic although distal in nature fibrillation. Cardizem drip was discontinued because of underlying hypotension. He was given a dose of Lasix in the emergency department and he has produced a total of 350 mL of urine output. He does have some lower extremity edema. His blood work is showing 15.5, hemoglobin is 14.4, platelet count of 244, sodium is at 140, BUN is at 24 with a creatinine of 0.9. ProBNP level is 4050. Troponin was 0.7. LFTs are normal. The vital screening including Covid 19 was negative. Thyroid function test was within normal limits. His INR was at 5.0 with a PTT of 49.2. The patient was given a total of 5 mg of vitamin K. Lines were established in the ICU including a triple-lumen catheter inserted in his left IJ and an arterial line for blood pressure monitoring. Given a dose of Rocephin. He is currently on a mechanical ventilator on assist control mode with a rate of 26, tidal volume of 450, FiO2 of 100% and a PEEP of 5. On today's evaluation of a 12/09 2022, the patient remains intubated on a mechanical ventilator. The patient is calm and comfortable on mechanical ventilator. Is currently on propofol running at 45 mcg/kg/m. His symptoms of the mechanical ventilator. This is on assist-control mode of mechanical ventilation with a rate of 26, tidal volume of 450, FiO2 of 40% and a PEEP currently is at 10. The blood gas shows marked improvement and the patient has a pH of 7.54 consistent with respiratory alkalosis with a pCO2 of 26 and pO2 of 247. This was done an FiO2 of 60% and based on the difficult was weaned down to 40%. At the same time, the chest x-ray shows marked improvement compared to yesterday. The orotracheal tube is in a good location. There is improvement in the bibasilar patchy airspace opacities and the lines are all in place. The patient's echoes up to 20.7 with a hemoglobin 12.8. His INR dropped down to 2.9 after being given a total of 5 mg of vitamin K. His lactic acid level is at 2.3. BUN is at 25 with a creatinine of 0.9 and the sodium is at 1:30. His pro calcitonin level is at 0.03. The troponin peaked at 1.7 and cardiology is on the case. His cardiac rhythm is atrial fibrillation and the patient remains on amiodarone which is running at 0.5 mg/m for rate control. Echocardiogram was also completed yesterday that showed a dynamic LV. His left ventricular ejection fraction was normal with an ejection fraction of 50-55%. There was mild to moderate mitral and tricuspid regurgitation. There was some dilation of the right ventricle and there was a suggestion of a VSD with a [id number] shunting. This is to be further evaluated by cardiology. On 12/10/2022, the patient is being seen for a follow-up. The patient is still on a mechanical ventilator. Propofol is being weaned this morning. Overnight, the patient was kept on propofol for sedation. At the same time, the patient is currently on a mechanical ventilator on assist control mode with a rate of 16, tidal volume of 450, FiO2 down to 40% with a PEEP of 5. Pulse ox is in order of 97%.Chest x-ray showing increased haziness in the right middle and right lower lobe as well as the left atrial cardiac area. This was not seen on yesterday's chest x-ray. Blood gas from today shows a pH of 7.48 with a pCO2 of 37 and pO2 of 103 and this was done above-mentioned ventilator setting. The patient remained nature fibrillation. He is currently on a Cardizem drip at 10 mg an hour and amiodarone by mouth 400 mg twice a day. He was also given digoxin by cardiology 250 g on a daily basis and this was given to him for rate control. His INR today is pending. Yesterday's INR was at 2.9 and the warfarin was discontinued. The patient was in negative fluid balance of 1.3 L over the past 24 hours. A repeat echocardiogram was done today and I was informed by cardiology and there is no concern for underlying VSD. The BMs thousand 14.3 with a hemoglobin 11.8. He has 24 with a creatinine of 0.8 and a sodium level is at 128. LFTs are within normal limits. On today's evaluation of 12/11/2022, I'm seeing the patient for a follow-up. The patient was weaned off the mechanical ventilator and the patient was extubated yesterday without any major difficulties. This morning, he is extubated and is currently on oxygen at room air. The patient is in negative fluid balance. He has been in negative fluid balance of 4.5 L over the past 24 hours as the patient was diuresed. He was already making adequate urine without diuretics. He was given Lasix also to augment his urine output. No major respiratory difficulties. His cardiac rhythm is a chest fibrillation. The patient is currently on IV heparin. The patient is also on Cardizem at 15 mg an hour. PTT therapeutic. BUN is at 19 with a creatinine of 0.9. LFTs are normal at this point in time. The white suppositive 13.5, hemoglobin 13.3 and a platelet count is at 208. Noted the patient was on warfarin prior to him coming into the hospital. His INR was supratherapeutic and his INR on yesterday's down to 1.5. He does have a deep tissue injury to his left buttocks and currently is laying down his right. Antibiotic coverage included a combination of cefepime and Zithromax. His pro calcitonin level was low. Cultures were negative. White cell cause that 13.5. His pro calcitonin level is at 0.03. 12/12/2022, the patient is doing well and he remains extubated and currently is on oxygen at 2 L. Pulse ox is adequate. He remains in atrial fibrillation. Hemodynamically stable. He is on no pressors at this point in time. The patient remains on IV heparin. Warfarin will be started today. He was taken off the Cardizem drip and currently is on a combination of metoprolol at a dose of 50 mg by mouth twice a day, Cardizem drip has been discontinued and the patient was also given digoxin 0.25 mg on a daily basis. He is on Levemir insulin 10 units and the signs Coverage. His oral intake is still diminished over this is improving. The chest x-ray is rotated minutes essentially clear. The patient has developed a deep tissue injury to his left buttocks. This could be related also to a prior to intubation trauma. His respiratory failure was brief to cause this extent of deep tissue injury. Currently he has a Opteform applied to the area. seconds at 10.7. Hemoglobin is 12.2. Platelet count is 204. BUN is 16. Creatinine is at 0.8. Urine operas adequate. Cardiac rhythm is A. fib Patient was reevaluated today on 12/13/2022, patient remains in the ICU, he is presently on room air, not in any distress, he is actually an overflow to the cardiac floor 3 S., and he may be scheduled to undergo cardiac catheterization today. Patient was intubated on 12/08, extubated on 12/10 tolerated the extubation well, and he is relatively asymptomatic, remains on heparin PTT is 58/therapeutic the lips count is 11.9 hemoglobin is 12.6 and the first are carolin l renal profile is normal. Chest x-ray from yesterday showed no evidence of acute pulmonary process Patient was reevaluated today on 12/14/2022, patient underwent cardiac catheterization yesterday, and he was found to have triple-vessel coronary artery disease. He is supposed to be seen by cardiothoracic surgery today, and decide on possible surgery in the near future. Patient is on room air, he is not in any distress, and his chest x-ray this morning is reassuring, no evidence of pulmonary edema and no acute pulmonary process. No evidence of heart failure. CBC is relatively normal lites are normal renal profile is normal Objective - Vital Signs Vital signs: Vital Signs Temp 98.9 F 12/14/22 04:00 Pulse 74 12/14/22 10:13 Resp 16 12/14/22 10:13 BP 125/72 12/14/22 10:13 Pulse Ox 98 12/14/22 10:13 FiO2 4 12/10/22 16:30 Intake & Output 12/13/22 12/14/22 12/14/22 18:59 06:59 18:59 Intake Total 380 120 Output Total 450 400 325 Balance -70 -400 -205 Weight 84.5 kg Intake: IV 180 120 Invasive Line 1 10 Invasive Line 5 10 Sodium Chloride 0.9% 1, 180 000 ml @ 20 mls/hr IV . Q24H [facility] Rx#:[id number] Oral 200 Output: Urine 450 400 325 Other: Voiding Method Urinal Urinal Urinal # Voids 1 ABP, PAP, CO, CI - Last Documented Arterial Blood Pressure 165/66 - Exam Physical Exam: Revealed a 77-year-old white male in no distress on room air Head: Atraumatic normocephalic HEENT:[Neck is supple.] [No neck masses.] [No thyromegaly.] [No JVD.] Chest: [Clear throughout, no crackles, no rhonchi, no wheezes.] Cardiac Exam: [Normal S1 and S2, no S3 gallop, no murmur.] Abdomen: [Soft, nontender, no megaly, no rebound, no guarding, normal bowel sounds.] Extremities: [No clubbing, no edema, no cyanosis.] Neurological Exam: [No focal neurologic deficit.] Alert oriented 3 Psychiatric: Normal mood affect and normal mental status exam. Skin: No rashes - Labs CBC & Chem 7: 12/14/22 07:56 12/14/22 07:56 Labs: Abnormal Lab Results - Last 24 Hours (Table) 12/13/22 12/13/22 12/14/22 Range/Units 16:59 19:47 04:59 RBC (4.30-5.90) m/uL Hgb (13.0-17.5) gm/dL Hct (39.0-53.0) % Sodium (137-145) mmol/L Glucose (74-99) mg/dL POC Glucose (mg/dL) 259 H 200 H 243 H (70-110) mg/dL Calcium (8.4-10.2) mg/dL AST (17-59) U/L Total Protein (6.3-8.2) g/dL Albumin (3.5-5.0) g/dL 12/14/22 12/14/22 12/14/22 Range/Units 07:56 07:56 11:29 RBC 3.97 L (4.30-5.90) m/uL Hgb 11.7 L (13.0-17.5) gm/dL Hct 35.8 L (39.0-53.0) % Sodium 136 L (137-145) mmol/L Glucose 183 H (74-99) mg/dL POC Glucose (mg/dL) 330 H (70-110) mg/dL Calcium 7.6 L (8.4-10.2) mg/dL AST 67 H (17-59) U/L Total Protein 5.0 L (6.3-8.2) g/dL Albumin 2.6 L (3.5-5.0) g/dL Microbiology - Last 24 Hours (Table) 12/08/22 17:00 Blood Culture - Final Blood Assessment and Plan Assessment: Impression: Acute hypoxic respiratory failure secondary to acute pulmonary edema/flash pulmonary edema exact etiology is not clear could be related to hypertension Acute non-ST elevation myocardial infarction Triple-vessel coronary artery disease based on his cardiac catheterization awaiting further input from cardiothoracic surgery. Atrial fibrillation, chronic but the patient presented with atrial fibrillation with RVR on admission Type 2 diabetes Dyslipidemia History of diabetic foot infection, recovered Deep tissue injury to his left buttocks Recommendation: Continue present supportive care measures Patient to be seen by cardiothoracic on consultation today. Continue Levemir insulin and NovoLog insulin Continue GI and DVT prophylaxis Continue Silvadene cream and optifoam to left buttock Advanced diet as tolerated We'll continue to follow Time with Patient: Less than 30
[2022-12-14] MEDS: SODIUM CHLORIDE 0.9% 1,000 ML in EMPTY BAG 1 BAG IV SCH (13:47)
[2022-12-14] MEDS: SODIUM CHLORIDE 0.9% 1,000 ML IV SCH ×2 (13:47→19:17)
[2022-12-14] MEDS: ACETAMINOPHEN TAB 500 MG TAB PO PRN (14:01)
[2022-12-14 14:39] LABS: Magnesium 1.8 mg/dL (1.6-2.3)
--- NOTE | 2022-12-14 14:58 | P.PN ---
Subjective Progress Note Date: 12/14/22 This is a 77-year-old male who was recently admitted with toxic respiratory failure secondary to acute diastolic congestive heart failure being closely monitored. Patient was in the ICU currently on cardiac stepdown unit with multiple medical consultations including cardiology, pulmonary, wound care as well as CT surgery for evaluation is following. Chest x-ray today shows no acute cardiopulmonary process or disease and no evidence of acute heart failure. Patient underwent cardiac catheterization yesterday found to have triple-vessel coronary artery disease and being evaluated by cardiothoracic surgery and undergoing workup for possible surgery in the near future. Patient has been weaned off oxygen currently maintaining oxygen saturations above 90% on room air and denies any significant shortness of breath. Patient with significant weakness recommend physical therapy evaluation daily. Patient is afebrile with no reports of chest pain or palpitations. Patient tolerating diet with no r eported nausea or vomiting noted. Discussed with patient and family about possible rehab inpatient per case management refused rehab or home care. We'll discuss further after cardiothoracic evaluation for possible surgical intervention. Review of systems: Constitutional: No reports of fatigue, fever, or chills Cardiovascular: No reports of chest pain or palpitations Respiratory: No reports of worsening shortness of breath or cough GI: No reports of nausea, no reports of vomiting, no diarrhea : No reports of dysuria or retention Neurovascular: reports of generalized weakness All medications have been reviewed Active Medications Acetaminophen (Acetaminophen Tab 500 Mg Tab) 500 mg PO Q6HR PRN PRN Reason: Fever and/ or Pain Last Admin: 12/14/22 14:01 Dose: 500 mg Alprazolam (Alprazolam 0.25 Mg Tab) 0.25 mg PO Q6HR PRN PRN Reason: Mild Anxiety Alprazolam (Alprazolam 0.5 Mg Tab) 0.5 mg PO Q6HR PRN PRN Reason: Moderate Anxiety Benzocaine/Menthol (Benzocaine/Menthol Lozeng 1 Each Lozenge) 1 each MUCOUS MEM Q4HR PRN PRN Reason: Cough Last Admin: 12/12/22 11:37 Dose: 1 each Dextrose/Water (Dextrose 50% Syringe 50 Ml) 25 ml IVP PER PROTOCOL PRN; Protocol PRN Reason: Hypoglycemia Dextrose/Water (Dextrose 50% Syringe 50 Ml) 50 ml IVP PER PROTOCOL PRN; Protocol PRN Reason: Hypoglycemia Digoxin (Digoxin 250 Mcg Tab) 250 mcg PO DAILY [facility] Last Admin: 12/14/22 06:00 Dose: 250 mcg Heparin Sodium (Porcine) (Heparin Sodium 1,000 Un/Ml (10ml Vl)) 0 unit IV PER PROTOCOL PRN; Protocol PRN Reason: Low PTT Last Admin: 12/13/22 05:49 Dose: 2,150 unit Sodium Chloride (Saline 0.9%) 1,000 mls @ 20 mls/hr IV .Q24H [facility] Last Admin: 12/13/22 17:12 Dose: Not Given Heparin Sodium/Sodium Chloride (25,000 unit/ Sodium Chloride) 250 mls @ 10 mls/hr IV .Q24H [facility]; Protocol Last Titration: 12/14/22 13:46 Dose: Infused Heparin Sodium (Porcine) 10, (000 unit/ Sodium Chloride) 1,001 mls @ 999 mls/hr IRRIGATION ONCE PRN PRN Reason: INTRA-OP Stop: 12/14/22 23:00 Heparin Sodium (Porcine) 2,500 (unit/ Sodium Chloride) 250.5 mls @ 250 mls/hr IRRIGATION ONCE PRN PRN Reason: INTRA-OP Stop: 12/14/22 23:00 Sodium Chloride 1,000 ml/ IV (Solution) 1,000 mls @ 84.5 mls/hr IV .[id number] [facility] Last Admin: 12/14/22 13:47 Dose: Not Given Sodium Chloride (Saline 0.9%) 1,000 mls @ 75 mls/hr IV .[id number] [facility] Last Admin: 12/14/22 13:47 Dose: Not Given Insulin Aspart (Insulin Aspart (Novolog) 100 Unit/Ml Vial) 0 unit SQ [facility]; Protocol Last Admin: 12/14/22 11:49 Dose: 8 unit Insulin Detemir (Insulin Detemir (Levemir) 100 Unit/Ml Syr) 10 unit SQ DAILY@0700 [facility] Last Admin: 12/14/22 05:07 Dose: Not Given Insulin Detemir (Insulin Detemir (Levemir) 100 Unit/Ml Syr) 8 unit SQ HS [facility] Last Admin: 12/13/22 20:08 Dose: Not Given Metoprolol Tartrate (Metoprolol Tartrate 50 Mg Tab) 50 mg PO BID [facility] Last Admin: 12/14/22 05:32 Dose: 50 mg Miscellaneous Information (Magnesium Replacement Protocol 1 Each Misc) 1 each M ISCELLANE DAILY PRN; Protocol PRN Reason: Per Protocol Miscellaneous Information (Potassium Replacement Protocol 1 Each Misc) 1 each MISCELLANE DAILY PRN; Protocol PRN Reason: Per Protocol Miscellaneous Information (Warfarin Per Pharmacy) 0 each MISCELLANE DIRECTED PRN PRN Reason: ANTICOAG Miscellaneous Information (Rx Info: Iv Contrast Was Given 1 Each Misc) 1 each MISCELLANE DAILY PRN PRN Reason: Per Protocol Stop: 12/16/22 10:42 Multi-Ingred Cream/Lotion/Oil/Oint (Hydrophilic Cream 180 Gm Tube) 1 applic TOPICAL DAILY [facility]; Protocol Last Admin: 12/13/22 15:09 Dose: Not Given Mupirocin (Mupirocin 2% Oint 22 Gm Tube) 1 applic NASAL BID [facility] Stop: 12/19/22 21:01 Nitroglycerin (Nitroglycerin Sl Tabs 0.4 Mg Tab) 0.4 mg SUBLINGUAL Q5M PRN PRN Reason: Chest Pain Pantoprazole Sodium (Pantoprazole 40 Mg/10 Ml Vial) 40 mg IVP BID [facility] Last Admin: 12/14/22 05:31 Dose: 40 mg PHYSICAL EXAMINATION: GENERAL: The patient is alert and oriented x3, Well developed, well nourished. Ill-appearing, elderly appearing HEENT: Pupils are round and equally reacting to light. EOMI. no scleral icterus. No conjunctival pallor. Normocephalic, atraumatic. No pharyngeal erythema. No thyromegaly. CARDIOVASCULAR: S1 and S2 muffled PULMONARY: diminished breath sounds bilaterally with some scattered rhonchi noted. ABDOMEN: soft. Nontender on exam. non-distended, normoactive bowel sounds. No palpable organomegaly. MUSCULOSKELETAL: No joint swelling or deformity. EXTREMITIES: No cyanosis, clubbing, or pedal edema. NEUROLOGICAL: Gross neurological examination did not reveal any focal deficits. Diffuse weakness SKIN: No rashes. Assessment: Acute hypoxic respiratory failure secondary to CHF exacerbation with acute diastolic dysfunction, acute exacerbation Hypertensive urgency with emergency on admission with shock, likely cardiogenic requiring pressor support, currently weaned off Acute NSTEMI Atrial fibrillation with RVR, currently rate controlled with history of paroxysmal atrial fibrillation Coumadin coagulopathy Hyperlipidemia Diabetes mellitus, type II, uncontrolled with hyperglycemia Diabetic foot infection GI prophylaxis DVT prophylaxis Full code Plan: Multiple medical consultations following an cardiothoracic surgery has been consulted as patient underwent cardiac catheterization found to have triple- vessel disease and undergoing possible surgical workup. Recommend physical therapy evaluation daily and patient has refused rehab and Homecare and will discuss further with family Repeat labs ordered along with additional testing and consults for presurgical clearance Given patient's significant comorbidities, overall prognosis is guarded at this time The impression and plan of care has been dictated by nurse erasto Charles as directed. Dr. Paul MD I have performed a history and examination and MDM of this patient, discussed the same with the dictator, and agree with the dictator's assessment and plan as written ,documented as a scribe. Based on total visit time, I have performed more than 50% of the visit. Any additional findings or plans will be noted. Objective - Vital Signs Vital signs: Vital Signs Temp 98.9 F 12/14/22 04:00 Pulse 74 12/14/22 10:13 Resp 16 12/14/22 10:13 BP 125/72 12/14/22 10:13 Pulse Ox 98 12/14/22 10:13 FiO2 4 12/10/22 16:30 Intake & Output 12/13/22 12/14/22 12/14/22 18:59 06:59 18:59 Intake Total 380 120 Output Total 450 400 325 Balance -70 -400 -205 Weight 84.5 kg Intake: IV 180 120 Invasive Line 1 10 Invasive Line 5 10 Sodium Chloride 0.9% 1, 180 000 ml @ 20 mls/hr IV . Q24H [facility] Rx#:[id number] Oral 200 Output: Urine 450 400 325 Other: Voiding Method Urinal Urinal Urinal # Voids 1 ABP, PAP, CO, CI - Last Documented Arterial Blood Pressure 165/66 - Labs CBC & Chem 7: 12/14/22 07:56 12/14/22 07:56 Labs: Abnormal Lab Results - Last 24 Hours (Table) 12/13/22 12/13/22 12/13/22 Range/Units 12:10 16:59 19:47 RBC (4.30-5.90) m/uL Hgb (13.0-17.5) gm/dL Hct (39.0-53.0) % APTT 58.0 H (22.0-30.0) sec Sodium (137-145) mmol/L Glucose (74-99) mg/dL POC Glucose (mg/dL) 259 H 200 H (70-110) mg/dL Calcium (8.4-10.2) mg/dL AST (17-59) U/L Total Protein (6.3-8.2) g/dL Albumin (3.5-5.0) g/dL 12/14/22 12/14/22 12/14/22 Range/Units 04:59 07:56 07:56 RBC 3.97 L (4.30-5.90) m/uL Hgb 11.7 L (13.0-17.5) gm/dL Hct 35.8 L (39.0-53.0) % APTT (22.0-30.0) sec Sodium 136 L (137-145) mmol/L Glucose 183 H (74-99) mg/dL POC Glucose (mg/dL) 243 H (70-110) mg/dL Calcium 7.6 L (8.4-10.2) mg/dL AST 67 H (17-59) U/L Total Protein 5.0 L (6.3-8.2) g/dL Albumin 2.6 L (3.5-5.0) g/dL 12/14/22 Range/Units 11:29 RBC (4.30-5.90) m/uL Hgb (13.0-17.5) gm/dL Hct (39.0-53.0) % APTT (22.0-30.0) sec Sodium (137-145) mmol/L Glucose (74-99) mg/dL POC Glucose (mg/dL) 330 H (70-110) mg/dL Calcium (8.4-10.2) mg/dL AST (17-59) U/L Total Protein (6.3-8.2) g/dL Albumin (3.5-5.0) g/dL Microbiology - Last 24 Hours (Table) 12/08/22 17:00 Blood Culture - Final Blood
--- NOTE | 2022-12-14 16:30 | US ---
EXAMINATION TYPE: US vein mapping BILAT DATE OF EXAM: 12/14/2022 3:51 PM COMPARISON: NONE CLINICAL INDICATION: Male, 77 years old with history of PreOp Cardiac Surgery; Pre op cardiac surgery SIDE PERFORMED: bilateral TECHNIQUE: Lower extremity saphenous vein is examined and measured utilizing real time linear array sonography. Patient History: Discoloration: yes, lower legs Hypertension: yes Diabetes: yes Paralysis: no DUPLEX FINDINGS: Greater Saphenous: Color flow seen Measurements in mm: Right Greater Saphenous: Groin: 5.3 x 5.6 mm High Thigh: 3.2 x 3.8 mm Mid Thigh: 2.7 x 3.6 mm Above Knee: 2.2 x 2.2 mm Knee: 2.2 x 2.3 mm Below Knee: 2.8 x 3.1 mm Mid Calf: 2.8 x 3.6 mm At Ankle: 2.1 x 2.4 mm Left Greater Saphenous: Groin: 2.8 x 3.8 mm High Thigh: 2.3 x 2.6 mm Mid Thigh: 2.8 x 3.3 mm Above Knee: 2.3 x 2.7 mm Knee: 2.3 x 2.8 mm Below Knee: 2.0 x 2.6 mm Mid Calf: 1.7 x 2.0 mm At Ankle: 2.0 x 2.4 mm IMPRESSION: 1. Bilateral GSV measurements listed above. 2. Performing surgeon to determine viability as conduit.
--- NOTE | 2022-12-14 16:30 | US ---
EXAMINATION TYPE: Pre-Operative Non-Invasive Evaluation of the hand for Potential Radial Artery Hawksirena wells, Measurements only DATE OF EXAM: 12/14/2022 3:58 PM CLINICAL INDICATION: Male, 77 years old with history of Pre-Op Cardiac Surgery; Pre op cardiac surger y SIDE PERFORMED: left TECHNIQUE: Radial artery is measured utilizing real time linear array sonography. Dominant hand: right Duplex Findings: Radial Artery: Color flow seen Measurements in mm, transverse view: Left Radial: Proximal: 2.9 x 3.8 mm Mid: 2.6 x 3.2 mm Distal: 2.8 x 3.3 mm IMPRESSION: 1. Bilateral GSV measurements listed above. 2. Performing surgeon to determine viability as conduit.
--- NOTE | 2022-12-14 16:47 | CT ---
EXAMINATION TYPE: CT chest wo con CT DLP: 583.7 mGycm, Automated exposure control for dose reduction was used. DATE OF EXAM: 12/14/2022 2:38 PM COMPARISON: Radiograph 12/14/2022 CLINICAL INDICATION:Male, 77 years old with history of PreOp Cardiac Surgery, eval aorta; , Pre-op ca rdiac surgery, eval aorta. TECHNIQUE: Multiple axial images were obtained through the chest. Sagittal and coronal reformats were created for review. Contrast used: mL of (None if empty) Oral contrast used: (None if empty) FINDINGS: LUNGS/ PLEURA: The lung parenchyma appears unremarkable. AIRWAY: Patent and unremarkable. HEART: Severe coronary artery calcifications. Severe coronary arteries are present. MEDIASTINUM: No gross evidence of adenopathy. VASCULATURE: Atherosclerotic calcifications are present throughout the aorta and its branches. No ev idence for ascending or descending thoracic aorta aneurysm. MUSCULOSKELETAL: Moderate disc degeneration changes are present throughout the thoracolumbar spine. SOFT TISSUES/LYMPH NODES: Unremarkable. LOWER NECK: No significant findings. UPPER ABDOMEN: Multiple layering gallstones. IMPRESSION: 1. Cardiomegaly with severe coronary artery calcifications and severe aortic valve calcifications. 2. No evidence for aneurysm. 3. Moderate to severe atherosclerosis of the arterial vasculature.
[2022-12-14 16:49] LABS: Glucose,Whole Blood 306 mg/dL (70-110)
[2022-12-14] MEDS: HYDROPHILIC CREAM 180 GM TUBE TOPICAL SCH (16:57)
[2022-12-14] MEDS ORDERED: WARFARIN 10 MG TAB PO ONE (18:00)
--- NOTE | 2022-12-14 18:37 | P.GSCN ---
History of Present Illness Consult date: 12/14/22 Reason for Consult: Coronary artery disease Requesting physician: Carlos Eduardo Mclean History of present illness: This is a 77-year-old gentleman who follows with her primary care physician out of [facility]. He presented to the emergency department here at [facility] on 12/08/2022. He had brought his to the hospital for an elective mammogram, the patient developed acute onset of shortness of breath and felt like his lungs were filling up with fluid. He had complaints of a cough for a couple days prior to coming to the hospital and reports he gets pneumonia twice a year. The patient was taking a steroid taper on an outpatient basis. According to patient he did not have a fever, chills, nausea, vomiting, diarrhea, constipation, headache, chest pain, nausea, palpitations, lightheade dness, presyncope or syncope. He has a past medical history significant for hypertension, hyperlipidemia, chronic atrial fibrillation on Coumadin for anticoagulation as an outpatient, diabetes mellitus type 2, is a lifetime nonsmoker, history of pneumonia in the past, and history of COVID-19 infection. Subsequently, the patient was found to be hypoxic and acutely short of breath in the emergency department with tachycardia and hypertension with a heart rate of 192/37 and a heart rate of 158 with respirations 35. The patient was subsequently intubated and placed on mechanical ventilator support and has recently been extubated and is being seen and examined on the cardiac stepdown unit. Initial laboratory results showed WBC count of 13.5, hemoglobin 14.4, hematocrit 44.4, platelets 244, PTT 49.2, INR 5.0, PTT 28.5, sodium 140, potassium 4.0, BUN 24, creatinine 0.97, glucose 178, magnesium 1.6, calcium 9.3, proBNP 4050, TSH 2.420, free T4 1 0.13, free T3 3 0.2, and the patient did have some positive serial troponins as high as 1.700. Also on 12/08/2022 at transthoracic 2-D echocardiogram was completed which showed a left ventricular systolic function to be borderline normal, a dilated right ventricle with suggestive of VSD with [id number] shunting, mild to moderate mitral and mild tricuspid valve regurgitation with no evidence of pulmonary hypertension. Initial chest x-ray on 12/08/2022 showed bilateral lung consolidations lower lobes. Subsequently, due to the elevated serial troponins and findings on the transthoracic 2-D echocardiogram cardiology was consulted and the patient underwent a cardiac catheterization today 12/14/2022. Cardiac catheterization demonstrated triple-vessel coronary artery disease and due to the findings on the cardiac catheterization a consult was placed to Dr. Bridger Moreira from cardiothoracic surgery for further evaluation and treatment recommendations including myocardial revascularization surgery. Past Medical History Past Medical History: Atrial Fibrillation, Diabetes Mellitus, Hypertension Additional Past Medical History / Comment(s): History of diabetic foot infection from which the patient has recovered and has been adequately treated History of Any Multi-Drug Resistant Organisms: None Reported Past Surgical History: Appendectomy, Orthopedic Surgery Past Anesthesia/Blood Transfusion Reactions: No Reported Reaction Smoking Status: Never smoker - Past Family History Father Additional Family Medical History / Comment(s): "brown lung", emphysema Brother(s) Family Medical History: AFIB, Congestive Heart Failure (CHF), Diabetes Mellitus Mother Family Medical History: Diabetes Mellitus Medications and Allergies Home Medications Medication Instructions Recorded Confirmed Type Benzonatate [Tessalon Perles] 200 mg PO TID PRN 12/08/22 12/08/22 History Calcium(Unknown Dose) 1 tab PO DAILY 12/08/22 12/08/22 History Cholecalciferol [Vitamin D3 (25 25 mcg PO DAILY 12/08/22 12/08/22 History Mcg = 1000 Iu)] Co Q-10(Unknown Dose) 1 cap PO DAILY 12/08/22 12/08/22 History Insulin Aspart [NovoLOG Flexpen] See Protocol SQ AC-TID 12/08/22 12/08/22 History Insulin Glargine,Hum.rec.anlog 17 units SQ HS 12/08/22 12/08/22 History [Toujeo Solostar] Metoprolol Tartrate [Lopressor] 50 mg PO DAILY 12/08/22 12/08/22 History Multivitamins, Thera [Multivitamin 1 tab PO DAILY 12/08/22 12/08/22 History (formulary)] Simvastatin [Zocor] 20 mg PO DAILY 12/08/22 12/08/22 History Warfarin Sodium 6 mg PO HS 12/08/22 12/08/22 History Warfarin [Coumadin] 1 mg PO SUSA@2100 12/08/22 12/08/22 History lisinopriL [Zestril] 10 mg PO DAILY 12/08/22 12/08/22 History metFORMIN HCL 1,000 mg PO BID 12/08/22 12/08/22 History predniSONE [Deltasone] See Taper PO DAILY 12/08/22 12/08/22 History Allergies Allergy/AdvReac Type Severity Reaction Status Date / Time Penicillins Allergy Rash/Hives Verified 12/08/22 13:47 Sulfa (Sulfonamide Allergy Rash/Hives Verified 12/08/22 13:47 Antibiotics) Surgical - Exam Vital Signs Temp Pulse Resp BP Pulse Ox 98 F 140 H 36 H 180/120 84 L 12/08/22 12:57 12/08/22 12:57 12/08/22 12:57 12/08/22 12:57 12/08/22 12:57 Results - Labs 12/14/22 07:56 12/14/22 07:56 Abnormal Lab Results - Last 24 Hours (Table) 12/13/22 12/14/22 12/14/22 Range/Units 19:47 04:59 07:56 RBC 3.97 L (4.30-5.90) m/uL Hgb 11.7 L (13.0-17.5) gm/dL Hct 35.8 L (39.0-53.0) % Sodium (137-145) mmol/L Glucose (74-99) mg/dL POC Glucose (mg/dL) 200 H 243 H (70-110) mg/dL Calcium (8.4-10.2) mg/dL AST (17-59) U/L Total Protein (6.3-8.2) g/dL Albumin (3.5-5.0) g/dL 12/14/22 12/14/22 12/14/22 Range/Units 07:56 11:29 16:48 RBC (4.30-5.90) m/uL Hgb (13.0-17.5) gm/dL Hct (39.0-53.0) % Sodium 136 L (137-145) mmol/L Glucose 183 H (74-99) mg/dL POC Glucose (mg/dL) 330 H 306 H (70-110) mg/dL Calcium 7.6 L (8.4-10.2) mg/dL AST 67 H (17-59) U/L Total Protein 5.0 L (6.3-8.2) g/dL Albumin 2.6 L (3.5-5.0) g/dL Microbiology - Last 24 Hours (Table) 12/08/22 17:00 Blood Culture - Final Blood Diabetes panel 12/14/22 Range/Units 07:56 Sodium 136 L (137-145) mmol/L Potassium 4.4 (3.5-5.1) mmol/L Chloride 103 (98-107) mmol/L Carbon Dioxide 29 (22-30) mmol/L BUN 20 (9-20) mg/dL Creatinine 0.84 (0.66-1.25) mg/dL Glucose 183 H (74-99) mg/dL Calcium 7.6 L (8.4-10.2) mg/dL AST 67 H (17-59) U/L ALT 46 (4-49) U/L Alkaline Phosphatase 125 (38-126) U/L Total Protein 5.0 L (6.3-8.2) g/dL Albumin 2.6 L (3.5-5.0) g/dL Calcium panel 12/14/22 Range/Units 07:56 Calcium 7.6 L (8.4-10.2) mg/dL Albumin 2.6 L (3.5-5.0) g/dL Pituitary panel 12/14/22 Range/Units 07:56 Sodium 136 L (137-145) mmol/L Potassium 4.4 (3.5-5.1) mmol/L Chloride 103 (98-107) mmol/L Carbon Dioxide 29 (22-30) mmol/L BUN 20 (9-20) mg/dL Creatinine 0.84 (0.66-1.25) mg/dL Glucose 183 H (74-99) mg/dL Calcium 7.6 L (8.4-10.2) mg/dL Adrenal panel 12/14/22 Range/Units 07:56 Sodium 136 L (137-145) mmol/L Potassium 4.4 (3.5-5.1) mmol/L Chloride 103 (98-107) mmol/L Carbon Dioxide 29 (22-30) mmol/L BUN 20 (9-20) mg/dL Creatinine 0.84 (0.66-1.25) mg/dL Glucose 183 H (74-99) mg/dL Calcium 7.6 L (8.4-10.2) mg/dL Total Bilirubin 0.7 (0.2-1.3) mg/dL AST 67 H (17-59) U/L ALT 46 (4-49) U/L Alkaline Phosphatase 125 (38-126) U/L Total Protein 5.0 L (6.3-8.2) g/dL Albumin 2.6 L (3.5-5.0) g/dL Assessment and Plan Assessment: Coronary artery disease Non-ST elevated myocardial infarction this admission Acute pulmonary edema Acute hypoxic respiratory failure, resolved room air oxygen saturations currently 96% Acute onset of shortness of breath, likely secondary to above Atrial fibrillation with RVR on admission, on Coumadin as an outpatient for anticoagulation, currently on heparin drip Supratherapeutic PTT and INR on admission, with an INR of 5.0 and PTT 49.2 Hypertension Hyperlipidemia Diabetes mellitus type 2, with history of diabetic foot infection, recovered Plan: The patient was seen and examined at his bedside on the third floor cardiac stepdown unit with Dr. Jay Hernandez. His chart and diagnostics were reviewed. Dr. Hernandez spoke with the patient in detail regarding his cardiac catheterization results and the finding on his transesophageal echocardiogram. Preoperative teaching and preoperative testing has been initiated. Continue to maximize medical therapy. Once his preoperative testing has been obtained more recommendations regarding treatment plan to be discussed with the patient. The patient is scheduled for a transesophageal echocardiogram for tomorrow 12/15/2022 for further evaluation of his valves and VSD. Once the patient is able to ambulate we will do a 5 m walk test with the patient and also calculate a STS risk score which will be discussed with the patient. Medical management of her comorbidities per primary care service and cardiology. Thank you Dr. Mclean for this consult and we will look forward to working with you in the care of this patient. I have personally seen and examined the patient, performed the documentation and the assessment and plan as written. 30 minutes spent on the visit . Dylon MENA
[2022-12-14 19:50] LABS: Glucose,Whole Blood 287 mg/dL (70-110)
[2022-12-14] MEDS: HEPARIN SOD,PORK IN 0.45% NACL 25,000 UNIT in 0.45% NACL 1 250ML.BAG IV SCH (21:10)
[2022-12-14] MEDS: HEPARIN SODIUM 1,000 UN/ML (10ML VL) IV PRN (21:11)
[2022-12-15 03:09] LABS: INR 1.1 (<1.2); Prothrombin Time 11.4 sec (9.0-12.0)
[2022-12-15 03:55] LABS: Chol/HDL Ratio 5.84 Ratio; LDL Cholesterol,Calculated 121.5 mg/dL (0.0-131.0)
[2022-12-15 06:14] LABS: Glucose,Whole Blood 157 mg/dL (70-110)
[2022-12-15] MEDS: SODIUM CHLORIDE 0.9% 1,000 ML in EMPTY BAG 1 BAG IV SCH ×2 (06:26→18:34)
[2022-12-15] MEDS ORDERED: fentaNYL (PF) 50 MCG/ML 2 ML AMP ONE (07:16)
[2022-12-15] MEDS ORDERED: BENZOCAINE SPRAY 1 CAN TOPICAL ONE ×2 (07:20→07:29)
[2022-12-15] MEDS ORDERED: fentaNYL (PF) 50 MCG/ML 2 ML AMP IVP ONE (07:30)
[2022-12-15] MEDS ORDERED: SODIUM CHLORIDE 0.9% 1,000 ML IV ONE (07:30)
[2022-12-15] MEDS ORDERED: MIDAZOLAM 2 MG/2 ML VIAL IVP ONE (07:30)
--- NOTE | 2022-12-15 09:45 | US ---
EXAMINATION TYPE: US carotid duplex BILAT DATE OF EXAM: 12/15/2022 COMPARISON: NONE CLINICAL INDICATION: Male, 77 years old with history of Pre-Op Cardiac Surgery; open heart TECHNIQUE: Carotid duplex ultrasound examination. Indirect Doppler criteria was utilized. FINDINGS: EXAM MEASUREMENTS: RIGHT: Peak Systolic Velocity (PSV) cm/sec ----- Right CCA: 105 ----- Right ICA: 173 ----- Right ECA: 112 ICA/CCA ratio: 1.6 RIGHT: End Diastole cm/sec ----- Right CCA: 14.3 ----- Right ICA: 23.3 ----- Right ECA: 0 LEFT: Peak Systolic Velocity (PSV) cm/sec ----- Left CCA: 96.2 ----- Left ICA: 177 ----- Left ECA: 118 ICA/CCA ratio: 1.8 LEFT: End Diastole cm/sec ----- Left CCA: 13.2 ----- Left ICA: 32.4 ----- Left ECA: 0 VERTEBRALS (direction of flow): Right Vertebral: Antegrade Left Vertebral: Antegrade Rhythm: COSMETIC ASSEMBLER NOTES: Bilateral plaque visualized. Elevated ICA velocities noted. IMPRESSION: Bilateral plaque without evidence for hemodynamically significant stenosis. Criteria for Assigning % of Stenosis / Diameter reduction (Estimation based on the indirect measurements of the internal carotid artery velocities (ICA PSV). 1. Normal (no stenosis)=ICA PSV < 125 cm/s: ratio < 2.0: ICA EDV<40 cm/s. 2. Less than 50% stenosis=ICA PSV < 125 cm/s: ratio < 2.0: ICA EDV<40 cm/s. 3. 50 to 69% stenosis=ICA PSV of 125 to 230 cm/s: ration 2.0 ? 4.0: ICA EDV 40-100 cm/s. 4. Greater than 70% stenosis to near occlusion= ICA PSV > 230 cm/s: ratio > 4.0: ICA EDV > 100 cm/s. 5. Near occlusion= ICA PSV velocities may be low or undetectable: variable ratio and ICA EDV. 6. Total occlusion=unable to detect flow.
[2022-12-15] MEDS: MUPIROCIN 2% OINT 22 GM TUBE NASAL SCH ×3 (10:14→21:30)
[2022-12-15] MEDS: INSULIN ASPART (NovoLOG) 100 UNIT/ML VIAL SQ SCH ×4 (10:14→21:30)
--- NOTE | 2022-12-15 10:57 | P.PN ---
Subjective Progress Note Date: 12/15/22 Principal diagnosis: Acute hypoxic respiratory failure secondary to Acute pulmonary edema with hypertensive emergency and acute non-ST elevation myocardial infarction 77-year-old male patient, came into the emergency department because of shortness of breath. [place] and he has a primary care physician in [facility]. The patient was in the hospital with his who was having a mammogram. He acutely became short of breath and he felt that his lungs were filling up with fluid. He was brought into the emergency department. Noted around few days back, he was having some limited cough and the patient was given a course of steroid taper by his primary care physician. No fever. No chills. No chest pain. He is known to have chronic atrial fi brillation and the patient is also known to have diabetes mellitus and hyperlipidemia. No history of any coronary artery disease. No history of any stroke. No history of any DVTs or pulmonary embolism. No history of COPD or asthma. He is a nonsmoker. The patient came into the emergency and he was hypoxic, acutely short of breath, acutely tachycardic and hypertensive with a BP of 192/137 with a heart rate of 158 and the respiration all 35. The patient was placed on a BiPAP. He decompensated. Ultimately, he was intubated and placed on a mechanical ventilator. Chest x-ray showed bilateral lung consolidations mainly in the lower lobes. Post intubation, the patient started having bloody rest or secretions from his orotracheal tube. His cardiac rhythm is the nature fibrillation. At this point in time, the patient is intubated on a mechanical ventilator. I saw the patient in the emergency department and a lipase to the intensive care unit. Currently is on propofol which is currently is up to 50 mcg/kg/m. His well sedated on a mechanical ventilator. He was also given a dose of Nimbex 10 mg IV push as the sedation was being titrated. Note that the patient became also hypotensive while being on sedation. He was started on norepinephrine which is currently running at 0.27 Babar respiratory kilogram per minute. His heart rate is less tachycardic although distal in nature fibrillation. Cardizem drip was discontinued because of underlying hypotension. He was given a dose of Lasix in the emergency department and he has produced a total of 350 mL of urine output. He does have some lower extremity edema. His blood work is showing 15.5, hemoglobin is 14.4, platelet count of 244, sodium is at 140, BUN is at 24 with a creatinine of 0.9. ProBNP level is 4050. Troponin was 0.7. LFTs are normal. The vital screening including Covid 19 was negative. Thyroid function test was within normal limits. His INR was at 5.0 with a PTT of 49.2. The patient was given a total of 5 mg of vitamin K. Lines were established in the ICU including a triple-lumen catheter inserted in his left IJ and an arterial line for blood pressure monitoring. Given a dose of Rocephin. He is currently on a mechanical ventilator on assist control mode with a rate of 26, tidal volume of 450, FiO2 of 100% and a PEEP of 5. On today's evaluation of a 12/09 2022, the patient remains intubated on a mechanical ventilator. The patient is calm and comfortable on mechanical ventilator. Is currently on propofol running at 45 mcg/kg/m. His symptoms of the mechanical ventilator. This is on assist-control mode of mechanical ventilation with a rate of 26, tidal volume of 450, FiO2 of 40% and a PEEP currently is at 10. The blood gas shows marked improvement and the patient has a pH of 7.54 consistent with respiratory alkalosis with a pCO2 of 26 and pO2 of 247. This was done an FiO2 of 60% and based on the difficult was weaned down to 40%. At the same time, the chest x-ray shows marked improvement compared to yesterday. The orotracheal tube is in a good location. There is improvement in the bibasilar patchy airspace opacities and the lines are all in place. The patient's echoes up to 20.7 with a hemoglobin 12.8. His INR dropped down to 2.9 after being given a total of 5 mg of vitamin K. His lactic acid level is at 2.3. BUN is at 25 with a creatinine of 0.9 and the sodium is at 1:30. His pro calcitonin level is at 0.03. The troponin peaked at 1.7 and cardiology is on the case. His cardiac rhythm is atrial fibrillation and the patient remains on amiodarone which is running at 0.5 mg/m for rate control. Echocardiogram was also completed yesterday that showed a dynamic LV. His left ventricular ejection fraction was normal with an ejection fraction of 50-55%. There was mild to moderate mitral and tricuspid regurgitation. There was some dilation of the right ventricle and there was a suggestion of a VSD with a [id number] shunting. This is to be further evaluated by cardiology. On 12/10/2022, the patient is being seen for a follow-up. The patient is still on a mechanical ventilator. Propofol is being weaned this morning. Overnight, the patient was kept on propofol for sedation. At the same time, the patient is currently on a mechanical ventilator on assist control mode with a rate of 16, tidal volume of 450, FiO2 down to 40% with a PEEP of 5. Pulse ox is in order of 97%.Chest x-ray showing increased haziness in the right middle and right lower lobe as well as the left atrial cardiac area. This was not seen on yesterday's chest x-ray. Blood gas from today shows a pH of 7.48 with a pCO2 of 37 and pO2 of 103 and this was done above-mentioned ventilator setting. The patient remained nature fibrillation. He is currently on a Cardizem drip at 10 mg an hour and amiodarone by mouth 400 mg twice a day. He was also given digoxin by cardiology 250 g on a daily basis and this was given to him for rate control. His INR today is pending. Yesterday's INR was at 2.9 and the warfarin was discontinued. The patient was in negative fluid balance of 1.3 L over the past 24 hours. A repeat echocardiogram was done today and I was informed by cardiology and there is no concern for underlying VSD. The BMs thousand 14.3 with a hemoglobin 11.8. He has 24 with a creatinine of 0.8 and a sodium level is at 128. LFTs are within normal limits. On today's evaluation of 12/11/2022, I'm seeing the patient for a follow-up. The patient was weaned off the mechanical ventilator and the patient was extubated yesterday without any major difficulties. This morning, he is extubated and is currently on oxygen at room air. The patient is in negative fluid balance. He has been in negative fluid balance of 4.5 L over the past 24 hours as the patient was diuresed. He was already making adequate urine without diuretics. He was given Lasix also to augment his urine output. No major respiratory difficulties. His cardiac rhythm is a chest fibrillation. The patient is currently on IV heparin. The patient is also on Cardizem at 15 mg an hour. PTT therapeutic. BUN is at 19 with a creatinine of 0.9. LFTs are normal at this point in time. The white suppositive 13.5, hemoglobin 13.3 and a platelet count is at 208. Noted the patient was on warfarin prior to him coming into the hospital. His INR was supratherapeutic and his INR on yesterday's down to 1.5. He does have a deep tissue injury to his left buttocks and currently is laying down his right. Antibiotic coverage included a combination of cefepime and Zithromax. His pro calcitonin level was low. Cultures were negative. White cell cause that 13.5. His pro calcitonin level is at 0.03. 12/12/2022, the patient is doing well and he remains extubated and currently is on oxygen at 2 L. Pulse ox is adequate. He remains in atrial fibrillation. Hemodynamically stable. He is on no pressors at this point in time. The patient remains on IV heparin. Warfarin will be started today. He was taken off the Cardizem drip and currently is on a combination of metoprolol at a dose of 50 mg by mouth twice a day, Cardizem drip has been discontinued and the patient was also given digoxin 0.25 mg on a daily basis. He is on Levemir insulin 10 units and the signs Coverage. His oral intake is still diminished over this is improving. The chest x-ray is rotated minutes essentially clear. The patient has developed a deep tissue injury to his left buttocks. This could be related also to a prior to intubation trauma. His respiratory failure was brief to cause this extent of deep tissue injury. Currently he has a Opteform applied to the area. seconds at 10.7. Hemoglobin is 12.2. Platelet count is 204. BUN is 16. Creatinine is at 0.8. Urine operas adequate. Cardiac rhythm is A. fib Patient was reevaluated today on 12/13/2022, patient remains in the ICU, he is presently on room air, not in any distress, he is actually an overflow to the cardiac floor 3 S., and he may be scheduled to undergo cardiac catheterization today. Patient was intubated on 12/08, extubated on 12/10 tolerated the extubation well, and he is relatively asymptomatic, remains on heparin PTT is 58/therapeutic the lips count is 11.9 hemoglobin is 12.6 and the first are carolin l renal profile is normal. Chest x-ray from yesterday showed no evidence of acute pulmonary process Patient was reevaluated today on 12/14/2022, patient underwent cardiac catheterization yesterday, and he was found to have triple-vessel coronary artery disease. He is supposed to be seen by cardiothoracic surgery today, and decide on possible surgery in the near future. Patient is on room air, he is not in any distress, and his chest x-ray this morning is reassuring, no evidence of pulmonary edema and no acute pulmonary process. No evidence of heart failure. CBC is relatively normal lites are normal renal profile is normal Evaluated today on 12/15/2022, patient was seen by cardiothoracic surgery, he is being worked up for possible surgery in the next couple of days. His recent cardiac catheterization showed triple vessel coronary artery disease, and workup for possible surgery is in progress. Patient is asymptomatic, denies any cough wheezing or shortness of breath, his pulmonary status seems to be relatively stable at this point. Remains on heparin and PTT is 58 today. Objective - Vital Signs Vital signs: Vital Signs Temp 98.0 F 12/15/22 08:00 Pulse 56 L 12/15/22 08:00 Resp 18 12/15/22 08:00 BP 164/64 12/15/22 08:00 Pulse Ox 98 12/15/22 08:00 FiO2 4 12/10/22 16:30 Intake & Output 12/14/22 12/15/22 12/15/22 18:59 06:59 18:59 Intake Total 460.161 50 Output Total 525 200 Balance -64.839 -200 50 Intake: IV 140 50 Invasive Line 1 20 Invasive Line 5 20 Intake, IV Titration 202.161 Amount Heparin Sod,Pork in 0.45% 202.161 NaCl 25,000 unit In 0.45 % NaCl 1 250ml.bag @ 11. 038 UNITS/KG/HR 10 mls/hr IV .Q24H [facility] Rx#: [id number] Oral 118 Output: Urine 525 200 Other: Voiding Method Urinal Urinal Urinal # Voids 1 # Bowel Movements 1 1 ABP, PAP, CO, CI - Last Documented Arterial Blood Pressure 165/66 - Exam Physical Exam: Revealed a 77-year-old white male in no distress on room air Head: Atraumatic normocephalic HEENT:[Neck is supple.] [No neck masses.] [No thyromegaly.] [No JVD.] Chest: [Clear throughout, no crackles, no rhonchi, no wheezes.] Cardiac Exam: [Normal S1 and S2, no S3 gallop, no murmur.] Abdomen: [Soft, nontender, no megaly, no rebound, no guarding, normal bowel sounds.] Extremities: [No clubbing, no edema, no cyanosis.] Neurological Exam: [No focal neurologic deficit.] Alert oriented 3 Psychiatric: Normal mood affect and normal mental status exam. Skin: No rashes - Labs CBC & Chem 7: 12/14/22 07:56 12/14/22 07:56 Labs: Abnormal Lab Results - Last 24 Hours (Table) 12/14/22 12/14/22 12/14/22 Range/Units 07:56 11:29 16:48 APTT (22.0-30.0) sec POC Glucose (mg/dL) 330 H 306 H (70-110) mg/dL HDL Cholesterol 30.50 L (40.00-60.00) mg/dL 12/14/22 12/14/22 12/15/22 Range/Units 19:47 19:48 02:24 APTT 39.5 H 58.0 H (22.0-30.0) sec POC Glucose (mg/dL) 287 H (70-110) mg/dL HDL Cholesterol (40.00-60.00) mg/dL 12/15/22 Range/Units 06:13 APTT (22.0-30.0) sec POC Glucose (mg/dL) 157 H (70-110) mg/dL HDL Cholesterol (40.00-60.00) mg/dL Assessment and Plan Assessment: Impression: Acute hypoxic respiratory failure secondary to acute pulmonary edema/flash pulmonary edema exact etiology is not clear could be related to hypertension Acute non-ST elevation myocardial infarction Triple-vessel coronary artery disease based on his cardiac catheterization, being considered for surgery/CABG Atrial fibrillation, chronic but the patient presented with atrial fibrillation with RVR on admission, presently on heparin Type 2 diabetes Dyslipidemia History of diabetic foot infection, recovered Deep tissue injury to his left buttocks Recommendation: Continue present supportive care measures Needs to get more ambulation and more physical activity before surgery Continue Levemir insulin and NovoLog insulin Continue GI and DVT prophylaxis Continue Silvadene cream and optifoam to left buttock We'll continue to follow Time with Patient: Less than 30
[2022-12-15] MEDS: METOPROLOL TARTRATE 50 MG TAB PO SCH ×2 (11:36→21:29)
[2022-12-15] MEDS: PANTOPRAZOLE 40 MG/10 ML VIAL IVP SCH ×2 (11:36→21:29)
[2022-12-15] MEDS: INSULIN DETEMIR (LEVEMIR) 100 UNIT/ML SYR SQ SCH ×2 (11:37→21:30)
[2022-12-15] MEDS: DIGOXIN 250 MCG TAB PO SCH (11:37)
[2022-12-15] MEDS: HYDROPHILIC CREAM 180 GM TUBE TOPICAL SCH (11:37)
[2022-12-15 11:56] LABS: Glucose,Whole Blood 155 mg/dL (70-110)
--- NOTE | 2022-12-15 12:49 | P.PN ---
Subjective Progress Note Date: 12/15/22 This is a 77-year-old male who was recently admitted with toxic respiratory failure secondary to acute diastolic congestive heart failure being closely monitored. Patient was in the ICU currently on cardiac stepdown unit with multiple medical consultations including cardiology, pulmonary, wound care as well as CT surgery for evaluation is following. Chest x-ray today shows no acute cardiopulmonary process or disease and no evidence of acute heart failure. Patient underwent cardiac catheterization yesterday found to have triple-vessel coronary artery disease and being evaluated by cardiothoracic surgery and undergoing workup for possible surgery in the near future. Patient has been weaned off oxygen currently maintaining oxygen saturations above 90% on room air and denies any significant shortness of breath. Patient with significant weakness recommend physical therapy evaluation daily. Patient is afebrile with no reports of chest pain or palpitations. Patient tolerating diet with no r eported nausea or vomiting noted. Discussed with patient and family about possible rehab inpatient per case management refused rehab or home care. We'll discuss further after cardiothoracic evaluation for possible surgical intervention. 12/15/2022 Patient is seen and evaluated in follow-up with cardiology, pulmonary, cardiothoracic following undergoing extensive workup to initiate possible aroldo gical intervention with CABG as patient was found to have triple-vessel disease. Patient to undergo SANJEEV and report currently pending. Patient with significant weakness would recommend physical therapy evaluation and working with daily and increased activity as tolerated. Patient reports some improvement in his shortness of breath although continues to be generally weak. Patient reports unsure of what is currently going on. Awaiting on further testing and will follow-up with CT surgery. Patient is currently afebrile with no reports of chest pain or palpitations. Patient is tolerating diet and will continue with Accu-Cheks before meals and at bedtime along with current insulin regimen. Prognosis remains guarded. Review of systems: Constitutional: No reports of fatigue, fever, or chills Cardiovascular: No reports of chest pain or palpitations Respiratory: No reports of worsening shortness of breath or cough GI: No reports of nausea, no reports of vomiting, no diarrhea : No reports of dysuria or retention Neurovascular: reports of generalized weakness All medications have been reviewed PHYSICAL EXAMINATION: GENERAL: The patient is alert and oriented x3, Well developed, well nourished. Ill-appearing, elderly appearing HEENT: Pupils are round and equally reacting to light. EOMI. no scleral icterus. No conjunctival pallor. Normocephalic, atraumatic. No pharyngeal erythema. No thyromegaly. CARDIOVASCULAR: S1 and S2 muffled PULMONARY: diminished breath sounds bilaterally with some scattered rhonchi noted. ABDOMEN: soft. Nontender on exam. non-distended, normoactive bowel sounds. No palpable organomegaly. MUSCULOSKELETAL: No joint swelling or deformity. EXTREMITIES: No cyanosis, clubbing, or pedal edema. NEUROLOGICAL: Gross neurological examination did not reveal any focal deficits. Diffuse weakness SKIN: No rashes. Assessment: Acute hypoxic respiratory failure secondary to CHF exacerbation with acute diastolic dysfunction, acute exacerbation Hypertensive urgency with emergency on admission with shock, likely cardiogenic requiring pressor support, currently weaned off Acute NSTEMI Coronary artery disease, found to have triple-vessel disease on cardiac catheterization this admission Atrial fibrillation with RVR, currently rate controlled with history of paroxysmal atrial fibrillation Coumadin coagulopathy Hyperlipidemia Diabetes mellitus, type II, uncontrolled with hyperglycemia Diabetic foot infection GI prophylaxis DVT prophylaxis Full code Plan: Multiple medical consultations following an cardiothoracic surgery is following and ordered additional testing as patient was found to have triple-vessel disease, continuing workup for possible CABG and if patient is a candidate Recommend physical therapy evaluation daily and patient has refused rehab and Homecare and will discuss further with family Repeat labs ordered Encouraged increased activity as tolerated Continue glycemic control with Accu-Cheks before meals and at bedtime and current insulin regimen Given patient's significant comorbidities, overall prognosis is guarded at this time The impression and plan of care has been dictated by Deyanira Andre, nurse practitioner as directed. Dr. Paul MD I have performed a history and examination and MDM of this patient, discussed the same with the dictator, and agree with the dictator's assessment and plan as written ,documented as a scribe. Based on total visit time, I have performed more than 50% of the visit. Any additional findings or plans will be noted. Objective - Vital Signs Vital signs: Vital Signs Temp 98.0 F 12/15/22 08:00 Pulse 56 L 12/15/22 08:00 Resp 18 12/15/22 08:00 BP 164/64 12/15/22 08:00 Pulse Ox 98 12/15/22 08:00 FiO2 4 12/10/22 16:30 Intake & Output 12/14/22 12/15/22 12/15/22 18:59 06:59 18:59 Intake Total 460.161 50 Output Total 525 200 Balance -64.839 -200 50 Intake: IV 140 50 Invasive Line 1 20 Invasive Line 5 20 Intake, IV Titration 202.161 Amount Heparin Sod,Pork in 0.45% 202.161 NaCl 25,000 unit In 0.45 % NaCl 1 250ml.bag @ 11. 038 UNITS/KG/HR 10 mls/hr IV .Q24H [facility] Rx#: [id number] Oral 118 Output: Urine 525 200 Other: Voiding Method Urinal Urinal Urinal # Voids 1 # Bowel Movements 1 1 ABP, PAP, CO, CI - Last Documented Arterial Blood Pressure 165/66 - Labs CBC & Chem 7: 12/14/22 07:56 12/14/22 07:56 Labs: Abnormal Lab Results - Last 24 Hours (Table) 12/14/22 12/14/22 12/14/22 Range/Units 07:56 16:48 19:47 APTT 39.5 H (22.0-30.0) sec POC Glucose (mg/dL) 306 H (70-110) mg/dL HDL Cholesterol 30.50 L (40.00-60.00) mg/dL 12/14/22 12/15/22 12/15/22 Range/Units 19:48 02:24 06:13 APTT 58.0 H (22.0-30.0) sec POC Glucose (mg/dL) 287 H 157 H (70-110) mg/dL HDL Cholesterol (40.00-60.00) mg/dL 12/15/22 Range/Units 11:49 APTT (22.0-30.0) sec POC Glucose (mg/dL) 155 H (70-110) mg/dL HDL Cholesterol (40.00-60.00) mg/dL
--- NOTE | 2022-12-15 13:40 | US ---
EXAMINATION TYPE: US arterial LE single level DATE OF EXAM: 12/15/2022 12:32 PM CLINICAL INDICATION: Male, 77 years old with history of Ankle Brachial Index (LU) ; Pre op cardiac s urgery. History of: Smoker: Previous Hypertension: Yes Diabetic: Yes Hyperlipidemia: Yes TIA/CVA: No Previous Vascular Surgery: No CAD: ? VA: ? Vascular Ulcers: No Claudication: No Gangrene: No Doppler Waveforms: Right: Monophasic Left: Monophasic Right Brachial Pressure: 120 Left Brachial Pressure: 132 Ankle-Brachial Indices: Right: CNO Left: CNO Toe Brachial Indices: Right: 0.25 Left: 0.17 The left and right ankle-brachial indices were not able to be obtained. IMPRESSION: Unable to obtain left and right ankle-brachial indices. Both toe brachial indices demons trated consistent with severe peripheral arterial disease in the bilateral lower extremities.
--- NOTE | 2022-12-15 14:08 | P.PN ---
Subjective Progress Note Date: 12/15/22 Principal diagnosis: Coronary artery disease, dilated right ventricle with suggestion of VSD with [id number] shunting on 2-D echocardiogram, acute pulmonary edema, non-ST elevated myocardial infarction this admission, acute hypoxic respiratory failure requiring mechanical ventilator support, resolved, and deep tissue injury to his left buttock. Past medical history significant for chronic atrial fibrillation, on Coumadin as an outpatient for anticoagulation, hypertension, hyperlipidemia, diabetes mellitus type 2 with a hemoglobin A1c of 9.9% this admission, history of diabetic foot infection, recovered, and is a lifetime nonsmoker. The patient was seen and examined at his bedside this morning 12/15/2022 on the third floor cardiac stepdown unit. Currently he is laying in bed, is awake, alert, oriented 3 and is in no acute apparent distress. Denies any complaints of shortness of breath or chest pain/pressure this morning. [facility] personnel is at his bedside and is getting ready to transport the patient for his transesophageal echocardiogram. Oxygen saturations are 96% on room air and he is achieving 2000 mL on his incentive spirometry with encouragement. As part of his preoperative workup for myocardial revascularization surgery he underwent a bedside FEV1 yesterday which showed her predicted value of 74% and a base volume of 2.11. A computed tomography scan of his chest was completed which demonstrated cardiomegaly with severe coronary artery calcifications and severe aortic valve calcification, no evidence for aneurysm, and moderate to severe atherosclerosis of the arterial vasculature. Remote telemetry this morning showing atrial fibrillation with bundle branch block heart rate 109 BPM. Heparin drip remains infusing per protocol. Laboratory results from this morning show a PT of 11.4, INR 1.1, and PTT 58.0. Objective - Vital Signs Vital signs: Vital Signs Temp 97.5 F L 12/15/22 06:00 Pulse 62 12/15/22 04:00 Resp 16 12/15/22 04:00 BP 144/71 12/15/22 04:00 Pulse Ox 96 12/15/22 04:00 FiO2 4 12/10/22 16:30 Intake & Output 12/14/22 12/15/22 12/15/22 18:59 06:59 18:59 Intake Total 460.161 Output Total 525 200 Balance -64.839 -200 Intake: IV 140 Invasive Line 1 20 Invasive Line 5 20 Intake, IV Titration 202.161 Amount Heparin Sod,Pork in 0.45% 202.161 NaCl 25,000 unit In 0.45 % NaCl 1 250ml.bag @ 11. 038 UNITS/KG/HR 10 mls/hr IV .Q24H [facility] Rx#: [id number] Oral 118 Output: Urine 525 200 Other: Voiding Method Urinal Urinal # Voids 1 # Bowel Movements 1 1 ABP, PAP, CO, CI - Last Documented Arterial Blood Pressure 165/66 - Exam CONSTITUTIONAL: Lying in bed on the third floor cardiac stepdown unit, appears comfortable, cooperative, no apparent acute distress. HEENT: Neck is supple, no JVD, no lymphadenopathy. RESPIRATORY: Lungs sounds essentially clear throughout, diminished to his bilateral bases. Respirations are symmetrical and nonlabored. Currently on room air with oxygen saturations 96%. Able to achieve 2000 mL on his incentive spirometry. Strong cough. CARDIOVASCULAR: Regular rhythm and rate. S1 and S2 present, negative for S3, or gallop. Systolic murmur 2/6. Remote telemetry showing atrial fibrillation heart rate 109 BPM with right bundle branch block. Palpable peripheral pulses bilaterally. No calf pain or tenderness noted. GASTROINTESTINAL: Abdomen soft, nontender, nondistended. Active bowel sounds present 4 quadrants. Passing flatus. No guarding or rigidity. GENITOURINARY: Continues to void. INTEGUMENTARY: Skin is warm and dry with no evidence of clubbing or cyanosis. Dressing is clean, dry and intact to his deep tissue injury to his left buttocks. NEUROLOGIC: Cranial nerves II through XII intact. No focal deficits. MUSKULOSKELETAL: Able to move all extremities, strength equal bilaterally, generalized weakness. PSYCHIATRIC: Alert and oriented to person place and time, appropriate affect, intact judgment and insight. - Allied health notes Allied health notes reviewed: nursing - Labs CBC & Chem 7: 12/14/22 07:56 12/14/22 07:56 Labs: Abnormal Lab Results - Last 24 Hours (Table) 12/14/22 12/14/22 12/14/22 Range/Units 07:56 07:56 07:56 RBC 3.97 L (4.30-5.90) m/uL Hgb 11.7 L (13.0-17.5) gm/dL Hct 35.8 L (39.0-53.0) % APTT (22.0-30.0) sec Sodium 136 L (137-145) mmol/L Glucose 183 H (74-99) mg/dL POC Glucose (mg/dL) (70-110) mg/dL Calcium 7.6 L (8.4-10.2) mg/dL AST 67 H (17-59) U/L Total Protein 5.0 L (6.3-8.2) g/dL Albumin 2.6 L (3.5-5.0) g/dL HDL Cholesterol 30.50 L (40.00-60.00) mg/dL 12/14/22 12/14/22 12/14/22 Range/Units 11:29 16:48 19:47 RBC (4.30-5.90) m/uL Hgb (13.0-17.5) gm/dL Hct (39.0-53.0) % APTT 39.5 H (22.0-30.0) sec Sodium (137-145) mmol/L Glucose (74-99) mg/dL POC Glucose (mg/dL) 330 H 306 H (70-110) mg/dL Calcium (8.4-10.2) mg/dL AST (17-59) U/L Total Protein (6.3-8.2) g/dL Albumin (3.5-5.0) g/dL HDL Cholesterol (40.00-60.00) mg/dL 12/14/22 12/15/22 12/15/22 Range/Units 19:48 02:24 06:13 RBC (4.30-5.90) m/uL Hgb (13.0-17.5) gm/dL Hct (39.0-53.0) % APTT 58.0 H (22.0-30.0) sec Sodium (137-145) mmol/L Glucose (74-99) mg/dL POC Glucose (mg/dL) 287 H 157 H (70-110) mg/dL Calcium (8.4-10.2) mg/dL AST (17-59) U/L Total Protein (6.3-8.2) g/dL Albumin (3.5-5.0) g/dL HDL Cholesterol (40.00-60.00) mg/dL - Imaging and Cardiology CT scan - chest: report reviewed, image reviewed Results of vein mapping and left radial artery measurements were reviewed. Assessment and Plan Assessment: Coronary artery disease Dilated right ventricle with suggestion of VSD with [id number] shunting on transthoracic 2-D echocardiogram Non-ST elevated myocardial infarction this admission Acute pulmonary edema Acute hypoxic respiratory failure, resolved room air oxygen saturations currently 96% Acute onset of shortness of breath, likely secondary to above Atrial fibrillation with RVR on admission, on Coumadin as an outpatient for anticoagulation, currently on heparin drip Supratherapeutic PTT and INR on admission, with an INR of 5.0 and PTT 49.2 Hypertension Hyperlipidemia Diabetes mellitus type 2, with history of diabetic foot infection, recovered Deep tissue injury, left buttocks Plan: Continue preoperative teaching, myocardial revascularization Carotid duplex study remains pending. Follow transesophageal echocardiogram results. Once the patient's preoperative testing has been obtained we will calculate an STS risk score and discussed with the patient. Continue maximize medical therapy. Heparin drip management and recommendations per cardiology. GI and DVT prophylaxis. A 5 minute walk test was completed with the patient, time 1: 7.97 seconds, time 2: 6.73 seconds,time 3: 6.32 seconds. More recommendations to follow based on patient's clinical course, timing of surgery will be further discussed once all of his preoperative testing has been obtained.
[2022-12-15 17:02] LABS: Glucose,Whole Blood 284 mg/dL (70-110)
[2022-12-15] MEDS ORDERED: WARFARIN 2 MG TAB PO ONE (18:00)
[2022-12-15] MEDS: HEPARIN SOD,PORK IN 0.45% NACL 25,000 UNIT in 0.45% NACL 1 250ML.BAG IV SCH (18:03)
[2022-12-15] MEDS: SODIUM CHLORIDE 0.9% 1,000 ML IV SCH ×2 (18:35)
[2022-12-15 20:19] LABS: Glucose,Whole Blood 282 mg/dL (70-110)
[2022-12-16] MEDS: SODIUM CHLORIDE 0.9% 1,000 ML in EMPTY BAG 1 BAG IV SCH ×3 (01:30→23:50)
[2022-12-16 05:53] LABS: Glucose,Whole Blood 167 mg/dL (70-110)
--- NOTE | 2022-12-16 06:23 | ECHOT ---
TRANSESOPHAGEAL ECHOCARDIOGRAM INDICATION: Aortic stenosis in a patient who is to undergo bypass surgery. PROCEDURE NOTE: After obtaining informed consent, transesophageal echocardiogram was performed in left lateral position using an Omniplane probe. Local and IV sedation were obtained using Xylocaine spray, 2 mg of Versed and 25 mcg of fentanyl. The patient tolerated the procedure well without any obvious immediate complications. Total sedation time was 10 minutes. FINDINGS: 1. Aortic valve is a 3-leaflet valve. Its appears calcified with moderate restriction in leaflet mobility by planimetry. The valve area seems to be between 1 and 1.2 squared cm consistent with moderate aortic stenosis. There is mild aortic regurgitation noted. Mitral valve is anatomically normal. There is mild to moderate central mitral regurgitation noted. Tricuspid valve shows mild tricuspid regurgitation. Interatrial septum, there is no evidence of [id number] shunt by color-flow Doppler or [id number]-kh-efqt shunt by agitated saline contrast study. 2. Left atrium appears enlarged. Right atrium and right ventricle appears mildly enlarged. 3. Left ventricle has normal size and systolic function. 4. Interventricular septum, I do not see any VSD that was noted on a prior echocardiogram. Aorta shows mild to moderate atherosclerotic changes. CONCLUSIONS: Moderate aortic stenosis, mild to moderate central mitral regurgitation. Normal LV systolic function. MMODL / IJN: [id number] /
[2022-12-16] MEDS: INSULIN DETEMIR (LEVEMIR) 100 UNIT/ML SYR SQ SCH ×2 (06:38→20:32)
[2022-12-16] MEDS: INSULIN ASPART (NovoLOG) 100 UNIT/ML VIAL SQ SCH ×4 (06:38→20:16)
[2022-12-16] MEDS: SODIUM CHLORIDE 0.9% 1,000 ML IV SCH ×3 (06:39→18:28)
[2022-12-16 07:55] LABS: Basophils # (A) 0.1 k/uL (0-0.2); Basophils % (A) 1 %; Eosinophils # (A) 0.2 k/uL (0-0.7); Eosinophils % (A) 3 %; HCT 35.7 % (39.0-53.0); Lymphocytes % (A) 21 %; MCH 30.2 pg (25.0-35.0); MCHC 33.7 g/dL (31.0-37.0); MCV 89.8 fL (80.0-100.0); Mean Platelet Volume 8.2; Monocytes # (A) 0.5 k/uL (0-1.0); Monocytes % (A) 6 %; Neutrophils # (A) 6.2 k/uL (1.3-7.7); Neutrophils % (A) 68 %; Platelet Count 296 k/uL (150-450); RBC 3.97 m/uL (4.30-5.90); RDW 14.2 % (11.5-15.5); WBC 9.2 k/uL (3.8-10.6)
[2022-12-16 08:09] LABS: INR 1.4 (<1.2); Prothrombin Time 13.9 sec (9.0-12.0)
[2022-12-16 08:35] LABS: ALT 76 U/L (4-49); AST 100 U/L (17-59); African American GFR (CKD) >90 (>60 ml/min/1.73 sqM); Albumin 3.1 g/dL (3.5-5.0); Alkaline Phosphatase 154 U/L (38-126); Anion Gap 6 mmol/L; Blood Urea Nitrogen 15 mg/dL (9-20); Calcium 8.3 mg/dL (8.4-10.2); Carbon Dioxide 27 mmol/L (22-30); Chloride 103 mmol/L (98-107); Glucose 228 mg/dL (74-99); Magnesium 1.7 mg/dL (1.6-2.3); Non-African American GFR(CKD) 83 (>60 ml/min/1.73 sqM); Potassium 4.6 mmol/L (3.5-5.1); Sodium 136 mmol/L (137-145); Total Bilirubin 0.7 mg/dL (0.2-1.3); Total Protein 5.7 g/dL (6.3-8.2)
[2022-12-16] MEDS: MUPIROCIN 2% OINT 22 GM TUBE NASAL SCH ×2 (09:00→20:16)
[2022-12-16] MEDS: METOPROLOL TARTRATE 50 MG TAB PO SCH ×2 (09:02→20:16)
[2022-12-16] MEDS: ASPIRIN 81 MG PO SCH (09:02)
[2022-12-16] MEDS: DIGOXIN 250 MCG TAB PO SCH (09:03)
[2022-12-16] MEDS: ATORVASTATIN 40 MG TAB PO SCH (09:03)
[2022-12-16] MEDS: PANTOPRAZOLE 40 MG/10 ML VIAL IVP SCH ×2 (09:03→20:16)
--- NOTE | 2022-12-16 10:16 | P.PN ---
Subjective Progress Note Date: 12/16/22 Principal diagnosis: Coronary artery disease, NSTEMI this admission, acute pulmonary edema, acute hypoxic respiratory failure, atrial fibrillation with RVR on admission, supratherapeutic INR on admission, severe PAD. History of hypertension, hyperlipidemia, chronic atrial fibrillation on coumadin outpatient, diabetes mellitus type 2, history of healed diabetic foot infection, deep tissue injury to left buttocks The patient was seen and examined this morning sitting up in a recliner on the cardiac stepdown unit in no acute distress. Denies chest pain or shortness of breath currently. Remains in controlled atrial fibrillation, on room air with oxygen saturation in the high 90s. Remains on IV heparin, last dose of Coumadin 12/14/2022. He did have a SANJEEV yesterday demonstrating a trileaflet aortic valve with area 1-1.2 cm, mild aortic insufficiency, mild to moderate central mitral regurgitation, mild tricuspid regurgitation, normal LV function, and no evidence of VSD. The patient was seen by Dr. Tolentino yesterday, will be seen by Dr. Rosenbaum today. Planning in progress for cardiac surgery. Objective - Vital Signs Vital signs: Vital Signs Temp 97.5 F L 12/16/22 00:00 Pulse 80 12/16/22 04:00 Resp 18 12/16/22 04:00 BP 110/64 12/16/22 04:00 Pulse Ox 97 12/16/22 04:00 FiO2 4 12/10/22 16:30 Intake & Output 12/15/22 12/16/22 12/16/22 18:59 06:59 18:59 Intake Total 720 Output Total 250 175 Balance 470 -175 Weight 84.3 kg Intake: IV 50 Intake, IV Titration 250 Amount Heparin Sod,Pork in 0.45% 250 NaCl 25,000 unit In 0.45 % NaCl 1 250ml.bag @ 11. 038 UNITS/KG/HR 10 mls/hr IV .Q24H [facility] Rx#: [id number] Oral 420 Output: Urine 250 175 Other: Voiding Method Urinal Toilet Urinal # Voids 1 1 ABP, PAP, CO, CI - Last Documented Arterial Blood Pressure 165/66 - Exam CONSTITUTIONAL: Appears comfortable, cooperative, no acute distress RESPIRATORY: Lungs sounds diminished bilaterally. Respirations even, nonlabored. Currently on room air with oxygen saturation 97%. Able to achieve 2250 mL on incentive spirometry. Strong cough. CARDIOVASCULAR: S1, S2 present. Iregular rate and rhythm, controlled atrial fibrillation on telemetry. Palpable peripheral pulses bilaterally. No edema present. No calf pain or tenderness noted. GASTROINTESTINAL: Abdomen soft, nontender, nondistended. Active bowel sounds present 4 quadrants. Tolerating diet. Positive bowel movement 12/14 GENITOURINARY: Continues to void INTEGUMENTARY: Skin is warm and dry NEUROLOGIC: Cranial nerves II through XII intact MUSKULOSKELETAL: Able to move all extremities, strength equal bilaterally, gait normal PSYCHIATRIC: Alert and oriented to person place and time, appropriate affect, intact judgment and insight - Allied health notes Allied health notes reviewed: nursing - Labs CBC & Chem 7: 12/16/22 07:35 12/16/22 07:35 Labs: Abnormal Lab Results - Last 24 Hours (Table) 12/15/22 12/15/22 12/15/22 Range/Units 11:49 16:56 20:17 RBC (4.30-5.90) m/uL Hgb (13.0-17.5) gm/dL Hct (39.0-53.0) % PT (9.0-12.0) sec INR (<1.2) APTT (22.0-30.0) sec Sodium (137-145) mmol/L Glucose (74-99) mg/dL POC Glucose (mg/dL) 155 H 284 H 282 H (70-110) mg/dL Calcium (8.4-10.2) mg/dL AST (17-59) U/L ALT (4-49) U/L Alkaline Phosphatase (38-126) U/L Total Protein (6.3-8.2) g/dL Albumin (3.5-5.0) g/dL 12/16/22 12/16/22 12/16/22 Range/Units 05:51 07:35 07:35 RBC (4.30-5.90) m/uL Hgb (13.0-17.5) gm/dL Hct (39.0-53.0) % PT 13.9 H (9.0-12.0) sec INR 1.4 H (<1.2) APTT 74.2 H (22.0-30.0) sec Sodium (137-145) mmol/L Glucose (74-99) mg/dL POC Glucose (mg/dL) 167 H (70-110) mg/dL Calcium (8.4-10.2) mg/dL AST (17-59) U/L ALT (4-49) U/L Alkaline Phosphatase (38-126) U/L Total Protein (6.3-8.2) g/dL Albumin (3.5-5.0) g/dL 12/16/22 12/16/22 Range/Units 07:35 07:35 RBC 3.97 L (4.30-5.90) m/uL Hgb 12.0 L (13.0-17.5) gm/dL Hct 35.7 L (39.0-53.0) % PT (9.0-12.0) sec INR (<1.2) APTT (22.0-30.0) sec Sodium 136 L (137-145) mmol/L Glucose 228 H (74-99) mg/dL POC Glucose (mg/dL) (70-110) mg/dL Calcium 8.3 L (8.4-10.2) mg/dL AST 100 H (17-59) U/L ALT 76 H (4-49) U/L Alkaline Phosphatase 154 H (38-126) U/L Total Protein 5.7 L (6.3-8.2) g/dL Albumin 3.1 L (3.5-5.0) g/dL Microbiology - Last 24 Hours (Table) 12/14/22 16:58 Nasal Screen MRSA/MSSA - Final Nasal Swab Assessment and Plan Assessment: Coronary artery disease, NSTEMI this admission Moderate aortic stenosis, ROBBY 1-1.2 cm, mild AI Mild to moderate central mitral regurgitation Acute pulmonary edema, resolved Acute hypoxic respiratory failure, resolved, currently on room air Atrial fibrillation with RVR on admission Acute shortness of breath, secondary to above Supratherapeutic INR on admission measured as 5.0 Dilated RV with suggestion of VSD with [id number] shunting on TTE, not seen on SANJEEV the completed 12/15/22 Severe PAD, unable to obtain left and right ABIs History of hypertension History hyperlipidemia, treated, cholesterol 178, LDL 121 Chronic atrial fibrillation on coumadin outpatient Diabetes mellitus type 2, uncontrolled hyperglycemia, hemoglobin A1c 9.9% History of healed diabetic foot infection Deep tissue injury to left buttocks Plan: Continue to maximize medical therapy with aspirin, statin, beta shant, IV heparin Continue to hold Coumadin Increase activity as tolerated Encourage incentive spirometry use Continue preoperative teaching Cardiac surgery planning in progress, more recommendations to follow regarding timing We'll calculate STS risk score and discuss with the patient Dental clearance has been obtained Medical management of other comorbidities per internal medicine, cardiology More recommendations to follow
[2022-12-16 11:22] LABS: Hepatitis A Antibody IgM Nonreactive; Hepatitis B Core IgM Nonreactive; Hepatitis B Surface Antigen Nonreactive; Hepatitis C IgG Antibody Nonreactive
[2022-12-16 11:56] LABS: Glucose,Whole Blood 239 mg/dL (70-110)
[2022-12-16] MEDS: HYDROPHILIC CREAM 180 GM TUBE TOPICAL SCH (12:00)
[2022-12-16] MEDS: HEPARIN SOD,PORK IN 0.45% NACL 25,000 UNIT in 0.45% NACL 1 250ML.BAG IV SCH (12:30)
--- NOTE | 2022-12-16 13:30 | P.PN ---
Subjective Progress Note Date: 12/16/22 77-year-old male patient, came into the emergency department because of shortness of breath. The patient lives up [place] and he has a primary care physician in [facility]. The patient was in the hospital with his who was having a mammogram. He acutely became short of breath and he felt that his lungs were filling up with fluid. He was brought into the emergency department. Noted around few days back, he was having some limited cough and the patient was given a course of steroid taper by his primary care physician. No fever. No chills. No chest pain. He is known to have chronic atrial fibrillation and the patient is also known to have diabetes mellitus and hyperlipidemia. No history of any coronary artery disease. No history of any stroke. No history of any DVTs or pulmonary embolism. No history of COPD or asthma. He is a nonsmoker. The patient came into the emergency and he was hypoxic, acutely short of breath, acutely tachycardic and hypertensive with a BP of 192/137 with a heart rate of 158 and the respiration all 35. The patient was placed on a BiPAP. He decompensated. Ultimately, he was intubated and placed on a mechanical ventilator. Chest x-ray showed bilateral lung consolidations mainly in the lower lobes. Post intubation, the patient started having bloody rest or secretions from his orotracheal tube. His cardiac rhythm is the nature fibrillation. At this point in time, the patient is intubated on a mechanical ventilator. I saw the patient in the emergency department and a lipase to the intensive care unit. Currently is on propofol which is currently is up to 50 mcg/kg/m. His well sedated on a mechanical ventilator. He was also given a dose of Nimbex 10 mg IV push as the sedation was being titrated. Note that the patient became also hypotensive while being on sedation. He was started on norepinephrine which is currently running at 0.27 Babar respiratory kilogram per minute. His heart rate is less tachycardic although distal in nature fibrillation. Cardizem drip was discontinued because of underlying hypotension. He was given a dose of Lasix in the emergency department and he has produced a total of 350 mL of urine output. He does have some lower extremity edema. His blood work is showing 15.5, hemoglobin is 14.4, platelet count of 244, sodium is at 140, BUN is at 24 with a creatinine of 0.9. ProBNP level is 4050. Troponin was 0.7. LFTs are normal. The vital screening including Covid 19 was negative. Thyroid function test was within normal limits. His INR was at 5.0 with a PTT of 49.2. The patient was given a total of 5 mg of vitamin K. Lines were established in the ICU including a triple-lumen catheter inserted in his left IJ and an arterial line for blood pressure monitoring. Given a dose of Rocephin. He is currently on a mechanical ventilator on assist control mode with a rate of 26, tidal volume of 450, FiO2 of 100% and a PEEP of 5. On today's evaluation of a 12/09 2022, the patient remains intubated on a mechanical ventilator. The patient is calm and comfortable on mechanical ventilator. Is currently on propofol running at 45 mcg/kg/m. His symptoms of the mechanical ventilator. This is on assist-control mode of mechanical ventilation with a rate of 26, tidal volume of 450, FiO2 of 40% and a PEEP currently is at 10. The blood gas shows marked improvement and the patient has a pH of 7.54 consistent with respiratory alkalosis with a pCO2 of 26 and pO2 of 247. This was done an FiO2 of 60% and based on the difficult was weaned down to 40%. At the same time, the chest x-ray shows marked improvement compared to yesterday. The orotracheal tube is in a good location. There is improvement in the bibasilar patchy airspace opacities and the lines are all in place. The patient's echoes up to 20.7 with a hemoglobin 12.8. His INR dropped down to 2.9 after being given a total of 5 mg of vitamin K. His lactic acid level is at 2.3. BUN is at 25 with a creatinine of 0.9 and the sodium is at 1:30. His pro calcitonin level is at 0.03. The troponin peaked at 1.7 and cardiology is on the case. His cardiac rhythm is atrial fibrillation and the patient remains on amiodarone which is running at 0.5 mg/m for rate control. Echocardiogram was also completed yesterday that showed a dynamic LV. His left ventricular ejection fraction was normal with an ejection fraction of 50-55%. There was mild to moderate mitral and tricuspid regurgitation. There was some dilation of the right ventricle and there was a suggestion of a VSD with a [id number] shunting. This is to be further evaluated by cardiology. On 12/10/2022, the patient is being seen for a follow-up. The patient is still on a mechanical ventilator. Propofol is being weaned this morning. Overnight, the patient was kept on propofol for sedation. At the same time, the patient is currently on a mechanical ventilator on assist control mode with a rate of 16, tidal volume of 450, FiO2 down to 40% with a PEEP of 5. Pulse ox is in order of 97%.Chest x-ray showing increased haziness in the right middle and right lower lobe as well as the left atrial cardiac area. This was not seen on yesterday's chest x-ray. Blood gas from today shows a pH of 7.48 with a pCO2 of 37 and pO2 of 103 and this was done above-mentioned ventilator setting. The patient remained nature fibrillation. He is currently on a Cardizem drip at 10 mg an hour and amiodarone by mouth 400 mg twice a day. He was also given digoxin by cardiology 250 g on a daily basis and this was given to him for rate control. His INR today is pending. Yesterday's INR was at 2.9 and the warfarin was discontinued. The patient was in negative fluid balance of 1.3 L over the past 24 hours. A repeat echocardiogram was done today and I was informed by cardiology and there is no concern for underlying VSD. The BMs thousand 14.3 with a hemoglobin 11.8. He has 24 with a creatinine of 0.8 and a sodium level is at 128. LFTs are within normal limits. On today's evaluation of 12/11/2022, I'm seeing the patient for a follow-up. The patient was weaned off the mechanical ventilator and the patient was extubated yesterday without any major difficulties. This morning, he is extubated and is currently on oxygen at room air. The patient is in negative fluid balance. He has been in negative fluid balance of 4.5 L over the past 24 hours as the patient was diuresed. He was already making adequate urine without diuretics. He was given Lasix also to augment his urine output. No major respiratory difficulties. His cardiac rhythm is a chest fibrillation. The patient is currently on IV heparin. The patient is also on Cardizem at 15 mg an hour. PTT therapeutic. BUN is at 19 with a creatinine of 0.9. LFTs are normal at this point in time. The white suppositive 13.5, hemoglobin 13.3 and a platelet count is at 208. Noted the patient was on warfarin prior to him coming into the hospital. His INR was supratherapeutic and his INR on yesterday's down to 1.5. He does have a deep tissue injury to his left buttocks and currently is laying down his right. Antibiotic coverage included a combination of cefepime and Zithromax. His pro calcitonin level was low. Cultures were negative. White cell cause that 13.5. His pro calcitonin level is at 0.03. 12/12/2022, the patient is doing well and he remains extubated and currently is on oxygen at 2 L. Pulse ox is adequate. He remains in atrial fibrillation. Hemodynamically stable. He is on no pressors at this point in time. The patient remains on IV heparin. Warfarin will be started today. He was taken off the Cardizem drip and currently is on a combination of metoprolol at a dose of 50 mg by mouth twice a day, Cardizem drip has been discontinued and the p atient was also given digoxin 0.25 mg on a daily basis. He is on Levemir insulin 10 units and the signs Coverage. His oral intake is still diminished over this is improving. The chest x-ray is rotated minutes essentially clear. The patient has developed a deep tissue injury to his left buttocks. This could be related also to a prior to intubation trauma. His respiratory failure was brief to cause this extent of deep tissue injury. Currently he has a Opteform applied to the area. seconds at 10.7. Hemoglobin is 12.2. Platelet count is 204. BUN is 16. Creatinine is at 0.8. Urine operas adequate. Cardiac rhythm is A. fib Patient was reevaluated today on 12/13/2022, patient remains in the ICU, he is presently on room air, not in any distress, he is actually an overflow to the cardiac floor 3 S., and he may be scheduled to undergo cardiac catheterization today. Patient was intubated on 12/08, extubated on 12/10 tolerated the extubation well, and he is relatively asymptomatic, remains on heparin PTT is 58/therapeutic the lips count is 11.9 hemoglobin is 12.6 and the first are normal renal profile is normal. Chest x-ray from yesterday showed no evidence of acute pulmonary process Patient was reevaluated today on 12/14/2022, patient underwent cardiac catheterization yesterday, and he was found to have triple-vessel coronary artery disease. He is supposed to be seen by cardiothoracic surgery today, and decide on possible surgery in the near future. Patient is on room air, he is not in any distress, and his chest x-ray this morning is reassuring, no evidence of pulmonary edema and no acute pulmonary process. No evidence of heart failure. CBC is relatively normal lites are normal renal profile is normal Evaluated today on 12/15/2022, patient was seen by cardiothoracic surgery, he is being worked up for possible surgery in the next couple of days. His recent car diac catheterization showed triple vessel coronary artery disease, and workup for possible surgery is in progress. Patient is asymptomatic, denies any cough wheezing or shortness of breath, his pulmonary status seems to be relatively stable at this point. Remains on heparin and PTT is 58 today. The patient is seen today 12/16/2022 in follow-up on the selective care unit. He is currently resting comfortably in bed. Awake and alert in no acute distress. Maintaining O2 saturations up to 100% on room air. He's afebrile. Hemodynamically stable. Ultrasound of the lower extremities revealed incomplete study. Unable to obtain left and right ankle-brachial indices. Demonstrating severe peripheral arterial disease bilaterally. SANJEEV revealed moderate aortic stenosis, mild to moderate central mitral regurgitation. Normal left ventricular systolic function. White count 9.2. Hemoglobin 12.0. Platelets 296. Sodium 136. Potassium 4.6. Bicarb 27. BUN 15. Creatinine 0.89. Glucose 228. AST 100. ALT 76. Albumin 3.1. Cardiac surgery testing still being performed. Warfarin remains on hold. Objective - Vital Signs Vital signs: Vital Signs Temp 97.5 F L 12/16/22 08:00 Pulse 70 12/16/22 08:00 Resp 18 12/16/22 08:00 BP 139/74 12/16/22 08:00 Pulse Ox 100 12/16/22 08:00 FiO2 4 12/10/22 16:30 Intake & Output 12/15/22 12/16/22 12/16/22 18:59 06:59 18:59 Intake Total 720 Output Total 250 175 Balance 470 -175 Weight 84.3 kg Intake: IV 50 Intake, IV Titration 250 Amount Heparin Sod,Pork in 0.45% 250 NaCl 25,000 unit In 0.45 % NaCl 1 250ml.bag @ 11. 038 UNITS/KG/HR 10 mls/hr IV .Q24H [facility] Rx#: [id number] Oral 420 Output: Urine 250 175 Other: Voiding Method Urinal Toilet Toilet Urinal Urinal # Voids 1 1 ABP, PAP, CO, CI - Last Documented Arterial Blood Pressure 165/66 - Exam GENERAL EXAM: Alert, pleasant 77-year-old male, on room air, comfortable in no apparent distress. HEAD: Normocephalic. EYES: Normal reaction of pupils, equal size. NOSE: Clear with pink turbinates. THROAT: No erythema or exudates. NECK: No masses, no JVD. CHEST: No chest wall deformity. LUNGS: Equal air entry with no crackles, wheeze, rhonchi or dullness. CVS: S1 and S2 normal with no audible murmur, irregular rhythm. ABDOMEN: No hepatosplenomegaly, normal bowel sounds, no guarding or rigidity. SPINE: No scoliosis or deformity SKIN: No rashes CENTRAL NERVOUS SYSTEM: No focal deficits, tone is normal in all 4 extremities. EXTREMITIES: There is no peripheral edema. No clubbing, no cyanosis. Peripheral pulses are intact. - Labs CBC & Chem 7: 12/16/22 07:35 12/16/22 07:35 Labs: Abnormal Lab Results - Last 24 Hours (Table) 12/15/22 12/15/22 12/16/22 Range/Units 16:56 20:17 05:51 RBC (4.30-5.90) m/uL Hgb (13.0-17.5) gm/dL Hct (39.0-53.0) % PT (9.0-12.0) sec INR (<1.2) APTT (22.0-30.0) sec Sodium (137-145) mmol/L Glucose (74-99) mg/dL POC Glucose (mg/dL) 284 H 282 H 167 H (70-110) mg/dL Calcium (8.4-10.2) mg/dL AST (17-59) U/L ALT (4-49) U/L Alkaline Phosphatase (38-126) U/L Total Protein (6.3-8.2) g/dL Albumin (3.5-5.0) g/dL 12/16/22 12/16/22 12/16/22 Range/Units 07:35 07:35 07:35 RBC 3.97 L (4.30-5.90) m/uL Hgb 12.0 L (13.0-17.5) gm/dL Hct 35.7 L (39.0-53.0) % PT 13.9 H (9.0-12.0) sec INR 1.4 H (<1.2) APTT 74.2 H (22.0-30.0) sec Sodium (137-145) mmol/L Glucose (74-99) mg/dL POC Glucose (mg/dL) (70-110) mg/dL Calcium (8.4-10.2) mg/dL AST (17-59) U/L ALT (4-49) U/L Alkaline Phosphatase (38-126) U/L Total Protein (6.3-8.2) g/dL Albumin (3.5-5.0) g/dL 12/16/22 12/16/22 Range/Units 07:35 11:55 RBC (4.30-5.90) m/uL Hgb (13.0-17.5) gm/dL Hct (39.0-53.0) % PT (9.0-12.0) sec INR (<1.2) APTT (22.0-30.0) sec Sodium 136 L (137-145) mmol/L Glucose 228 H (74-99) mg/dL POC Glucose (mg/dL) 239 H (70-110) mg/dL Calcium 8.3 L (8.4-10.2) mg/dL AST 100 H (17-59) U/L ALT 76 H (4-49) U/L Alkaline Phosphatase 154 H (38-126) U/L Total Protein 5.7 L (6.3-8.2) g/dL Albumin 3.1 L (3.5-5.0) g/dL Microbiology - Last 24 Hours (Table) 12/14/22 16:58 Nasal Screen MRSA/MSSA - Final Nasal Swab Assessment and Plan Assessment: Acute hypoxic respiratory failure secondary to acute pulmonary edema/flash pulmonary edema exact etiology is not clear could be related to hypertension Acute non-ST elevation myocardial infarction Triple-vessel coronary artery disease based on his cardiac catheterization, being considered for surgery/CABG Atrial fibrillation, chronic but the patient presented with atrial fibrillation with RVR on admission, presently on heparin Type 2 diabetes Dyslipidemia History of diabetic foot infection, recovered Deep tissue injury to his left buttocks Plan: The patient was seen and evaluated Labs and medications reviewed Currently stable and on room air Working well with the incentive spirometer Cardiothoracic workup still ongoing We will continue to follow I have personally seen and examined the patient, performed the documentation and the assessment and plan as written. Number of minutes spent on the visit: 10.
--- NOTE | 2022-12-16 13:55 | P.PN ---
Subjective HISTORY OF PRESENT ILLNESS: This is a 77-year-old male who presented to the hospital with worsening shortness of breath and chest pain. He was ruled in for non-ST segment elevated myocardial infarction. Patient underwent cardiac catheterization revealing triple vessel coronary artery disease. Patient also underwent SANJEEV revealing moderate aortic stenosis, mild to moderate central mitral regurgitation, normal LV systolic function, and no evidence of VSD that was noted on prior echocardiogram. Patient is being followed by cardiothoracic surgery and plans for surgical intervention are underway. Patient examined this morning. Patient is sitting up in the chair. He denies chest pain or pressure. He denies shortness of breath. He remains on IV heparin. Vital signs are stable. Telemetry reveals sinus mechanism. PHYSICAL EXAM: VITAL SIGNS: Reviewed. GENERAL: Well-developed in no acute distress. NECK: Supple. No JVD or thyromegaly LUNGS: Respirations even and unlabored. Lungs essentially clear to auscultation bilaterally. HEART: Irregular rate and rhythm. S1 and S2 heard. Systolic murmur noted. EXTREMITIES: Normal range of motion. No clubbing or cyanosis. Peripheral pulses intact. No lower extremity edema ASSESSMENT: Non-STEMI Triple vessel coronary artery disease Moderate aortic stenosis [id number] central mitral regurgitation Acute pulmonary edema, resolved Persistent atrial fibrillation with RVR, on Coumadin outpatient Hypertension Hyperlipidemia Diabetes PLAN: Continue current cardiac medications Continue IV heparin Continue to hold Coumadin per CT surgery Await further input from CT surgery regarding timing of surgery Further recommendations pending patient course Nurse practitioner note has been reviewed by physician. Signing provider agrees with the documented findings, assessment, and plan of care. Objective - Vital Signs Vital signs: Vital Signs Temp 97.5 F L 12/16/22 08:00 Pulse 70 12/16/22 08:00 Resp 18 12/16/22 08:00 BP 139/74 12/16/22 08:00 Pulse Ox 100 12/16/22 08:00 FiO2 4 12/10/22 16:30 Intake & Output 12/15/22 12/16/22 12/16/22 18:59 06:59 18:59 Intake Total 720 Output Total 250 175 Balance 470 -175 Weight 84.3 kg Intake: IV 50 Intake, IV Titration 250 Amount Heparin Sod,Pork in 0.45% 250 NaCl 25,000 unit In 0.45 % NaCl 1 250ml.bag @ 11. 038 UNITS/KG/HR 10 mls/hr IV .Q24H [facility] Rx#: [id number] Oral 420 Output: Urine 250 175 Other: Voiding Method Urinal Toilet Toilet Urinal Urinal # Voids 1 1 ABP, PAP, CO, CI - Last Documented Arterial Blood Pressure 165/66 - Labs CBC & Chem 7: 12/16/22 07:35 12/16/22 07:35 Labs: Abnormal Lab Results - Last 24 Hours (Table) 12/15/22 12/15/22 12/16/22 Range/Units 16:56 20:17 05:51 RBC (4.30-5.90) m/uL Hgb (13.0-17.5) gm/dL Hct (39.0-53.0) % PT (9.0-12.0) sec INR (<1.2) APTT (22.0-30.0) sec Sodium (137-145) mmol/L Glucose (74-99) mg/dL POC Glucose (mg/dL) 284 H 282 H 167 H (70-110) mg/dL Calcium (8.4-10.2) mg/dL AST (17-59) U/L ALT (4-49) U/L Alkaline Phosphatase (38-126) U/L Total Protein (6.3-8.2) g/dL Albumin (3.5-5.0) g/dL 12/16/22 12/16/22 12/16/22 Range/Units 07:35 07:35 07:35 RBC 3.97 L (4.30-5.90) m/uL Hgb 12.0 L (13.0-17.5) gm/dL Hct 35.7 L (39.0-53.0) % PT 13.9 H (9.0-12.0) sec INR 1.4 H (<1.2) APTT 74.2 H (22.0-30.0) sec Sodium (137-145) mmol/L Glucose (74-99) mg/dL POC Glucose (mg/dL) (70-110) mg/dL Calcium (8.4-10.2) mg/dL AST (17-59) U/L ALT (4-49) U/L Alkaline Phosphatase (38-126) U/L Total Protein (6.3-8.2) g/dL Albumin (3.5-5.0) g/dL 12/16/22 12/16/22 Range/Units 07:35 11:55 RBC (4.30-5.90) m/uL Hgb (13.0-17.5) gm/dL Hct (39.0-53.0) % PT (9.0-12.0) sec INR (<1.2) APTT (22.0-30.0) sec Sodium 136 L (137-145) mmol/L Glucose 228 H (74-99) mg/dL POC Glucose (mg/dL) 239 H (70-110) mg/dL Calcium 8.3 L (8.4-10.2) mg/dL AST 100 H (17-59) U/L ALT 76 H (4-49) U/L Alkaline Phosphatase 154 H (38-126) U/L Total Protein 5.7 L (6.3-8.2) g/dL Albumin 3.1 L (3.5-5.0) g/dL Microbiology - Last 24 Hours (Table) 12/14/22 16:58 Nasal Screen MRSA/MSSA - Final Nasal Swab
[2022-12-16 16:21] LABS: Glucose,Whole Blood 294 mg/dL (70-110)
--- NOTE | 2022-12-16 16:45 | P.PN ---
Subjective Progress Note Date: 12/16/22 This is a 77-year-old male who was recently admitted with toxic respiratory failure secondary to acute diastolic congestive heart failure being closely monitored. Patient was in the ICU currently on cardiac stepdown unit with multiple medical consultations including cardiology, pulmonary, wound care as well as CT surgery for evaluation is following. Chest x-ray today shows no acute cardiopulmonary process or disease and no evidence of acute heart failure. Patient underwent cardiac catheterization yesterday found to have triple-vessel coronary artery disease and being evaluated by cardiothoracic surgery and undergoing workup for possible surgery in the near future. Patient has been weaned off oxygen currently maintaining oxygen saturations above 90% on room air and denies any significant shortness of breath. Patient with significant weakness recommend physical therapy evaluation daily. Patient is afebrile with no reports of chest pain or palpitations. Patient tolerating diet with no r eported nausea or vomiting noted. Discussed with patient and family about possible rehab inpatient per case management refused rehab or home care. We'll discuss further after cardiothoracic evaluation for possible surgical intervention. 12/15/2022 Patient is seen and evaluated in follow-up with cardiology, pulmonary, cardiothoracic following undergoing extensive workup to initiate possible aroldo gical intervention with CABG as patient was found to have triple-vessel disease. Patient to undergo SANJEEV and report currently pending. Patient with significant weakness would recommend physical therapy evaluation and working with daily and increased activity as tolerated. Patient reports some improvement in his shortness of breath although continues to be generally weak. Patient reports unsure of what is currently going on. Awaiting on further testing and will follow-up with CT surgery. Patient is currently afebrile with no reports of chest pain or palpitations. Patient is tolerating diet and will continue with Accu-Cheks before meals and at bedtime along with current insulin regimen. Prognosis remains guarded. 12/16/2022 Patient is seen and evaluated in follow-up today undergoing thorough workup with CT surgery for possible CABG with valve replacement. Multiple medical consult ations including pulmonary and cardiology following maintained on IV heparin and will continue. Patient underwent SANJEEV which showed moderate aortic stenosis with some mitral regurgitation and LV systolic function is normal. Patient has been up more frequently today and encouraged to increase activity as tolerated with continued PT/OT therapy daily. Patient continuing to undergo workup for possib le surgical intervention and will continue. Patient currently on room air denies worsening shortness of breath. Encouraged continued incentive spirometer use at least 10 times every hour while awake. Patient is afebrile denies chest pain or shortness of breath. Patient tolerating diet with no reported nausea or vomiting. Review of systems: Constitutional: No reports of fatigue, fever, or chills Cardiovascular: No reports of chest pain or palpitations Respiratory: No reports of worsening shortness of breath or cough GI: No reports of nausea, no reports of vomiting, no diarrhea : No reports of dysuria or retention Neurovascular: reports of generalized weakness All medications have been reviewed PHYSICAL EXAMINATION: GENERAL: The patient is alert and oriented x3, Well developed, well nourished. Ill-appearing, elderly appearing HEENT: Pupils are round and equally reacting to light. EOMI. no scleral icterus. No conjunctival pallor. Normocephalic, atraumatic. No pharyngeal erythema. No thyromegaly. CARDIOVASCULAR: S1 and S2 muffled PULMONARY: diminished breath sounds bilaterally with some scattered rhonchi noted. ABDOMEN: soft. Nontender on exam. non-distended, normoactive bowel sounds. No palpable organomegaly. MUSCULOSKELETAL: No joint swelling or deformity. EXTREMITIES: No cyanosis, clubbing, or pedal edema. NEUROLOGICAL: Gross neurological examination did not reveal any focal deficits. Diffuse weakness SKIN: No rashes. Assessment: Acute hypoxic respiratory failure secondary to CHF exacerbation with acute diastolic dysfunction, acute exacerbation Hypertensive urgency with emergency on admission with shock, likely cardiogenic requiring pressor support, currently weaned off Acute NSTEMI Coronary artery disease, found to have triple-vessel disease on cardiac catheterization this admission Atrial fibrillation with RVR, currently rate controlled with history of paroxysmal atrial fibrillation Coumadin coagulopathy Hyperlipidemia Diabetes mellitus, type II, uncontrolled with hyperglycemia Diabetic foot infection GI prophylaxis DVT prophylaxis Full code Plan: Multiple medical consultations following an cardiothoracic surgery is following and continuing to undergo surgical clearance and workup as patient was found to have triple-vessel disease, possible CABG is being planned Recommend physical therapy evaluation daily and patient has refused rehab and Homecare and will discuss further with family Repeat labs ordered Encouraged increased activity as tolerated Continue glycemic control with Accu-Cheks before meals and at bedtime and current insulin regimen Given patient's significant comorbidities, overall prognosis is guarded at this time The impression and plan of care has been dictated by Deyanira Andre, nurse practitioner as directed. Dr. Paul MD I have performed a history and examination and MDM of this patient, discussed the same with the dictator, and agree with the dictator's assessment and plan a s written ,documented as a scribe. Based on total visit time, I have performed more than 50% of the visit. Any additional findings or plans will be noted. Objective - Vital Signs Vital signs: Vital Signs Temp 97.5 F L 12/16/22 08:00 Pulse 74 12/16/22 14:00 Resp 18 12/16/22 14:00 BP 147/75 12/16/22 12:00 Pulse Ox 100 12/16/22 12:00 FiO2 4 12/10/22 16:30 Intake & Output 12/15/22 12/16/22 12/16/22 18:59 06:59 18:59 Intake Total 720 Output Total 250 175 Balance 470 -175 Weight 84.3 kg 84.3 kg Intake: IV 50 Intake, IV Titration 250 Amount Heparin Sod,Pork in 0.45% 250 NaCl 25,000 unit In 0.45 % NaCl 1 250ml.bag @ 11. 038 UNITS/KG/HR 10 mls/hr IV .Q24H [facility] Rx#: [id number] Oral 420 Output: Urine 250 175 Other: Voiding Method Urinal Toilet Toilet Urinal Urinal # Voids 1 1 3 # Bowel Movements 1 ABP, PAP, CO, CI - Last Documented Arterial Blood Pressure 165/66 - Labs CBC & Chem 7: 12/16/22 07:35 12/16/22 07:35 Labs: Abnormal Lab Results - Last 24 Hours (Table) 12/15/22 12/15/22 12/16/22 Range/Units 16:56 20:17 05:51 RBC (4.30-5.90) m/uL Hgb (13.0-17.5) gm/dL Hct (39.0-53.0) % PT (9.0-12.0) sec INR (<1.2) APTT (22.0-30.0) sec Sodium (137-145) mmol/L Glucose (74-99) mg/dL POC Glucose (mg/dL) 284 H 282 H 167 H (70-110) mg/dL Calcium (8.4-10.2) mg/dL AST (17-59) U/L ALT (4-49) U/L Alkaline Phosphatase (38-126) U/L Total Protein (6.3-8.2) g/dL Albumin (3.5-5.0) g/dL 12/16/22 12/16/22 12/16/22 Range/Units 07:35 07:35 07:35 RBC 3.97 L (4.30-5.90) m/uL Hgb 12.0 L (13.0-17.5) gm/dL Hct 35.7 L (39.0-53.0) % PT 13.9 H (9.0-12.0) sec INR 1.4 H (<1.2) APTT 74.2 H (22.0-30.0) sec Sodium (137-145) mmol/L Glucose (74-99) mg/dL POC Glucose (mg/dL) (70-110) mg/dL Calcium (8.4-10.2) mg/dL AST (17-59) U/L ALT (4-49) U/L Alkaline Phosphatase (38-126) U/L Total Protein (6.3-8.2) g/dL Albumin (3.5-5.0) g/dL 12/16/22 12/16/22 12/16/22 Range/Units 07:35 11:55 16:19 RBC (4.30-5.90) m/uL Hgb (13.0-17.5) gm/dL Hct (39.0-53.0) % PT (9.0-12.0) sec INR (<1.2) APTT (22.0-30.0) sec Sodium 136 L (137-145) mmol/L Glucose 228 H (74-99) mg/dL POC Glucose (mg/dL) 239 H 294 H (70-110) mg/dL Calcium 8.3 L (8.4-10.2) mg/dL AST 100 H (17-59) U/L ALT 76 H (4-49) U/L Alkaline Phosphatase 154 H (38-126) U/L Total Protein 5.7 L (6.3-8.2) g/dL Albumin 3.1 L (3.5-5.0) g/dL Microbiology - Last 24 Hours (Table) 12/14/22 16:58 Nasal Screen MRSA/MSSA - Final Nasal Swab
[2022-12-16 19:57] LABS: Glucose,Whole Blood 270 mg/dL (70-110)
[2022-12-17 05:53] LABS: Glucose,Whole Blood 171 mg/dL (70-110)
[2022-12-17 06:37] LABS: HCT 35.7 % (39.0-53.0); HGB 11.7 gm/dL (13.0-17.5); MCH 29.7 pg (25.0-35.0); MCHC 32.7 g/dL (31.0-37.0); MCV 90.8 fL (80.0-100.0); Mean Platelet Volume 8.5; Platelet Count 305 k/uL (150-450); RBC 3.93 m/uL (4.30-5.90); RDW 14.5 % (11.5-15.5); WBC 10.4 k/uL (3.8-10.6)
[2022-12-17] MEDS: INSULIN ASPART (NovoLOG) 100 UNIT/ML VIAL SQ SCH ×4 (06:37→20:45)
[2022-12-17] MEDS: SODIUM CHLORIDE 0.9% 1,000 ML IV SCH (06:37)
[2022-12-17 07:39] LABS: ALT 87 U/L (4-49); AST 100 U/L (17-59); African American GFR (CKD) 86 (>60 ml/min/1.73 sqM); Albumin 3.2 g/dL (3.5-5.0); Alkaline Phosphatase 132 U/L (38-126); Anion Gap 7 mmol/L; Blood Urea Nitrogen 15 mg/dL (9-20); Calcium 8.6 mg/dL (8.4-10.2); Carbon Dioxide 29 mmol/L (22-30); Chloride 102 mmol/L (98-107); Glucose 165 mg/dL (74-99); Non-African American GFR(CKD) 75 (>60 ml/min/1.73 sqM); Potassium 4.3 mmol/L (3.5-5.1); Sodium 138 mmol/L (137-145); Total Bilirubin 0.8 mg/dL (0.2-1.3)
--- NOTE | 2022-12-17 07:57 | P.PN ---
Subjective Progress Note Date: 12/17/22 Principal diagnosis: Coronary artery disease, NSTEMI this admission, acute pulmonary edema, acute hypoxic respiratory failure, atrial fibrillation with RVR on admission, supratherapeutic INR on admission, severe PAD. History of hypertension, hyperlipidemia, chronic atrial fibrillation on coumadin outpatient, diabetes mellitus type 2, history of healed diabetic foot infection, deep tissue injury to left buttocks The patient was seen and examined this morning sitting up in a recliner on the cardiac stepdown unit in no acute distress eating breakfast. Denies chest pain or shortness of breath currently. Remains in controlled atrial fibrillation, on room air with oxygen saturation in the high 90s. Remains on IV heparin, last dose of Coumadin 12/14/2022. The patient was seen yesterday by Dr. Rosenbaum, discussion was had regarding surgery, Dr. Rosenbaum will discuss with Dr. Mclean, likely will perform open heart surgery Tuesday. This is agreeable to the patient. No other new concerns. Objective - Vital Signs Vital signs: Vital Signs Temp 97.8 F 12/17/22 03:30 Pulse 73 12/17/22 03:30 Resp 18 12/17/22 03:30 BP 101/55 12/17/22 03:30 Pulse Ox 100 12/17/22 03:30 FiO2 4 12/10/22 16:30 Intake & Output 12/16/22 12/17/22 12/17/22 18:59 06:59 18:59 Intake Total 368 Balance 368 Weight 84.3 kg 83.9 kg Intake: Intake, IV Titration 250 Amount Heparin Sod,Pork in 0.45% 250 NaCl 25,000 unit In 0.45 % NaCl 1 250ml.bag @ 11. 038 UNITS/KG/HR 10 mls/hr IV .Q24H [facility] Rx#: [id number] Oral 118 Other: Voiding Method Toilet Toilet Urinal Urinal # Voids 3 1 # Bowel Movements 1 ABP, PAP, CO, CI - Last Documented Arterial Blood Pressure 165/66 - Exam CONSTITUTIONAL: Appears comfortable, cooperative, no acute distress RESPIRATORY: Lungs sounds diminished bilaterally. Respirations even, nonlabored. Currently on room air with oxygen saturation 100%. Able to achieve 2250 mL on incentive spirometry. Strong cough. CARDIOVASCULAR: S1, S2 present. Iregular rate and rhythm, controlled atrial fibrillation on telemetry. Palpable peripheral pulses bilaterally. No edema present. No calf pain or tenderness noted. GASTROINTESTINAL: Abdomen soft, nontender, nondistended. Active bowel sounds present 4 quadrants. Tolerating diet. Positive bowel movement 12/16 GENITOURINARY: Continues to void INTEGUMENTARY: Skin is warm and dry NEUROLOGIC: Cranial nerves II through XII intact MUSKULOSKELETAL: Able to move all extremities, strength equal bilaterally, gait normal PSYCHIATRIC: Alert and oriented to person place and time, appropriate affect, intact judgment and insight - Allied health notes Allied health notes reviewed: nursing - Labs CBC & Chem 7: 12/17/22 06:02 12/17/22 06:02 Labs: Abnormal Lab Results - Last 24 Hours (Table) 12/16/22 12/16/22 12/16/22 Range/Units 07:35 07:35 07:35 RBC 3.97 L (4.30-5.90) m/uL Hgb 12.0 L (13.0-17.5) gm/dL Hct 35.7 L (39.0-53.0) % PT 13.9 H (9.0-12.0) sec INR 1.4 H (<1.2) APTT 74.2 H (22.0-30.0) sec Sodium (137-145) mmol/L Glucose (74-99) mg/dL POC Glucose (mg/dL) (70-110) mg/dL Calcium (8.4-10.2) mg/dL AST (17-59) U/L ALT (4-49) U/L Alkaline Phosphatase (38-126) U/L Total Protein (6.3-8.2) g/dL Albumin (3.5-5.0) g/dL 12/16/22 12/16/22 12/16/22 Range/Units 07:35 11:55 16:19 RBC (4.30-5.90) m/uL Hgb (13.0-17.5) gm/dL Hct (39.0-53.0) % PT (9.0-12.0) sec INR (<1.2) APTT (22.0-30.0) sec Sodium 136 L (137-145) mmol/L Glucose 228 H (74-99) mg/dL POC Glucose (mg/dL) 239 H 294 H (70-110) mg/dL Calcium 8.3 L (8.4-10.2) mg/dL AST 100 H (17-59) U/L ALT 76 H (4-49) U/L Alkaline Phosphatase 154 H (38-126) U/L Total Protein 5.7 L (6.3-8.2) g/dL Albumin 3.1 L (3.5-5.0) g/dL 12/16/22 12/17/22 12/17/22 Range/Units 19:56 05:52 06:02 RBC 3.93 L (4.30-5.90) m/uL Hgb 11.7 L (13.0-17.5) gm/dL Hct 35.7 L (39.0-53.0) % PT (9.0-12.0) sec INR (<1.2) APTT (22.0-30.0) sec Sodium (137-145) mmol/L Glucose (74-99) mg/dL POC Glucose (mg/dL) 270 H 171 H (70-110) mg/dL Calcium (8.4-10.2) mg/dL AST (17-59) U/L ALT (4-49) U/L Alkaline Phosphatase (38-126) U/L Total Protein (6.3-8.2) g/dL Albumin (3.5-5.0) g/dL 12/17/22 12/17/22 Range/Units 06:02 06:02 RBC (4.30-5.90) m/uL Hgb (13.0-17.5) gm/dL Hct (39.0-53.0) % PT (9.0-12.0) sec INR (<1.2) APTT 73.8 H (22.0-30.0) sec Sodium (137-145) mmol/L Glucose 165 H (74-99) mg/dL POC Glucose (mg/dL) (70-110) mg/dL Calcium (8.4-10.2) mg/dL AST 100 H (17-59) U/L ALT 87 H (4-49) U/L Alkaline Phosphatase 132 H (38-126) U/L Total Protein 6.0 L (6.3-8.2) g/dL Albumin 3.2 L (3.5-5.0) g/dL Assessment and Plan Assessment: Coronary artery disease, NSTEMI this admission Moderate aortic stenosis, ROBBY 1-1.2 cm, mild AI Mild to moderate central mitral regurgitation Acute pulmonary edema, resolved Acute hypoxic respiratory failure, resolved, currently on room air Atrial fibrillation with RVR on admission, currently controlled Acute shortness of breath, secondary to above Supratherapeutic INR on admission measured as 5.0 Dilated RV with suggestion of VSD with [id number] shunting on TTE, not seen on SANJEEV the completed 12/15/22 Severe PAD, unable to obtain left and right ABIs History of hypertension History hyperlipidemia, treated, cholesterol 178, LDL 121 Chronic atrial fibrillation on coumadin outpatient Diabetes mellitus type 2, uncontrolled hyperglycemia, hemoglobin A1c 9.9% History of healed diabetic foot infection Deep tissue injury to left buttocks Elevated transaminases Plan: Continue to maximize medical therapy with aspirin, statin, beta shant, IV heparin Continue to hold Coumadin Increase activity as tolerated Encourage incentive spirometry use Continue preoperative teaching Dental clearance has been obtained Patient needs tighter blood sugar control as his blood sugars continue to run in the 200s which contributes to infection Likely will perform CABG/aortic valve replacement on Tuesday as per discussion between Dr. Rosenbaum and Dr. Mclean Medical management of other comorbidities per internal medicine, cardiology More recommendations to follow
--- NOTE | 2022-12-17 08:25 | CC ---
CARDIAC CATHETERIZATION REPORT STUDY PERFORMED: Cardiac catheterization. INDICATION: Acute ymu-UP-aiaetak elevation WI with pulmonary edema. PROCEDURE NOTE: After obtaining informed consent, left heart catheterization and coronary angiogram were performed via the left femoral artery. The patient received moderate conscious sedation. Total sedation time was 20 minutes. He received verapamil and heparin per protocol. The patient tolerated the procedure well without any obvious immediate complications. We initially attempted right radial artery access, but we were unsuccessful. I was able to obtain an arterial access, but could not place the 6- [place] sheath. Hence, we decided to proceed with the left femoral catheterization. The patient has very feeble pulses. The patient received moderate conscious sedation. Total sedation time was 70 minutes. We had quite a bit of a difficulty in engaging the right. We had to go through multiple catheter exchanges and documented in the chart. Dr. Gray, the on-call distributor advertising material obtained selective views of the right coronary artery. HEMODYNAMICS: Left ventricular end-diastolic pressure is 6 mm. The mean gradient across the aortic valve was 21 mm, consistent with mild to moderate aortic stenosis. LEFT VENTRICULOGRAM: Left ventriculogram is not performed. ANGIOGRAPHIC DATA: Right coronary artery: Right coronary artery is a codominant vessel, shows a focal 95% stenosis in its midportion. 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 Left main coronary artery appears calcified, but is free of significant stenosis. LAD appears subtotally occluded in the proximal portion with filling of the distal LAD and left injection. Circumflex coronary artery shows a focal 90% stenosis. CONCLUSION: Severe three-vessel coronary artery disease as described above. PLAN: I am going to consult a cardiothoracic surgeon to perform bypass surgery. MMODL / IJN: [id number] /
[2022-12-17] MEDS: ACETAMINOPHEN TAB 500 MG TAB PO PRN ×2 (09:26→16:57)
[2022-12-17] MEDS: DIGOXIN 250 MCG TAB PO SCH (09:26)
[2022-12-17] MEDS: MUPIROCIN 2% OINT 22 GM TUBE NASAL SCH ×2 (09:27→20:45)
[2022-12-17] MEDS: HYDROPHILIC CREAM 180 GM TUBE TOPICAL SCH (09:27)
[2022-12-17] MEDS: ATORVASTATIN 40 MG TAB PO SCH (09:27)
[2022-12-17] MEDS: INSULIN DETEMIR (LEVEMIR) 100 UNIT/ML SYR SQ SCH (09:27)
[2022-12-17] MEDS: ASPIRIN 81 MG PO SCH (09:27)
[2022-12-17] MEDS: PANTOPRAZOLE 40 MG TABLET PO SCH ×2 (09:27→16:53)
[2022-12-17] MEDS: METOPROLOL TARTRATE 50 MG TAB PO SCH ×2 (09:27→20:44)
--- NOTE | 2022-12-17 11:14 | P.PN ---
Subjective HISTORY OF PRESENT ILLNESS: This is a 77-year-old male who presented to the hospital with worsening shortness of breath and chest pain. He was ruled in for non-ST segment elevated myocardial infarction. Patient underwent cardiac catheterization revealing triple vessel coronary artery disease. Patient also underwent SANJEEV revealing moderate aortic stenosis, mild to moderate central mitral regurgitation, normal LV systolic function, and no evidence of VSD that was noted on prior echocardiogram. Patient is being followed by cardiothoracic surgery and plans for surgical intervention are underway. Patient examined this morning. Patient is sitting up in the chair. He denies chest pain or pressure. He denies shortness of breath. He remains on IV heparin. Vital signs are stable. Telemetry reveals sinus mechanism. 12/17/2022 Patient examined this morning. He is resting comfortably in bed. He denies chest pain or pressure. He denies shortness of breath. Vital signs are stable. He remains on IV heparin. PHYSICAL EXAM: VITAL SIGNS: Reviewed. GENERAL: Well-developed in no acute distress. NECK: Supple. No JVD or thyromegaly LUNGS: Respirations even and unlabored. Lungs essentially clear to auscultation bilaterally. HEART: Irregular rate and rhythm. S1 and S2 heard. Systolic murmur noted. EXTREMITIES: Normal range of motion. No clubbing or cyanosis. Peripheral pulses intact. No lower extremity edema ASSESSMENT: Non-STEMI Triple vessel coronary artery disease Moderate aortic stenosis [id number] central mitral regurgitation Acute pulmonary edema, resolved Persistent atrial fibrillation with RVR, on Coumadin outpatient Hypertension Hyperlipidemia Diabetes PLAN: Continue current cardiac medications Continue IV heparin Continue to hold Coumadin Patient tentatively scheduled to undergo CABG/AVR on Tuesday Further recommendations pending patient course Nurse practitioner note has been reviewed by physician. Signing provider agrees with the documented findings, assessment, and plan of care. Objective - Vital Signs Vital signs: Vital Signs Temp 98.4 F 12/17/22 08:20 Pulse 69 12/17/22 08:20 Resp 18 12/17/22 08:20 BP 146/61 12/17/22 08:20 Pulse Ox 96 12/17/22 08:20 FiO2 4 12/10/22 16:30 Intake & Output 12/16/22 12/17/22 12/17/22 18:59 06:59 18:59 Intake Total 368 Balance 368 Weight 84.3 kg 83.9 kg Intake: Intake, IV Titration 250 Amount Heparin Sod,Pork in 0.45% 250 NaCl 25,000 unit In 0.45 % NaCl 1 250ml.bag @ 11. 038 UNITS/KG/HR 10 mls/hr IV .Q24H [facility] Rx#: [id number] Oral 118 Other: Voiding Method Toilet Toilet Urinal Urinal # Voids 3 1 # Bowel Movements 1 ABP, PAP, CO, CI - Last Documented Arterial Blood Pressure 165/66 - Labs CBC & Chem 7: 12/17/22 06:02 12/17/22 06:02 Labs: Abnormal Lab Results - Last 24 Hours (Table) 12/16/22 12/16/22 12/16/22 Range/Units 11:55 16:19 19:56 RBC (4.30-5.90) m/uL Hgb (13.0-17.5) gm/dL Hct (39.0-53.0) % APTT (22.0-30.0) sec Glucose (74-99) mg/dL POC Glucose (mg/dL) 239 H 294 H 270 H (70-110) mg/dL AST (17-59) U/L ALT (4-49) U/L Alkaline Phosphatase (38-126) U/L Total Protein (6.3-8.2) g/dL Albumin (3.5-5.0) g/dL 12/17/22 12/17/22 12/17/22 Range/Units 05:52 06:02 06:02 RBC 3.93 L (4.30-5.90) m/uL Hgb 11.7 L (13.0-17.5) gm/dL Hct 35.7 L (39.0-53.0) % APTT (22.0-30.0) sec Glucose 165 H (74-99) mg/dL POC Glucose (mg/dL) 171 H (70-110) mg/dL AST 100 H (17-59) U/L ALT 87 H (4-49) U/L Alkaline Phosphatase 132 H (38-126) U/L Total Protein 6.0 L (6.3-8.2) g/dL Albumin 3.2 L (3.5-5.0) g/dL 12/17/22 Range/Units 06:02 RBC (4.30-5.90) m/uL Hgb (13.0-17.5) gm/dL Hct (39.0-53.0) % APTT 73.8 H (22.0-30.0) sec Glucose (74-99) mg/dL POC Glucose (mg/dL) (70-110) mg/dL AST (17-59) U/L ALT (4-49) U/L Alkaline Phosphatase (38-126) U/L Total Protein (6.3-8.2) g/dL Albumin (3.5-5.0) g/dL
--- NOTE | 2022-12-17 11:38 | P.PN ---
Subjective Progress Note Date: 12/17/22 77-year-old male patient, came into the emergency department because of shortness of breath. The patient lives [place] and he has a primary care physician in [facility]. The patient was in the hospital with his who was having a mammogram. He acutely became short of breath and he felt that his lungs were filling up with fluid. He was brought into the emergency department. Noted around few days back, he was having some limited cough and the patient was given a course of steroid taper by his primary care physician. No fever. No chills. No chest pain. He is known to have chronic atrial fibrillation and the patient is also known to have diabetes mellitus and hyperlipidemia. No history of any coronary artery disease. No history of any stroke. No history of any DVTs or pulmonary embolism. No history of COPD or asthma. He is a nonsmoker. The patient came into the emergency and he was hypoxic, acutely short of breath, acutely tachycardic and hypertensive with a BP of 192/137 with a heart rate of 158 and the respiration all 35. The patient was placed on a BiPAP. He decompensated. Ultimately, he was intubated and placed on a mechanical ventilator. Chest x-ray showed bilateral lung consolidations mainly in the lower lobes. Post intubation, the patient started having bloody rest or secretions from his orotracheal tube. His cardiac rhythm is the nature fibrillation. At this point in time, the patient is intubated on a mechanical ventilator. I saw the patient in the emergency department and a lipase to the intensive care unit. Currently is on propofol which is currently is up to 50 mcg/kg/m. His well sedated on a mechanical ventilator. He was also given a dose of Nimbex 10 mg IV push as the sedation was being titrated. Note that the patient became also hypotensive while being on sedation. He was started on norepinephrine which is currently running at 0.27 Babar respiratory kilogram per minute. His heart rate is less tachycardic although distal in nature fibrillation. Cardizem drip was discontinued because of underlying hypotension. He was given a dose of Lasix in the emergency department and he has produced a total of 350 mL of urine output. He does have some lower extremity edema. His blood work is showing 15.5, hemoglobin is 14.4, platelet count of 244, sodium is at 140, BUN is at 24 with a creatinine of 0.9. ProBNP level is 4050. Troponin was 0.7. LFTs are normal. The vital screening including Covid 19 was negative. Thyroid function test was within normal limits. His INR was at 5.0 with a PTT of 49.2. The patient was given a total of 5 mg of vitamin K. Lines were established in the ICU including a triple-lumen catheter inserted in his left IJ and an arterial line for blood pressure monitoring. Given a dose of Rocephin. He is currently on a mechanical ventilator on assist control mode with a rate of 26, tidal volume of 450, FiO2 of 100% and a PEEP of 5. On today's evaluation of a 12/09 2022, the patient remains intubated on a mechanical ventilator. The patient is calm and comfortable on mechanical ventilator. Is currently on propofol running at 45 mcg/kg/m. His symptoms of the mechanical ventilator. This is on assist-control mode of mechanical ventilation with a rate of 26, tidal volume of 450, FiO2 of 40% and a PEEP currently is at 10. The blood gas shows marked improvement and the patient has a pH of 7.54 consistent with respiratory alkalosis with a pCO2 of 26 and pO2 of 247. This was done an FiO2 of 60% and based on the difficult was weaned down to 40%. At the same time, the chest x-ray shows marked improvement compared to yesterday. The orotracheal tube is in a good location. There is improvement in the bibasilar patchy airspace opacities and the lines are all in place. The patient's echoes up to 20.7 with a hemoglobin 12.8. His INR dropped down to 2.9 after being given a total of 5 mg of vitamin K. His lactic acid level is at 2.3. BUN is at 25 with a creatinine of 0.9 and the sodium is at 1:30. His pro calcitonin level is at 0.03. The troponin peaked at 1.7 and cardiology is on the case. His cardiac rhythm is atrial fibrillation and the patient remains on amiodarone which is running at 0.5 mg/m for rate control. Echocardiogram was also completed yesterday that showed a dynamic LV. His left ventricular ejection fraction was normal with an ejection fraction of 50-55%. There was mild to moderate mitral and tricuspid regurgitation. There was some dilation of the right ventricle and there was a suggestion of a VSD with a [id number] shunting. This is to be further evaluated by cardiology. On 12/10/2022, the patient is being seen for a follow-up. The patient is still on a mechanical ventilator. Propofol is being weaned this morning. Overnight, the patient was kept on propofol for sedation. At the same time, the patient is currently on a mechanical ventilator on assist control mode with a rate of 16, tidal volume of 450, FiO2 down to 40% with a PEEP of 5. Pulse ox is in order of 97%.Chest x-ray showing increased haziness in the right middle and right lower lobe as well as the left atrial cardiac area. This was not seen on yesterday's chest x-ray. Blood gas from today shows a pH of 7.48 with a pCO2 of 37 and pO2 of 103 and this was done above-mentioned ventilator setting. The patient remained nature fibrillation. He is currently on a Cardizem drip at 10 mg an hour and amiodarone by mouth 400 mg twice a day. He was also given digoxin by cardiology 250 g on a daily basis and this was given to him for rate control. His INR today is pending. Yesterday's INR was at 2.9 and the warfarin was discontinued. The patient was in negative fluid balance of 1.3 L over the past 24 hours. A repeat echocardiogram was done today and I was informed by cardiology and there is no concern for underlying VSD. The BMs thousand 14.3 with a hemoglobin 11.8. He has 24 with a creatinine of 0.8 and a sodium level is at 128. LFTs are within normal limits. On today's evaluation of 12/11/2022, I'm seeing the patient for a follow-up. The patient was weaned off the mechanical ventilator and the patient was extubated yesterday without any major difficulties. This morning, he is extubated and is currently on oxygen at room air. The patient is in negative fluid balance. He has been in negative fluid balance of 4.5 L over the past 24 hours as the patient was diuresed. He was already making adequate urine without diuretics. He was given Lasix also to augment his urine output. No major respiratory difficulties. His cardiac rhythm is a chest fibrillation. The patient is currently on IV heparin. The patient is also on Cardizem at 15 mg an hour. PTT therapeutic. BUN is at 19 with a creatinine of 0.9. LFTs are normal at this point in time. The white suppositive 13.5, hemoglobin 13.3 and a platelet count is at 208. Noted the patient was on warfarin prior to him coming into the hospital. His INR was supratherapeutic and his INR on yesterday's down to 1.5. He does have a deep tissue injury to his left buttocks and currently is laying down his right. Antibiotic coverage included a combination of cefepime and Zithromax. His pro calcitonin level was low. Cultures were negative. White cell cause that 13.5. His pro calcitonin level is at 0.03. 12/12/2022, the patient is doing well and he remains extubated and currently is on oxygen at 2 L. Pulse ox is adequate. He remains in atrial fibrillation. Hemodynamically stable. He is on no pressors at this point in time. The patient remains on IV heparin. Warfarin will be started today. He was taken off the Cardizem drip and currently is on a combination of metoprolol at a dose of 50 mg by mouth twice a day, Cardizem drip has been discontinued and the p atient was also given digoxin 0.25 mg on a daily basis. He is on Levemir insulin 10 units and the signs Coverage. His oral intake is still diminished over this is improving. The chest x-ray is rotated minutes essentially clear. The patient has developed a deep tissue injury to his left buttocks. This could be related also to a prior to intubation trauma. His respiratory failure was brief to cause this extent of deep tissue injury. Currently he has a Opteform applied to the area. seconds at 10.7. Hemoglobin is 12.2. Platelet count is 204. BUN is 16. Creatinine is at 0.8. Urine operas adequate. Cardiac rhythm is A. fib Patient was reevaluated today on 12/13/2022, patient remains in the ICU, he is presently on room air, not in any distress, he is actually an overflow to the cardiac floor 3 S., and he may be scheduled to undergo cardiac catheterization today. Patient was intubated on 12/08, extubated on 12/10 tolerated the extubation well, and he is relatively asymptomatic, remains on heparin PTT is 58/therapeutic the lips count is 11.9 hemoglobin is 12.6 and the first are normal renal profile is normal. Chest x-ray from yesterday showed no evidence of acute pulmonary process Patient was reevaluated today on 12/14/2022, patient underwent cardiac catheterization yesterday, and he was found to have triple-vessel coronary artery disease. He is supposed to be seen by cardiothoracic surgery today, and decide on possible surgery in the near future. Patient is on room air, he is not in any distress, and his chest x-ray this morning is reassuring, no evidence of pulmonary edema and no acute pulmonary process. No evidence of heart failure. CBC is relatively normal lites are normal renal profile is normal Evaluated today on 12/15/2022, patient was seen by cardiothoracic surgery, he is being worked up for possible surgery in the next couple of days. His recent car diac catheterization showed triple vessel coronary artery disease, and workup for possible surgery is in progress. Patient is asymptomatic, denies any cough wheezing or shortness of breath, his pulmonary status seems to be relatively stable at this point. Remains on heparin and PTT is 58 today. The patient is seen today 12/16/2022 in follow-up on the selective care unit. He is currently resting comfortably in bed. Awake and alert in no acute distress. Maintaining O2 saturations up to 100% on room air. He's afebrile. Hemodynamically stable. Ultrasound of the lower extremities revealed incomplete study. Unable to obtain left and right ankle-brachial indices. Demonstrating severe peripheral arterial disease bilaterally. SANJEEV revealed moderate aortic stenosis, mild to moderate central mitral regurgitation. Normal left ventricular systolic function. White count 9.2. Hemoglobin 12.0. Platelets 296. Sodium 136. Potassium 4.6. Bicarb 27. BUN 15. Creatinine 0.89. Glucose 228. AST 100. ALT 76. Albumin 3.1. Cardiac surgery testing still being performed. Warfarin remains on hold. The patient is seen today 12/17/2022 in follow-up on the selective care unit. He is awake and alert in no acute distress. Up ambulating in his room. Continue good O2 saturations in the high 90s on room air. Afebrile. Hemodynamically stable. Denies any chest pain. White count 10.4. Hemoglobin 11.7. Platelets 305. Sodium 138. Potassium 4.3. Bicarb 29. BUN 15. Creatinine 0.9. Glucose 165. AST 100. ALT 87. He remains on a heparin drip. Plan is for coronary revascularization on 12/20/2022. Objective - Vital Signs Vital signs: Vital Signs Temp 98.4 F 12/17/22 08:20 Pulse 69 12/17/22 08:20 Resp 18 12/17/22 08:20 BP 146/61 12/17/22 08:20 Pulse Ox 96 12/17/22 08:20 FiO2 4 12/10/22 16:30 Intake & Output 12/16/22 12/17/22 12/17/22 18:59 06:59 18:59 Intake Total 368 240 Balance 368 240 Weight 84.3 kg 83.9 kg Intake: Intake, IV Titration 250 Amount Heparin Sod,Pork in 0.45% 250 NaCl 25,000 unit In 0.45 % NaCl 1 250ml.bag @ 11. 038 UNITS/KG/HR 10 mls/hr IV .Q24H VIDAL Rx#: [id number] Oral 118 240 Other: Voiding Method Toilet Toilet Urinal Urinal # Voids 3 1 # Bowel Movements 1 ABP, PAP, CO, CI - Last Documented Arterial Blood Pressure 165/66 - Exam GENERAL EXAM: Alert, oriented 77-year-old male, up ambulating in his room, on room air, comfortable in no apparent distress. HEAD: Normocephalic. EYES: Normal reaction of pupils, equal size. NOSE: Clear with pink turbinates. THROAT: No erythema or exudates. NECK: No masses, no JVD. CHEST: No chest wall deformity. LUNGS: Equal air entry with no crackles, wheeze, rhonchi or dullness. CVS: S1 and S2 normal with no audible murmur, irregular rhythm. ABDOMEN: No hepatosplenomegaly, normal bowel sounds, no guarding or rigidity. SPINE: No scoliosis or deformity SKIN: No rashes CENTRAL NERVOUS SYSTEM: No focal deficits, tone is normal in all 4 extremities. EXTREMITIES: There is no peripheral edema. No clubbing, no cyanosis. Peripheral pulses are intact. - Labs CBC & Chem 7: 12/17/22 06:02 12/17/22 06:02 Labs: Abnormal Lab Results - Last 24 Hours (Table) 12/16/22 12/16/22 12/16/22 Range/Units 11:55 16:19 19:56 RBC (4.30-5.90) m/uL Hgb (13.0-17.5) gm/dL Hct (39.0-53.0) % APTT (22.0-30.0) sec Glucose (74-99) mg/dL POC Glucose (mg/dL) 239 H 294 H 270 H (70-110) mg/dL AST (17-59) U/L ALT (4-49) U/L Alkaline Phosphatase (38-126) U/L Total Protein (6.3-8.2) g/dL Albumin (3.5-5.0) g/dL 12/17/22 12/17/22 12/17/22 Range/Units 05:52 06:02 06:02 RBC 3.93 L (4.30-5.90) m/uL Hgb 11.7 L (13.0-17.5) gm/dL Hct 35.7 L (39.0-53.0) % APTT (22.0-30.0) sec Glucose 165 H (74-99) mg/dL POC Glucose (mg/dL) 171 H (70-110) mg/dL AST 100 H (17-59) U/L ALT 87 H (4-49) U/L Alkaline Phosphatase 132 H (38-126) U/L Total Protein 6.0 L (6.3-8.2) g/dL Albumin 3.2 L (3.5-5.0) g/dL 12/17/22 Range/Units 06:02 RBC (4.30-5.90) m/uL Hgb (13.0-17.5) gm/dL Hct (39.0-53.0) % APTT 73.8 H (22.0-30.0) sec Glucose (74-99) mg/dL POC Glucose (mg/dL) (70-110) mg/dL AST (17-59) U/L ALT (4-49) U/L Alkaline Phosphatase (38-126) U/L Total Protein (6.3-8.2) g/dL Albumin (3.5-5.0) g/dL Assessment and Plan Assessment: Acute hypoxic respiratory failure secondary to acute pulmonary edema/flash pulmonary edema, recovered and on room air Acute non-ST elevation myocardial infarction Triple-vessel coronary artery disease based on his cardiac catheterization, plan is for surgery/CABG 12/20/2022 Atrial fibrillation, chronic but the patient presented with atrial fibrillation with RVR on admission, presently on heparin Type 2 diabetes Dyslipidemia History of diabetic foot infection, recovered Deep tissue injury to his left buttocks Plan: The patient was seen and evaluated Labs and medications reviewed Remains on a heparin drip Currently stable and on room air Working well with the incentive spirometer Plan is for surgery 12/20/2022 We will continue to follow I have personally seen and examined the patient, performed the documentation and the assessment and plan as written. Number of minutes spent on the visit: 10.
[2022-12-17 11:46] LABS: Glucose,Whole Blood 343 mg/dL (70-110)
--- NOTE | 2022-12-17 13:59 | XR ---
EXAMINATION TYPE: XR Hip Complete LT DATE OF EXAM: 12/17/2022 CLINICAL HISTORY: pain TECHNIQUE: AP and frogleg views of the left hip are obtained. COMPARISON: None. FINDINGS: There is no acute fracture/dislocation evident. The joint space appears within normal li mits. The overlying soft tissue appears unremarkable. Extensive vascular calcifications noted. IMPRESSION: 1. There is no acute fracture or dislocation.ICD 10 NO FRACTURE, INITIAL EVALUATION
--- NOTE | 2022-12-17 14:02 | XR ---
EXAMINATION TYPE: XR femur LT DATE OF EXAM: 12/17/2022 CLINICAL HISTORY: pain TECHNIQUE: Two views of the left femur are obtained. COMPARISON: None. FINDINGS: There is no acute fracture or dislocation seen of the femur. The hip and knee joints gal ear within normal limits. The overlying soft tissue appears unremarkable. Extensive Vascular calcifi cations are noted. IMPRESSION: There is no acute fracture or dislocation seen of the femur. ICD 10 NO FRACTURE, INITIAL EVALUATION
--- NOTE | 2022-12-17 15:31 | P.PN ---
Subjective Progress Note Date: 12/17/22 This is a 77-year-old male who was recently admitted with toxic respiratory failure secondary to acute diastolic congestive heart failure being closely monitored. Patient was in the ICU currently on cardiac stepdown unit with multiple medical consultations including cardiology, pulmonary, wound care as well as CT surgery for evaluation is following. Chest x-ray today shows no acute cardiopulmonary process or disease and no evidence of acute heart failure. Patient underwent cardiac catheterization yesterday found to have triple-vessel coronary artery disease and being evaluated by cardiothoracic surgery and undergoing workup for possible surgery in the near future. Patient has been weaned off oxygen currently maintaining oxygen saturations above 90% on room air and denies any significant shortness of breath. Patient with significant weakness recommend physical therapy evaluation daily. Patient is afebrile with no reports of chest pain or palpitations. Patient tolerating diet with no r eported nausea or vomiting noted. Discussed with patient and family about possible rehab inpatient per case management refused rehab or home care. We'll discuss further after cardiothoracic evaluation for possible surgical intervention. 12/15/2022 Patient is seen and evaluated in follow-up with cardiology, pulmonary, cardiothoracic following undergoing extensive workup to initiate possible aroldo gical intervention with CABG as patient was found to have triple-vessel disease. Patient to undergo SANJEEV and report currently pending. Patient with significant weakness would recommend physical therapy evaluation and working with daily and increased activity as tolerated. Patient reports some improvement in his shortness of breath although continues to be generally weak. Patient reports unsure of what is currently going on. Awaiting on further testing and will follow-up with CT surgery. Patient is currently afebrile with no reports of chest pain or palpitations. Patient is tolerating diet and will continue with Accu-Cheks before meals and at bedtime along with current insulin regimen. Prognosis remains guarded. 12/16/2022 Patient is seen and evaluated in follow-up today undergoing thorough workup with CT surgery for possible CABG with valve replacement. Multiple medical consult ations including pulmonary and cardiology following maintained on IV heparin and will continue. Patient underwent SANJEEV which showed moderate aortic stenosis with some mitral regurgitation and LV systolic function is normal. Patient has been up more frequently today and encouraged to increase activity as tolerated with continued PT/OT therapy daily. Patient continuing to undergo workup for possib le surgical intervention and will continue. Patient currently on room air denies worsening shortness of breath. Encouraged continued incentive spirometer use at least 10 times every hour while awake. Patient is afebrile denies chest pain or shortness of breath. Patient tolerating diet with no reported nausea or vomiting. 12/17/2022 Patient is seen and evaluated today currently sitting up at the side of the bed with multiple family members present. Patient is undergoing further workup and maintained on IV heparin with cardiology and cardiothoracic surgery following. Plans are for CABG with valve replacement possibly early next week. Patient has been encouraged to increase activity as tolerated and continues with some left hip and pelvic pain and ordered x-rays. Patient does have a wound on the left buttock that is being controlled by wound care and continued wound care with offloading and OptiFoam. Patient has been increasing his activity and reports has been up and walking and walked up and down the [place] today. Family members with questions and concerns that were answered to the best of our ability. Patient is afebrile with no reported chest pain or worsening shortness of breath. Patient has been encouraged to continue using incentive spirometer at least 10 times every hour while awake. Patient is tolerating diet with no reported nausea or vomiting. Review of systems: Constitutional: No reports of fatigue, fever, or chills Cardiovascular: No reports of chest pain or palpitations Respiratory: No reports of worsening shortness of breath or cough GI: No reports of nausea, no reports of vomiting, no diarrhea : No reports of dysuria or retention Neurovascular: reports of generalized weakness, reports left hip and buttock pain All medications have been reviewed PHYSICAL EXAMINATION: GENERAL: The patient is alert and oriented x3, Well developed, well nourished. Ill-appearing, elderly appearing HEENT: Pupils are round and equally reacting to light. EOMI. no scleral icterus. No conjunctival pallor. Normocephalic, atraumatic. No pharyngeal erythema. No thyromegaly. CARDIOVASCULAR: S1 and S2 muffled PULMONARY: diminished breath sounds bilaterally with some scattered rhonchi noted. ABDOMEN: soft. Nontender on exam. non-distended, normoactive bowel sounds. No palpable organomegaly. MUSCULOSKELETAL: No joint swelling or deformity. EXTREMITIES: No cyanosis, clubbing, or pedal edema. Left hip wound currently dressed with Optefoam with noted bruising as patient recently fell NEUROLOGICAL: Gross neurological examination did not reveal any focal deficits. Diffuse weakness SKIN: No rashes. Assessment: Acute hypoxic respiratory failure secondary to CHF exacerbation with acute diastolic dysfunction, acute exacerbation Hypertensive urgency with emergency on admission with shock, likely cardiogenic requiring pressor support, currently weaned off Acute NSTEMI Left hip pain, Left hip contusion with some bruising noted, no fractures on x- ray imaging Coronary artery disease, found to have triple-vessel disease on cardiac catheterization this admission Atrial fibrillation with RVR, currently rate controlled with history of paroxys mal atrial fibrillation Coumadin coagulopathy Hyperlipidemia Diabetes mellitus, type II, uncontrolled with hyperglycemia Diabetic foot infection recently, resolved GI prophylaxis DVT prophylaxis Full code Plan: Multiple medical consultations following an cardiothoracic surgery is following and continuing to undergo surgical clearance and workup as patient was found to have triple-vessel disease, possible CABG is being planned for 12/20/2022 Patient has been up and walking more frequently and working with physical therapy and is noted to have some left hip and leg pain and images were done with no fractures noted. There is a contusion and patient is continued on local wound care and offloading of that area. Recommend physical therapy evaluation daily , discussed with family about frequ ently walking with assistance or with a walker as needed Repeat labs ordered Encouraged increased activity as tolerated Continue glycemic control with Accu-Cheks before meals and at bedtime and curre nt insulin regimen Given patient's significant comorbidities, overall prognosis is guarded at this time The impression and plan of care has been dictated by Deyanira Andre, nurse practitioner as directed. Dr. Paul MD I have performed a history and examination and MDM of this patient, discussed the same with the dictator, and agree with the dictator's assessment and plan as written ,documented as a scribe. Based on total visit time, I have performed more than 50% of the visit. Any additional findings or plans will be noted. Objective - Vital Signs Vital signs: Vital Signs Temp 98.4 F 12/17/22 08:20 Pulse 69 12/17/22 08:20 Resp 18 12/17/22 08:20 BP 146/61 12/17/22 08:20 Pulse Ox 96 12/17/22 08:20 FiO2 4 12/10/22 16:30 Intake & Output 12/16/22 12/17/22 12/17/22 18:59 06:59 18:59 Intake Total 368 240 Balance 368 240 Weight 84.3 kg 83.9 kg Intake: Intake, IV Titration 250 Amount Heparin Sod,Pork in 0.45% 250 NaCl 25,000 unit In 0.45 % NaCl 1 250ml.bag @ 11. 038 UNITS/KG/HR 10 mls/hr IV .Q24H [facility] Rx#: [id number] Oral 118 240 Other: Voiding Method Toilet Toilet Urinal Urinal # Voids 3 1 # Bowel Movements 1 ABP, PAP, CO, CI - Last Documented Arterial Blood Pressure 165/66 - Labs CBC & Chem 7: 12/17/22 06:02 12/17/22 06:02 Labs: Abnormal Lab Results - Last 24 Hours (Table) 12/16/22 12/16/22 12/17/22 Range/Units 16:19 19:56 05:52 RBC (4.30-5.90) m/uL Hgb (13.0-17.5) gm/dL Hct (39.0-53.0) % APTT (22.0-30.0) sec Glucose (74-99) mg/dL POC Glucose (mg/dL) 294 H 270 H 171 H (70-110) mg/dL AST (17-59) U/L ALT (4-49) U/L Alkaline Phosphatase (38-126) U/L Total Protein (6.3-8.2) g/dL Albumin (3.5-5.0) g/dL 12/17/22 12/17/22 12/17/22 Range/Units 06:02 06:02 06:02 RBC 3.93 L (4.30-5.90) m/uL Hgb 11.7 L (13.0-17.5) gm/dL Hct 35.7 L (39.0-53.0) % APTT 73.8 H (22.0-30.0) sec Glucose 165 H (74-99) mg/dL POC Glucose (mg/dL) (70-110) mg/dL AST 100 H (17-59) U/L ALT 87 H (4-49) U/L Alkaline Phosphatase 132 H (38-126) U/L Total Protein 6.0 L (6.3-8.2) g/dL Albumin 3.2 L (3.5-5.0) g/dL 12/17/22 Range/Units 11:43 RBC (4.30-5.90) m/uL Hgb (13.0-17.5) gm/dL Hct (39.0-53.0) % APTT (22.0-30.0) sec Glucose (74-99) mg/dL POC Glucose (mg/dL) 343 H (70-110) mg/dL AST (17-59) U/L ALT (4-49) U/L Alkaline Phosphatase (38-126) U/L Total Protein (6.3-8.2) g/dL Albumin (3.5-5.0) g/dL
[2022-12-17] MEDS: HEPARIN SOD,PORK IN 0.45% NACL 25,000 UNIT in 0.45% NACL 1 250ML.BAG IV SCH (15:47)
[2022-12-17 16:18] LABS: Glucose,Whole Blood 253 mg/dL (70-110)
[2022-12-17 20:11] LABS: Glucose,Whole Blood 243 mg/dL (70-110)
[2022-12-17] MEDS ORDERED: INSULIN DETEMIR (LEVEMIR) 100 UNIT/ML SYR SQ SCH (21:00)
[2022-12-18 06:05] LABS: Glucose,Whole Blood 140 mg/dL (70-110)
[2022-12-18] MEDS: INSULIN ASPART (NovoLOG) 100 UNIT/ML VIAL SQ SCH ×5 (06:06→20:24)
[2022-12-18] MEDS ORDERED: INSULIN DETEMIR (LEVEMIR) 100 UNIT/ML SYR SQ SCH (07:00)
--- NOTE | 2022-12-18 08:08 | P.PN ---
Subjective Progress Note Date: 12/18/22 Principal diagnosis: Coronary artery disease, NSTEMI this admission, acute pulmonary edema, acute hypoxic respiratory failure, atrial fibrillation with RVR on admission, supratherapeutic INR on admission, severe PAD. History of hypertension, hyperlipidemia, chronic atrial fibrillation on coumadin outpatient, diabetes mellitus type 2, history of healed diabetic foot infection, deep tissue injury to left buttocks The patient was seen and examined this morning sitting up in a recliner on the cardiac stepdown unit in no acute distress eating breakfast. Denies chest pain or shortness of breath currently. His only complaint is of lack of sleep. Remains in controlled atrial fibrillation, on room air with oxygen saturation in the high 90s. Remains on IV heparin, last dose of Coumadin 12/14/2022. Plan is for CABG/AVR Tuesday with Dr. Rosenbaum. Discussed in depth with patient and family yesterday. No new concerns. Objective - Vital Signs Vital signs: Vital Signs Temp 97.4 F L 12/18/22 04:30 Pulse 92 12/18/22 04:30 Resp 18 12/18/22 04:30 BP 122/60 12/18/22 04:30 Pulse Ox 98 12/18/22 04:30 FiO2 4 12/10/22 16:30 Intake & Output 12/17/22 12/18/22 12/18/22 18:59 06:59 18:59 Intake Total 720 Balance 720 Intake: IV 120 Sodium Chloride 0.9% 1, 120 000 ml @ 20 mls/hr IV . Q24H [facility] Rx#:[id number] Oral 600 Other: Voiding Method Toilet Toilet Urinal Urinal # Voids 2 1 ABP, PAP, CO, CI - Last Documented Arterial Blood Pressure 165/66 - Exam CONSTITUTIONAL: Appears comfortable, cooperative, no acute distress RESPIRATORY: Lungs sounds diminished bilaterally. Respirations even, nonlabored. Currently on room air with oxygen saturation 98%. Able to achieve 2250 mL on incentive spirometry. Strong cough. CARDIOVASCULAR: S1, S2 present. Iregular rate and rhythm, controlled atrial fibrillation on telemetry. Palpable peripheral pulses bilaterally. No edema present. No calf pain or tenderness noted. GASTROINTESTINAL: Abdomen soft, nontender, nondistended. Active bowel sounds present 4 quadrants. Tolerating diet. Positive bowel movement 12/16 GENITOURINARY: Continues to void INTEGUMENTARY: Skin is warm and dry NEUROLOGIC: Cranial nerves II through XII intact MUSKULOSKELETAL: Able to move all extremities, strength equal bilaterally, gait normal PSYCHIATRIC: Alert and oriented to person place and time, appropriate affect, intact judgment and insight - Allied health notes Allied health notes reviewed: nursing - Labs CBC & Chem 7: 12/17/22 06:02 12/17/22 06:02 Labs: Abnormal Lab Results - Last 24 Hours (Table) 12/17/22 12/17/22 12/17/22 Range/Units 11:43 16:12 20:10 POC Glucose (mg/dL) 343 H 253 H 243 H (70-110) mg/dL 12/18/22 Range/Units 06:04 POC Glucose (mg/dL) 140 H (70-110) mg/dL Assessment and Plan Assessment: Coronary artery disease, NSTEMI this admission Moderate aortic stenosis, ROBBY 1-1.2 cm, mild AI Mild to moderate central mitral regurgitation Acute pulmonary edema, resolved Acute hypoxic respiratory failure, resolved, currently on room air Atrial fibrillation with RVR on admission, currently controlled Acute shortness of breath, secondary to above Supratherapeutic INR on admission measured as 5.0 Dilated RV with suggestion of VSD with [id number] shunting on TTE, not seen on SANJEEV the completed 12/15/22 Severe PAD, unable to obtain left and right ABIs History of hypertension History hyperlipidemia, treated, cholesterol 178, LDL 121 Chronic atrial fibrillation on coumadin outpatient Diabetes mellitus type 2, uncontrolled hyperglycemia, hemoglobin A1c 9.9% History of healed diabetic foot infection Deep tissue injury to left buttocks Elevated transaminases Plan: Continue to maximize medical therapy with aspirin, statin, beta shant, IV heparin Continue to hold Coumadin Increase activity as tolerated Encourage incentive spirometry use Continue preoperative teaching Dental clearance has been obtained Scheduled for CABG/aortic valve replacement on Tuesday as per discussion between Dr. Rosenbaum and Dr. Mclean Medical management of other comorbidities per internal medicine, cardiology More recommendations to follow
[2022-12-18] MEDS: METOPROLOL TARTRATE 50 MG TAB PO SCH ×2 (08:13→20:25)
[2022-12-18] MEDS: PANTOPRAZOLE 40 MG TABLET PO SCH ×2 (08:13→16:34)
[2022-12-18] MEDS: ASPIRIN 81 MG PO SCH (08:13)
[2022-12-18] MEDS: ATORVASTATIN 40 MG TAB PO SCH (08:13)
[2022-12-18] MEDS: HYDROPHILIC CREAM 180 GM TUBE TOPICAL SCH (08:14)
[2022-12-18] MEDS: MUPIROCIN 2% OINT 22 GM TUBE NASAL SCH ×2 (08:14→20:25)
[2022-12-18] MEDS: SODIUM CHLORIDE 0.9% 1,000 ML IV SCH (08:14)
[2022-12-18] MEDS: DIGOXIN 250 MCG TAB PO SCH (08:14)
--- NOTE | 2022-12-18 10:18 | P.PN ---
Subjective Progress Note Date: 12/18/22 Principal diagnosis: Acute hypoxic respiratory failure secondary to Acute pulmonary edema with hypertensive emergency and acute non-ST elevation myocardial infarction 77-year-old male patient, came into the emergency department because of shortness of breath. The patient lives up [place] and he has a primary care physician in [facility]. The patient was in the hospital with his who was having a mammogram. He acutely became short of breath and he felt that his lungs were filling up with fluid. He was brought into the emergency department. Noted around few days back, he was having some limited cough and the patient was given a course of steroid taper by his primary care physician. No fever. No chills. No chest pain. He is known to have chronic atrial fi brillation and the patient is also known to have diabetes mellitus and hyperlipidemia. No history of any coronary artery disease. No history of any stroke. No history of any DVTs or pulmonary embolism. No history of COPD or asthma. He is a nonsmoker. The patient came into the emergency and he was hypoxic, acutely short of breath, acutely tachycardic and hypertensive with a BP of 192/137 with a heart rate of 158 and the respiration all 35. The patient was placed on a BiPAP. He decompensated. Ultimately, he was intubated and placed on a mechanical ventilator. Chest x-ray showed bilateral lung consolidations mainly in the lower lobes. Post intubation, the patient started having bloody rest or secretions from his orotracheal tube. His cardiac rhythm is the nature fibrillation. At this point in time, the patient is intubated on a mechanical ventilator. I saw the patient in the emergency department and a lipase to the intensive care unit. Currently is on propofol which is currently is up to 50 mcg/kg/m. His well sedated on a mechanical ventilator. He was also given a dose of Nimbex 10 mg IV push as the sedation was being titrated. Note that the patient became also hypotensive while being on sedation. He was started on norepinephrine which is currently running at 0.27 Babar respiratory kilogram per minute. His heart rate is less tachycardic although distal in nature fibrillation. Cardizem drip was discontinued because of underlying hypotension. He was given a dose of Lasix in the emergency department and he has produced a total of 350 mL of urine output. He does have some lower extremity edema. His blood work is showing 15.5, hemoglobin is 14.4, platelet count of 244, sodium is at 140, BUN is at 24 with a creatinine of 0.9. ProBNP level is 4050. Troponin was 0.7. LFTs are normal. The vital screening including Covid 19 was negative. Thyroid function test was within normal limits. His INR was at 5.0 with a PTT of 49.2. The patient was given a total of 5 mg of vitamin K. Lines were established in the ICU including a triple-lumen catheter inserted in his left IJ and an arterial line for blood pressure monitoring. Given a dose of Rocephin. He is currently on a mechanical ventilator on assist control mode with a rate of 26, tidal volume of 450, FiO2 of 100% and a PEEP of 5. On today's evaluation of a 12/09 2022, the patient remains intubated on a mechanical ventilator. The patient is calm and comfortable on mechanical ventilator. Is currently on propofol running at 45 mcg/kg/m. His symptoms of the mechanical ventilator. This is on assist-control mode of mechanical ventilation with a rate of 26, tidal volume of 450, FiO2 of 40% and a PEEP currently is at 10. The blood gas shows marked improvement and the patient has a pH of 7.54 consistent with respiratory alkalosis with a pCO2 of 26 and pO2 of 247. This was done an FiO2 of 60% and based on the difficult was weaned down to 40%. At the same time, the chest x-ray shows marked improvement compared to yesterday. The orotracheal tube is in a good location. There is improvement in the bibasilar patchy airspace opacities and the lines are all in place. The patient's echoes up to 20.7 with a hemoglobin 12.8. His INR dropped down to 2.9 after being given a total of 5 mg of vitamin K. His lactic acid level is at 2.3. BUN is at 25 with a creatinine of 0.9 and the sodium is at 1:30. His pro calcitonin level is at 0.03. The troponin peaked at 1.7 and cardiology is on the case. His cardiac rhythm is atrial fibrillation and the patient remains on amiodarone which is running at 0.5 mg/m for rate control. Echocardiogram was also completed yesterday that showed a dynamic LV. His left ventricular ejection fraction was normal with an ejection fraction of 50-55%. There was mild to moderate mitral and tricuspid regurgitation. There was some dilation of the right ventricle and there was a suggestion of a VSD with a [id number] shunting. This is to be further evaluated by cardiology. On 12/10/2022, the patient is being seen for a follow-up. The patient is still on a mechanical ventilator. Propofol is being weaned this morning. Overnight, the patient was kept on propofol for sedation. At the same time, the patient is currently on a mechanical ventilator on assist control mode with a rate of 16, tidal volume of 450, FiO2 down to 40% with a PEEP of 5. Pulse ox is in order of 97%.Chest x-ray showing increased haziness in the right middle and right lower lobe as well as the left atrial cardiac area. This was not seen on yesterday's chest x-ray. Blood gas from today shows a pH of 7.48 with a pCO2 of 37 and pO2 of 103 and this was done above-mentioned ventilator setting. The patient remained nature fibrillation. He is currently on a Cardizem drip at 10 mg an hour and amiodarone by mouth 400 mg twice a day. He was also given digoxin by cardiology 250 g on a daily basis and this was given to him for rate control. His INR today is pending. Yesterday's INR was at 2.9 and the warfarin was discontinued. The patient was in negative fluid balance of 1.3 L over the past 24 hours. A repeat echocardiogram was done today and I was informed by cardiology and there is no concern for underlying VSD. The BMs thousand 14.3 with a hemoglobin 11.8. He has 24 with a creatinine of 0.8 and a sodium level is at 128. LFTs are within normal limits. On today's evaluation of 12/11/2022, I'm seeing the patient for a follow-up. The patient was weaned off the mechanical ventilator and the patient was extubated yesterday without any major difficulties. This morning, he is extubated and is currently on oxygen at room air. The patient is in negative fluid balance. He has been in negative fluid balance of 4.5 L over the past 24 hours as the patient was diuresed. He was already making adequate urine without diuretics. He was given Lasix also to augment his urine output. No major respiratory difficulties. His cardiac rhythm is a chest fibrillation. The patient is currently on IV heparin. The patient is also on Cardizem at 15 mg an hour. PTT therapeutic. BUN is at 19 with a creatinine of 0.9. LFTs are normal at this point in time. The white suppositive 13.5, hemoglobin 13.3 and a platelet count is at 208. Noted the patient was on warfarin prior to him coming into the hospital. His INR was supratherapeutic and his INR on yesterday's down to 1.5. He does have a deep tissue injury to his left buttocks and currently is laying down his right. Antibiotic coverage included a combination of cefepime and Zithromax. His pro calcitonin level was low. Cultures were negative. White cell cause that 13.5. His pro calcitonin level is at 0.03. 12/12/2022, the patient is doing well and he remains extubated and currently is on oxygen at 2 L. Pulse ox is adequate. He remains in atrial fibrillation. Hemodynamically stable. He is on no pressors at this point in time. The patient remains on IV heparin. Warfarin will be started today. He was taken off the Cardizem drip and currently is on a combination of metoprolol at a dose of 50 mg by mouth twice a day, Cardizem drip has been discontinued and the patient was also given digoxin 0.25 mg on a daily basis. He is on Levemir insulin 10 units and the signs Coverage. His oral intake is still diminished over this is improving. The chest x-ray is rotated minutes essentially clear. The patient has developed a deep tissue injury to his left buttocks. This could be related also to a prior to intubation trauma. His respiratory failure was brief to cause this extent of deep tissue injury. Currently he has a Opteform applied to the area. seconds at 10.7. Hemoglobin is 12.2. Platelet count is 204. BUN is 16. Creatinine is at 0.8. Urine operas adequate. Cardiac rhythm is A. fib Patient was reevaluated today on 12/13/2022, patient remains in the ICU, he is presently on room air, not in any distress, he is actually an overflow to the cardiac floor 3 S., and he may be scheduled to undergo cardiac catheterization today. Patient was intubated on 12/08, extubated on 12/10 tolerated the extubation well, and he is relatively asymptomatic, remains on heparin PTT is 58/therapeutic the lips count is 11.9 hemoglobin is 12.6 and the first are carolin l renal profile is normal. Chest x-ray from yesterday showed no evidence of acute pulmonary process Patient was reevaluated today on 12/14/2022, patient underwent cardiac catheterization yesterday, and he was found to have triple-vessel coronary artery disease. He is supposed to be seen by cardiothoracic surgery today, and decide on possible surgery in the near future. Patient is on room air, he is not in any distress, and his chest x-ray this morning is reassuring, no evidence of pulmonary edema and no acute pulmonary process. No evidence of heart failure. CBC is relatively normal lites are normal renal profile is normal Evaluated today on 12/15/2022, patient was seen by cardiothoracic surgery, he is being worked up for possible surgery in the next couple of days. His recent cardiac catheterization showed triple vessel coronary artery disease, and workup for possible surgery is in progress. Patient is asymptomatic, denies any cough wheezing or shortness of breath, his pulmonary status seems to be relatively stable at this point. Remains on heparin and PTT is 58 today. Reevaluated today on 12/18/2022, patient continues to do well, doing well with incentive spirometry, becoming active in the room and in the hallway, scheduled for myocardial revascularization on Tuesday. No active pulmonary symptoms. Patient is asymptomatic. Denies any chest pain. Remains in controlled atrial fibrillation, and he is on room air remains on IV heparin. CABG/AVR is planned for Tuesday Objective - Vital Signs Vital signs: Vital Signs Temp 97.9 F 12/18/22 08:11 Pulse 108 H 12/18/22 08:11 Resp 19 12/18/22 08:11 BP 104/68 12/18/22 08:11 Pulse Ox 91 L 12/18/22 08:11 FiO2 4 12/10/22 16:30 Intake & Output 12/17/22 12/18/22 12/18/22 18:59 06:59 18:59 Intake Total 720 118 Balance 720 118 Intake: IV 120 Sodium Chloride 0.9% 1, 120 000 ml @ 20 mls/hr IV . Q24H [facility] Rx#:[id number] Oral 600 118 Other: Voiding Method Toilet Toilet Toilet Urinal Urinal Urinal # Voids 2 1 ABP, PAP, CO, CI - Last Documented Arterial Blood Pressure 165/66 - Exam Physical Exam: Revealed a 77-year-old white male in no distress on room air Head: Atraumatic normocephalic HEENT:[Neck is supple.] [No neck masses.] [No thyromegaly.] [No JVD.] Chest: [Clear throughout, no crackles, no rhonchi, no wheezes.] Cardiac Exam: [Normal S1 and S2, no S3 gallop, 2/6 systolic murmur throughout the precordium. Abdomen: [Soft, nontender, no megaly, no rebound, no guarding, normal bowel sounds.] Extremities: [No clubbing, no edema, no cyanosis.] Neurological Exam: [No focal neurologic deficit.] Alert oriented 3 Psychiatric: Normal mood affect and normal mental status exam. Skin: No rashes - Labs CBC & Chem 7: 12/17/22 06:02 12/17/22 06:02 Labs: Abnormal Lab Results - Last 24 Hours (Table) 12/17/22 12/17/22 12/17/22 Range/Units 11:43 16:12 20:10 POC Glucose (mg/dL) 343 H 253 H 243 H (70-110) mg/dL 12/18/22 Range/Units 06:04 POC Glucose (mg/dL) 140 H (70-110) mg/dL Assessment and Plan Assessment: Impression: Acute hypoxic respiratory failure secondary to acute pulmonary edema/flash pu lmonary edema exact etiology is not clear could be related to hypertension Acute non-ST elevation myocardial infarction Moderate aortic stenosis Triple-vessel coronary artery disease based on his cardiac catheterization, being considered for surgery/CABG/AVR Atrial fibrillation, chronic but the patient presented with atrial fibrillation with RVR on admission, presently on heparin Type 2 diabetes Dyslipidemia History of diabetic foot infection, recovered Deep tissue injury to his left buttocks Recommendation: Continue present supportive care measures Continue incentive spirometry Keep patient active Agree with surgery scheduled for Tuesday Continue Levemir insulin and NovoLog insulin Continue GI and DVT prophylaxis Continue Silvadene cream and optifoam to left buttock We'll continue to follow Time with Patient: Less than 30
[2022-12-18 11:42] LABS: Glucose,Whole Blood 293 mg/dL (70-110)
[2022-12-18] MEDS: HEPARIN SOD,PORK IN 0.45% NACL 25,000 UNIT in 0.45% NACL 1 250ML.BAG IV SCH (11:50)
--- NOTE | 2022-12-18 11:56 | P.PN ---
Subjective Progress Note Date: 12/18/22 The patient is a 77-year-old male who initially presented to the emergency room with worsening shortness of breath and chest pain. He was subsequently diagnosed with a non-ST elevated myocardial infarction. Coronary angiogram revealed severe triple vessel disease and SANJEEV showed moderate aortic stenosis & mild to moderate mitral regurgitation. He was evaluated by cardiac surgery and will be scheduled for CABG and aortic valve replacement on Tuesday. Patient was interviewed and examined resting comfortably on the side of the bed. He states he overall feels well and denies any chest pain. His only complaint is orthopedic/muscle pain that he received from his fall. GENERAL: Well-appearing, well-nourished and in no acute distress. NECK: Supple without JVD or thyromegaly. LUNGS: Breath sounds clear to auscultation bilaterally. Respiration equal and unlabored. No wheezes, rales or rhonchi. HEART: Irregular rate and rhythm. Systolic ejection murmur. No rubs or gallops. S1 and S2 heard. EXTREMITIES: Normal range of motion, no edema. No clubbing or cyanosis. Peripheral pulses intact and strong. TELEMETRY: Persistent atrial fibrillation. Heart rates ranging from the 80s to low 100s IMPRESSION: Non-ST elevated myocardial infarction Triple-vessel coronary artery disease Moderate aortic stenosis Persistent atrial fibrillation with RVR Hypertension Hyperlipidemia Diabetes PLAN: Continue IV heparin Nothing by mouth after midnight Tuesday for CABG/aortic valve replacement on Tuesday Further recommendations will be in clinical course I am dictating on behalf of Dr Floyd Hilton's history/physical and assessment/plan. Objective - Vital Signs Vital signs: Vital Signs Temp 97.9 F 12/18/22 08:11 Pulse 87 12/18/22 11:49 Resp 15 12/18/22 11:49 BP 133/69 12/18/22 11:49 Pulse Ox 91 L 12/18/22 08:11 FiO2 4 12/10/22 16:30 Intake & Output 12/17/22 12/18/22 12/18/22 18:59 06:59 18:59 Intake Total 720 368 Balance 720 368 Intake: IV 120 Sodium Chloride 0.9% 1, 120 000 ml @ 20 mls/hr IV . Q24H [facility] Rx#:[id number] Intake, IV Titration 250 Amount Heparin Sod,Pork in 0.45% 250 NaCl 25,000 unit In 0.45 % NaCl 1 250ml.bag @ 11. 038 UNITS/KG/HR 10 mls/hr IV .Q24H [facility] Rx#: [id number] Oral 600 118 Other: Voiding Method Toilet Toilet Toilet Urinal Urinal Urinal # Voids 2 1 ABP, PAP, CO, CI - Last Documented Arterial Blood Pressure 165/66 - Labs CBC & Chem 7: 12/17/22 06:02 12/17/22 06:02 Labs: Abnormal Lab Results - Last 24 Hours (Table) 12/17/22 12/17/22 12/18/22 Range/Units 16:12 20:10 06:04 POC Glucose (mg/dL) 253 H 243 H 140 H (70-110) mg/dL 12/18/22 Range/Units 11:39 POC Glucose (mg/dL) 293 H (70-110) mg/dL
[2022-12-18 16:17] LABS: Glucose,Whole Blood 270 mg/dL (70-110)
[2022-12-18 19:56] LABS: Glucose,Whole Blood 246 mg/dL (70-110)
[2022-12-18] MEDS: INSULIN DETEMIR (LEVEMIR) 100 UNIT/ML SYR SQ SCH (20:25)
[2022-12-18] MEDS: ACETAMINOPHEN TAB 500 MG TAB PO PRN (20:40)
--- NOTE | 2022-12-18 22:35 | PN ---
PROGRESS NOTE DATE OF SERVICE: 12/18/2022 SUBJECTIVE: This is a 77-year-old gentleman, who was admitted with CHF acute exacerbation, also had 3-vessel coronary artery disease. The patient is awaiting for cardiac catheterization. The patient also had complaining of some hip pain as well as hematomas and ecchymosis. No acute fracture was noted. No chest pain. No palpitation. PHYSICAL EXAMINATION: VITAL SIGNS: Pulse is 78, blood pressure 130/60, respirations 16. CHEST: Clear to auscultation. CARDIOVASCULAR: S1, S2. ABDOMEN: Soft. NERVOUS SYSTEM: Nonfocal. LABORATORY DATA: Glucose is 293. Rest of the labs are noted. CURRENT MEDICATIONS: Reviewed include insulin. REVIEW OF SYSTEMS: A 14-point review is negative except as mentioned earlier. ASSESSMENT: 1. Three-vessel coronary artery disease, status post coronary artery bypass graft. 2. Congestive heart failure acute exacerbation with acute on chronic diastolic dysfunction, acute hypoxic respiratory failure, present on admission. 3. Hypertensive urgency and emergency. 4. Acute ref-EV-mdfxfww-elevation myocardial infarction. 5. Left hip pain and contusion. 6. Diabetes mellitus, type 2. 7. Coumadin coagulopathy. 8. Multiple complex medical issues. RECOMMENDATIONS: Recommend to continue current management and continue symptomatic treatment. Otherwise, repeat labs. Also recommend to optimize diabetic treatment with increasing the Levemir to 20 units subcu b.i.d. and continue to monitor. Otherwise, add NovoLog 2 units with meals and scale also. See orders for further details. Further recommendations to follow. MMODL / IJN: [id number] /
[2022-12-19 05:54] LABS: Glucose,Whole Blood 84 mg/dL (70-110)
[2022-12-19] MEDS: INSULIN ASPART (NovoLOG) 100 UNIT/ML VIAL SQ SCH ×7 (06:14→20:37)
[2022-12-19 06:16] LABS: Basophils # (A) 0.1 k/uL (0-0.2); Basophils % (A) 1 %; Eosinophils # (A) 0.2 k/uL (0-0.7); Eosinophils % (A) 3 %; HCT 34.2 % (39.0-53.0); HGB 11.4 gm/dL (13.0-17.5); Lymphocytes # (A) 1.7 k/uL (1.0-4.8); Lymphocytes % (A) 20 %; MCH 30.1 pg (25.0-35.0); MCHC 33.3 g/dL (31.0-37.0); MCV 90.5 fL (80.0-100.0); Mean Platelet Volume 7.9; Monocytes # (A) 0.5 k/uL (0-1.0); Monocytes % (A) 6 %; Neutrophils # (A) 5.7 k/uL (1.3-7.7); Neutrophils % (A) 68 %; Platelet Count 327 k/uL (150-450); RBC 3.78 m/uL (4.30-5.90); WBC 8.3 k/uL (3.8-10.6)
[2022-12-19 06:40] LABS: ALT 60 U/L (4-49); AST 47 U/L (17-59); African American GFR (CKD) 88 (>60 ml/min/1.73 sqM); Albumin 2.8 g/dL (3.5-5.0); Alkaline Phosphatase 123 U/L (38-126); Anion Gap 6 mmol/L; Blood Urea Nitrogen 15 mg/dL (9-20); Calcium 8.2 mg/dL (8.4-10.2); Carbon Dioxide 27 mmol/L (22-30); Chloride 107 mmol/L (98-107); Glucose 88 mg/dL (74-99); Magnesium 1.6 mg/dL (1.6-2.3); Non-African American GFR(CKD) 77 (>60 ml/min/1.73 sqM); Potassium 4.3 mmol/L (3.5-5.1); Sodium 140 mmol/L (137-145); Total Bilirubin 0.5 mg/dL (0.2-1.3); Total Protein 5.3 g/dL (6.3-8.2)
[2022-12-19] MEDS: SODIUM CHLORIDE 0.9% 1,000 ML IV SCH (06:46)
[2022-12-19] MEDS: PANTOPRAZOLE 40 MG TABLET PO SCH ×2 (06:46→17:24)
[2022-12-19 06:50] LABS: INR 1.2 (<1.2); Partial Thromboplastin Time 84.8 sec (22.0-30.0); Prothrombin Time 11.9 sec (9.0-12.0)
[2022-12-19] MEDS: INSULIN DETEMIR (LEVEMIR) 100 UNIT/ML SYR SQ SCH ×2 (08:08→20:53)
--- NOTE | 2022-12-19 08:21 | XR ---
EXAMINATION TYPE: XR chest 2V DATE OF EXAM: 12/19/2022 COMPARISON: September 08 HISTORY: Shortness of breath TECHNIQUE: Frontal and lateral views of the chest are obtained. FINDINGS: Scattered senescent parenchymal changes noted. Hyperinflation compatible with COPD. No evidence for infiltrate. No evidence for atelectasis. Heart size is stable. Mediastinal structures are stable and grossly unremarkable. No evidence for hilar prominence. Degenerative changes dorsal spine. IMPRESSION: 1. No evidence for acute pulmonary disease.
[2022-12-19] MEDS: DIGOXIN 250 MCG TAB PO SCH (08:50)
[2022-12-19] MEDS: ATORVASTATIN 40 MG TAB PO SCH (08:50)
[2022-12-19] MEDS: METOPROLOL TARTRATE 50 MG TAB PO SCH ×2 (08:50→20:36)
[2022-12-19] MEDS: ASPIRIN 81 MG PO SCH (08:50)
[2022-12-19] MEDS: MUPIROCIN 2% OINT 22 GM TUBE NASAL SCH ×2 (08:51→20:57)
[2022-12-19] MEDS: HYDROPHILIC CREAM 180 GM TUBE TOPICAL SCH (08:51)
[2022-12-19] MEDS ORDERED: MD COMMUNICATION TO PHARMACY 1 EACH MISC PO ONE ×2 (10:30)
--- NOTE | 2022-12-19 10:41 | P.PN ---
Subjective Progress Note Date: 12/19/22 Principal diagnosis: Coronary artery disease, NSTEMI this admission, acute pulmonary edema, acute hypoxic respiratory failure, atrial fibrillation with RVR on admission, supratherapeutic INR on admission, severe PAD. History of hypertension, hyperlipidemia, chronic atrial fibrillation on coumadin outpatient, diabetes mellitus type 2, history of healed diabetic foot infection, deep tissue injury to left buttocks The patient was seen and examined this morning laying in bed on the cardiac stepdown unit in no acute distress. Remains in controlled atrial fibrillation, on room air with oxygen saturation in the high 90s. Remains on IV heparin, last dose of Coumadin 12/14/2022. Plan is for CABG/AVR Tuesday with Dr. Rosenbaum. Discussed in depth with patient and family yesterday. No new concerns. Objective - Vital Signs Vital signs: Vital Signs Temp 97.7 F 12/19/22 08:00 Pulse 90 12/19/22 08:00 Resp 16 12/19/22 08:00 BP 110/69 12/19/22 08:00 Pulse Ox 90 L 12/19/22 08:00 FiO2 4 12/10/22 16:30 Intake & Output 12/18/22 12/19/22 12/19/22 18:59 06:59 18:59 Intake Total 604 0 358 Balance 604 0 358 Weight 85 kg Intake: Intake, IV Titration 250 0 Amount Heparin Sod,Pork in 0.45% 250 0 NaCl 25,000 unit In 0.45 % NaCl 1 250ml.bag @ 11. 038 UNITS/KG/HR 10 mls/hr IV .Q24H [facility] Rx#: [id number] Oral 354 358 Other: Voiding Method Toilet Toilet Toilet Urinal Urinal Urinal # Voids 2 1 ABP, PAP, CO, CI - Last Documented Arterial Blood Pressure 165/66 - Exam CONSTITUTIONAL: Appears comfortable, cooperative, no acute distress RESPIRATORY: Lungs sounds diminished bilaterally. Respirations even, nonlabored. Currently on room air with oxygen saturation 100% CARDIOVASCULAR: S1, S2 present. Iregular rate and rhythm, controlled atrial fibrillation on telemetry. Palpable peripheral pulses bilaterally. No edema present. No calf pain or tenderness noted. GASTROINTESTINAL: Abdomen soft, nontender, nondistended. Active bowel sounds present 4 quadrants. Tolerating diet GENITOURINARY: Continues to void INTEGUMENTARY: Skin is warm and dry NEUROLOGIC: Cranial nerves II through XII intact MUSKULOSKELETAL: Able to move all extremities, strength equal bilaterally - Allied health notes Allied health notes reviewed: nursing - Labs CBC & Chem 7: 12/19/22 05:55 12/19/22 05:55 Labs: Abnormal Lab Results - Last 24 Hours (Table) 12/18/22 12/18/22 12/18/22 Range/Units 11:39 11:53 16:14 RBC (4.30-5.90) m/uL Hgb (13.0-17.5) gm/dL Hct (39.0-53.0) % INR (<1.2) APTT 71.7 H (22.0-30.0) sec POC Glucose (mg/dL) 293 H 270 H (70-110) mg/dL Calcium (8.4-10.2) mg/dL ALT (4-49) U/L Total Protein (6.3-8.2) g/dL Albumin (3.5-5.0) g/dL 12/18/22 12/19/22 12/19/22 Range/Units 19:50 05:55 05:55 RBC 3.78 L (4.30-5.90) m/uL Hgb 11.4 L (13.0-17.5) gm/dL Hct 34.2 L (39.0-53.0) % INR 1.2 H (<1.2) APTT 84.8 H (22.0-30.0) sec POC Glucose (mg/dL) 246 H (70-110) mg/dL Calcium (8.4-10.2) mg/dL ALT (4-49) U/L Total Protein (6.3-8.2) g/dL Albumin (3.5-5.0) g/dL 12/19/22 Range/Units 05:55 RBC (4.30-5.90) m/uL Hgb (13.0-17.5) gm/dL Hct (39.0-53.0) % INR (<1.2) APTT (22.0-30.0) sec POC Glucose (mg/dL) (70-110) mg/dL Calcium 8.2 L (8.4-10.2) mg/dL ALT 60 H (4-49) U/L Total Protein 5.3 L (6.3-8.2) g/dL Albumin 2.8 L (3.5-5.0) g/dL - Imaging and Cardiology Chest x-ray: report reviewed, image reviewed Assessment and Plan Assessment: Coronary artery disease, NSTEMI this admission Moderate aortic stenosis, ROBBY 1-1.2 cm, mild AI Mild to moderate central mitral regurgitation Acute pulmonary edema, resolved Acute hypoxic respiratory failure, resolved, currently on room air Atrial fibrillation with RVR on admission, currently controlled Acute shortness of breath, secondary to above Supratherapeutic INR on admission measured as 5.0 Dilated RV with suggestion of VSD with [id number] shunting on TTE, not seen on SANJEEV the completed 12/15/22 Severe PAD, unable to obtain left and right ABIs History of hypertension History hyperlipidemia, treated, cholesterol 178, LDL 121 Chronic atrial fibrillation on coumadin outpatient Diabetes mellitus type 2, uncontrolled hyperglycemia, hemoglobin A1c 9.9% History of healed diabetic foot infection Deep tissue injury to left buttocks Elevated transaminases, resolving Plan: Continue to maximize medical therapy with aspirin, statin, beta shant, IV heparin. 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 Rosenbaum Medical management of other comorbidities per internal medicine, cardiology More recommendations to follow
[2022-12-19 11:33] LABS: Glucose,Whole Blood 196 mg/dL (70-110)
--- NOTE | 2022-12-19 11:57 | P.PN ---
Subjective Progress Note Date: 12/19/22 The patient is a 77-year-old male who initially presented to the emergency room with worsening shortness of breath and chest pain. He was subsequently diagnosed with a non-ST elevated myocardial infarction. Coronary angiogram revealed severe triple vessel disease and SANJEEV showed moderate aortic stenosis & mild to moderate mitral regurgitation. He was evaluated by cardiac surgery and will be scheduled for CABG and aortic valve replacement on Tuesday. Patient was interviewed and examined resting comfortably in the recliner chair. He states he overall feels well and denies any chest pain. He has not experienced any dizziness, lightheadedness, or presyncope ambulating around his room. He does report some back pain secondary to his previous fall. GENERAL: Well-appearing, well-nourished and in no acute distress. NECK: Supple without JVD or thyromegaly. LUNGS: Breath sounds clear to auscultation bilaterally. Respiration equal and unlabored. No wheezes, rales or rhonchi. HEART: Irregular rate and rhythm. Systolic ejection murmur. No rubs or gallops. S1 and S2 heard. EXTREMITIES: Normal range of motion, no edema. No clubbing or cyanosis. Peripheral pulses intact and strong. TELEMETRY: Persistent atrial fibrillation. Heart rates ranging from the 80s to low 100s LABS: WBC 8.3, hemoglobin 11.4, hematocrit 34.2, platelet 327, sodium 140, potassium 4.3, BUN 15, creatinine 0.96, magnesium 1.6, AST 47, ALT 60 IMPRESSION: Non-ST elevated myocardial infarction Triple-vessel coronary artery disease Moderate aortic stenosis Persistent atrial fibrillation with RVR Hypertension Hyperlipidemia Diabetes PLAN: Continue IV heparin Nothing by mouth after midnight for CABG/aortic valve replacement tomorrow with Dr Rosenbaum Further recommendations will be in clinical course I am dictating on behalf of Dr Floyd Hilton's history/physical and assessment/plan. Objective - Vital Signs Vital signs: Vital Signs Temp 97.7 F 12/19/22 08:00 Pulse 90 12/19/22 08:00 Resp 16 12/19/22 08:00 BP 110/69 12/19/22 08:00 Pulse Ox 90 L 12/19/22 08:00 FiO2 4 12/10/22 16:30 Intake & Output 12/18/22 12/19/22 12/19/22 18:59 06:59 18:59 Intake Total 604 0 358 Balance 604 0 358 Weight 85 kg Intake: Intake, IV Titration 250 0 Amount Heparin Sod,Pork in 0.45% 250 0 NaCl 25,000 unit In 0.45 % NaCl 1 250ml.bag @ 11. 038 UNITS/KG/HR 10 mls/hr IV .Q24H [facility] Rx#: [id number] Oral [id number] Other: Voiding Method Toilet Toilet Toilet Urinal Urinal Urinal # Voids 2 1 ABP, PAP, CO, CI - Last Documented Arterial Blood Pressure 165/66 - Labs CBC & Chem 7: 12/19/22 05:55 12/19/22 05:55 Labs: Abnormal Lab Results - Last 24 Hours (Table) 12/18/22 12/18/22 12/18/22 Range/Units 11:53 16:14 19:50 RBC (4.30-5.90) m/uL Hgb (13.0-17.5) gm/dL Hct (39.0-53.0) % INR (<1.2) APTT 71.7 H (22.0-30.0) sec POC Glucose (mg/dL) 270 H 246 H (70-110) mg/dL Calcium (8.4-10.2) mg/dL ALT (4-49) U/L Total Protein (6.3-8.2) g/dL Albumin (3.5-5.0) g/dL 12/19/22 12/19/22 12/19/22 Range/Units 05:55 05:55 05:55 RBC 3.78 L (4.30-5.90) m/uL Hgb 11.4 L (13.0-17.5) gm/dL Hct 34.2 L (39.0-53.0) % INR 1.2 H (<1.2) APTT 84.8 H (22.0-30.0) sec POC Glucose (mg/dL) (70-110) mg/dL Calcium 8.2 L (8.4-10.2) mg/dL ALT 60 H (4-49) U/L Total Protein 5.3 L (6.3-8.2) g/dL Albumin 2.8 L (3.5-5.0) g/dL 12/19/22 Range/Units 11:25 RBC (4.30-5.90) m/uL Hgb (13.0-17.5) gm/dL Hct (39.0-53.0) % INR (<1.2) APTT (22.0-30.0) sec POC Glucose (mg/dL) 196 H (70-110) mg/dL Calcium (8.4-10.2) mg/dL ALT (4-49) U/L Total Protein (6.3-8.2) g/dL Albumin (3.5-5.0) g/dL
--- NOTE | 2022-12-19 12:26 | P.PN ---
Subjective Progress Note Date: 12/19/22 77-year-old male patient, came into the emergency department because of shortness of breath. The patient lives up [place] and he has a primary care physician in [facility]. The patient was in the hospital with his who was having a mammogram. He acutely became short of breath and he felt that his lungs were filling up with fluid. He was brought into the emergency department. Noted around few days back, he was having some limited cough and the patient was given a course of steroid taper by his primary care physician. No fever. No chills. No chest pain. He is known to have chronic atrial fibrillation and the patient is also known to have diabetes mellitus and hyperlipidemia. No history of any coronary artery disease. No history of any stroke. No history of any DVTs or pulmonary embolism. No history of COPD or asthma. He is a nonsmoker. The patient came into the emergency and he was hypoxic, acutely short of breath, acutely tachycardic and hypertensive with a BP of 192/137 with a heart rate of 158 and the respiration all 35. The patient was placed on a BiPAP. He decompensated. Ultimately, he was intubated and placed on a mechanical ventilator. Chest x-ray showed bilateral lung consolidations mainly in the lower lobes. Post intubation, the patient started having bloody rest or secretions from his orotracheal tube. His cardiac rhythm is the nature fibrillation. At this point in time, the patient is intubated on a mechanical ventilator. I saw the patient in the emergency department and a lipase to the intensive care unit. Currently is on propofol which is currently is up to 50 mcg/kg/m. His well sedated on a mechanical ventilator. He was also given a dose of Nimbex 10 mg IV push as the sedation was being titrated. Note that the patient became also hypotensive while being on sedation. He was started on norepinephrine which is currently running at 0.27 Babar respiratory kilogram per minute. His heart rate is less tachycardic although distal in nature fibrillation. Cardizem drip was discontinued because of underlying hypotension. He was given a dose of Lasix in the emergency department and he has produced a total of 350 mL of urine output. He does have some lower extremity edema. His blood work is showing 15.5, hemoglobin is 14.4, platelet count of 244, sodium is at 140, BUN is at 24 with a creatinine of 0.9. ProBNP level is 4050. Troponin was 0.7. LFTs are normal. The vital screening including Covid 19 was negative. Thyroid function test was within normal limits. His INR was at 5.0 with a PTT of 49.2. The patient was given a total of 5 mg of vitamin K. Lines were established in the ICU including a triple-lumen catheter inserted in his left IJ and an arterial line for blood pressure monitoring. Given a dose of Rocephin. He is currently on a mechanical ventilator on assist control mode with a rate of 26, tidal volume of 450, FiO2 of 100% and a PEEP of 5. On today's evaluation of a 12/09 2022, the patient remains intubated on a mechanical ventilator. The patient is calm and comfortable on mechanical ventilator. Is currently on propofol running at 45 mcg/kg/m. His symptoms of the mechanical ventilator. This is on assist-control mode of mechanical ventilation with a rate of 26, tidal volume of 450, FiO2 of 40% and a PEEP currently is at 10. The blood gas shows marked improvement and the patient has a pH of 7.54 consistent with respiratory alkalosis with a pCO2 of 26 and pO2 of 247. This was done an FiO2 of 60% and based on the difficult was weaned down to 40%. At the same time, the chest x-ray shows marked improvement compared to yesterday. The orotracheal tube is in a good location. There is improvement in the bibasilar patchy airspace opacities and the lines are all in place. The patient's echoes up to 20.7 with a hemoglobin 12.8. His INR dropped down to 2.9 after being given a total of 5 mg of vitamin K. His lactic acid level is at 2.3. BUN is at 25 with a creatinine of 0.9 and the sodium is at 1:30. His pro calcitonin level is at 0.03. The troponin peaked at 1.7 and cardiology is on the case. His cardiac rhythm is atrial fibrillation and the patient remains on amiodarone which is running at 0.5 mg/m for rate control. Echocardiogram was also completed yesterday that showed a dynamic LV. His left ventricular ejection fraction was normal with an ejection fraction of 50-55%. There was mild to moderate mitral and tricuspid regurgitation. There was some dilation of the right ventricle and there was a suggestion of a VSD with a [id number] shunting. This is to be further evaluated by cardiology. On 12/10/2022, the patient is being seen for a follow-up. The patient is still on a mechanical ventilator. Propofol is being weaned this morning. Overnight, the patient was kept on propofol for sedation. At the same time, the patient is currently on a mechanical ventilator on assist control mode with a rate of 16, tidal volume of 450, FiO2 down to 40% with a PEEP of 5. Pulse ox is in order of 97%.Chest x-ray showing increased haziness in the right middle and right lower lobe as well as the left atrial cardiac area. This was not seen on yesterday's chest x-ray. Blood gas from today shows a pH of 7.48 with a pCO2 of 37 and pO2 of 103 and this was done above-mentioned ventilator setting. The patient remained nature fibrillation. He is currently on a Cardizem drip at 10 mg an hour and amiodarone by mouth 400 mg twice a day. He was also given digoxin by cardiology 250 g on a daily basis and this was given to him for rate control. His INR today is pending. Yesterday's INR was at 2.9 and the warfarin was discontinued. The patient was in negative fluid balance of 1.3 L over the past 24 hours. A repeat echocardiogram was done today and I was informed by cardiology and there is no concern for underlying VSD. The BMs thousand 14.3 with a hemoglobin 11.8. He has 24 with a creatinine of 0.8 and a sodium level is at 128. LFTs are within normal limits. On today's evaluation of 12/11/2022, I'm seeing the patient for a follow-up. The patient was weaned off the mechanical ventilator and the patient was extubated yesterday without any major difficulties. This morning, he is extubated and is currently on oxygen at room air. The patient is in negative fluid balance. He has been in negative fluid balance of 4.5 L over the past 24 hours as the patient was diuresed. He was already making adequate urine without diuretics. He was given Lasix also to augment his urine output. No major respiratory difficulties. His cardiac rhythm is a chest fibrillation. The patient is currently on IV heparin. The patient is also on Cardizem at 15 mg an hour. PTT therapeutic. BUN is at 19 with a creatinine of 0.9. LFTs are normal at this point in time. The white suppositive 13.5, hemoglobin 13.3 and a platelet count is at 208. Noted the patient was on warfarin prior to him coming into the hospital. His INR was supratherapeutic and his INR on yesterday's down to 1.5. He does have a deep tissue injury to his left buttocks and currently is laying down his right. Antibiotic coverage included a combination of cefepime and Zithromax. His pro calcitonin level was low. Cultures were negative. White cell cause that 13.5. His pro calcitonin level is at 0.03. 12/12/2022, the patient is doing well and he remains extubated and currently is on oxygen at 2 L. Pulse ox is adequate. He remains in atrial fibrillation. Hemodynamically stable. He is on no pressors at this point in time. The patient remains on IV heparin. Warfarin will be started today. He was taken off the Cardizem drip and currently is on a combination of metoprolol at a dose of 50 mg by mouth twice a day, Cardizem drip has been discontinued and the p atient was also given digoxin 0.25 mg on a daily basis. He is on Levemir insulin 10 units and the signs Coverage. His oral intake is still diminished over this is improving. The chest x-ray is rotated minutes essentially clear. The patient has developed a deep tissue injury to his left buttocks. This could be related also to a prior to intubation trauma. His respiratory failure was brief to cause this extent of deep tissue injury. Currently he has a Opteform applied to the area. seconds at 10.7. Hemoglobin is 12.2. Platelet count is 204. BUN is 16. Creatinine is at 0.8. Urine operas adequate. Cardiac rhythm is A. fib Patient was reevaluated today on 12/13/2022, patient remains in the ICU, he is presently on room air, not in any distress, he is actually an overflow to the cardiac floor 3 S., and he may be scheduled to undergo cardiac catheterization today. Patient was intubated on 12/08, extubated on 12/10 tolerated the extubation well, and he is relatively asymptomatic, remains on heparin PTT is 58/therapeutic the lips count is 11.9 hemoglobin is 12.6 and the first are normal renal profile is normal. Chest x-ray from yesterday showed no evidence of acute pulmonary process Patient was reevaluated today on 12/14/2022, patient underwent cardiac catheterization yesterday, and he was found to have triple-vessel coronary artery disease. He is supposed to be seen by cardiothoracic surgery today, and decide on possible surgery in the near future. Patient is on room air, he is not in any distress, and his chest x-ray this morning is reassuring, no evidence of pulmonary edema and no acute pulmonary process. No evidence of heart failure. CBC is relatively normal lites are normal renal profile is normal Evaluated today on 12/15/2022, patient was seen by cardiothoracic surgery, he is being worked up for possible surgery in the next couple of days. His recent car diac catheterization showed triple vessel coronary artery disease, and workup for possible surgery is in progress. Patient is asymptomatic, denies any cough wheezing or shortness of breath, his pulmonary status seems to be relatively stable at this point. Remains on heparin and PTT is 58 today. The patient is seen today 12/16/2022 in follow-up on the selective care unit. He is currently resting comfortably in bed. Awake and alert in no acute distress. Maintaining O2 saturations up to 100% on room air. He's afebrile. Hemodynamically stable. Ultrasound of the lower extremities revealed incomplete study. Unable to obtain left and right ankle-brachial indices. Demonstrating severe peripheral arterial disease bilaterally. SANJEEV revealed moderate aortic stenosis, mild to moderate central mitral regurgitation. Normal left ventricular systolic function. White count 9.2. Hemoglobin 12.0. Platelets 296. Sodium 136. Potassium 4.6. Bicarb 27. BUN 15. Creatinine 0.89. Glucose 228. AST 100. ALT 76. Albumin 3.1. Cardiac surgery testing still being performed. Warfarin remains on hold. The patient is seen today 12/17/2022 in follow-up on the selective care unit. He is awake and alert in no acute distress. Up ambulating in his room. Continue good O2 saturations in the high 90s on room air. Afebrile. Hemodynamically stable. Denies any chest pain. White count 10.4. Hemoglobin 11.7. Platelets 305. Sodium 138. Potassium 4.3. Bicarb 29. BUN 15. Creatinine 0.9. Glucose 165. AST 100. ALT 87. He remains on a heparin drip. Plan is for coronary revascularization on 12/20/2022. The patient is seen today 12/19/2022 follow-up on the selective care unit. He is resting comfortably in bed. Awake and alert in no acute distress. Maintaining good O2 saturations in the 90s on room air. Continued on a heparin drip. White count 8.3. Hemoglobin 11.4. Platelets 327. Sodium 140. Potassium 4.3. Bicarb 27. BUN 15. Creatinine 0.96. Objective - Vital Signs Vital signs: Vital Signs Temp 97.7 F 12/19/22 08:00 Pulse 90 12/19/22 08:00 Resp 16 12/19/22 08:00 BP 110/69 12/19/22 08:00 Pulse Ox 90 L 12/19/22 08:00 FiO2 4 12/10/22 16:30 Intake & Output 12/18/22 12/19/22 12/19/22 18:59 06:59 18:59 Intake Total 604 0 358 Balance 604 0 358 Weight 85 kg Intake: Intake, IV Titration 250 0 Amount Heparin Sod,Pork in 0.45% 250 0 NaCl 25,000 unit In 0.45 % NaCl 1 250ml.bag @ 11. 038 UNITS/KG/HR 10 mls/hr IV .Q24H [facility] Rx#: [id number] Oral 354 [id number] Other: Voiding Method Toilet Toilet Toilet Urinal Urinal Urinal # Voids 2 1 ABP, PAP, CO, CI - Last Documented Arterial Blood Pressure 165/66 - Exam GENERAL EXAM: Alert, oriented 77-year-old male, comfortable in no apparent distress. HEAD: Normocephalic. EYES: Normal reaction of pupils, equal size. NOSE: Clear with pink turbinates. THROAT: No erythema or exudates. NECK: No masses, no JVD. CHEST: No chest wall deformity. LUNGS: Equal air entry with no crackles, wheeze, rhonchi or dullness. CVS: S1 and S2 normal with no audible murmur, irregular rhythm. ABDOMEN: No hepatosplenomegaly, normal bowel sounds, no guarding or rigidity. SPINE: No scoliosis or deformity SKIN: No rashes CENTRAL NERVOUS SYSTEM: No focal deficits, tone is normal in all 4 extremities. EXTREMITIES: There is no peripheral edema. No clubbing, no cyanosis. Peripheral pulses are intact. - Labs CBC & Chem 7: 12/19/22 05:55 12/19/22 05:55 Labs: Abnormal Lab Results - Last 24 Hours (Table) 12/18/22 12/18/22 12/18/22 Range/Units 11:53 16:14 19:50 RBC (4.30-5.90) m/uL Hgb (13.0-17.5) gm/dL Hct (39.0-53.0) % INR (<1.2) APTT 71.7 H (22.0-30.0) sec POC Glucose (mg/dL) 270 H 246 H (70-110) mg/dL Calcium (8.4-10.2) mg/dL ALT (4-49) U/L Total Protein (6.3-8.2) g/dL Albumin (3.5-5.0) g/dL 12/19/22 12/19/22 12/19/22 Range/Units 05:55 05:55 05:55 RBC 3.78 L (4.30-5.90) m/uL Hgb 11.4 L (13.0-17.5) gm/dL Hct 34.2 L (39.0-53.0) % INR 1.2 H (<1.2) APTT 84.8 H (22.0-30.0) sec POC Glucose (mg/dL) (70-110) mg/dL Calcium 8.2 L (8.4-10.2) mg/dL ALT 60 H (4-49) U/L Total Protein 5.3 L (6.3-8.2) g/dL Albumin 2.8 L (3.5-5.0) g/dL 12/19/22 Range/Units 11:25 RBC (4.30-5.90) m/uL Hgb (13.0-17.5) gm/dL Hct (39.0-53.0) % INR (<1.2) APTT (22.0-30.0) sec POC Glucose (mg/dL) 196 H (70-110) mg/dL Calcium (8.4-10.2) mg/dL ALT (4-49) U/L Total Protein (6.3-8.2) g/dL Albumin (3.5-5.0) g/dL Assessment and Plan Assessment: Acute hypoxic respiratory failure secondary to acute pulmonary edema/flash pulmonary edema, recovered and on room air Acute non-ST elevation myocardial infarction Triple-vessel coronary artery disease based on his cardiac catheterization, plan is for surgery/CABG 12/20/2022 Atrial fibrillation, chronic but the patient presented with atrial fibrillation with RVR on admission, presently on heparin Type 2 diabetes Dyslipidemia History of diabetic foot infection, recovered Deep tissue injury to his left buttocks Plan: The patient was seen and evaluated Labs and medications reviewed Remains on a heparin drip Plan is for surgery 12/20/2022 We will continue to follow I have personally seen and examined the patient, performed the documentation and the assessment and plan as written. Number of minutes spent on the visit: 10.
[2022-12-19] MEDS: HEPARIN SOD,PORK IN 0.45% NACL 25,000 UNIT in 0.45% NACL 1 250ML.BAG IV SCH (13:03)
[2022-12-19] MEDS: MAGNESIUM SULFATE-D5W PMX 1 GM in DEXTROSE/WATER 1 100ML.BAG IVPB SCH ×2 (14:19→16:22)
[2022-12-19 16:33] LABS: Glucose,Whole Blood 183 mg/dL (70-110)
--- NOTE | 2022-12-19 17:32 | CT ---
EXAMINATION TYPE: CT abdomen pelvis wo con DATE OF EXAM: 12/19/2022 COMPARISON: None HISTORY: bilateral hip pain CT DLP: 752.3 mGycm Examination of the solid and hollow viscera is limited given the lack of contrast. FINDINGS: LUNG BASES: No evidence for nodule. No evidence for infiltrate. LIVER/GB: Calcified gallstones noted without wall thickening or pericholecystic fluid. No space-occup lee hepatic lesion. PANCREAS: No pancreatic mass identified. No inflammatory process seen. SPLEEN: No evidence for splenomegaly. No intrasplenic lesions seen. ADRENALS: No adrenal nodules identified. No evidence for thickening. KIDNEYS: No evidence for renal mass. No nephrolithiasis. No hydronephrosis. BOWEL: Appendix has a normal appearance. No evidence of bowel obstruction. No inflammatory process. Lymph nodes: No evidence for adenopathy greater than 1 cm. Abdominal aorta: Atheromatous changes seen. No evidence for aneurysm. Genital organs: No significant abnormality. Other: There is subcutaneous fat stranding of bilateral regions left greater than right which could r eflect posttraumatic change. I do not see evidence for a hematoma. Severe degenerative disc space heydi rowing throughout the lumbar spine. Mild degenerative narrowing of the hip joints. IMPRESSION: There is subcutaneous fat stranding of bilateral regions left greater than right which could reflect posttraumatic change. I do not see evidence for a hematoma.
[2022-12-19 20:19] LABS: Glucose,Whole Blood 176 mg/dL (70-110)
--- NOTE | 2022-12-20 02:50 | PN ---
PROGRESS NOTE DATE OF SERVICE: 12/19/2022 SUBJECTIVE: This is a 77-year-old gentleman, who was admitted with three-vessel coronary artery disease, slated for CABG. The patient has complaints of hip pain. Hip x-ray showed no fracture. Ecchymosis was noted on exam. PAST MEDICAL HISTORY: Reviewed. REVIEW OF SYSTEMS: A 14-point review is negative except as mentioned earlier. CURRENT MEDICATIONS: Reviewed. PHYSICAL EXAMINATION: VITAL SIGNS: Pulse 54, blood pressure 104/60, respirations 16. CHEST: Clear to auscultation. CARDIOVASCULAR: S1, S2. ABDOMEN: Soft. NERVOUS SYSTEM: Nonfocal. LABORATORY DATA: Reviewed. ASSESSMENT: 1. Three-vessel coronary artery disease, status post coronary artery bypass graft. 2. Congestive heart failure with acute on chronic diastolic dysfunction with acute hypoxic respiratory failure, present on admission. 3. Hypertensive urgency and emergency. 4. Acute [id number]-elevation myocardial infarction. 5. Left hip pain and contusion hematoma. 6. Diabetes mellitus, type 2. 7. Coumadin coagulopathy. 8. Multiple complex medical issues. RECOMMENDATIONS: Recommend to continue current management and continue symptomatic treatment. I recommend repeat labs and I would also recommend a CT scan of the abdomen and pelvis, hips, without contrast to rule out any abnormality. Otherwise, prognosis guarded. Closely follow with Cardiothoracic Surgery. Further recommendations to follow. MMODL / IJN: [id number] /
[2022-12-20] MEDS: HYDROPHILIC CREAM 180 GM TUBE TOPICAL SCH (04:46)
[2022-12-20] MEDS ORDERED: CLEVIDIPINE BUTYRATE 25 MG in EMPTY BAG 1 BAG IV SCH ×2 (05:00→16:00)
[2022-12-20] MEDS ORDERED: TRANEXAMIC ACID 2,000 MG in SODIUM CHLORIDE 0.9% 80 ML IV ONE (05:00)
[2022-12-20] MEDS ORDERED: CALCIUM CHLORIDE 100 MG/ML 10 ML SYRINGE IVP ONE (05:00)
[2022-12-20] MEDS ORDERED: LACTATED RINGERS 1,000 ML IV SCH ×2 (05:00→14:06)
[2022-12-20] MEDS ORDERED: ALBUMIN HUMAN 25% 50 ML in EMPTY BAG 1 BAG IVPB ONE (05:00)
[2022-12-20] MEDS ORDERED: ALBUMIN HUMAN 5% 500 ML in EMPTY BAG 1 BAG IVPB ONE ×6 (05:00)
[2022-12-20] MEDS ORDERED: PROTAMINE SULFATE 10 MG/ML 25 ML VIAL IV ONE (05:00)
[2022-12-20] MEDS ORDERED: ELECTROLYTE-A SOLUTION 1,000 ML with POTASSIUM CHLORIDE 100 MEQ, MAGNESIUM SULFATE 16 M... IV ONE ×5 (05:00)
[2022-12-20] MEDS ORDERED: MAGNESIUM SULFATE 16.24 MEQ in EMPTY SYRINGE 1 SYR IV ONE (05:00)
[2022-12-20] MEDS ORDERED: CHLORHEXIDINE GLUCONATE 15 ML CUP MUCOUS MEM ONE (05:00)
[2022-12-20] MEDS ORDERED: PROTAMINE SULFATE 250 MG in EMPTY BAG 1 BAG IV ONE (05:00)
[2022-12-20] MEDS ORDERED: DILTIAZEM 125 MG in SODIUM CHLORIDE 0.9% 100 ML IV SCH (05:00)
[2022-12-20] MEDS ORDERED: HEPARIN SODIUM,PORCINE (1 ML) 5,000 UNIT in SODIUM CHLORIDE 0.9% 500 ML 500 ML IV ONE (05:00)
[2022-12-20] MEDS ORDERED: NITROGLYCERIN-D5W PMX 50 MG in DEXTROSE/WATER 1 250ML.BAG IV SCH ×2 (05:00→16:00)
[2022-12-20] MEDS ORDERED: ASPIRIN 325 MG TAB PO ONE (05:00)
[2022-12-20] MEDS ORDERED: HEPARIN SODIUM 1,000 UN/ML (10ML VL) IV ONE (05:00)
[2022-12-20] MEDS ORDERED: MANNITOL 25% 12.5 GM/50 ML VIAL IV ONE ×2 (05:00)
[2022-12-20] MEDS ORDERED: NOREPINEPHRINE 4 MG in SODIUM CHLORIDE 0.9% 250 ML IV SCH (05:00)
[2022-12-20] MEDS ORDERED: PAPAVERINE 360 MG in SODIUM CHLORIDE 0.9% 90 ML IV ONE (05:00)
[2022-12-20] MEDS ORDERED: ELECTROLYTE-A SOLUTION 1,000 ML with POTASSIUM CHLORIDE 40 MEQ, MAGNESIUM SULFATE 16 ME... IV ONE ×5 (05:00)
[2022-12-20] MEDS ORDERED: NITROGLYCERIN-D5W PMX 25 MG/250 ML BTL IV ONE ×2 (05:00→06:55)
[2022-12-20] MEDS ORDERED: PHENYLEPHRINE 40 MG in SODIUM CHLORIDE 0.9% 250 ML IV ONE (05:00)
[2022-12-20] MEDS ORDERED: ceFAZolin 1,000 MG in SODIUM CHLORIDE 0.9% IRRIGATIO 1,000 ML IRRIGATION ONE (05:00)
[2022-12-20] MEDS ORDERED: PHENYLEPHRINE 10 MG/ML VIAL IV ONE (05:00)
[2022-12-20] MEDS ORDERED: SODIUM BICARB 8.4% 50 ML SYR (1 MEQ/ML) IV ONE (05:00)
[2022-12-20] MEDS ORDERED: METOPROLOL TARTRATE 25 MG TAB PO ONE (05:00)
[2022-12-20] MEDS ORDERED: INSULIN REGULAR 100 UNIT in SODIUM CHLORIDE 0.9% 100 ML IV SCH (05:00)
[2022-12-20] MEDS ORDERED: ATORVASTATIN 10 MG TAB PO ONE (05:00)
[2022-12-20 06:38] LABS: Glucose,Whole Blood 120 mg/dL (70-110)
[2022-12-20] MEDS ORDERED: ROCURONIUM 10 MG/ML (5 ML VIAL) IV ONE (06:55)
[2022-12-20] MEDS ORDERED: MILRINONE 1 MG/ML 20 ML VIAL IV ONE (06:55)
[2022-12-20] MEDS ORDERED: MAGNESIUM SULFATE 4 MEQ/ML 10ML VIAL ONE (06:55)
[2022-12-20] MEDS ORDERED: TRANEXAMIC 1,000 MG/100ML-NACL PREMIX BAG ONE (06:55)
[2022-12-20] MEDS ORDERED: PROPOFOL 10 MG/ML 20 ML VIAL IV ONE (06:55)
[2022-12-20] MEDS ORDERED: ePHEDrine 50 MG/ML 1 ML VIAL ONE (06:55)
[2022-12-20] MEDS ORDERED: ALBUMIN HUMAN 5% (25gm) 500 ML VIAL IVPB ONE (06:55)
[2022-12-20] MEDS ORDERED: HEPARIN SODIUM,PORCINE 10,000 UNIT/ML 1 ML VIAL ONE (06:55)
[2022-12-20] MEDS ORDERED: fentaNYL (PF) 50 MCG/ML 50 ML VIAL ONE (06:55)
[2022-12-20] MEDS ORDERED: CALCIUM CHLORIDE 100 MG/ML 10 ML SYRINGE ONE (06:55)
[2022-12-20] MEDS ORDERED: ELECTROLYTE-R (PH 7.4) 1,000 ML IV.SOLN IV ONE (06:55)
[2022-12-20] MEDS ORDERED: HEPARIN SODIUM,PORCINE 5,000 UNIT/ML 1 ML VIAL ONE (06:55)
[2022-12-20] MEDS ORDERED: SODIUM CHLORIDE 0.9% IRRIG 1,000 ML BTL IRRIGATION ONE (06:55)
[2022-12-20] MEDS ORDERED: PROTAMINE SULFATE 10 MG/ML 5 ML VIAL IV ONE (06:55)
[2022-12-20] MEDS ORDERED: LIDOCAINE 2% INJ 20 MG/ML (2 ML VIAL) ONE (06:55)
[2022-12-20] MEDS ORDERED: MIDAZOLAM HCL 10 MG/10 ML VIAL ONE (06:55)
--- NOTE | 2022-12-20 08:09 | P.ANPRN ---
Procedure Note - Anesthesia - Invasive Line Right Central Line Time Out Performed: Yes Date of Procedure: 12/20/22 Time of Procedure: 07:10 Location of Patient: PreOp Preparation: Sterile Prep, Sterile Dressing Central Line Location: Internal Jugular Ultrasound Used: Yes Purpose - Visualization and Identification of Vasculature: Yes Needle Guage: 18 Image Stored and Saved: Yes Narrative: Central line placement per sterile protocol utilized. Right [place] Agus Time Out Performed: Yes Date of Procedure: 12/20/22 Time of Procedure: 07:25 Location of Patient: PreOp Preparation: Sterile Prep, Sterile Dressing [place] Agus Line Location: Internal Jugular Narrative: Line flushed and balloon tested. Advanced to PA waveform @ 46 cm Right Arterial Line Time Out Performed: Yes Date of Procedure: 12/20/22 Time of Procedure: 07:35 Location of Patient: PreOp Preparation: Sterile Prep, Sterile Dressing Arterial Line Location: Briachial Ultrasound Used: Yes Purpose - Visualization and Identification of Vasculature: Yes Needle Guage: 20 Image Stored and Saved: Yes Narrative: Attempt at right radial unsuccessful due to very heavy calcification. Right brachial identified on u/s. 20 g brachial arterial line placed using Seldinger technique.
[2022-12-20 08:38] LABS: ABG Base Excess 2.6 mmol/L; ABG Glucose Whole Blood 161 mg/dL (75-99); ABG HCO3 26 mmol/L (21-25); ABG Hematocrit 32 % (34.0-46.0); ABG Ionized Calcium 4.5 mg/dL (4.5-5.3); ABG Oxygen Saturation 99.8 % (94-97); ABG PCO2 37 mmHg (35-45); ABG PH 7.47 (7.35-7.45); ABG Potassium Whole Blood 4.5 mmol/L (3.4-4.5); ABG Sodium Whole Blood 139 mmol/L (135-146); ABG TCO2 27 mmol/L (19-24)
[2022-12-20 10:17] LABS: ABG Base Excess 2.5 mmol/L; ABG Glucose Whole Blood 126 mg/dL (75-99); ABG HCO3 27 mmol/L (21-25); ABG Hematocrit 29 % (34.0-46.0); ABG Ionized Calcium 4.6 mg/dL (4.5-5.3); ABG Lactic Acid Whole Blood 1.8 mmol/L (0.5-1.6); ABG Oxygen Saturation 99.5 % (94-97); ABG PCO2 38 mmHg (35-45); ABG PH 7.45 (7.35-7.45); ABG PO2 214 mmHg (83-108); ABG Potassium Whole Blood 4.1 mmol/L (3.4-4.5); ABG Sodium Whole Blood 139 mmol/L (135-146); ABG TCO2 28 mmol/L (19-24)
--- NOTE | 2022-12-20 10:41 | P.ANPRN ---
Procedure Note - Anesthesia - SANJEEV Intraop Pre Bypass SANJEEV Intraop - Anesthesia Indication: CAD, Aortic Stenosis, Mitral Regurgitation Date of Procedure: 12/20/22 Pre-operative Diagnosis: CAD, Aortic Stenosis, Mitral Regurgitation Post-operative Diagnosis: CAD, Aortic Stenosis, Mitral Regurgitation Surgeon: Bridger Rosenbaum Left Ventricle: wnl Ejection Fraction: Normal Regional Wall Motion Abnormalities: None Right Ventricle: mildly enlarged R. Ventricle Function: Normal Aortic Valve: moderately stenosed. Gradient peak mid 30's, Annulus 25, ROBBY 1.1cm2 Anatomy: Trileaflet Aortic Stenosis: Moderate Aortic Regurgitation: None Mitral Stenosis: None Mitral Regurgitation: Mild Tricuspid Stenosis: None Tricuspid Regurgitation: None Pulmonic Stenosis: None Pulmonic Regurgitation: None R. Atrial Dilation: No R. Atrial PFO: No L. Atrial Dilation: No Aortic Dissection: No Aortic Calcification: Mild Plural Effusion: None
[2022-12-20 10:58] LABS: ABG Base Excess 2.2 mmol/L; ABG Glucose Whole Blood 115 mg/dL (75-99); ABG HCO3 27 mmol/L (21-25); ABG Ionized Calcium 4.2 mg/dL (4.5-5.3); ABG Lactic Acid Whole Blood 1.7 mmol/L (0.5-1.6); ABG Oxygen Saturation 99.8 % (94-97); ABG PCO2 42 mmHg (35-45); ABG PH 7.42 (7.35-7.45); ABG PO2 399 mmHg (83-108); ABG Sodium Whole Blood 137 mmol/L (135-146); ABG TCO2 28 mmol/L (19-24)
[2022-12-20 11:23] LABS: ABG Base Excess 2.2 mmol/L; ABG Glucose Whole Blood 158 mg/dL (75-99); ABG HCO3 27 mmol/L (21-25); ABG Ionized Calcium 4.2 mg/dL (4.5-5.3); ABG Lactic Acid Whole Blood 1.7 mmol/L (0.5-1.6); ABG Oxygen Saturation 99.8 % (94-97); ABG PCO2 43 mmHg (35-45); ABG PH 7.41 (7.35-7.45); ABG PO2 341 mmHg (83-108); ABG Potassium Whole Blood 5.1 mmol/L (3.4-4.5); ABG Sodium Whole Blood 138 mmol/L (135-146); ABG TCO2 28 mmol/L (19-24)
[2022-12-20] MEDS ORDERED: ceFAZolin 1,000 MG VIAL ONE (11:30)
[2022-12-20] MEDS ORDERED: SODIUM CHLORIDE 0.9% 100 ML BAG ONE (11:30)
[2022-12-20 11:54] LABS: ABG Base Excess 2.3 mmol/L; ABG Glucose Whole Blood 165 mg/dL (75-99); ABG HCO3 27 mmol/L (21-25); ABG Ionized Calcium 4.3 mg/dL (4.5-5.3); ABG Lactic Acid Whole Blood 1.5 mmol/L (0.5-1.6); ABG Oxygen Saturation 99.9 % (94-97); ABG PCO2 41 mmHg (35-45); ABG PH 7.42 (7.35-7.45); ABG PO2 305 mmHg (83-108); ABG Potassium Whole Blood 4.6 mmol/L (3.4-4.5); ABG Sodium Whole Blood 139 mmol/L (135-146); ABG TCO2 28 mmol/L (19-24)
[2022-12-20 12:18] LABS: ABG PO2 >420 mmHg (83-108)
[2022-12-20 12:20] LABS: ABG Hematocrit 22 % (34.0-46.0)
[2022-12-20 12:22] LABS: ABG Hematocrit 21 % (34.0-46.0)
[2022-12-20 12:23] LABS: ABG Hematocrit 22 % (34.0-46.0)
[2022-12-20 12:23] LABS: ABG Base Excess 1.4 mmol/L; ABG Glucose Whole Blood 146 mg/dL (75-99); ABG HCO3 27 mmol/L (21-25); ABG Ionized Calcium 4.4 mg/dL (4.5-5.3); ABG Lactic Acid Whole Blood 1.7 mmol/L (0.5-1.6); ABG Oxygen Saturation 99.6 % (94-97); ABG PCO2 47 mmHg (35-45); ABG PH 7.37 (7.35-7.45); ABG PO2 294 mmHg (83-108); ABG Potassium Whole Blood 4.4 mmol/L (3.4-4.5); ABG Sodium Whole Blood 139 mmol/L (135-146); ABG TCO2 28 mmol/L (19-24)
[2022-12-20 12:28] LABS: ABG Hematocrit 23 % (34.0-46.0)
--- NOTE | 2022-12-20 12:33 | P.PN ---
Subjective Progress Note Date: 12/20/22 This is a 77-year-old male who was recently admitted with toxic respiratory failure secondary to acute diastolic congestive heart failure being closely monitored. Patient was in the ICU currently on cardiac stepdown unit with multiple medical consultations including cardiology, pulmonary, wound care as well as CT surgery for evaluation is following. Chest x-ray today shows no acute cardiopulmonary process or disease and no evidence of acute heart failure. Patient underwent cardiac catheterization yesterday found to have triple-vessel coronary artery disease and being evaluated by cardiothoracic surgery and undergoing workup for possible surgery in the near future. Patient has been weaned off oxygen currently maintaining oxygen saturations above 90% on room air and denies any significant shortness of breath. Patient with significant weakness recommend physical therapy evaluation daily. Patient is afebrile with no reports of chest pain or palpitations. Patient tolerating diet with no r eported nausea or vomiting noted. Discussed with patient and family about possible rehab inpatient per case management refused rehab or home care. We'll discuss further after cardiothoracic evaluation for possible surgical intervention. 12/15/2022 Patient is seen and evaluated in follow-up with cardiology, pulmonary, cardiothoracic following undergoing extensive workup to initiate possible aroldo gical intervention with CABG as patient was found to have triple-vessel disease. Patient to undergo SANJEEV and report currently pending. Patient with significant weakness would recommend physical therapy evaluation and working with daily and increased activity as tolerated. Patient reports some improvement in his shortness of breath although continues to be generally weak. Patient reports unsure of what is currently going on. Awaiting on further testing and will follow-up with CT surgery. Patient is currently afebrile with no reports of chest pain or palpitations. Patient is tolerating diet and will continue with Accu-Cheks before meals and at bedtime along with current insulin regimen. Prognosis remains guarded. 12/16/2022 Patient is seen and evaluated in follow-up today undergoing thorough workup with CT surgery for possible CABG with valve replacement. Multiple medical consult ations including pulmonary and cardiology following maintained on IV heparin and will continue. Patient underwent SANJEEV which showed moderate aortic stenosis with some mitral regurgitation and LV systolic function is normal. Patient has been up more frequently today and encouraged to increase activity as tolerated with continued PT/OT therapy daily. Patient continuing to undergo workup for possib le surgical intervention and will continue. Patient currently on room air denies worsening shortness of breath. Encouraged continued incentive spirometer use at least 10 times every hour while awake. Patient is afebrile denies chest pain or shortness of breath. Patient tolerating diet with no reported nausea or vomiting. 12/17/2022 Patient is seen and evaluated today currently sitting up at the side of the bed with multiple family members present. Patient is undergoing further workup and maintained on IV heparin with cardiology and cardiothoracic surgery following. Plans are for CABG with valve replacement possibly early next week. Patient has been encouraged to increase activity as tolerated and continues with some left hip and pelvic pain and ordered x-rays. Patient does have a wound on the left buttock that is being controlled by wound care and continued wound care with offloading and OptiFoam. Patient has been increasing his activity and reports has been up and walking and walked up and down the [place] today. Family members with questions and concerns that were answered to the best of our ability. Patient is afebrile with no reported chest pain or worsening shortness of breath. Patient has been encouraged to continue using incentive spirometer at least 10 times every hour while awake. Patient is tolerating diet with no reported nausea or vomiting. 12/20/2022 Patient is scheduled to undergo CABG with valve replacement currently in the OR awaiting surgical report and patient will be going to room 262 in the ICU. Patient afebrile and vitals within normal limits and will await surgical report. Review of systems: Constitutional: No reports of fatigue, fever, or chills Cardiovascular: No reports of chest pain or palpitations Respiratory: No reports of worsening shortness of breath or cough GI: No reports of nausea, no reports of vomiting, no diarrhea : No reports of dysuria or retention Neurovascular: reports of generalized weakness, reports left hip and buttock pain All medications have been reviewed PHYSICAL EXAMINATION: GENERAL: The patient is alert and oriented x3, Well developed, well nourished. Ill-appearing, elderly appearing HEENT: Pupils are round and equally reacting to light. EOMI. no scleral icterus. No conjunctival pallor. Normocephalic, atraumatic. No pharyngeal erythema. No thyromegaly. CARDIOVASCULAR: S1 and S2 muffled PULMONARY: diminished breath sounds bilaterally with some scattered rhonchi noted. ABDOMEN: soft. Nontender on exam. non-distended, normoactive bowel sounds. No palpable organomegaly. MUSCULOSKELETAL: No joint swelling or deformity. EXTREMITIES: No cyanosis, clubbing, or pedal edema. Left hip wound currently dressed with Optefoam with noted bruising as patient recently fell NEUROLOGICAL: Gross neurological examination did not reveal any focal deficits. Diffuse weakness SKIN: No rashes. Assessment: Triple-vessel coronary artery disease, as noted on cardiac catheterization sched uled to undergo CABG with valve replacement Congestive heart failure with acute on chronic diastolic dysfunction with acute hypoxic respiratory failure, present on admission Hypertensive urgency and emergency with shock him a likely cardiogenic requiring pressor support, improved Acute NSTEMI Left hip pain, Left hip contusion with hematoma noted, no fractures on x-ray imaging Atrial fibrillation with RVR, currently rate controlled with history of paroxysmal atrial fibrillation Coumadin coagulopathy Hyperlipidemia Diabetes mellitus, type II, uncontrolled with hyperglycemia Diabetic foot infection recently, resolved GI prophylaxis DVT prophylaxis Full code Plan: Multiple medical consultations following and cardiothoracic surgery is following and scheduled to undergo CABG and valve replacement today. Surgical report is pending. Patient has been up and walking more frequently and working with physical therapy and is noted to have some left hip and leg pain and images were done with no fractures noted. There is a contusion and patient is continued on local wound care and offloading of that area. CT abdomen and pelvis showing no evidence of hematoma on the left hip Recommend physical therapy evaluation daily , discussed with family about frequently walking with assistance or with a walker as needed, patient will undergo cardiac rehab post surgery and will discuss further if patient will be going home or requiring rehab on discharge initially patient had been refusing. Repeat labs ordered Given patient's significant comorbidities, overall prognosis is guarded at this time The impression and plan of care has been dictated by Deyanira Andre, nurse practitioner as directed. Dr. Scott MD I have performed a history and examination and MDM of this patient, discussed the same with the dictator, and agree with the dictator's assessment and plan as written ,documented as a scribe. Based on total visit time, I have performed more than 50% of the visit. Any additional findings or plans will be noted. Objective - Vital Signs Vital signs: Vital Signs Temp 97.5 F L 12/20/22 06:20 Pulse 62 12/20/22 06:20 Resp 18 12/20/22 06:20 BP 169/73 12/20/22 06:20 Pulse Ox 100 12/20/22 06:20 FiO2 4 12/10/22 16:30 Intake & Output 12/19/22 12/20/22 12/20/22 18:59 06:59 18:59 Intake Total 837.333 100 52 Balance 837.333 100 52 Weight 85 kg 84.5 kg Intake: IV 100 52 Intake, IV Titration 243.333 Amount Heparin Sod,Pork in 0.45% 83.333 NaCl 25,000 unit In 0.45 % NaCl 1 250ml.bag @ 11. 038 UNITS/KG/HR 10 mls/hr IV .Q24H VIDAL Rx#: [id number] Sodium Chloride 0.9% 1, 160 000 ml @ 20 mls/hr IV . Q24H VIDAL Rx#:[id number] Oral 594 Other: Voiding Method Toilet Toilet Urinal Urinal # Voids 1 ABP, PAP, CO, CI - Last Documented Arterial Blood Pressure 165/66 - Labs CBC & Chem 7: 12/19/22 05:55 12/19/22 05:55 Labs: Abnormal Lab Results - Last 24 Hours (Table) 12/19/22 12/19/22 12/19/22 Range/Units 05:55 11:25 13:04 APTT 45.1 H (22.0-30.0) sec POC Glucose (mg/dL) 196 H (70-110) mg/dL Crossmatch See Detail 12/19/22 12/19/22 12/20/22 Range/Units 16:31 20:18 06:35 APTT (22.0-30.0) sec POC Glucose (mg/dL) 183 H 176 H 120 H (70-110) mg/dL Crossmatch
[2022-12-20 13:32] LABS: ABG Base Excess 1.5 mmol/L; ABG Glucose Whole Blood 113 mg/dL (75-99); ABG HCO3 26 mmol/L (21-25); ABG Ionized Calcium 4.3 mg/dL (4.5-5.3); ABG Oxygen Saturation 99.9 % (94-97); ABG PCO2 41 mmHg (35-45); ABG PH 7.41 (7.35-7.45); ABG Potassium Whole Blood 4.9 mmol/L (3.4-4.5); ABG Sodium Whole Blood 139 mmol/L (135-146); ABG TCO2 27 mmol/L (19-24)
[2022-12-20 13:44] LABS: ABG Hematocrit 21 % (34.0-46.0); ABG Lactic Acid Whole Blood 2.6 mmol/L (0.5-1.6); ABG PO2 >420 mmHg (83-108)
[2022-12-20] MEDS ORDERED: LIDOCAINE 1% (10MG/ML) FOR IV START INTRADERMA PRN (14:06)
[2022-12-20] MEDS ORDERED: ONDANSETRON 4 MG/2 ML VIAL IVP PRN (15:46)
[2022-12-20] MEDS ORDERED: Magnesium Replacement Protocol 1 EACH MISC MISCELLANE PRN (15:46)
[2022-12-20] MEDS ORDERED: IPRATROPIUM-ALBUTEROL 3 ML NEB INHALATION PRN (15:46)
[2022-12-20] MEDS ORDERED: BENZOCAINE/MENTHOL LOZENG 1 EACH LOZENGE MUCOUS MEM PRN (15:46)
[2022-12-20] MEDS ORDERED: CALCIUM GLUCONATE IN NACL 2 GM in SALINE 1 100ML.BAG IVPB PRN (15:46)
[2022-12-20] MEDS ORDERED: Potassium Replacement Protocol 1 EACH MISC MISCELLANE PRN (15:46)
[2022-12-20] MEDS ORDERED: METOCLOPRAMIDE 5 MG/ML 2 ML VIAL IVP PRN (15:46)
[2022-12-20] MEDS ORDERED: DEXTROSE 50% SYRINGE 50 ML IVP PRN ×2 (15:46)
[2022-12-20] MEDS ORDERED: hydrALAZINE HCL 20 MG/ML 1 ML VIAL IVP PRN (15:46)
[2022-12-20] MEDS ORDERED: DEXTROSE 5% IN WATER 100 ML with AMIODARONE 150 MG IV PRN (15:46)
[2022-12-20] MEDS ORDERED: AMIODARONE 360 MG in DEXTROSE 5% IN WATER 200 ML IV PRN ×2 (16:00)
[2022-12-20] MEDS ORDERED: DEXMEDETOMIDINE/0.9% NACL(PMX) 400 MCG in EMPTY BAG 1 BAG IV SCH (16:00)
[2022-12-20] MEDS: LACTATED RINGERS 1,000 ML IV SCH (16:00)
[2022-12-20 16:14] LABS: Glucose,Whole Blood 131 mg/dL (70-110)
[2022-12-20 16:28] LABS: Basophils % (A) 0 %; Eosinophils # (A) 0.1 k/uL (0-0.7); Eosinophils % (A) 0 %; HCT 25.4 % (39.0-53.0); Lymphocytes # (A) 1.2 k/uL (1.0-4.8); Lymphocytes % (A) 7 %; MCH 29.6 pg (25.0-35.0); MCHC 32.2 g/dL (31.0-37.0); MCV 91.9 fL (80.0-100.0); Mean Platelet Volume 9.4; Monocytes # (A) 0.9 k/uL (0-1.0); Monocytes % (A) 5 %; Neutrophils # (A) 14.9 k/uL (1.3-7.7); Neutrophils % (A) 86 %; Platelet Count 168 k/uL (150-450); RBC 2.76 m/uL (4.30-5.90); RDW 15.8 % (11.5-15.5); WBC 17.3 k/uL (3.8-10.6)
[2022-12-20 16:31] LABS: ABG HCO3 24 mmol/L (21-25); ABG Oxygen Saturation 98.2 % (94-97); ABG PCO2 43 mmHg (35-45); ABG PH 7.35 (7.35-7.45); ABG PO2 115 mmHg (83-108); ABG TCO2 25 mmol/L (19-24); Allen Test Performed? Yes
--- NOTE | 2022-12-20 16:34 | XR ---
EXAMINATION TYPE: XR chest 1V portable DATE OF EXAM: 12/20/2022 HISTORY: Post Op CABG COMPARISON: NONE TECHNIQUE: Single view of the chest is submitted. FINDINGS: Endotracheal tube, SG catheter, mediastinal drains and chest tubes are appropriately placed. Left atr ial clip is also noted. Post operative changes of CABG. No sizeable pneumothorax. Left perihilar opacity and mild interstitial prominence. The heart is stable. IMPRESSION: 1. Post operative changes of CABG.
[2022-12-20 16:36] LABS: Ionized Calcium 4.5 mg/dL (4.5-5.3)
[2022-12-20] MEDS: IPRATROPIUM-ALBUTEROL 3 ML NEB INHALATION SCH ×2 (16:37→19:49)
[2022-12-20 16:41] LABS: HGB 8.2 gm/dL (13.0-17.5); INR 1.4 (<1.2); Partial Thromboplastin Time 27.6 sec (22.0-30.0); Prothrombin Time 14.4 sec (9.0-12.0)
[2022-12-20] MEDS: SODIUM CHLORIDE 0.9% 1,000 ML IV SCH (16:43)
[2022-12-20] MEDS: HEPARIN SOD,PORK IN 0.45% NACL 25,000 UNIT in 0.45% NACL 1 250ML.BAG IV SCH (16:44)
[2022-12-20 16:50] LABS: ALT 29 U/L (4-49); AST 56 U/L (17-59); African American GFR (CKD) >90 (>60 ml/min/1.73 sqM); Albumin 2.2 g/dL (3.5-5.0); Alkaline Phosphatase 65 U/L (38-126); Anion Gap 6 mmol/L; Blood Urea Nitrogen 13 mg/dL (9-20); Calcium 7.2 mg/dL (8.4-10.2); Carbon Dioxide 22 mmol/L (22-30); Chloride 110 mmol/L (98-107); Glucose 119 mg/dL (74-99); Magnesium 2.2 mg/dL (1.6-2.3); Non-African American GFR(CKD) 88 (>60 ml/min/1.73 sqM); Potassium 4.5 mmol/L (3.5-5.1); Sodium 138 mmol/L (137-145); Total Bilirubin 1.1 mg/dL (0.2-1.3); Total Protein 3.8 g/dL (6.3-8.2)
[2022-12-20 17:05] LABS: Glucose,Whole Blood 189 mg/dL (70-110)
[2022-12-20] MEDS: INSULIN REGULAR 100 UNIT in SODIUM CHLORIDE 0.9% 100 ML IV SCH (17:28)
[2022-12-20] MEDS: MILRINONE-D5W PMX 20 MG in DEXTROSE/WATER 1 100ML.BAG IV SCH ×2 (17:35→22:07)
[2022-12-20] MEDS: HEPARIN SODIUM,PORCINE 5,000 UNIT/ML 1 ML VIAL SQ SCH ×2 (18:02→23:41)
[2022-12-20] MEDS: ACETAMINOPHEN IV (For NPO) 1,000 MG in EMPTY BAG 1 BAG IVPB SCH ×2 (18:02→23:40)
[2022-12-20 18:09] LABS: Glucose,Whole Blood 202 mg/dL (70-110)
[2022-12-20 19:04] LABS: Glucose,Whole Blood 184 mg/dL (70-110)
[2022-12-20] MEDS: ALBUMIN HUMAN 5% 250 ML in EMPTY BAG 1 BAG IVPB PRN (19:10)
[2022-12-20 19:25] LABS: Basophils % (A) 0 %; Eosinophils % (A) 0 %; HCT 25.6 % (39.0-53.0); HGB 8.7 gm/dL (13.0-17.5); Hypochromasia Slight; Lymphocytes # (A) 0.6 k/uL (1.0-4.8); Lymphocytes % (A) 4 %; MCH 31.3 pg (25.0-35.0); MCHC 33.9 g/dL (31.0-37.0); MCV 92.4 fL (80.0-100.0); Mean Platelet Volume 9.1; Monocytes # (A) 0.7 k/uL (0-1.0); Monocytes % (A) 4 %; Neutrophils # (A) 14.9 k/uL (1.3-7.7); Neutrophils % (A) 91 %; Platelet Count 186 k/uL (150-450); RBC 2.78 m/uL (4.30-5.90); RDW 15.9 % (11.5-15.5); WBC 16.4 k/uL (3.8-10.6)
[2022-12-20] MEDS: ATORVASTATIN 40 MG TAB PO SCH (20:01)
[2022-12-20 20:03] LABS: Glucose,Whole Blood 169 mg/dL (70-110)
[2022-12-20] MEDS: SENNOSIDES-DOCUSATE SODIUM 1 EACH TAB PO SCH (20:39)
[2022-12-20 20:54] LABS: Glucose,Whole Blood 154 mg/dL (70-110)
[2022-12-20 21:45] LABS: ABG Base Excess -1.1 mmol/L; ABG HCO3 24 mmol/L (21-25); ABG Oxygen Saturation 93.4 % (94-97); ABG PCO2 43 mmHg (35-45); ABG PH 7.36 (7.35-7.45); ABG PO2 67 mmHg (83-108); ABG TCO2 26 mmol/L (19-24); Allen Test Performed? Yes
[2022-12-20 21:59] LABS: Glucose,Whole Blood 152 mg/dL (70-110)
[2022-12-20 22:33] LABS: Basophils % (A) 0 %; Eosinophils % (A) 0 %; HCT 25.6 % (39.0-53.0); HGB 8.4 gm/dL (13.0-17.5); Hypochromasia Slight; Lymphocytes # (A) 1.1 k/uL (1.0-4.8); Lymphocytes % (A) 7 %; MCH 30.1 pg (25.0-35.0); MCHC 32.7 g/dL (31.0-37.0); Monocytes # (A) 0.7 k/uL (0-1.0); Monocytes % (A) 4 %; Neutrophils # (A) 15.2 k/uL (1.3-7.7); Neutrophils % (A) 88 %; Platelet Count 200 k/uL (150-450); RBC 2.78 m/uL (4.30-5.90); RDW 15.7 % (11.5-15.5); WBC 17.3 k/uL (3.8-10.6)
[2022-12-20 23:14] LABS: Glucose,Whole Blood 144 mg/dL (70-110)
[2022-12-21 00:07] LABS: Glucose,Whole Blood 133 mg/dL (70-110)
[2022-12-21 01:03] LABS: Glucose,Whole Blood 123 mg/dL (70-110)
[2022-12-21] MEDS ORDERED: traMADol 50 MG TAB PO PRN ×2 (02:00→02:13)
[2022-12-21 02:21] LABS: Glucose,Whole Blood 116 mg/dL (70-110)
--- NOTE | 2022-12-21 02:59 | P.PN ---
Subjective Progress Note Date: 12/20/22 Principal diagnosis: Multivessel coronary artery disease 77-year-old male patient, came into the emergency department because of shortness of breath. The patient [place] and he has a primary care physician in [facility]. The patient was in the hospital with his who was having a mammogram. He acutely became short of breath and he felt that his lungs were filling up with fluid. He was brought into the emergency department. Noted around few days back, he was having some limited cough and the patient was given a course of steroid taper by his primary care physician. No fever. No chills. No chest pain. He is known to have chronic atrial fibrillation and the patient is also known to have diabetes mellitus and hyperlipidemia. No history of any coronary artery disease. No history of any stroke. No history of any DVTs or pulmonary embolism. No history of COPD or asthma. He is a nonsmoker. The patient came into the emergency and he was hypoxic, acutely short of breath, acutely tachycardic and hypertensive with a BP of 192/137 with a heart rate of 158 and the respiration all 35. The patient was placed on a BiPAP. He decompensated. Ultimately, he was intubated and placed on a mechanical ventilator. Chest x-ray showed bilateral lung consolidations mainly in the lower lobes. Post intubation, the patient started having bloody rest or secretions from his orotracheal tube. His cardiac rhythm is the nature fibrillation. At this point in time, the patient is intubated on a mechanical ventilator. I saw the patient in the emergency department and a lipase to the intensive care unit. Currently is on propofol which is currently is up to 50 mcg/kg/m. His well sedated on a mechanical ventilator. He was also given a dose of Nimbex 10 mg IV push as the sedation was being titrated. Note that the patient became also hypotensive while being on sedation. He was started on norepinephrine which is currently running at 0.27 Babar respiratory kilogram per minute. His heart rate is less tachycardic although distal in nature fibril lation. Cardizem drip was discontinued because of underlying hypotension. He was given a dose of Lasix in the emergency department and he has produced a total of 350 mL of urine output. He does have some lower extremity edema. His blood work is showing 15.5, hemoglobin is 14.4, platelet count of 244, sodium is at 140, BUN is at 24 with a creatinine of 0.9. ProBNP level is 4050. Troponin was 0.7. LFTs are normal. The vital screening including Covid 19 was negative. Thyroid function test was within normal limits. His INR was at 5.0 with a PTT of 49.2. The patient was given a total of 5 mg of vitamin K. Lines were established in the ICU including a triple-lumen catheter inserted in his left IJ and an arterial line for blood pressure monitoring. Given a dose of Rocephin. He is currently on a mechanical ventilator on assist control mode with a rate of 26, tidal volume of 450, FiO2 of 100% and a PEEP of 5. On today's evaluation of a 12/09 2022, the patient remains intubated on a mechanical ventilator. The patient is calm and comfortable on mechanical ventilator. Is currently on propofol running at 45 mcg/kg/m. His symptoms of the mechanical ventilator. This is on assist-control mode of mechanical ventilation with a rate of 26, tidal volume of 450, FiO2 of 40% and a PEEP currently is at 10. The blood gas shows marked improvement and the patient has a pH of 7.54 consistent with respiratory alkalosis with a pCO2 of 26 and pO2 of 247. This was done an FiO2 of 60% and based on the difficult was weaned down to 40%. At the same time, the chest x-ray shows marked improvement compared to yesterday. The orotracheal tube is in a good location. There is improvement in the bibasilar patchy airspace opacities and the lines are all in place. The patient's echoes up to 20.7 with a hemoglobin 12.8. His INR dropped down to 2.9 after being given a total of 5 mg of vitamin K. His lactic acid level is at 2.3. BUN is at 25 with a creatinine of 0.9 and the sodium is at 1:30. His pro calcitonin level is at 0.03. The troponin peaked at 1.7 and cardiology is on the case. His cardiac rhythm is atrial fibrillation and the patient remains on amiodarone which is running at 0.5 mg/m for rate control. Echocardiogram was also completed yesterday that showed a dynamic LV. His left ventricular ejection fraction was normal with an ejection fraction of 50-55%. There was mild to moderate mitral and tricuspid regurgitation. There was some dilation of the right ventricle and there was a suggestion of a VSD with a [id number] shunting. This is to be further evaluated by cardiology. On 12/10/2022, the patient is being seen for a follow-up. The patient is still on a mechanical ventilator. Propofol is being weaned this morning. Overnight, the patient was kept on propofol for sedation. At the same time, the patient is currently on a mechanical ventilator on assist control mode with a rate of 16, tidal volume of 450, FiO2 down to 40% with a PEEP of 5. Pulse ox is in order of 97%.Chest x-ray showing increased haziness in the right middle and right lower lobe as well as the left atrial cardiac area. This was not seen on yesterday's chest x-ray. Blood gas from today shows a pH of 7.48 with a pCO2 of 37 and pO2 of 103 and this was done above-mentioned ventilator setting. The patient remained nature fibrillation. He is currently on a Cardizem drip at 10 mg an hour and amiodarone by mouth 400 mg twice a day. He was also given digoxin by cardiology 250 g on a daily basis and this was given to him for rate control. His INR today is pending. Yesterday's INR was at 2.9 and the warfarin was discontinued. The patient was in negative fluid balance of 1.3 L over the past 24 hours. A repeat echocardiogram was done today and I was informed by cardiology and there is no concern for underlying VSD. The BMs thousand 14.3 with a hemoglobin 11.8. He has 24 with a creatinine of 0.8 and a sodium level is at 128. LFTs are within normal limits. On today's evaluation of 12/11/2022, I'm seeing the patient for a follow-up. The patient was weaned off the mechanical ventilator and the patient was extubated yesterday without any major difficulties. This morning, he is extubated and is currently on oxygen at room air. The patient is in negative fluid balance. He has been in negative fluid balance of 4.5 L over the past 24 hours as the patient was diuresed. He was already making adequate urine without diuretics. He was given Lasix also to augment his urine output. No major respiratory difficulties. His cardiac rhythm is a chest fibrillation. The patient is currently on IV heparin. The patient is also on Cardizem at 15 mg an hour. PTT therapeutic. BUN is at 19 with a creatinine of 0.9. LFTs are normal at this point in time. The white suppositive 13.5, hemoglobin 13.3 and a platelet count is at 208. Noted the patient was on warfarin prior to him coming into the hospital. His INR was supratherapeutic and his INR on yesterday's down to 1.5. He does have a deep tissue injury to his left buttocks and currently is laying down his right. Antibiotic coverage included a combination of cefepime and Zithromax. His pro calcitonin level was low. Cultures were negative. White cell cause that 13.5. His pro calcitonin level is at 0.03. 12/12/2022, the patient is doing well and he remains extubated and currently is on oxygen at 2 L. Pulse ox is adequate. He remains in atrial fibrillation. Hemodynamically stable. He is on no pressors at this point in time. The patient remains on IV heparin. Warfarin will be started today. He was taken off the Cardizem drip and currently is on a combination of metoprolol at a dose of 50 mg by mouth twice a day, Cardizem drip has been discontinued and the patient was also given digoxin 0.25 mg on a daily basis. He is on Levemir insulin 10 units and the signs Coverage. His oral intake is still diminished over this is improving. The chest x-ray is rotated minutes essentially clear. The patient has developed a deep tissue injury to his left buttocks. This could be related also to a prior to intubation trauma. His respiratory failure was brief to cause this extent of deep tissue injury. Currently he has a Opteform applied to the area. seconds at 10.7. Hemoglobin is 12.2. Platelet count is 204. BUN is 16. Creatinine is at 0.8. Urine operas adequate. Cardiac rhythm is A. fib Patient was reevaluated today on 12/13/2022, patient remains in the ICU, he is presently on room air, not in any distress, he is actually an overflow to the cardiac floor 3 S., and he may be scheduled to undergo cardiac catheterization today. Patient was intubated on 12/08, extubated on 12/10 tolerated the extubation well, and he is relatively asymptomatic, remains on heparin PTT is 58/therapeutic the lips count is 11.9 hemoglobin is 12.6 and the first are normal renal profile is normal. Chest x-ray from yesterday showed no evidence of acute pulmonary process Patient was reevaluated today on 12/14/2022, patient underwent cardiac catheterization yesterday, and he was found to have triple-vessel coronary artery disease. He is supposed to be seen by cardiothoracic surgery today, and decide on possible surgery in the near future. Patient is on room air, he is not in any distress, and his chest x-ray this morning is reassuring, no evidence of pulmonary edema and no acute pulmonary process. No evidence of heart failure. CBC is relatively normal lites are normal renal profile is normal Evaluated today on 12/15/2022, patient was seen by cardiothoracic surgery, he is being worked up for possible surgery in the next couple of days. His recent cardiac catheterization showed triple vessel coronary artery disease, and workup for possible surgery is in progress. Patient is asymptomatic, denies any cough wheezing or shortness of breath, his pulmonary status seems to be relatively stable at this point. Remains on heparin and PTT is 58 today. The patient is seen today 12/16/2022 in follow-up on the selective care unit. He is currently resting comfortably in bed. Awake and alert in no acute distress. Maintaining O2 saturations up to 100% on room air. He's afebrile. Hemodynamically stable. Ultrasound of the lower extremities revealed incomplete study. Unable to obtain left and right ankle-brachial indices. Demonstrating severe peripheral arterial disease bilaterally. SANJEEV revealed moderate aortic stenosis, mild to moderate central mitral regurgitation. Normal left ventricular systolic function. White count 9.2. Hemoglobin 12.0. Platelets 296. Sodium 136. Potassium 4.6. Bicarb 27. BUN 15. Creatinine 0.89. Glucose 228. AST 100. ALT 76. Albumin 3.1. Cardiac surgery testing still being performed. Warfarin remains on hold. The patient is seen today 12/17/2022 in follow-up on the selective care unit. He is awake and alert in no acute distress. Up ambulating in his room. Continue good O2 saturations in the high 90s on room air. Afebrile. Hemodynamically stable. Denies any chest pain. White count 10.4. Hemoglobin 11.7. Platelets 305. Sodium 138. Potassium 4.3. Bicarb 29. BUN 15. Creatinine 0.9. Glucose 165. AST 100. ALT 87. He remains on a heparin drip. Plan is for coronary revascularization on 12/20/2022. The patient is seen today 12/19/2022 follow-up on the selective care unit. He is resting comfortably in bed. Awake and alert in no acute distress. Maintaining good O2 saturations in the 90s on room air. Continued on a heparin drip. White count 8.3. Hemoglobin 11.4. Platelets 327. Sodium 140. Potassium 4.3. Bicarb 27. BUN 15. Creatinine 0.96. I'm seeing this patient in follow-up today 12/20/2022 in the intensive care unit status postoperative day #0 following a coronary artery bypass graft including a GARVIN to LAD, SVG to the PDA and OM. The patient also had an aortic valve r eplacement and left atrial appendage ligation. The patient was brought to the intensive care unit for recovery. Initial postoperative ABGs showed a pO2 of 67, pCO2 of 43, pH of 7.36. He did initially extubate from the mechanical ventilator to 6 L nasal cannula. The patient did become hypoxic and have some respiratory distress; and was ultimately placed on BiPAP with settings of 12/6 and FiO2 of 100%. The patient is currently sitting up in bed, on BiPAP, in no acute distress. He is tachypneic with a respiratory rate of 26 and achieving tidal volumes around 450. Postoperative chest x-ray showed mild interstitial prominence with left perihilar opacity. Patient's heart rhythm is currently atrial fibrillation with rapid ventricular rate around 130 bpm, and he is being started on amiodarone protocol at 1 mg/m. There is an epicardial pacemaker with settings VVI and a heart rate of 50 for back up pacing. Milrinone is also infusing at 0.375 mcg/kg/m. Last cardiac output/cardiac index was 6 and 3 respectively. PA diastolic pressure 25. Blood pressure is normotensive. Nitroglycerin infusing at 5 mcg/m. Urine output has been adequate in the order of 30-50 mL per hour. Patient has 2 mediastinal chest tubes that are Y'd together with a total output 190 ML's of serosanguineous drainage. He also has a left pleural chest tube with 140 ML's of serosanguineous drainage. No obvious air leaks. Patient's estimated blood loss was around 1500 ML's intraoperatively, and he received 1 unit PRBC, 2 FFP, and 1 platelet intraoperatively. Most recent postoperative CBC shows a WBC count of 17.3, hemoglobin 8.4, hematocrit 25.6, platelets 200. Postoperative BMP shows a sodium 138, potassium 4.5, chloride 110, serum bicarb 22, BUN 13, creatinine 0.76, glucose 119. Patient is on lactated Ringer's infusing at 50 ML's per hour. There is also an insulin infusion per protocol. Patient will be monitored in the intensive care unit during his recovery. Objective - Vital Signs Vital signs: Vital Signs Temp 98.4 F 12/21/22 00:00 Pulse 90 12/21/22 01:00 Resp 26 H 12/21/22 01:00 BP 109/58 12/21/22 00:15 Pulse Ox 97 12/21/22 01:00 FiO2 70 12/21/22 01:00 Intake & Output 12/20/22 12/20/22 12/21/22 06:59 18:59 06:59 Intake Total 100 1502.572 486.845 Output Total 2600 457 Balance 100 -1097.428 29.845 Weight 84.5 kg Intake: IV 100 430 413 0.9 sodium chloride for 27 63 pressure bag ACETAMINOPHEN IV (For NPO 100 ) 1,000 mg In Empty Bag 1 bag @ 400 mls/hr IVPB Q6HR VIDAL Rx#:[id number] Lactated Ringers 1,000 ml 150 350 @ 50 mls/hr IV .Q20H VIDAL Rx#:[id number] ceFAZolin 2 gm In Sodium 100 Chloride 0.9% 50 ml @ 100 mls/hr IVPB ONCE ONE Rx# :[id number] Intake, IV Titration 35.572 73.845 Amount Clevidipine Butyrate 25 8.000 mg In Empty Bag 1 bag @ 1 MG/HR 2 mls/hr IV .Q24H VIDAL Rx#:[id number] Insulin Regular 100 unit 2.222 26.715 In Sodium Chloride 0.9% 100 ml @ Per Protocol IV .Q0M VIDAL Rx#:[id number] Milrinone-D5w Pmx 20 mg 36.567 In Dextrose/Water 1 100ml .bag @ 0.3 MCG/KG/MIN 7. 605 mls/hr IV .Q13H9M VIDAL Rx#:[id number] propofoL 1,000 mg In 25.35 10.563 Empty Bag 1 bag @ Titrate IV .Q0M VIDAL Rx#: [id number] Blood Product 1037 Ffp 24 Pher Acda Unit 213 [id number] Ffp 24 Pher Acda Cnt2 224 Unit [id number] Platelet Pheresis Pas 290 Psoralen Unit [id number] Rc As-1 Unit 310 [id number] Output: Chest Tube Drainage 240 242 Chest Tube Left 80 92 Chest Tube Mediastinal 160 150 Gastric Drainage 50 Urine 810 215 Estimated Blood Loss 1500 Other: Voiding Method Toilet Indwelling Catheter Indwelling Catheter Urinal # Voids 1 ABP, PAP, CO, CI - Last Documented Arterial Blood Pressure 100/49 Pulmonary Artery Pressure 36/25 Cardiac Output 4.4 Cardiac Index 2.2 - Exam GENERAL EXAM: Alert, 77-year-old white male appearing stated age, fairly comfortable in no apparent distress. HEAD: Normocephalic and atraumatic EYES: Normal reaction of pupils, equal size. NOSE: Clear with pink turbinates. THROAT: No erythema or exudates. NECK: No masses, no JVD. There is a right IJ Cordis with pulmonary artery catheter CHEST: No chest wall deformity. There is a midsternal incision with Provena wound vac dressing clean and dry. There are two mediastinal chest tubes and one left pleural chest tube without obvious air leak. LUNGS: Equal air entry with diminished lung sounds throughout. No wheezes, rhonchi, crackles. On BiPAP settings 12/6 and FiO2 100%. He is tachypneic. No conversational dyspnea or accessory muscle use.. CVS: S1 and S2 normal with no audible murmur, irregular rhythm. No extra heart sounds. Heart rate around 130 bpm ABDOMEN: No hepatosplenomegaly, active bowel sounds, no guarding or rigidity. SPINE: No scoliosis or deformity SKIN: No rashes CENTRAL NERVOUS SYSTEM: No focal deficits, tone is normal in all 4 extremities. EXTREMITIES: There is no peripheral edema, clubbing, or cyanosis. Bilateral lower extremities are wrapped with Shayne bandages. Peripheral pulses are intact. - Labs CBC & Chem 7: 12/20/22 22:03 12/20/22 16:12 Labs: Abnormal Lab Results - Last 24 Hours (Table) 12/19/22 12/20/22 12/20/22 Range/Units 05:55 06:35 08:43 WBC (3.8-10.6) k/uL RBC (4.30-5.90) m/uL Hgb (13.0-17.5) gm/dL Hct (39.0-53.0) % RDW (11.5-15.5) % Neutrophils # (1.3-7.7) k/uL Lymphocytes # (1.0-4.8) k/uL PT (9.0-12.0) sec INR (<1.2) ABG pH 7.47 H (7.35-7.45) ABG pCO2 (35-45) mmHg ABG pO2 >420 H (83-108) mmHg ABG HCO3 26 H (21-25) mmol/L ABG Total CO2 27 H (19-24) mmol/L ABG O2 Saturation 99.8 H (94-97) % ABG Hematocrit 32 L (34.0-46.0) % ABG Potassium (3.4-4.5) mmol/L ABG Ionized Calcium (4.5-5.3) mg/dL ABG Glucose 161 H (75-99) mg/dL ABG Lactic Acid (0.5-1.6) mmol/L Hemoglobin 10.5 L (13.0-17.5) gm/dL Chloride (98-107) mmol/L Glucose (74-99) mg/dL POC Glucose (mg/dL) 120 H (70-110) mg/dL Calcium (8.4-10.2) mg/dL Total Protein (6.3-8.2) g/dL Albumin (3.5-5.0) g/dL Arterial Blood Potassium (3.4-4.5) mmol/L Arterial Blood Glucose 161 H (75-99) mg/dL Crossmatch See Detail 12/20/22 12/20/22 12/20/22 Range/Units 10:21 10:55 11:27 WBC (3.8-10.6) k/uL RBC (4.30-5.90) m/uL Hgb (13.0-17.5) gm/dL Hct (39.0-53.0) % RDW (11.5-15.5) % Neutrophils # (1.3-7.7) k/uL Lymphocytes # (1.0-4.8) k/uL PT (9.0-12.0) sec INR (<1.2) ABG pH (7.35-7.45) ABG pCO2 (35-45) mmHg ABG pO2 214 H 399 H 341 H (83-108) mmHg ABG HCO3 27 H 27 H 27 H (21-25) mmol/L ABG Total CO2 28 H 28 H 28 H (19-24) mmol/L ABG O2 Saturation 99.5 H 99.8 H 99.8 H (94-97) % ABG Hematocrit 29 L 22 L 21 L (34.0-46.0) % ABG Potassium 5.0 H 5.1 H (3.4-4.5) mmol/L ABG Ionized Calcium 4.2 L 4.2 L (4.5-5.3) mg/dL ABG Glucose 126 H 115 H 158 H (75-99) mg/dL ABG Lactic Acid 1.8 H 1.7 H 1.7 H (0.5-1.6) mmol/L Hemoglobin 9.6 L 7.0 L* 7.0 L* (13.0-17.5) gm/dL Chloride (98-107) mmol/L Glucose (74-99) mg/dL POC Glucose (mg/dL) (70-110) mg/dL Calcium (8.4-10.2) mg/dL Total Protein (6.3-8.2) g/dL Albumin (3.5-5.0) g/dL Arterial Blood Potassium 5.0 H 5.1 H (3.4-4.5) mmol/L Arterial Blood Glucose 126 H 115 H 158 H (75-99) mg/dL Crossmatch 12/20/22 12/20/22 12/20/22 Range/Units 11:58 12:27 13:37 WBC (3.8-10.6) k/uL RBC (4.30-5.90) m/uL Hgb (13.0-17.5) gm/dL Hct (39.0-53.0) % RDW (11.5-15.5) % Neutrophils # (1.3-7.7) k/uL Lymphocytes # (1.0-4.8) k/uL PT (9.0-12.0) sec INR (<1.2) ABG pH (7.35-7.45) ABG pCO2 47 H (35-45) mmHg ABG pO2 305 H 294 H >420 H (83-108) mmHg ABG HCO3 27 H 27 H 26 H (21-25) mmol/L ABG Total CO2 28 H 28 H 27 H (19-24) mmol/L ABG O2 Saturation 99.9 H 99.6 H 99.9 H (94-97) % ABG Hematocrit 22 L 23 L 21 L (34.0-46.0) % ABG Potassium 4.6 H 4.9 H (3.4-4.5) mmol/L ABG Ionized Calcium 4.3 L 4.4 L 4.3 L (4.5-5.3) mg/dL ABG Glucose 165 H 146 H 113 H (75-99) mg/dL ABG Lactic Acid 1.7 H 2.6 H* (0.5-1.6) mmol/L Hemoglobin 7.1 L 7.4 L 6.9 L* (13.0-17.5) gm/dL Chloride (98-107) mmol/L Glucose (74-99) mg/dL POC Glucose (mg/dL) (70-110) mg/dL Calcium (8.4-10.2) mg/dL Total Protein (6.3-8.2) g/dL Albumin (3.5-5.0) g/dL Arterial Blood Potassium 4.6 H 4.9 H (3.4-4.5) mmol/L Arterial Blood Glucose 165 H 146 H 113 H (75-99) mg/dL Crossmatch 12/20/22 12/20/22 12/20/22 Range/Units 16:11 16:12 16:12 WBC 17.3 H (3.8-10.6) k/uL RBC 2.76 L (4.30-5.90) m/uL Hgb 8.2 L D (13.0-17.5) gm/dL Hct 25.4 L (39.0-53.0) % RDW 15.8 H (11.5-15.5) % Neutrophils # 14.9 H (1.3-7.7) k/uL Lymphocytes # (1.0-4.8) k/uL PT 14.4 H (9.0-12.0) sec INR 1.4 H (<1.2) ABG pH (7.35-7.45) ABG pCO2 (35-45) mmHg ABG pO2 (83-108) mmHg ABG HCO3 (21-25) mmol/L ABG Total CO2 (19-24) mmol/L ABG O2 Saturation (94-97) % ABG Hematocrit (34.0-46.0) % ABG Potassium (3.4-4.5) mmol/L ABG Ionized Calcium (4.5-5.3) mg/dL ABG Glucose (75-99) mg/dL ABG Lactic Acid (0.5-1.6) mmol/L Hemoglobin (13.0-17.5) gm/dL Chloride (98-107) mmol/L Glucose (74-99) mg/dL POC Glucose (mg/dL) 131 H (70-110) mg/dL Calcium (8.4-10.2) mg/dL Total Protein (6.3-8.2) g/dL Albumin (3.5-5.0) g/dL Arterial Blood Potassium (3.4-4.5) mmol/L Arterial Blood Glucose (75-99) mg/dL Crossmatch 12/20/22 12/20/22 12/20/22 Range/Units 16:12 16:27 17:04 WBC (3.8-10.6) k/uL RBC (4.30-5.90) m/uL Hgb (13.0-17.5) gm/dL Hct (39.0-53.0) % RDW (11.5-15.5) % Neutrophils # (1.3-7.7) k/uL Lymphocytes # (1.0-4.8) k/uL PT (9.0-12.0) sec INR (<1.2) ABG pH (7.35-7.45) ABG pCO2 (35-45) mmHg ABG pO2 115 H (83-108) mmHg ABG HCO3 (21-25) mmol/L ABG Total CO2 25 H (19-24) mmol/L ABG O2 Saturation 98.2 H (94-97) % ABG Hematocrit (34.0-46.0) % ABG Potassium (3.4-4.5) mmol/L ABG Ionized Calcium (4.5-5.3) mg/dL ABG Glucose (75-99) mg/dL ABG Lactic Acid (0.5-1.6) mmol/L Hemoglobin (13.0-17.5) gm/dL Chloride 110 H (98-107) mmol/L Glucose 119 H (74-99) mg/dL POC Glucose (mg/dL) 189 H (70-110) mg/dL Calcium 7.2 L (8.4-10.2) mg/dL Total Protein 3.8 L (6.3-8.2) g/dL Albumin 2.2 L (3.5-5.0) g/dL Arterial Blood Potassium (3.4-4.5) mmol/L Arterial Blood Glucose (75-99) mg/dL Crossmatch 12/20/22 12/20/22 12/20/22 Range/Units 18:07 19:02 19:07 WBC 16.4 H (3.8-10.6) k/uL RBC 2.78 L (4.30-5.90) m/uL Hgb 8.7 L (13.0-17.5) gm/dL Hct 25.6 L (39.0-53.0) % RDW 15.9 H (11.5-15.5) % Neutrophils # 14.9 H (1.3-7.7) k/uL Lymphocytes # 0.6 L (1.0-4.8) k/uL PT (9.0-12.0) sec INR (<1.2) ABG pH (7.35-7.45) ABG pCO2 (35-45) mmHg ABG pO2 (83-108) mmHg ABG HCO3 (21-25) mmol/L ABG Total CO2 (19-24) mmol/L ABG O2 Saturation (94-97) % ABG Hematocrit (34.0-46.0) % ABG Potassium (3.4-4.5) mmol/L ABG Ionized Calcium (4.5-5.3) mg/dL ABG Glucose (75-99) mg/dL ABG Lactic Acid (0.5-1.6) mmol/L Hemoglobin (13.0-17.5) gm/dL Chloride (98-107) mmol/L Glucose (74-99) mg/dL POC Glucose (mg/dL) 202 H 184 H (70-110) mg/dL Calcium (8.4-10.2) mg/dL Total Protein (6.3-8.2) g/dL Albumin (3.5-5.0) g/dL Arterial Blood Potassium (3.4-4.5) mmol/L Arterial Blood Glucose (75-99) mg/dL Crossmatch 12/20/22 12/20/22 12/20/22 Range/Units 20:01 20:53 21:42 WBC (3.8-10.6) k/uL RBC (4.30-5.90) m/uL Hgb (13.0-17.5) gm/dL Hct (39.0-53.0) % RDW (11.5-15.5) % Neutrophils # (1.3-7.7) k/uL Lymphocytes # (1.0-4.8) k/uL PT (9.0-12.0) sec INR (<1.2) ABG pH (7.35-7.45) ABG pCO2 (35-45) mmHg ABG pO2 67 L (83-108) mmHg ABG HCO3 (21-25) mmol/L ABG Total CO2 26 H (19-24) mmol/L ABG O2 Saturation 93.4 L (94-97) % ABG Hematocrit (34.0-46.0) % ABG Potassium (3.4-4.5) mmol/L ABG Ionized Calcium (4.5-5.3) mg/dL ABG Glucose (75-99) mg/dL ABG Lactic Acid (0.5-1.6) mmol/L Hemoglobin (13.0-17.5) gm/dL Chloride (98-107) mmol/L Glucose (74-99) mg/dL POC Glucose (mg/dL) 169 H 154 H (70-110) mg/dL Calcium (8.4-10.2) mg/dL Total Protein (6.3-8.2) g/dL Albumin (3.5-5.0) g/dL Arterial Blood Potassium (3.4-4.5) mmol/L Arterial Blood Glucose (75-99) mg/dL Crossmatch 12/20/22 12/20/22 12/20/22 Range/Units 21:58 22:03 23:12 WBC 17.3 H (3.8-10.6) k/uL RBC 2.78 L (4.30-5.90) m/uL Hgb 8.4 L (13.0-17.5) gm/dL Hct 25.6 L (39.0-53.0) % RDW 15.7 H (11.5-15.5) % Neutrophils # 15.2 H (1.3-7.7) k/uL Lymphocytes # (1.0-4.8) k/uL PT (9.0-12.0) sec INR (<1.2) ABG pH (7.35-7.45) ABG pCO2 (35-45) mmHg ABG pO2 (83-108) mmHg ABG HCO3 (21-25) mmol/L ABG Total CO2 (19-24) mmol/L ABG O2 Saturation (94-97) % ABG Hematocrit (34.0-46.0) % ABG Potassium (3.4-4.5) mmol/L ABG Ionized Calcium (4.5-5.3) mg/dL ABG Glucose (75-99) mg/dL ABG Lactic Acid (0.5-1.6) mmol/L Hemoglobin (13.0-17.5) gm/dL Chloride (98-107) mmol/L Glucose (74-99) mg/dL POC Glucose (mg/dL) 152 H 144 H (70-110) mg/dL Calcium (8.4-10.2) mg/dL Total Protein (6.3-8.2) g/dL Albumin (3.5-5.0) g/dL Arterial Blood Potassium (3.4-4.5) mmol/L Arterial Blood Glucose (75-99) mg/dL Crossmatch 12/21/22 12/21/22 Range/Units 00:05 01:01 WBC (3.8-10.6) k/uL RBC (4.30-5.90) m/uL Hgb (13.0-17.5) gm/dL Hct (39.0-53.0) % RDW (11.5-15.5) % Neutrophils # (1.3-7.7) k/uL Lymphocytes # (1.0-4.8) k/uL PT (9.0-12.0) sec INR (<1.2) ABG pH (7.35-7.45) ABG pCO2 (35-45) mmHg ABG pO2 (83-108) mmHg ABG HCO3 (21-25) mmol/L ABG Total CO2 (19-24) mmol/L ABG O2 Saturation (94-97) % ABG Hematocrit (34.0-46.0) % ABG Potassium (3.4-4.5) mmol/L ABG Ionized Calcium (4.5-5.3) mg/dL ABG Glucose (75-99) mg/dL ABG Lactic Acid (0.5-1.6) mmol/L Hemoglobin (13.0-17.5) gm/dL Chloride (98-107) mmol/L Glucose (74-99) mg/dL POC Glucose (mg/dL) 133 H 123 H (70-110) mg/dL Calcium (8.4-10.2) mg/dL Total Protein (6.3-8.2) g/dL Albumin (3.5-5.0) g/dL Arterial Blood Potassium (3.4-4.5) mmol/L Arterial Blood Glucose (75-99) mg/dL Crossmatch Assessment and Plan Assessment: Multivessel coronary artery disease status postoperative day #0 following a coronary artery bypass graft including GARVIN to the LAD, saphenous vein graft to the PDA, and a saphenous vein graft to the OM. The patient also underwent aortic valve replacement and left atrial appendage ligation. Acute hypoxic respiratory failure secondary to acute pulmonary edema/flash pulmonary edema, improved. The patient was weaned from the mechanical ventilator and ultimately transitioned to BiPAP with settings 12/6 and FiO2 100%. Atrial fibrillation with rapid ventricular rate, patient has chronic atrial fibrillation, and was started on amiodarone infusion per protocol. Acute blood loss anemia, and expected outcome of surgery Leukocytosis, likely reactive to surgery Acute non-ST elevation myocardial infarction Type 2 diabetes mellitus, on insulin infusion per protocol. Dyslipidemia History of diabetic foot infection, recovered Deep tissue injury to his left buttocks Plan: Patient's medications, labs, chest x-ray reviewed The patient will continue on a BiPAP for now, with settings 12/6 and FiO2 to be titrated accordingly Repeat chest x-ray Encourage incentive spirometer when able Patient was started on amiodarone protocol Does have a epicardial pacemaker with settings of VVI and a backup rate of 50 bpm CO/CI are adequate on milrinone infusion No hypotension or need for vasopressors at this time Monitor chest tube output Insulin infusion per protocol for hyperglycemia Protonix for GI prophylaxis Heparin for DVT prophylaxis We will continue to follow and make recommendations while in the intensive care unit I have personally seen and examined the patient, performed the documentation and the assessment and plan as written. Number of minutes spent on the visit:20 Time with Patient: Greater than 30
[2022-12-21 03:13] LABS: Glucose,Whole Blood 116 mg/dL (70-110)
[2022-12-21 04:05] LABS: Glucose,Whole Blood 116 mg/dL (70-110)
[2022-12-21 04:23] LABS: Basophils % (A) 0 %; Eosinophils % (A) 0 %; HCT 25.5 % (39.0-53.0); HGB 8.4 gm/dL (13.0-17.5); Hypochromasia Slight; Lymphocytes # (A) 0.9 k/uL (1.0-4.8); Lymphocytes % (A) 7 %; MCH 30.1 pg (25.0-35.0); MCHC 32.9 g/dL (31.0-37.0); MCV 91.4 fL (80.0-100.0); Mean Platelet Volume 9.3; Monocytes # (A) 0.7 k/uL (0-1.0); Monocytes % (A) 5 %; Neutrophils # (A) 11.8 k/uL (1.3-7.7); Neutrophils % (A) 88 %; Platelet Count 182 k/uL (150-450); RBC 2.78 m/uL (4.30-5.90); WBC 13.5 k/uL (3.8-10.6)
[2022-12-21 04:46] LABS: Ionized Calcium 4.5 mg/dL (4.5-5.3)
[2022-12-21 04:54] LABS: Glucose,Whole Blood 118 mg/dL (70-110)
[2022-12-21 04:55] LABS: ALT 29 U/L (4-49); AST 71 U/L (17-59); African American GFR (CKD) 80 (>60 ml/min/1.73 sqM); Albumin 2.7 g/dL (3.5-5.0); Alkaline Phosphatase 65 U/L (38-126); Anion Gap 4 mmol/L; Blood Urea Nitrogen 15 mg/dL (9-20); Calcium 7.4 mg/dL (8.4-10.2); Carbon Dioxide 25 mmol/L (22-30); Chloride 109 mmol/L (98-107); Glucose 105 mg/dL (74-99); Magnesium 2.2 mg/dL (1.6-2.3); Non-African American GFR(CKD) 69 (>60 ml/min/1.73 sqM); Potassium 4.8 mmol/L (3.5-5.1); Sodium 138 mmol/L (137-145); Total Bilirubin 0.5 mg/dL (0.2-1.3); Total Protein 4.5 g/dL (6.3-8.2)
[2022-12-21] MEDS: AMIODARONE 450 MG in DEXTROSE 5% IN WATER 250 ML IV PRN ×4 (05:34→18:27)
[2022-12-21] MEDS: ALBUMIN HUMAN 5% 250 ML in EMPTY BAG 1 BAG IVPB PRN (06:18)
[2022-12-21 06:21] LABS: Glucose,Whole Blood 133 mg/dL (70-110)
[2022-12-21] MEDS ORDERED: ACETAMINOPHEN TAB 325 MG TAB PO PRN (06:44)
[2022-12-21 07:02] LABS: Glucose,Whole Blood 140 mg/dL (70-110)
--- NOTE | 2022-12-21 07:44 | P.PN ---
Subjective Progress Note Date: 12/21/22 Principal diagnosis: Coronary artery disease, NSTEMI this admission, acute pulmonary edema, acute hypoxic respiratory failure, atrial fibrillation with RVR on admission, supratherapeutic INR on admission, severe PAD. History of hypertension, hyperlipidemia, chronic atrial fibrillation on coumadin outpatient, diabetes mellitus type 2, history of healed diabetic foot infection, deep tissue injury to left buttocks POD #1 coronary artery bypass graft 3 with left internal mammary artery to left anterior descending artery, reverse saphenous vein graft to the obtuse marginal artery, reverse saphenous vein graft to the posterior descending artery, endoscopic vein harvest of the right greater saphenous vein, ligation of the left atrial appendage with a 35 mm AtriClip, aortic valve replacement with a 23 mm Avalus bioprosthetic valve, epi-aortic ultrasound and intraoperative transesophageal echocardiogram Intraoperative and postoperative acute blood loss anemia, expected given hemodilution and cardiopulmonary bypass pump The patient was seen and examined this morning sitting up in a recliner in the intensive care unit in no acute distress. He was successfully extubated last night at 21:52. Does complain of postoperative pain especially with coughing. States he feels a bit short of breath like his lungs are full of fluid. Currently in atrial fibrillation with heart rate 110-120. Variance between arterial pressure and noninvasive cuff pressure. Currently on IV Primacor, nitro, amiodarone. Right internal jugular Elizabeth/Cordis, right brachial arterial line, mediastinal/left pleural chest tubes all remain. Patient is on 6 L high flow nasal cannula with oxygen saturation in the mid to high 90s, only able to achieve 750 mL on his incentive spirometry. Objective - Vital Signs Vital signs: Vital Signs Temp 97.7 F 12/21/22 04:00 Pulse 103 H 12/21/22 06:45 Resp 16 12/21/22 06:45 BP 121/61 12/21/22 06:00 Pulse Ox 97 12/21/22 06:45 FiO2 50 12/21/22 05:00 Intake & Output 12/20/22 12/21/22 12/21/22 18:59 06:59 18:59 Intake Total 1502.572 950.581 168.975 Output Total 2600 810 20 Balance -1097.428 140.581 148.975 Weight 94.6 kg Intake: IV 430 858 59 0.9 sodium chloride for 27 108 9 pressure bag ACETAMINOPHEN IV (For NPO 100 100 ) 1,000 mg In Empty Bag 1 bag @ 400 mls/hr IVPB Q6HR [facility] Rx#:[id number] Lactated Ringers 1,000 ml 150 600 50 @ 20 mls/hr IV .Q24H [facility] Rx#:[id number] ceFAZolin 2 gm In Sodium 100 50 Chloride 0.9% 50 ml @ 100 mls/hr IVPB ONCE ONE Rx# :[id number] Intake, IV Titration 35.572 92.581 109.975 Amount Clevidipine Butyrate 25 8.000 mg In Empty Bag 1 bag @ 1 MG/HR 2 mls/hr IV .Q24H [facility] Rx#:[id number] Insulin Regular 100 unit 2.222 45.451 3.03 In Sodium Chloride 0.9% 100 ml @ Per Protocol IV .Q0M [facility] Rx#:[id number] Milrinone-D5w Pmx 20 mg 36.567 84.445 In Dextrose/Water 1 100ml .bag @ 0.2 MCG/KG/MIN 5. 07 mls/hr IV .[id number] [facility] Rx#:[id number] Nitroglycerin-D5w Pmx 50 22.5 mg In Dextrose/Water 1 250ml.bag @ 5 MCG/MIN 1.5 mls/hr IV .Q24H [facility] Rx#: [id number] propofoL 1,000 mg In 25.35 10.563 Empty Bag 1 bag @ Titrate IV .Q0M [facility] Rx#: [id number] Blood Product 1037 Ffp 24 Pher Acda Unit 213 [id number] Ffp 24 Pher Acda Cnt2 224 Unit [id number] Platelet Pheresis Pas 290 Psoralen Unit [id number] Rc As-1 Unit 310 [id number] Output: Chest Tube Drainage 240 450 10 Chest Tube Left 80 170 0 Chest Tube Mediastinal 160 280 10 Gastric Drainage 50 Urine 810 360 10 Estimated Blood Loss 1500 Other: Voiding Method Indwelling Catheter Indwelling Catheter ABP, PAP, CO, CI - Last Documented Arterial Blood Pressure 82/34 Pulmonary Artery Pressure 25/12 Cardiac Output 4.6 Cardiac Index 2.3 - Exam CONSTITUTIONAL: Appears somewhat comfortable, cooperative, no acute distress RESPIRATORY: Lungs sounds diminished bilaterally with faint crackles heard in the bases. Respirations even, nonlabored. Currently on 6 L high flow nasal cannula with oxygen saturation 96%. Able to achieve 750 mL on incentive spirometry. Strong cough. CARDIOVASCULAR: S1, S2 present. Irregular rate and rhythm, atrial fibrillation on telemetry. Sternum stable. Palpable peripheral pulses bilaterally. Generalized edema present. No calf pain or tenderness noted. Heart hugger, antiembolism stockings, SCDs present. GASTROINTESTINAL: Abdomen soft, nontender, nondistended. Active bowel sounds present 4 quadrants. Tolerating minimal clear liquids. Positive flatus GENITOURINARY: Gunderson present draining clear, yellow urine. Output overnight 20-35 mL per hour INTEGUMENTARY: Skin is warm and dry with evidence of good perfusion. Anterior chest incision well approximated and covered with dry intact dressing. Right lower extremity EVH site well approximated without redness or drainage. NEUROLOGIC: Cranial nerves II through XII intact MUSKULOSKELETAL: Able to move all extremities, strength equal bilaterally PSYCHIATRIC: Alert and oriented to person place and time, appropriate affect, intact judgment and insight INVASIVE LINES AND TUBES: Mediastinal/left pleural chest tubes present and connected to wall suction, no air leaks present. Mediastinal tube with 190 mL serosanguineous drainage overnight, 450 mL since surgery. Left pleural chest tube with 126 mL serosanguineous drainage overnight, 250 mL since surgery. A/V epicardial pacemaker wires present, connected to generator, VVI mode with backup rate 50 bpm. Right internal jugular Elizabeth/Cordis, right brachial arterial line present. Last CO/CI 4.9/2.4, PA 31/15, CVP 16. - Allied health notes Allied health notes reviewed: nursing - Labs CBC & Chem 7: 12/21/22 04:04 12/21/22 04:04 Labs: Abnormal Lab Results - Last 24 Hours (Table) 12/19/22 12/20/22 12/20/22 Range/Units 05:55 08:43 10:21 WBC (3.8-10.6) k/uL RBC (4.30-5.90) m/uL Hgb (13.0-17.5) gm/dL Hct (39.0-53.0) % RDW (11.5-15.5) % Neutrophils # (1.3-7.7) k/uL Lymphocytes # (1.0-4.8) k/uL PT (9.0-12.0) sec INR (<1.2) ABG pH 7.47 H (7.35-7.45) ABG pCO2 (35-45) mmHg ABG pO2 >420 H 214 H (83-108) mmHg ABG HCO3 26 H 27 H (21-25) mmol/L ABG Total CO2 27 H 28 H (19-24) mmol/L ABG O2 Saturation 99.8 H 99.5 H (94-97) % ABG Hematocrit 32 L 29 L (34.0-46.0) % ABG Potassium (3.4-4.5) mmol/L ABG Ionized Calcium (4.5-5.3) mg/dL ABG Glucose 161 H 126 H (75-99) mg/dL ABG Lactic Acid 1.8 H (0.5-1.6) mmol/L Hemoglobin 10.5 L 9.6 L (13.0-17.5) gm/dL Chloride (98-107) mmol/L Glucose (74-99) mg/dL POC Glucose (mg/dL) (70-110) mg/dL Calcium (8.4-10.2) mg/dL AST (17-59) U/L Total Protein (6.3-8.2) g/dL Albumin (3.5-5.0) g/dL Arterial Blood Potassium (3.4-4.5) mmol/L Arterial Blood Glucose 161 H 126 H (75-99) mg/dL Crossmatch See Detail 12/20/22 12/20/22 12/20/22 Range/Units 10:55 11:27 11:58 WBC (3.8-10.6) k/uL RBC (4.30-5.90) m/uL Hgb (13.0-17.5) gm/dL Hct (39.0-53.0) % RDW (11.5-15.5) % Neutrophils # (1.3-7.7) k/uL Lymphocytes # (1.0-4.8) k/uL PT (9.0-12.0) sec INR (<1.2) ABG pH (7.35-7.45) ABG pCO2 (35-45) mmHg ABG pO2 399 H 341 H 305 H (83-108) mmHg ABG HCO3 27 H 27 H 27 H (21-25) mmol/L ABG Total CO2 28 H 28 H 28 H (19-24) mmol/L ABG O2 Saturation 99.8 H 99.8 H 99.9 H (94-97) % ABG Hematocrit 22 L 21 L 22 L (34.0-46.0) % ABG Potassium 5.0 H 5.1 H 4.6 H (3.4-4.5) mmol/L ABG Ionized Calcium 4.2 L 4.2 L 4.3 L (4.5-5.3) mg/dL ABG Glucose 115 H 158 H 165 H (75-99) mg/dL ABG Lactic Acid 1.7 H 1.7 H (0.5-1.6) mmol/L Hemoglobin 7.0 L* 7.0 L* 7.1 L (13.0-17.5) gm/dL Chloride (98-107) mmol/L Glucose (74-99) mg/dL POC Glucose (mg/dL) (70-110) mg/dL Calcium (8.4-10.2) mg/dL AST (17-59) U/L Total Protein (6.3-8.2) g/dL Albumin (3.5-5.0) g/dL Arterial Blood Potassium 5.0 H 5.1 H 4.6 H (3.4-4.5) mmol/L Arterial Blood Glucose 115 H 158 H 165 H (75-99) mg/dL Crossmatch 12/20/22 12/20/22 12/20/22 Range/Units 12:27 13:37 16:11 WBC (3.8-10.6) k/uL RBC (4.30-5.90) m/uL Hgb (13.0-17.5) gm/dL Hct (39.0-53.0) % RDW (11.5-15.5) % Neutrophils # (1.3-7.7) k/uL Lymphocytes # (1.0-4.8) k/uL PT (9.0-12.0) sec INR (<1.2) ABG pH (7.35-7.45) ABG pCO2 47 H (35-45) mmHg ABG pO2 294 H >420 H (83-108) mmHg ABG HCO3 27 H 26 H (21-25) mmol/L ABG Total CO2 28 H 27 H (19-24) mmol/L ABG O2 Saturation 99.6 H 99.9 H (94-97) % ABG Hematocrit 23 L 21 L (34.0-46.0) % ABG Potassium 4.9 H (3.4-4.5) mmol/L ABG Ionized Calcium 4.4 L 4.3 L (4.5-5.3) mg/dL ABG Glucose 146 H 113 H (75-99) mg/dL ABG Lactic Acid 1.7 H 2.6 H* (0.5-1.6) mmol/L Hemoglobin 7.4 L 6.9 L* (13.0-17.5) gm/dL Chloride (98-107) mmol/L Glucose (74-99) mg/dL POC Glucose (mg/dL) 131 H (70-110) mg/dL Calcium (8.4-10.2) mg/dL AST (17-59) U/L Total Protein (6.3-8.2) g/dL Albumin (3.5-5.0) g/dL Arterial Blood Potassium 4.9 H (3.4-4.5) mmol/L Arterial Blood Glucose 146 H 113 H (75-99) mg/dL Crossmatch 12/20/22 12/20/22 12/20/22 Range/Units 16:12 16:12 16:12 WBC 17.3 H (3.8-10.6) k/uL RBC 2.76 L (4.30-5.90) m/uL Hgb 8.2 L D (13.0-17.5) gm/dL Hct 25.4 L (39.0-53.0) % RDW 15.8 H (11.5-15.5) % Neutrophils # 14.9 H (1.3-7.7) k/uL Lymphocytes # (1.0-4.8) k/uL PT 14.4 H (9.0-12.0) sec INR 1.4 H (<1.2) ABG pH (7.35-7.45) ABG pCO2 (35-45) mmHg ABG pO2 (83-108) mmHg ABG HCO3 (21-25) mmol/L ABG Total CO2 (19-24) mmol/L ABG O2 Saturation (94-97) % ABG Hematocrit (34.0-46.0) % ABG Potassium (3.4-4.5) mmol/L ABG Ionized Calcium (4.5-5.3) mg/dL ABG Glucose (75-99) mg/dL ABG Lactic Acid (0.5-1.6) mmol/L Hemoglobin (13.0-17.5) gm/dL Chloride 110 H (98-107) mmol/L Glucose 119 H (74-99) mg/dL POC Glucose (mg/dL) (70-110) mg/dL Calcium 7.2 L (8.4-10.2) mg/dL AST (17-59) U/L Total Protein 3.8 L (6.3-8.2) g/dL Albumin 2.2 L (3.5-5.0) g/dL Arterial Blood Potassium (3.4-4.5) mmol/L Arterial Blood Glucose (75-99) mg/dL Crossmatch 12/20/22 12/20/22 12/20/22 Range/Units 16:27 17:04 18:07 WBC (3.8-10.6) k/uL RBC (4.30-5.90) m/uL Hgb (13.0-17.5) gm/dL Hct (39.0-53.0) % RDW (11.5-15.5) % Neutrophils # (1.3-7.7) k/uL Lymphocytes # (1.0-4.8) k/uL PT (9.0-12.0) sec INR (<1.2) ABG pH (7.35-7.45) ABG pCO2 (35-45) mmHg ABG pO2 115 H (83-108) mmHg ABG HCO3 (21-25) mmol/L ABG Total CO2 25 H (19-24) mmol/L ABG O2 Saturation 98.2 H (94-97) % ABG Hematocrit (34.0-46.0) % ABG Potassium (3.4-4.5) mmol/L ABG Ionized Calcium (4.5-5.3) mg/dL ABG Glucose (75-99) mg/dL ABG Lactic Acid (0.5-1.6) mmol/L Hemoglobin (13.0-17.5) gm/dL Chloride (98-107) mmol/L Glucose (74-99) mg/dL POC Glucose (mg/dL) 189 H 202 H (70-110) mg/dL Calcium (8.4-10.2) mg/dL AST (17-59) U/L Total Protein (6.3-8.2) g/dL Albumin (3.5-5.0) g/dL Arterial Blood Potassium (3.4-4.5) mmol/L Arterial Blood Glucose (75-99) mg/dL Crossmatch 12/20/22 12/20/22 12/20/22 Range/Units 19:02 19:07 20:01 WBC 16.4 H (3.8-10.6) k/uL RBC 2.78 L (4.30-5.90) m/uL Hgb 8.7 L (13.0-17.5) gm/dL Hct 25.6 L (39.0-53.0) % RDW 15.9 H (11.5-15.5) % Neutrophils # 14.9 H (1.3-7.7) k/uL Lymphocytes # 0.6 L (1.0-4.8) k/uL PT (9.0-12.0) sec INR (<1.2) ABG pH (7.35-7.45) ABG pCO2 (35-45) mmHg ABG pO2 (83-108) mmHg ABG HCO3 (21-25) mmol/L ABG Total CO2 (19-24) mmol/L ABG O2 Saturation (94-97) % ABG Hematocrit (34.0-46.0) % ABG Potassium (3.4-4.5) mmol/L ABG Ionized Calcium (4.5-5.3) mg/dL ABG Glucose (75-99) mg/dL ABG Lactic Acid (0.5-1.6) mmol/L Hemoglobin (13.0-17.5) gm/dL Chloride (98-107) mmol/L Glucose (74-99) mg/dL POC Glucose (mg/dL) 184 H 169 H (70-110) mg/dL Calcium (8.4-10.2) mg/dL AST (17-59) U/L Total Protein (6.3-8.2) g/dL Albumin (3.5-5.0) g/dL Arterial Blood Potassium (3.4-4.5) mmol/L Arterial Blood Glucose (75-99) mg/dL Crossmatch 12/20/22 12/20/22 12/20/22 Range/Units 20:53 21:42 21:58 WBC (3.8-10.6) k/uL RBC (4.30-5.90) m/uL Hgb (13.0-17.5) gm/dL Hct (39.0-53.0) % RDW (11.5-15.5) % Neutrophils # (1.3-7.7) k/uL Lymphocytes # (1.0-4.8) k/uL PT (9.0-12.0) sec INR (<1.2) ABG pH (7.35-7.45) ABG pCO2 (35-45) mmHg ABG pO2 67 L (83-108) mmHg ABG HCO3 (21-25) mmol/L ABG Total CO2 26 H (19-24) mmol/L ABG O2 Saturation 93.4 L (94-97) % ABG Hematocrit (34.0-46.0) % ABG Potassium (3.4-4.5) mmol/L ABG Ionized Calcium (4.5-5.3) mg/dL ABG Glucose (75-99) mg/dL ABG Lactic Acid (0.5-1.6) mmol/L Hemoglobin (13.0-17.5) gm/dL Chloride (98-107) mmol/L Glucose (74-99) mg/dL POC Glucose (mg/dL) 154 H 152 H (70-110) mg/dL Calcium (8.4-10.2) mg/dL AST (17-59) U/L Total Protein (6.3-8.2) g/dL Albumin (3.5-5.0) g/dL Arterial Blood Potassium (3.4-4.5) mmol/L Arterial Blood Glucose (75-99) mg/dL Crossmatch 12/20/22 12/20/22 12/21/22 Range/Units 22:03 23:12 00:05 WBC 17.3 H (3.8-10.6) k/uL RBC 2.78 L (4.30-5.90) m/uL Hgb 8.4 L (13.0-17.5) gm/dL Hct 25.6 L (39.0-53.0) % RDW 15.7 H (11.5-15.5) % Neutrophils # 15.2 H (1.3-7.7) k/uL Lymphocytes # (1.0-4.8) k/uL PT (9.0-12.0) sec INR (<1.2) ABG pH (7.35-7.45) ABG pCO2 (35-45) mmHg ABG pO2 (83-108) mmHg ABG HCO3 (21-25) mmol/L ABG Total CO2 (19-24) mmol/L ABG O2 Saturation (94-97) % ABG Hematocrit (34.0-46.0) % ABG Potassium (3.4-4.5) mmol/L ABG Ionized Calcium (4.5-5.3) mg/dL ABG Glucose (75-99) mg/dL ABG Lactic Acid (0.5-1.6) mmol/L Hemoglobin (13.0-17.5) gm/dL Chloride (98-107) mmol/L Glucose (74-99) mg/dL POC Glucose (mg/dL) 144 H 133 H (70-110) mg/dL Calcium (8.4-10.2) mg/dL AST (17-59) U/L Total Protein (6.3-8.2) g/dL Albumin (3.5-5.0) g/dL Arterial Blood Potassium (3.4-4.5) mmol/L Arterial Blood Glucose (75-99) mg/dL Crossmatch 12/21/22 12/21/22 12/21/22 Range/Units 01:01 02:19 03:11 WBC (3.8-10.6) k/uL RBC (4.30-5.90) m/uL Hgb (13.0-17.5) gm/dL Hct (39.0-53.0) % RDW (11.5-15.5) % Neutrophils # (1.3-7.7) k/uL Lymphocytes # (1.0-4.8) k/uL PT (9.0-12.0) sec INR (<1.2) ABG pH (7.35-7.45) ABG pCO2 (35-45) mmHg ABG pO2 (83-108) mmHg ABG HCO3 (21-25) mmol/L ABG Total CO2 (19-24) mmol/L ABG O2 Saturation (94-97) % ABG Hematocrit (34.0-46.0) % ABG Potassium (3.4-4.5) mmol/L ABG Ionized Calcium (4.5-5.3) mg/dL ABG Glucose (75-99) mg/dL ABG Lactic Acid (0.5-1.6) mmol/L Hemoglobin (13.0-17.5) gm/dL Chloride (98-107) mmol/L Glucose (74-99) mg/dL POC Glucose (mg/dL) 123 H 116 H 116 H (70-110) mg/dL Calcium (8.4-10.2) mg/dL AST (17-59) U/L Total Protein (6.3-8.2) g/dL Albumin (3.5-5.0) g/dL Arterial Blood Potassium (3.4-4.5) mmol/L Arterial Blood Glucose (75-99) mg/dL Crossmatch 12/21/22 12/21/22 12/21/22 Range/Units 04:03 04:04 04:04 WBC 13.5 H (3.8-10.6) k/uL RBC 2.78 L (4.30-5.90) m/uL Hgb 8.4 L (13.0-17.5) gm/dL Hct 25.5 L (39.0-53.0) % RDW 16.0 H (11.5-15.5) % Neutrophils # 11.8 H (1.3-7.7) k/uL Lymphocytes # 0.9 L (1.0-4.8) k/uL PT (9.0-12.0) sec INR (<1.2) ABG pH (7.35-7.45) ABG pCO2 (35-45) mmHg ABG pO2 (83-108) mmHg ABG HCO3 (21-25) mmol/L ABG Total CO2 (19-24) mmol/L ABG O2 Saturation (94-97) % ABG Hematocrit (34.0-46.0) % ABG Potassium (3.4-4.5) mmol/L ABG Ionized Calcium (4.5-5.3) mg/dL ABG Glucose (75-99) mg/dL ABG Lactic Acid (0.5-1.6) mmol/L Hemoglobin (13.0-17.5) gm/dL Chloride 109 H (98-107) mmol/L Glucose 105 H (74-99) mg/dL POC Glucose (mg/dL) 116 H (70-110) mg/dL Calcium 7.4 L (8.4-10.2) mg/dL AST 71 H (17-59) U/L Total Protein 4.5 L (6.3-8.2) g/dL Albumin 2.7 L (3.5-5.0) g/dL Arterial Blood Potassium (3.4-4.5) mmol/L Arterial Blood Glucose (75-99) mg/dL Crossmatch 12/21/22 12/21/22 12/21/22 Range/Units 04:53 06:20 07:01 WBC (3.8-10.6) k/uL RBC (4.30-5.90) m/uL Hgb (13.0-17.5) gm/dL Hct (39.0-53.0) % RDW (11.5-15.5) % Neutrophils # (1.3-7.7) k/uL Lymphocytes # (1.0-4.8) k/uL PT (9.0-12.0) sec INR (<1.2) ABG pH (7.35-7.45) ABG pCO2 (35-45) mmHg ABG pO2 (83-108) mmHg ABG HCO3 (21-25) mmol/L ABG Total CO2 (19-24) mmol/L ABG O2 Saturation (94-97) % ABG Hematocrit (34.0-46.0) % ABG Potassium (3.4-4.5) mmol/L ABG Ionized Calcium (4.5-5.3) mg/dL ABG Glucose (75-99) mg/dL ABG Lactic Acid (0.5-1.6) mmol/L Hemoglobin (13.0-17.5) gm/dL Chloride (98-107) mmol/L Glucose (74-99) mg/dL POC Glucose (mg/dL) 118 H 133 H 140 H (70-110) mg/dL Calcium (8.4-10.2) mg/dL AST (17-59) U/L Total Protein (6.3-8.2) g/dL Albumin (3.5-5.0) g/dL Arterial Blood Potassium (3.4-4.5) mmol/L Arterial Blood Glucose (75-99) mg/dL Crossmatch - Imaging and Cardiology Chest x-ray: image reviewed Assessment and Plan Assessment: Coronary artery disease, NSTEMI this admission, status post three-vessel CABG Moderate aortic stenosis, ROBBY 1-1.2 cm, mild AI, status post bioprosthetic aortic valve replacement Mild to moderate central mitral regurgitation Acute pulmonary edema, resolved Acute hypoxic respiratory failure, resolved, currently on room air Atrial fibrillation with RVR on admission, status post ligation of the left atrial appendage Acute shortness of breath, secondary to above Supratherapeutic INR on admission measured as 5.0 Dilated RV with suggestion of VSD with [id number] shunting on TTE, not seen on [id number] the completed 12/15/22 Severe PAD, unable to obtain left and right ABIs History of hypertension History hyperlipidemia, treated, cholesterol 178, LDL 121 Chronic atrial fibrillation on coumadin outpatient Diabetes mellitus type 2, uncontrolled hyperglycemia, hemoglobin A1c 9.9% History of healed diabetic foot infection Deep tissue injury to left buttocks Elevated transaminases, resolving Postoperative acute blood loss anemia, expected Plan: Continue to maximize medical therapy with aspirin, statin, Plavix, beta shant. Will increase beta shant therapy as tolerated. Will wean Primacor Discontinue IV nitro Continue IV amiodarone, will give IV bolus. No anticoagulation until all lines and tubes have been discontinued Wean oxygen as tolerated. Encourage incentive spirometry use 10 times every hour while awake. Bronchodilators per pulmonology Increase activity as tolerated, PT/OT/cardiac rehab following GI/DVT prophylaxis Will monitor daily labs and x-rays. Electrolyte replacement per protocol Insulin management per internal medicine. Patient is diabetic with preoperative hemoglobin A1c 9.9%, needs tight blood sugar control with blood sugars less than 180 to prevent infection and promote healing Pain management with current medication regimen We will continue mediastinal/left pleural chest tubes for another 24 hours, monitor output We'll continue Elizabeth/Cordis for now, may discontinue Elizabeth later today Continue Gunderson catheter for another 24 hours for strict accurate intake and output Daily weights More recommendations to follow
--- NOTE | 2022-12-21 07:48 | P.PN ---
Subjective Progress Note Date: 12/21/22 Principal diagnosis: The patient is a 77-year-old gentleman who underwent yesterday coronary artery that is grafting along with aortic valve replacement using bioprosthetic valve. 12/21/2022 The patient was seen and evaluated this morning. He might and agrees stable beside being slightly tachycardic and for that reason he was started on amiodarone IV was attempted with no bolus. His pressure is marginal as well. He is not on any vasopressors. He is on inotropic with milrinone. Beside that he is on small dose of beta shant. He is on a statin as well. He is on antip latelet using Plavix. We will make a decision regarding starting the patient on oral anticoagulation down the line once his wires are out. He underwent left atrial appendage occlusion. The chest x-ray was reviewed. Blood work showed stable hemoglobin and stable GFR. Assessment Status post aortic valve replacement and CABG Permanent atrial fibrillation Anemia seems to be stable Tachycardia Plan Continue the current medical regimen Consider increase the dose of beta shant once the pressure is more stable Continue statin Continue antiplatelet Make a decision regarding oral anticoagulation down the line Continue monitor the hemoglobin and kidney function Monitor the chest x-ray Objective - Vital Signs Vital signs: Vital Signs Temp 97.7 F 12/21/22 04:00 Pulse 112 H 12/21/22 07:15 Resp 31 H 12/21/22 07:15 BP 86/50 12/21/22 07:15 Pulse Ox 93 L 12/21/22 07:15 FiO2 50 12/21/22 05:00 Intake & Output 12/20/22 12/21/22 12/21/22 18:59 06:59 18:59 Intake Total 1502.572 950.581 168.975 Output Total 2600 810 20 Balance -1097.428 140.581 148.975 Weight 94.6 kg Intake: IV 430 858 59 0.9 sodium chloride for 27 108 9 pressure bag ACETAMINOPHEN IV (For NPO 100 100 ) 1,000 mg In Empty Bag 1 bag @ 400 mls/hr IVPB Q6HR [facility] Rx#:[id number] Lactated Ringers 1,000 ml 150 600 50 @ 20 mls/hr IV .Q24H [facility] Rx#:[id number] ceFAZolin 2 gm In Sodium 100 50 Chloride 0.9% 50 ml @ 100 mls/hr IVPB ONCE ONE Rx# :[id number] Intake, IV Titration 35.572 92.581 109.975 Amount Clevidipine Butyrate 25 8.000 mg In Empty Bag 1 bag @ 1 MG/HR 2 mls/hr IV .Q24H [facility] Rx#:[id number] Insulin Regular 100 unit 2.222 45.451 3.03 In Sodium Chloride 0.9% 100 ml @ Per Protocol IV .Q0M [facility] Rx#:[id number] Milrinone-D5w Pmx 20 mg 36.567 84.445 In Dextrose/Water 1 100ml .bag @ 0.2 MCG/KG/MIN 5. 07 mls/hr IV .[id number] [facility] Rx#:[id number] Nitroglycerin-D5w Pmx 50 22.5 mg In Dextrose/Water 1 250ml.bag @ 5 MCG/MIN 1.5 mls/hr IV .Q24H [facility] Rx#: [id number] propofoL 1,000 mg In 25.35 10.563 Empty Bag 1 bag @ Titrate IV .Q0M [facility] Rx#: [id number] Blood Product 1037 Ffp 24 Pher Acda Unit 213 [id number] Ffp 24 Pher Acda Cnt2 224 Unit [id number] Platelet Pheresis Pas 290 Psoralen Unit [id number] Rc As-1 Unit 310 [id number] Output: Chest Tube Drainage 240 450 10 Chest Tube Left 80 170 0 Chest Tube Mediastinal 160 280 10 Gastric Drainage 50 Urine 810 360 10 Estimated Blood Loss 1500 Other: Voiding Method Indwelling Catheter Indwelling Catheter ABP, PAP, CO, CI - Last Documented Arterial Blood Pressure 82/34 Pulmonary Artery Pressure 32/17 Cardiac Output 4.9 Cardiac Index 2.4 - Labs CBC & Chem 7: 12/21/22 04:04 12/21/22 04:04 Labs: Abnormal Lab Results - Last 24 Hours (Table) 12/19/22 12/20/22 12/20/22 Range/Units 05:55 08:43 10:21 WBC (3.8-10.6) k/uL RBC (4.30-5.90) m/uL Hgb (13.0-17.5) gm/dL Hct (39.0-53.0) % RDW (11.5-15.5) % Neutrophils # (1.3-7.7) k/uL Lymphocytes # (1.0-4.8) k/uL PT (9.0-12.0) sec INR (<1.2) ABG pH 7.47 H (7.35-7.45) ABG pCO2 (35-45) mmHg ABG pO2 >420 H 214 H (83-108) mmHg ABG HCO3 26 H 27 H (21-25) mmol/L ABG Total CO2 27 H 28 H (19-24) mmol/L ABG O2 Saturation 99.8 H 99.5 H (94-97) % ABG Hematocrit 32 L 29 L (34.0-46.0) % ABG Potassium (3.4-4.5) mmol/L ABG Ionized Calcium (4.5-5.3) mg/dL ABG Glucose 161 H 126 H (75-99) mg/dL ABG Lactic Acid 1.8 H (0.5-1.6) mmol/L Hemoglobin 10.5 L 9.6 L (13.0-17.5) gm/dL Chloride (98-107) mmol/L Glucose (74-99) mg/dL POC Glucose (mg/dL) (70-110) mg/dL Calcium (8.4-10.2) mg/dL AST (17-59) U/L Total Protein (6.3-8.2) g/dL Albumin (3.5-5.0) g/dL Arterial Blood Potassium (3.4-4.5) mmol/L Arterial Blood Glucose 161 H 126 H (75-99) mg/dL Crossmatch See Detail 12/20/22 12/20/22 12/20/22 Range/Units 10:55 11:27 11:58 WBC (3.8-10.6) k/uL RBC (4.30-5.90) m/uL Hgb (13.0-17.5) gm/dL Hct (39.0-53.0) % RDW (11.5-15.5) % Neutrophils # (1.3-7.7) k/uL Lymphocytes # (1.0-4.8) k/uL PT (9.0-12.0) sec INR (<1.2) ABG pH (7.35-7.45) ABG pCO2 (35-45) mmHg ABG pO2 399 H 341 H 305 H (83-108) mmHg ABG HCO3 27 H 27 H 27 H (21-25) mmol/L ABG Total CO2 28 H 28 H 28 H (19-24) mmol/L ABG O2 Saturation 99.8 H 99.8 H 99.9 H (94-97) % ABG Hematocrit 22 L 21 L 22 L (34.0-46.0) % ABG Potassium 5.0 H 5.1 H 4.6 H (3.4-4.5) mmol/L ABG Ionized Calcium 4.2 L 4.2 L 4.3 L (4.5-5.3) mg/dL ABG Glucose 115 H 158 H 165 H (75-99) mg/dL ABG Lactic Acid 1.7 H 1.7 H (0.5-1.6) mmol/L Hemoglobin 7.0 L* 7.0 L* 7.1 L (13.0-17.5) gm/dL Chloride (98-107) mmol/L Glucose (74-99) mg/dL POC Glucose (mg/dL) (70-110) mg/dL Calcium (8.4-10.2) mg/dL AST (17-59) U/L Total Protein (6.3-8.2) g/dL Albumin (3.5-5.0) g/dL Arterial Blood Potassium 5.0 H 5.1 H 4.6 H (3.4-4.5) mmol/L Arterial Blood Glucose 115 H 158 H 165 H (75-99) mg/dL Crossmatch 12/20/22 12/20/22 12/20/22 Range/Units 12:27 13:37 16:11 WBC (3.8-10.6) k/uL RBC (4.30-5.90) m/uL Hgb (13.0-17.5) gm/dL Hct (39.0-53.0) % RDW (11.5-15.5) % Neutrophils # (1.3-7.7) k/uL Lymphocytes # (1.0-4.8) k/uL PT (9.0-12.0) sec INR (<1.2) ABG pH (7.35-7.45) ABG pCO2 47 H (35-45) mmHg ABG pO2 294 H >420 H (83-108) mmHg ABG HCO3 27 H 26 H (21-25) mmol/L ABG Total CO2 28 H 27 H (19-24) mmol/L ABG O2 Saturation 99.6 H 99.9 H (94-97) % ABG Hematocrit 23 L 21 L (34.0-46.0) % ABG Potassium 4.9 H (3.4-4.5) mmol/L ABG Ionized Calcium 4.4 L 4.3 L (4.5-5.3) mg/dL ABG Glucose 146 H 113 H (75-99) mg/dL ABG Lactic Acid 1.7 H 2.6 H* (0.5-1.6) mmol/L Hemoglobin 7.4 L 6.9 L* (13.0-17.5) gm/dL Chloride (98-107) mmol/L Glucose (74-99) mg/dL POC Glucose (mg/dL) 131 H (70-110) mg/dL Calcium (8.4-10.2) mg/dL AST (17-59) U/L Total Protein (6.3-8.2) g/dL Albumin (3.5-5.0) g/dL Arterial Blood Potassium 4.9 H (3.4-4.5) mmol/L Arterial Blood Glucose 146 H 113 H (75-99) mg/dL Crossmatch 12/20/22 12/20/22 12/20/22 Range/Units 16:12 16:12 16:12 WBC 17.3 H (3.8-10.6) k/uL RBC 2.76 L (4.30-5.90) m/uL Hgb 8.2 L D (13.0-17.5) gm/dL Hct 25.4 L (39.0-53.0) % RDW 15.8 H (11.5-15.5) % Neutrophils # 14.9 H (1.3-7.7) k/uL Lymphocytes # (1.0-4.8) k/uL PT 14.4 H (9.0-12.0) sec INR 1.4 H (<1.2) ABG pH (7.35-7.45) ABG pCO2 (35-45) mmHg ABG pO2 (83-108) mmHg ABG HCO3 (21-25) mmol/L ABG Total CO2 (19-24) mmol/L ABG O2 Saturation (94-97) % ABG Hematocrit (34.0-46.0) % ABG Potassium (3.4-4.5) mmol/L ABG Ionized Calcium (4.5-5.3) mg/dL ABG Glucose (75-99) mg/dL ABG Lactic Acid (0.5-1.6) mmol/L Hemoglobin (13.0-17.5) gm/dL Chloride 110 H (98-107) mmol/L Glucose 119 H (74-99) mg/dL POC Glucose (mg/dL) (70-110) mg/dL Calcium 7.2 L (8.4-10.2) mg/dL AST (17-59) U/L Total Protein 3.8 L (6.3-8.2) g/dL Albumin 2.2 L (3.5-5.0) g/dL Arterial Blood Potassium (3.4-4.5) mmol/L Arterial Blood Glucose (75-99) mg/dL Crossmatch 12/20/22 12/20/22 12/20/22 Range/Units 16:27 17:04 18:07 WBC (3.8-10.6) k/uL RBC (4.30-5.90) m/uL Hgb (13.0-17.5) gm/dL Hct (39.0-53.0) % RDW (11.5-15.5) % Neutrophils # (1.3-7.7) k/uL Lymphocytes # (1.0-4.8) k/uL PT (9.0-12.0) sec INR (<1.2) ABG pH (7.35-7.45) ABG pCO2 (35-45) mmHg ABG pO2 115 H (83-108) mmHg ABG HCO3 (21-25) mmol/L ABG Total CO2 25 H (19-24) mmol/L ABG O2 Saturation 98.2 H (94-97) % ABG Hematocrit (34.0-46.0) % ABG Potassium (3.4-4.5) mmol/L ABG Ionized Calcium (4.5-5.3) mg/dL ABG Glucose (75-99) mg/dL ABG Lactic Acid (0.5-1.6) mmol/L Hemoglobin (13.0-17.5) gm/dL Chloride (98-107) mmol/L Glucose (74-99) mg/dL POC Glucose (mg/dL) 189 H 202 H (70-110) mg/dL Calcium (8.4-10.2) mg/dL AST (17-59) U/L Total Protein (6.3-8.2) g/dL Albumin (3.5-5.0) g/dL Arterial Blood Potassium (3.4-4.5) mmol/L Arterial Blood Glucose (75-99) mg/dL Crossmatch 12/20/22 12/20/22 12/20/22 Range/Units 19:02 19:07 20:01 WBC 16.4 H (3.8-10.6) k/uL RBC 2.78 L (4.30-5.90) m/uL Hgb 8.7 L (13.0-17.5) gm/dL Hct 25.6 L (39.0-53.0) % RDW 15.9 H (11.5-15.5) % Neutrophils # 14.9 H (1.3-7.7) k/uL Lymphocytes # 0.6 L (1.0-4.8) k/uL PT (9.0-12.0) sec INR (<1.2) ABG pH (7.35-7.45) ABG pCO2 (35-45) mmHg ABG pO2 (83-108) mmHg ABG HCO3 (21-25) mmol/L ABG Total CO2 (19-24) mmol/L ABG O2 Saturation (94-97) % ABG Hematocrit (34.0-46.0) % ABG Potassium (3.4-4.5) mmol/L ABG Ionized Calcium (4.5-5.3) mg/dL ABG Glucose (75-99) mg/dL ABG Lactic Acid (0.5-1.6) mmol/L Hemoglobin (13.0-17.5) gm/dL Chloride (98-107) mmol/L Glucose (74-99) mg/dL POC Glucose (mg/dL) 184 H 169 H (70-110) mg/dL Calcium (8.4-10.2) mg/dL AST (17-59) U/L Total Protein (6.3-8.2) g/dL Albumin (3.5-5.0) g/dL Arterial Blood Potassium (3.4-4.5) mmol/L Arterial Blood Glucose (75-99) mg/dL Crossmatch 12/20/22 12/20/22 12/20/22 Range/Units 20:53 21:42 21:58 WBC (3.8-10.6) k/uL RBC (4.30-5.90) m/uL Hgb (13.0-17.5) gm/dL Hct (39.0-53.0) % RDW (11.5-15.5) % Neutrophils # (1.3-7.7) k/uL Lymphocytes # (1.0-4.8) k/uL PT (9.0-12.0) sec INR (<1.2) ABG pH (7.35-7.45) ABG pCO2 (35-45) mmHg ABG pO2 67 L (83-108) mmHg ABG HCO3 (21-25) mmol/L ABG Total CO2 26 H (19-24) mmol/L ABG O2 Saturation 93.4 L (94-97) % ABG Hematocrit (34.0-46.0) % ABG Potassium (3.4-4.5) mmol/L ABG Ionized Calcium (4.5-5.3) mg/dL ABG Glucose (75-99) mg/dL ABG Lactic Acid (0.5-1.6) mmol/L Hemoglobin (13.0-17.5) gm/dL Chloride (98-107) mmol/L Glucose (74-99) mg/dL POC Glucose (mg/dL) 154 H 152 H (70-110) mg/dL Calcium (8.4-10.2) mg/dL AST (17-59) U/L Total Protein (6.3-8.2) g/dL Albumin (3.5-5.0) g/dL Arterial Blood Potassium (3.4-4.5) mmol/L Arterial Blood Glucose (75-99) mg/dL Crossmatch 12/20/22 12/20/22 12/21/22 Range/Units 22:03 23:12 00:05 WBC 17.3 H (3.8-10.6) k/uL RBC 2.78 L (4.30-5.90) m/uL Hgb 8.4 L (13.0-17.5) gm/dL Hct 25.6 L (39.0-53.0) % RDW 15.7 H (11.5-15.5) % Neutrophils # 15.2 H (1.3-7.7) k/uL Lymphocytes # (1.0-4.8) k/uL PT (9.0-12.0) sec INR (<1.2) ABG pH (7.35-7.45) ABG pCO2 (35-45) mmHg ABG pO2 (83-108) mmHg ABG HCO3 (21-25) mmol/L ABG Total CO2 (19-24) mmol/L ABG O2 Saturation (94-97) % ABG Hematocrit (34.0-46.0) % ABG Potassium (3.4-4.5) mmol/L ABG Ionized Calcium (4.5-5.3) mg/dL ABG Glucose (75-99) mg/dL ABG Lactic Acid (0.5-1.6) mmol/L Hemoglobin (13.0-17.5) gm/dL Chloride (98-107) mmol/L Glucose (74-99) mg/dL POC Glucose (mg/dL) 144 H 133 H (70-110) mg/dL Calcium (8.4-10.2) mg/dL AST (17-59) U/L Total Protein (6.3-8.2) g/dL Albumin (3.5-5.0) g/dL Arterial Blood Potassium (3.4-4.5) mmol/L Arterial Blood Glucose (75-99) mg/dL Crossmatch 12/21/22 12/21/22 12/21/22 Range/Units 01:01 02:19 03:11 WBC (3.8-10.6) k/uL RBC (4.30-5.90) m/uL Hgb (13.0-17.5) gm/dL Hct (39.0-53.0) % RDW (11.5-15.5) % Neutrophils # (1.3-7.7) k/uL Lymphocytes # (1.0-4.8) k/uL PT (9.0-12.0) sec INR (<1.2) ABG pH (7.35-7.45) ABG pCO2 (35-45) mmHg ABG pO2 (83-108) mmHg ABG HCO3 (21-25) mmol/L ABG Total CO2 (19-24) mmol/L ABG O2 Saturation (94-97) % ABG Hematocrit (34.0-46.0) % ABG Potassium (3.4-4.5) mmol/L ABG Ionized Calcium (4.5-5.3) mg/dL ABG Glucose (75-99) mg/dL ABG Lactic Acid (0.5-1.6) mmol/L Hemoglobin (13.0-17.5) gm/dL Chloride (98-107) mmol/L Glucose (74-99) mg/dL POC Glucose (mg/dL) 123 H 116 H 116 H (70-110) mg/dL Calcium (8.4-10.2) mg/dL AST (17-59) U/L Total Protein (6.3-8.2) g/dL Albumin (3.5-5.0) g/dL Arterial Blood Potassium (3.4-4.5) mmol/L Arterial Blood Glucose (75-99) mg/dL Crossmatch 12/21/22 12/21/22 12/21/22 Range/Units 04:03 04:04 04:04 WBC 13.5 H (3.8-10.6) k/uL RBC 2.78 L (4.30-5.90) m/uL Hgb 8.4 L (13.0-17.5) gm/dL Hct 25.5 L (39.0-53.0) % RDW 16.0 H (11.5-15.5) % Neutrophils # 11.8 H (1.3-7.7) k/uL Lymphocytes # 0.9 L (1.0-4.8) k/uL PT (9.0-12.0) sec INR (<1.2) ABG pH (7.35-7.45) ABG pCO2 (35-45) mmHg ABG pO2 (83-108) mmHg ABG HCO3 (21-25) mmol/L ABG Total CO2 (19-24) mmol/L ABG O2 Saturation (94-97) % ABG Hematocrit (34.0-46.0) % ABG Potassium (3.4-4.5) mmol/L ABG Ionized Calcium (4.5-5.3) mg/dL ABG Glucose (75-99) mg/dL ABG Lactic Acid (0.5-1.6) mmol/L Hemoglobin (13.0-17.5) gm/dL Chloride 109 H (98-107) mmol/L Glucose 105 H (74-99) mg/dL POC Glucose (mg/dL) 116 H (70-110) mg/dL Calcium 7.4 L (8.4-10.2) mg/dL AST 71 H (17-59) U/L Total Protein 4.5 L (6.3-8.2) g/dL Albumin 2.7 L (3.5-5.0) g/dL Arterial Blood Potassium (3.4-4.5) mmol/L Arterial Blood Glucose (75-99) mg/dL Crossmatch 12/21/22 12/21/22 12/21/22 Range/Units 04:53 06:20 07:01 WBC (3.8-10.6) k/uL RBC (4.30-5.90) m/uL Hgb (13.0-17.5) gm/dL Hct (39.0-53.0) % RDW (11.5-15.5) % Neutrophils # (1.3-7.7) k/uL Lymphocytes # (1.0-4.8) k/uL PT (9.0-12.0) sec INR (<1.2) ABG pH (7.35-7.45) ABG pCO2 (35-45) mmHg ABG pO2 (83-108) mmHg ABG HCO3 (21-25) mmol/L ABG Total CO2 (19-24) mmol/L ABG O2 Saturation (94-97) % ABG Hematocrit (34.0-46.0) % ABG Potassium (3.4-4.5) mmol/L ABG Ionized Calcium (4.5-5.3) mg/dL ABG Glucose (75-99) mg/dL ABG Lactic Acid (0.5-1.6) mmol/L Hemoglobin (13.0-17.5) gm/dL Chloride (98-107) mmol/L Glucose (74-99) mg/dL POC Glucose (mg/dL) 118 H 133 H 140 H (70-110) mg/dL Calcium (8.4-10.2) mg/dL AST (17-59) U/L Total Protein (6.3-8.2) g/dL Albumin (3.5-5.0) g/dL Arterial Blood Potassium (3.4-4.5) mmol/L Arterial Blood Glucose (75-99) mg/dL Crossmatch
[2022-12-21] MEDS: IPRATROPIUM-ALBUTEROL 3 ML NEB INHALATION SCH ×4 (07:52→21:01)
[2022-12-21 08:08] LABS: Glucose,Whole Blood 185 mg/dL (70-110)
--- NOTE | 2022-12-21 08:21 | XR ---
EXAMINATION TYPE: XR chest 1V portable DATE OF EXAM: 12/21/2022 6:02 AM COMPARISON: Chest radiographs from 12/20/2022 TECHNIQUE: XR chest 1V portable Frontal view of the chest. CLINICAL INDICATION:Male, 77 years old with history of dyspnea; FINDINGS: Lungs/Pleura: There is no evidence of pleural effusion, focal consolidation, or pneumothorax. Pulmonary vascularity: Unremarkable. Heart/mediastinum: Cardiomediastinal silhouette is enlarged and stable. Postoperative changes are pr esent in the mediastinum. Left atrial appendage occlusion device is present. Musculoskeletal: No acute osseous pathology. Midline sternotomy wires are noted. Other findings: None Lines/Tubes: There is a Deering-Agus catheter with tip projecting over the spine. Left thoracotomy tube is present without evidence of pneumothorax. Drainage tubes with tips projecting over the mediastinum. IMPRESSION: Stable postoperative appearance of the lungs.
[2022-12-21] MEDS: HEPARIN SODIUM,PORCINE 5,000 UNIT/ML 1 ML VIAL SQ SCH ×2 (08:23→16:20)
[2022-12-21] MEDS: CLOPIDOGREL 75 MG TAB PO SCH (08:23)
[2022-12-21] MEDS: MULTIVITAMINS, THERA 1 EACH TAB PO SCH (08:23)
[2022-12-21] MEDS: CHOLECALCIFEROL 25 MCG (1000 IU) TABLET PO SCH (08:23)
[2022-12-21] MEDS: ASPIRIN 325 MG TAB PO SCH (08:23)
[2022-12-21] MEDS: ATORVASTATIN 40 MG TAB PO SCH (08:23)
[2022-12-21] MEDS: DIGOXIN 250 MCG TAB PO SCH (08:24)
[2022-12-21] MEDS: MILRINONE-D5W PMX 20 MG in DEXTROSE/WATER 1 100ML.BAG IV SCH (08:36)
[2022-12-21] MEDS ORDERED: bisacodyL 10 MG SUPP RECTAL PRN (09:00)
[2022-12-21] MEDS ORDERED: MAGNESIUM HYDROXIDE 2,400 MG/30 ML CUP PO PRN (09:00)
[2022-12-21] MEDS ORDERED: METOPROLOL TARTRATE 12.5 MG TAB PO SCH (09:00)
[2022-12-21] MEDS ORDERED: PANTOPRAZOLE 40 MG/10 ML VIAL IVP SCH (09:00)
[2022-12-21 09:30] LABS: Glucose,Whole Blood 208 mg/dL (70-110)
[2022-12-21 11:01] LABS: Glucose,Whole Blood 156 mg/dL (70-110)
[2022-12-21 11:41] VITALS: BMI 30.8
[2022-12-21 12:01] LABS: Glucose,Whole Blood 141 mg/dL (70-110)
[2022-12-21 13:10] LABS: Glucose,Whole Blood 137 mg/dL (70-110)
[2022-12-21] MEDS: INSULIN REGULAR 100 UNIT in SODIUM CHLORIDE 0.9% 100 ML IV SCH (14:10)
[2022-12-21 14:15] LABS: Glucose,Whole Blood 133 mg/dL (70-110)
[2022-12-21 15:40] LABS: Glucose,Whole Blood 139 mg/dL (70-110)
--- NOTE | 2022-12-21 15:41 | P.PN ---
Subjective Progress Note Date: 12/21/22 This is a 77-year-old male who was recently admitted with toxic respiratory failure secondary to acute diastolic congestive heart failure being closely monitored. Patient was in the ICU currently on cardiac stepdown unit with multiple medical consultations including cardiology, pulmonary, wound care as well as CT surgery for evaluation is following. Chest x-ray today shows no acute cardiopulmonary process or disease and no evidence of acute heart failure. Patient underwent cardiac catheterization yesterday found to have triple-vessel coronary artery disease and being evaluated by cardiothoracic surgery and undergoing workup for possible surgery in the near future. Patient has been weaned off oxygen currently maintaining oxygen saturations above 90% on room air and denies any significant shortness of breath. Patient with significant weakness recommend physical therapy evaluation daily. Patient is afebrile with no reports of chest pain or palpitations. Patient tolerating diet with no r eported nausea or vomiting noted. Discussed with patient and family about possible rehab inpatient per case management refused rehab or home care. We'll discuss further after cardiothoracic evaluation for possible surgical intervention. 12/15/2022 Patient is seen and evaluated in follow-up with cardiology, pulmonary, cardiothoracic following undergoing extensive workup to initiate possible aroldo gical intervention with CABG as patient was found to have triple-vessel disease. Patient to undergo SANJEEV and report currently pending. Patient with significant weakness would recommend physical therapy evaluation and working with daily and increased activity as tolerated. Patient reports some improvement in his shortness of breath although continues to be generally weak. Patient reports unsure of what is currently going on. Awaiting on further testing and will follow-up with CT surgery. Patient is currently afebrile with no reports of chest pain or palpitations. Patient is tolerating diet and will continue with Accu-Cheks before meals and at bedtime along with current insulin regimen. Prognosis remains guarded. 12/16/2022 Patient is seen and evaluated in follow-up today undergoing thorough workup with CT surgery for possible CABG with valve replacement. Multiple medical consult ations including pulmonary and cardiology following maintained on IV heparin and will continue. Patient underwent SANJEEV which showed moderate aortic stenosis with some mitral regurgitation and LV systolic function is normal. Patient has been up more frequently today and encouraged to increase activity as tolerated with continued PT/OT therapy daily. Patient continuing to undergo workup for possib le surgical intervention and will continue. Patient currently on room air denies worsening shortness of breath. Encouraged continued incentive spirometer use at least 10 times every hour while awake. Patient is afebrile denies chest pain or shortness of breath. Patient tolerating diet with no reported nausea or vomiting. 12/17/2022 Patient is seen and evaluated today currently sitting up at the side of the bed with multiple family members present. Patient is undergoing further workup and maintained on IV heparin with cardiology and cardiothoracic surgery following. Plans are for CABG with valve replacement possibly early next week. Patient has been encouraged to increase activity as tolerated and continues with some left hip and pelvic pain and ordered x-rays. Patient does have a wound on the left buttock that is being controlled by wound care and continued wound care with offloading and OptiFoam. Patient has been increasing his activity and reports has been up and walking and walked up and down the [place] today. Family members with questions and concerns that were answered to the best of our ability. Patient is afebrile with no reported chest pain or worsening shortness of breath. Patient has been encouraged to continue using incentive spirometer at least 10 times every hour while awake. Patient is tolerating diet with no reported nausea or vomiting. 12/20/2022 Patient is scheduled to undergo CABG with valve replacement currently in the OR awaiting surgical report and patient will be going to room 262 in the ICU. Patient afebrile and vitals within normal limits and will await surgical report. 12/21/2022 Patient is seen and evaluated in follow-up this morning in the ICU currently sitting up in the chair and has just worked with physical therapy along with nursing staff getting up. Patient continues with multiple chest tubes, [place]- Agus catheter, along with the urinary catheter and heart hugger noted. Patient's chest x-ray today shows stable postoperative appearance of the lungs with no evidence of pleural effusion focal consolidation or pneumothorax. Patient is currently maintained on insulin drip for tight glycemic control and is being started on diet. Patient reports extreme discomfort with minimal movement, fatigue, and tender chest with difficulty with inspiration. Incentive spirometer at the bedside and patient will need encouragement on continuing to use at least 10 times every hour. Patient is requiring 6 L high flow oxygen and will wean as tolerated. Review of systems: Constitutional: No reports of fatigue, fever, or chills Cardiovascular: No reports of chest pain or palpitations Respiratory: No reports of worsening shortness of breath or cough GI: No reports of nausea, no reports of vomiting, no diarrhea : No reports of dysuria or retention Neurovascular: reports of generalized weakness, reports left hip and buttock pain All medications have been reviewed PHYSICAL EXAMINATION: GENERAL: The patient is alert and oriented x3, Well developed, well nourished. Ill-appearing, elderly appearing HEENT: Pupils are round and equally reacting to light. EOMI. no scleral icterus. No conjunctival pallor. Normocephalic, atraumatic. No pharyngeal erythema. No thyromegaly. CARDIOVASCULAR: S1 and S2 muffled PULMONARY: diminished breath sounds bilaterally with some scattered rhonchi noted. ABDOMEN: soft. Nontender on exam. non-distended, normoactive bowel sounds. No palpable organomegaly. MUSCULOSKELETAL: No joint swelling or deformity. EXTREMITIES: No cyanosis, clubbing, or pedal edema. Left hip wound currently dressed with Optefoam with noted bruising as patient recently fell NEUROLOGICAL: Gross neurological examination did not reveal any focal deficits. Diffuse weakness SKIN: No rashes. Assessment: Triple-vessel coronary artery disease, status post three-vessel CABG Moderate aortic stenosis status post bioprosthetic aortic valve replacement Congestive heart failure with acute on chronic diastolic dysfunction with acute hypoxic respiratory failure, present on admission Hypertensive urgency and emergency with shock, likely cardiogenic requiring pressor support, improved Acute NSTEMI Left hip pain, Left hip contusion with hematoma noted, no fractures on x-ray imaging Atrial fibrillation with RVR, currently rate controlled with history of paroxysmal atrial fibrillation Coumadin coagulopathy Hyperlipidemia Diabetes mellitus, type II, uncontrolled with hyperglycemia Diabetic foot infection recently, resolved Deep tissue injury, left buttocks GI prophylaxis DVT prophylaxis Full code Plan: Multiple medical consultations following and cardiothoracic surgery is following and patient is postop day 1 CABG and bioprosthetic aortic valve replacement Currently continues with catheters and drains and chest tubes and possibly [place]- Agus catheter removal later today. Incentive spirometer at bedside and encourage the patient continue using at least 10 times every hour cardiac rehab ordered Patient is currently maintained on insulin drip and once tolerating more diet we'll transition to sliding scale and long-acting. Patient needs tight glycemic control to promote healing and minimize risks for infection Repeat labs and follow-up chest x-ray ordered Given patient's significant comorbidities, overall prognosis is guarded at this time We will continue to follow with cardiothoracic surgery. The impression and plan of care has been dictated by Deyanira Andre, nurse practitioner as directed. Dr. Scott MD I have performed a history and examination and MDM of this patient, discussed the same with the dictator, and agree with the dictator's assessment and plan as written ,documented as a scribe. Based on total visit time, I have performed more than 50% of the visit. Any additional findings or plans will be noted. Objective - Vital Signs Vital signs: Vital Signs Temp 98.2 F 12/21/22 08:00 Pulse 88 12/21/22 10:15 Resp 14 12/21/22 10:15 BP 92/50 12/21/22 10:15 Pulse Ox 95 12/21/22 10:15 FiO2 50 12/21/22 05:00 Intake & Output 12/20/22 12/21/22 12/21/22 18:59 06:59 18:59 Intake Total 1502.572 950.581 646.310 Output Total 2600 810 225 Balance -1097.428 140.581 421.310 Weight 94.6 kg Intake: IV 430 858 176 0.9 sodium chloride for 27 108 36 pressure bag ACETAMINOPHEN IV (For NPO 100 100 ) 1,000 mg In Empty Bag 1 bag @ 400 mls/hr IVPB Q6HR VIDAL Rx#:[id number] Lactated Ringers 1,000 ml 150 600 140 @ 20 mls/hr IV .Q24H VIDAL Rx#:[id number] ceFAZolin 2 gm In Sodium 100 50 Chloride 0.9% 50 ml @ 100 mls/hr IVPB ONCE ONE Rx# :[id number] Intake, IV Titration 35.572 92.581 230.310 Amount Amiodarone 450 mg In 49.8 Dextrose 5% in Water 250 ml @ 0.5 MG/MIN 16.667 mls/hr IV .Q15H PRN Rx#: [id number] Clevidipine Butyrate 25 8.000 mg In Empty Bag 1 bag @ 1 MG/HR 2 mls/hr IV .Q24H VIDAL Rx#:[id number] Insulin Regular 100 unit 2.222 45.451 15.453 In Sodium Chloride 0.9% 100 ml @ Per Protocol IV .Q0M VIDAL Rx#:[id number] Milrinone-D5w Pmx 20 mg 36.567 92.557 In Dextrose/Water 1 100ml .bag @ 0.2 MCG/KG/MIN 5. 07 mls/hr IV .[id number] VIDAL Rx#:[id number] Nitroglycerin-D5w Pmx 50 22.5 mg In Dextrose/Water 1 250ml.bag @ 5 MCG/MIN 1.5 mls/hr IV .Q24H VIDAL Rx#: [id number] ceFAZolin 2 gm In Sodium 50 Chloride 0.9% 50 ml @ 100 mls/hr IVPB Q8HR VIDAL Rx# :[id number] propofoL 1,000 mg In 25.35 10.563 Empty Bag 1 bag @ Titrate IV .Q0M VIDAL Rx#: [id number] Oral 240 Blood Product 1037 Ffp 24 Pher Acda Unit 213 [id number] Ffp 24 Pher Acda Cnt2 224 Unit [id number] Platelet Pheresis Pas 290 Psoralen Unit [id number] Rc As-1 Unit 310 [id number] Output: Chest Tube Drainage 240 450 130 Chest Tube Left 80 170 60 Chest Tube Mediastinal 160 280 70 Gastric Drainage 50 Urine 810 360 95 Estimated Blood Loss 1500 Other: Voiding Method Indwelling Catheter Indwelling Catheter ABP, PAP, CO, CI - Last Documented Arterial Blood Pressure 86/42 Pulmonary Artery Pressure 27/19 Cardiac Output 5.6 Cardiac Index 2.8 - Labs CBC & Chem 7: 12/21/22 04:04 12/21/22 04:04 Labs: Abnormal Lab Results - Last 24 Hours (Table) 12/19/22 12/20/22 12/20/22 Range/Units 05:55 08:43 10:21 WBC (3.8-10.6) k/uL RBC (4.30-5.90) m/uL Hgb (13.0-17.5) gm/dL Hct (39.0-53.0) % RDW (11.5-15.5) % Neutrophils # (1.3-7.7) k/uL Lymphocytes # (1.0-4.8) k/uL PT (9.0-12.0) sec INR (<1.2) ABG pH 7.47 H (7.35-7.45) ABG pCO2 (35-45) mmHg ABG pO2 >420 H 214 H (83-108) mmHg ABG HCO3 26 H 27 H (21-25) mmol/L ABG Total CO2 27 H 28 H (19-24) mmol/L ABG O2 Saturation 99.8 H 99.5 H (94-97) % ABG Hematocrit 32 L 29 L (34.0-46.0) % ABG Potassium (3.4-4.5) mmol/L ABG Ionized Calcium (4.5-5.3) mg/dL ABG Glucose 161 H 126 H (75-99) mg/dL ABG Lactic Acid 1.8 H (0.5-1.6) mmol/L Hemoglobin 10.5 L 9.6 L (13.0-17.5) gm/dL Chloride (98-107) mmol/L Glucose (74-99) mg/dL POC Glucose (mg/dL) (70-110) mg/dL Calcium (8.4-10.2) mg/dL AST (17-59) U/L Total Protein (6.3-8.2) g/dL Albumin (3.5-5.0) g/dL Arterial Blood Potassium (3.4-4.5) mmol/L Arterial Blood Glucose 161 H 126 H (75-99) mg/dL Crossmatch See Detail 12/20/22 12/20/22 12/20/22 Range/Units 10:55 11:27 11:58 WBC (3.8-10.6) k/uL RBC (4.30-5.90) m/uL Hgb (13.0-17.5) gm/dL Hct (39.0-53.0) % RDW (11.5-15.5) % Neutrophils # (1.3-7.7) k/uL Lymphocytes # (1.0-4.8) k/uL PT (9.0-12.0) sec INR (<1.2) ABG pH (7.35-7.45) ABG pCO2 (35-45) mmHg ABG pO2 399 H 341 H 305 H (83-108) mmHg ABG HCO3 27 H 27 H 27 H (21-25) mmol/L ABG Total CO2 28 H 28 H 28 H (19-24) mmol/L ABG O2 Saturation 99.8 H 99.8 H 99.9 H (94-97) % ABG Hematocrit 22 L 21 L 22 L (34.0-46.0) % ABG Potassium 5.0 H 5.1 H 4.6 H (3.4-4.5) mmol/L ABG Ionized Calcium 4.2 L 4.2 L 4.3 L (4.5-5.3) mg/dL ABG Glucose 115 H 158 H 165 H (75-99) mg/dL ABG Lactic Acid 1.7 H 1.7 H (0.5-1.6) mmol/L Hemoglobin 7.0 L* 7.0 L* 7.1 L (13.0-17.5) gm/dL Chloride (98-107) mmol/L Glucose (74-99) mg/dL POC Glucose (mg/dL) (70-110) mg/dL Calcium (8.4-10.2) mg/dL AST (17-59) U/L Total Protein (6.3-8.2) g/dL Albumin (3.5-5.0) g/dL Arterial Blood Potassium 5.0 H 5.1 H 4.6 H (3.4-4.5) mmol/L Arterial Blood Glucose 115 H 158 H 165 H (75-99) mg/dL Crossmatch 12/20/22 12/20/22 12/20/22 Range/Units 12:27 13:37 16:11 WBC (3.8-10.6) k/uL RBC (4.30-5.90) m/uL Hgb (13.0-17.5) gm/dL Hct (39.0-53.0) % RDW (11.5-15.5) % Neutrophils # (1.3-7.7) k/uL Lymphocytes # (1.0-4.8) k/uL PT (9.0-12.0) sec INR (<1.2) ABG pH (7.35-7.45) ABG pCO2 47 H (35-45) mmHg ABG pO2 294 H >420 H (83-108) mmHg ABG HCO3 27 H 26 H (21-25) mmol/L ABG Total CO2 28 H 27 H (19-24) mmol/L ABG O2 Saturation 99.6 H 99.9 H (94-97) % ABG Hematocrit 23 L 21 L (34.0-46.0) % ABG Potassium 4.9 H (3.4-4.5) mmol/L ABG Ionized Calcium 4.4 L 4.3 L (4.5-5.3) mg/dL ABG Glucose 146 H 113 H (75-99) mg/dL ABG Lactic Acid 1.7 H 2.6 H* (0.5-1.6) mmol/L Hemoglobin 7.4 L 6.9 L* (13.0-17.5) gm/dL Chloride (98-107) mmol/L Glucose (74-99) mg/dL POC Glucose (mg/dL) 131 H (70-110) mg/dL Calcium (8.4-10.2) mg/dL AST (17-59) U/L Total Protein (6.3-8.2) g/dL Albumin (3.5-5.0) g/dL Arterial Blood Potassium 4.9 H (3.4-4.5) mmol/L Arterial Blood Glucose 146 H 113 H (75-99) mg/dL Crossmatch 12/20/22 12/20/22 12/20/22 Range/Units 16:12 16:12 16:12 WBC 17.3 H (3.8-10.6) k/uL RBC 2.76 L (4.30-5.90) m/uL Hgb 8.2 L D (13.0-17.5) gm/dL Hct 25.4 L (39.0-53.0) % RDW 15.8 H (11.5-15.5) % Neutrophils # 14.9 H (1.3-7.7) k/uL Lymphocytes # (1.0-4.8) k/uL PT 14.4 H (9.0-12.0) sec INR 1.4 H (<1.2) ABG pH (7.35-7.45) ABG pCO2 (35-45) mmHg ABG pO2 (83-108) mmHg ABG HCO3 (21-25) mmol/L ABG Total CO2 (19-24) mmol/L ABG O2 Saturation (94-97) % ABG Hematocrit (34.0-46.0) % ABG Potassium (3.4-4.5) mmol/L ABG Ionized Calcium (4.5-5.3) mg/dL ABG Glucose (75-99) mg/dL ABG Lactic Acid (0.5-1.6) mmol/L Hemoglobin (13.0-17.5) gm/dL Chloride 110 H (98-107) mmol/L Glucose 119 H (74-99) mg/dL POC Glucose (mg/dL) (70-110) mg/dL Calcium 7.2 L (8.4-10.2) mg/dL AST (17-59) U/L Total Protein 3.8 L (6.3-8.2) g/dL Albumin 2.2 L (3.5-5.0) g/dL Arterial Blood Potassium (3.4-4.5) mmol/L Arterial Blood Glucose (75-99) mg/dL Crossmatch 12/20/22 12/20/22 12/20/22 Range/Units 16:27 17:04 18:07 WBC (3.8-10.6) k/uL RBC (4.30-5.90) m/uL Hgb (13.0-17.5) gm/dL Hct (39.0-53.0) % RDW (11.5-15.5) % Neutrophils # (1.3-7.7) k/uL Lymphocytes # (1.0-4.8) k/uL PT (9.0-12.0) sec INR (<1.2) ABG pH (7.35-7.45) ABG pCO2 (35-45) mmHg ABG pO2 115 H (83-108) mmHg ABG HCO3 (21-25) mmol/L ABG Total CO2 25 H (19-24) mmol/L ABG O2 Saturation 98.2 H (94-97) % ABG Hematocrit (34.0-46.0) % ABG Potassium (3.4-4.5) mmol/L ABG Ionized Calcium (4.5-5.3) mg/dL ABG Glucose (75-99) mg/dL ABG Lactic Acid (0.5-1.6) mmol/L Hemoglobin (13.0-17.5) gm/dL Chloride (98-107) mmol/L Glucose (74-99) mg/dL POC Glucose (mg/dL) 189 H 202 H (70-110) mg/dL Calcium (8.4-10.2) mg/dL AST (17-59) U/L Total Protein (6.3-8.2) g/dL Albumin (3.5-5.0) g/dL Arterial Blood Potassium (3.4-4.5) mmol/L Arterial Blood Glucose (75-99) mg/dL Crossmatch 12/20/22 12/20/22 12/20/22 Range/Units 19:02 19:07 20:01 WBC 16.4 H (3.8-10.6) k/uL RBC 2.78 L (4.30-5.90) m/uL Hgb 8.7 L (13.0-17.5) gm/dL Hct 25.6 L (39.0-53.0) % RDW 15.9 H (11.5-15.5) % Neutrophils # 14.9 H (1.3-7.7) k/uL Lymphocytes # 0.6 L (1.0-4.8) k/uL PT (9.0-12.0) sec INR (<1.2) ABG pH (7.35-7.45) ABG pCO2 (35-45) mmHg ABG pO2 (83-108) mmHg ABG HCO3 (21-25) mmol/L ABG Total CO2 (19-24) mmol/L ABG O2 Saturation (94-97) % ABG Hematocrit (34.0-46.0) % ABG Potassium (3.4-4.5) mmol/L ABG Ionized Calcium (4.5-5.3) mg/dL ABG Glucose (75-99) mg/dL ABG Lactic Acid (0.5-1.6) mmol/L Hemoglobin (13.0-17.5) gm/dL Chloride (98-107) mmol/L Glucose (74-99) mg/dL POC Glucose (mg/dL) 184 H 169 H (70-110) mg/dL Calcium (8.4-10.2) mg/dL AST (17-59) U/L Total Protein (6.3-8.2) g/dL Albumin (3.5-5.0) g/dL Arterial Blood Potassium (3.4-4.5) mmol/L Arterial Blood Glucose (75-99) mg/dL Crossmatch 12/20/22 12/20/22 12/20/22 Range/Units 20:53 21:42 21:58 WBC (3.8-10.6) k/uL RBC (4.30-5.90) m/uL Hgb (13.0-17.5) gm/dL Hct (39.0-53.0) % RDW (11.5-15.5) % Neutrophils # (1.3-7.7) k/uL Lymphocytes # (1.0-4.8) k/uL PT (9.0-12.0) sec INR (<1.2) ABG pH (7.35-7.45) ABG pCO2 (35-45) mmHg ABG pO2 67 L (83-108) mmHg ABG HCO3 (21-25) mmol/L ABG Total CO2 26 H (19-24) mmol/L ABG O2 Saturation 93.4 L (94-97) % ABG Hematocrit (34.0-46.0) % ABG Potassium (3.4-4.5) mmol/L ABG Ionized Calcium (4.5-5.3) mg/dL ABG Glucose (75-99) mg/dL ABG Lactic Acid (0.5-1.6) mmol/L Hemoglobin (13.0-17.5) gm/dL Chloride (98-107) mmol/L Glucose (74-99) mg/dL POC Glucose (mg/dL) 154 H 152 H (70-110) mg/dL Calcium (8.4-10.2) mg/dL AST (17-59) U/L Total Protein (6.3-8.2) g/dL Albumin (3.5-5.0) g/dL Arterial Blood Potassium (3.4-4.5) mmol/L Arterial Blood Glucose (75-99) mg/dL Crossmatch 12/20/22 12/20/22 12/21/22 Range/Units 22:03 23:12 00:05 WBC 17.3 H (3.8-10.6) k/uL RBC 2.78 L (4.30-5.90) m/uL Hgb 8.4 L (13.0-17.5) gm/dL Hct 25.6 L (39.0-53.0) % RDW 15.7 H (11.5-15.5) % Neutrophils # 15.2 H (1.3-7.7) k/uL Lymphocytes # (1.0-4.8) k/uL PT (9.0-12.0) sec INR (<1.2) ABG pH (7.35-7.45) ABG pCO2 (35-45) mmHg ABG pO2 (83-108) mmHg ABG HCO3 (21-25) mmol/L ABG Total CO2 (19-24) mmol/L ABG O2 Saturation (94-97) % ABG Hematocrit (34.0-46.0) % ABG Potassium (3.4-4.5) mmol/L ABG Ionized Calcium (4.5-5.3) mg/dL ABG Glucose (75-99) mg/dL ABG Lactic Acid (0.5-1.6) mmol/L Hemoglobin (13.0-17.5) gm/dL Chloride (98-107) mmol/L Glucose (74-99) mg/dL POC Glucose (mg/dL) 144 H 133 H (70-110) mg/dL Calcium (8.4-10.2) mg/dL AST (17-59) U/L Total Protein (6.3-8.2) g/dL Albumin (3.5-5.0) g/dL Arterial Blood Potassium (3.4-4.5) mmol/L Arterial Blood Glucose (75-99) mg/dL Crossmatch 12/21/22 12/21/22 12/21/22 Range/Units 01:01 02:19 03:11 WBC (3.8-10.6) k/uL RBC (4.30-5.90) m/uL Hgb (13.0-17.5) gm/dL Hct (39.0-53.0) % RDW (11.5-15.5) % Neutrophils # (1.3-7.7) k/uL Lymphocytes # (1.0-4.8) k/uL PT (9.0-12.0) sec INR (<1.2) ABG pH (7.35-7.45) ABG pCO2 (35-45) mmHg ABG pO2 (83-108) mmHg ABG HCO3 (21-25) mmol/L ABG Total CO2 (19-24) mmol/L ABG O2 Saturation (94-97) % ABG Hematocrit (34.0-46.0) % ABG Potassium (3.4-4.5) mmol/L ABG Ionized Calcium (4.5-5.3) mg/dL ABG Glucose (75-99) mg/dL ABG Lactic Acid (0.5-1.6) mmol/L Hemoglobin (13.0-17.5) gm/dL Chloride (98-107) mmol/L Glucose (74-99) mg/dL POC Glucose (mg/dL) 123 H 116 H 116 H (70-110) mg/dL Calcium (8.4-10.2) mg/dL AST (17-59) U/L Total Protein (6.3-8.2) g/dL Albumin (3.5-5.0) g/dL Arterial Blood Potassium (3.4-4.5) mmol/L Arterial Blood Glucose (75-99) mg/dL Crossmatch 12/21/22 12/21/22 12/21/22 Range/Units 04:03 04:04 04:04 WBC 13.5 H (3.8-10.6) k/uL RBC 2.78 L (4.30-5.90) m/uL Hgb 8.4 L (13.0-17.5) gm/dL Hct 25.5 L (39.0-53.0) % RDW 16.0 H (11.5-15.5) % Neutrophils # 11.8 H (1.3-7.7) k/uL Lymphocytes # 0.9 L (1.0-4.8) k/uL PT (9.0-12.0) sec INR (<1.2) ABG pH (7.35-7.45) ABG pCO2 (35-45) mmHg ABG pO2 (83-108) mmHg ABG HCO3 (21-25) mmol/L ABG Total CO2 (19-24) mmol/L ABG O2 Saturation (94-97) % ABG Hematocrit (34.0-46.0) % ABG Potassium (3.4-4.5) mmol/L ABG Ionized Calcium (4.5-5.3) mg/dL ABG Glucose (75-99) mg/dL ABG Lactic Acid (0.5-1.6) mmol/L Hemoglobin (13.0-17.5) gm/dL Chloride 109 H (98-107) mmol/L Glucose 105 H (74-99) mg/dL POC Glucose (mg/dL) 116 H (70-110) mg/dL Calcium 7.4 L (8.4-10.2) mg/dL AST 71 H (17-59) U/L Total Protein 4.5 L (6.3-8.2) g/dL Albumin 2.7 L (3.5-5.0) g/dL Arterial Blood Potassium (3.4-4.5) mmol/L Arterial Blood Glucose (75-99) mg/dL Crossmatch 12/21/22 12/21/22 12/21/22 Range/Units 04:53 06:20 07:01 WBC (3.8-10.6) k/uL RBC (4.30-5.90) m/uL Hgb (13.0-17.5) gm/dL Hct (39.0-53.0) % RDW (11.5-15.5) % Neutrophils # (1.3-7.7) k/uL Lymphocytes # (1.0-4.8) k/uL PT (9.0-12.0) sec INR (<1.2) ABG pH (7.35-7.45) ABG pCO2 (35-45) mmHg ABG pO2 (83-108) mmHg ABG HCO3 (21-25) mmol/L ABG Total CO2 (19-24) mmol/L ABG O2 Saturation (94-97) % ABG Hematocrit (34.0-46.0) % ABG Potassium (3.4-4.5) mmol/L ABG Ionized Calcium (4.5-5.3) mg/dL ABG Glucose (75-99) mg/dL ABG Lactic Acid (0.5-1.6) mmol/L Hemoglobin (13.0-17.5) gm/dL Chloride (98-107) mmol/L Glucose (74-99) mg/dL POC Glucose (mg/dL) 118 H 133 H 140 H (70-110) mg/dL Calcium (8.4-10.2) mg/dL AST (17-59) U/L Total Protein (6.3-8.2) g/dL Albumin (3.5-5.0) g/dL Arterial Blood Potassium (3.4-4.5) mmol/L Arterial Blood Glucose (75-99) mg/dL Crossmatch 12/21/22 12/21/22 Range/Units 08:06 09:28 WBC (3.8-10.6) k/uL RBC (4.30-5.90) m/uL Hgb (13.0-17.5) gm/dL Hct (39.0-53.0) % RDW (11.5-15.5) % Neutrophils # (1.3-7.7) k/uL Lymphocytes # (1.0-4.8) k/uL PT (9.0-12.0) sec INR (<1.2) ABG pH (7.35-7.45) ABG pCO2 (35-45) mmHg ABG pO2 (83-108) mmHg ABG HCO3 (21-25) mmol/L ABG Total CO2 (19-24) mmol/L ABG O2 Saturation (94-97) % ABG Hematocrit (34.0-46.0) % ABG Potassium (3.4-4.5) mmol/L ABG Ionized Calcium (4.5-5.3) mg/dL ABG Glucose (75-99) mg/dL ABG Lactic Acid (0.5-1.6) mmol/L Hemoglobin (13.0-17.5) gm/dL Chloride (98-107) mmol/L Glucose (74-99) mg/dL POC Glucose (mg/dL) 185 H 208 H (70-110) mg/dL Calcium (8.4-10.2) mg/dL AST (17-59) U/L Total Protein (6.3-8.2) g/dL Albumin (3.5-5.0) g/dL Arterial Blood Potassium (3.4-4.5) mmol/L Arterial Blood Glucose (75-99) mg/dL Crossmatch
[2022-12-21] MEDS ORDERED: HYDROcodone/APAP 7.5-325MG 1 EACH TAB PO PRN (15:51)
[2022-12-21 17:10] LABS: Glucose,Whole Blood 128 mg/dL (70-110)
[2022-12-21] MEDS: LACTATED RINGERS 1,000 ML IV SCH (17:20)
[2022-12-21 18:33] LABS: Glucose,Whole Blood 125 mg/dL (70-110)
[2022-12-21 20:08] LABS: Glucose,Whole Blood 123 mg/dL (70-110)
[2022-12-21] MEDS: SENNOSIDES-DOCUSATE SODIUM 1 EACH TAB PO SCH (20:27)
[2022-12-21] MEDS: METOPROLOL TARTRATE 25 MG TAB PO SCH (20:27)
--- NOTE | 2022-12-21 20:53 | OP ---
OPERATIVE REPORT DATE OF SERVICE : 12/20/2022 PREOPERATIVE DIAGNOSES: 1. Coronary artery disease. 2. Aortic valve stenosis. POSTOPERATIVE DIAGNOSES: 1. Coronary artery disease. 2. Aortic valve stenosis. PROCEDURES PERFORMED: 1. Coronary artery bypass grafting x3 vessels (free left internal mammary artery to left anterior descending artery, saphenous vein graft to obtuse marginal artery, saphenous vein graft to posterior descending artery). 2. Endoscopic harvest of right lower extremity. 3. Ligation of left atrial appendage using 35 mm AtriClip. 4. Transesophageal echocardiogram. 5. Epiaortic ultrasound. 6. Aortic valve replacement using 23 mm Medtronic Avalus bioprosthetic valve. PROGRAMMING EQUIPMENT OPERATOR: Damaso Mulligan PA-C. ANESTHESIA: General. SPECIMEN: Aortic valve leaflets. INDICATIONS: The patient is a 77-year-old male, who presented to the hospital with shortness of breath. He was diagnosed with a non ST elevation myocardial infarction. He did progress to respiratory failure requiring intubation. He was treated medically and was eventually extubated. Workup including cardiac catheterization revealed multivessel coronary artery disease as well as moderate aortic stenosis and [id number] mitral insufficiency. Given these findings, a coronary artery bypass along with aortic valve replacement were recommended. The risks, benefits, alternatives of these procedures were discussed with the patient. All his questions were answered. Consent was obtained. FINDINGS: The left internal mammary artery was densely adhesed to the chest wall and was used as a free graft. The saphenous vein was a good conduit. The aortic valve was trileaflet in nature and heavily calcified. There was mild to moderate functional mitral regurgitation. PROCEDURE IN DETAIL: The patient was taken to the operating room and placed supine on the operating table. After the induction of general anesthesia, he was prepped and draped in the usual sterile fashion. Preoperative transesophageal echocardiogram confirmed preserved ejection fraction with a trileaflet aortic valve, which was heavily calcified. Gradients were measured and consistent with moderate aortic stenosis. The mitral valve was also visualized. There were no structural defects. There was mild to moderate functional, central mitral regurgitation. We did drive the patient's pressure up to 170 systolic with medications and again evaluated the mitral valve without change and severity of his regurgitation. A median sternotomy was performed. The left internal mammary artery was identified and had a weakly palpable pulse. Dissection was carried out and the vessel was densely adhesed to the chest wall. Care was taken to clip all branches. Intravenous heparin was administered and the vessel was transected distally revealing a trickle of flow. Papaverine was infiltrated around the vessel. Simultaneously, the saphenous vein was harvested from the right lower extremity using endoscopic technique. All branches were tied. A pericardial cradle was created. The ascending aorta was palpated. There were several areas of palpable calcific plaque noted, mainly near the takeoff of the innominate artery and within the arch. Epiaortic ultrasound was then performed on the ascending aorta. This study confirmed areas of calcific plaque scattered throughout the ascending aorta, but mainly concentrated distally. An arterial cannula was placed in the distal ascending aorta in an area free of calcific disease as directed by both palpation and ultrasound. Venous cannula was placed through the right atrial appendage directed into the IVC. Both antegrade and retrograde catheters were placed as well. The patient was then placed on cardiopulmonary bypass with good decompression of the heart. The aortic cross-clamp was applied in the area free of calcific disease very carefully again using ultrasound guidance. The LV sump was placed via the right superior pulmonary vein. Cold blood potassium cardioplegia was delivered in both antegrade and retrograde fashion to achieve arrest of the heart. Of note, cardioplegia was delivered every 15 minutes while the patient remained under cross-clamp. The left atrial appendage was identified. A 35 mm AtriClip was placed across its base to ensure ligation. Next, attention was turned to the inferior wall. The posterior descending artery was identified. A small arteriotomy was created. This vessel accepted a 1.5 mm probe. Using saphenous vein in a reverse fashion, an end-to-side anastomosis was created. This was performed using running 7-0 Prolene suture. The graft was hemostatic and had a great flow. Next, attention was turned to the lateral wall. The obtuse marginal artery was identified. A small arteriotomy was created. This vessel accepted a 1.5 mm probe. Using saphenous vein in a reverse fashion, an end- to-side anastomosis was created. This was performed using running 7-0 Prolene suture. The graft was hemostatic and had a great flow. Finally, attention was turned to the left anterior descending artery. Dissected free in its midportion. A small arteriotomy was created. This vessel accepted a 1.0 mm probe. Using the left internal mammary artery as a free graft, an end-to-side anastomosis was created. This was performed using running 8-0 Prolene suture. The graft was hemostatic and had great flow. Attention was then turned to the aortic valve replacement. An aortotomy was created in the proximal ascending aorta, and an area free of calcium, resulting in a standard hockey-stick incision. Upon initial inspection, the aortic valve was trileaflet in nature and heavily calcified. There were also areas of calcium throughout the ascending aorta, which looked like plaque or shelving. Both coronary ostia were also identified. Using combination of scissors and scalpel, the aortic valve leaflets were sharply excised. There was a lot of residual calcific disease noted around the anulus. This was all carefully debrided using a rongeur. The aortic root was copiously irrigated with cold saline solution. Using a sizing device, a 23 mm Medtronic Avalus bioprosthetic valve was chosen. Interrupted pledgeted sutures were placed circumferentially around the anulus. The sutures were passed through the sewing ring of the valve. The bioprosthetic valve was then carefully lowered into position, taking care to avoid the areas of calcific disease in the ascending aorta. The valve appeared to seat nicely. The sutures were then tied using core knots. The valve leaflets opened and closed without obstruction or impingement at the completion of this portion of the procedure. The aortotomy was then closed in 2 layers using a running 4-0 Prolene suture. Attention was then turned to the proximal anastomoses. These were both performed in an end-to-side fashion using running 6-0 Prolene suture. 1 L of warm blood was delivered in retrograde fashion. Both lidocaine and magnesium were administered as well. Standard de-airing maneuvers were performed. The aortic cross-clamp was removed. The vein grafts were de-aired in the standard fashion. Distal anastomoses were inspected and appeared to be hemostatic. Temporary atrial and ventricular pacing wires were placed and brought through the skin. The patient was then weaned off cardiopulmonary bypass. He was with addition of low-dose milrinone and Levophed. Followup transesophageal echocardiogram confirmed good left ventricular ejection fraction with good movement of all cortez. The bioprosthetic aortic valve was seated nicely without evidence of perivalvular leak. The leaflets all opened and closed without obstruction. There was no evidence of intracardiac air. Protamine was administered. There were no adverse reactions. The remaining cannulas were removed. The mediastinum was copiously irrigated with warm saline solution. Again, all surgical sites were inspected and appeared to be hemostatic. Soft tissues reapproximated over the ascending aorta as well as the majority of the heart. Chest tubes were placed in both the left pleural space and mediastinum. A Mansoor drain was placed and directed into the retrocardiac position. These were all secured to the skin using sutures. The sternum was then reapproximated using a primary cable system. The cables were placed in a figure-of- eight fashion. At the completion of closure, the sternum was well aligned. The remainder of the wound was closed in layers. Sterile dressing was applied. The patient appeared to tolerate the procedure well. There were no immediate complications. He returned to the ICU in critical, but stable condition. He did receive 1 unit of FFP and 10 units of cryoprecipitate in the operating room. MMODL / IJN: [id number] /
[2022-12-21 21:09] LABS: Glucose,Whole Blood 116 mg/dL (70-110)
[2022-12-21 22:02] LABS: Glucose,Whole Blood 119 mg/dL (70-110)
[2022-12-21] MEDS: HYDROcodone/APAP 10-325MG 1 EACH TAB PO PRN (22:50)
[2022-12-21 23:03] LABS: Glucose,Whole Blood 113 mg/dL (70-110)
[2022-12-22 00:06] LABS: Glucose,Whole Blood 145 mg/dL (70-110)
[2022-12-22] MEDS: HEPARIN SODIUM,PORCINE 5,000 UNIT/ML 1 ML VIAL SQ SCH ×3 (00:30→15:41)
[2022-12-22 01:07] LABS: Glucose,Whole Blood 155 mg/dL (70-110)
[2022-12-22 02:29] LABS: Glucose,Whole Blood 143 mg/dL (70-110)
[2022-12-22 03:12] LABS: Glucose,Whole Blood 124 mg/dL (70-110)
[2022-12-22 03:59] LABS: Glucose,Whole Blood 115 mg/dL (70-110)
[2022-12-22 04:10] LABS: Anisocytosis Slight; Basophils % (A) 0 %; Eosinophils % (A) 0 %; HCT 24.8 % (39.0-53.0); Hypochromasia Slight; Lymphocytes # (A) 1.3 k/uL (1.0-4.8); Lymphocytes % (A) 9 %; MCH 29.7 pg (25.0-35.0); MCHC 32.1 g/dL (31.0-37.0); MCV 92.3 fL (80.0-100.0); Mean Platelet Volume 9.9; Monocytes # (A) 1.1 k/uL (0-1.0); Monocytes % (A) 8 %; Neutrophils # (A) 10.6 k/uL (1.3-7.7); Neutrophils % (A) 79 %; Platelet Count 193 k/uL (150-450); RBC 2.68 m/uL (4.30-5.90); RDW 16.4 % (11.5-15.5); WBC 13.4 k/uL (3.8-10.6)
[2022-12-22 04:21] LABS: Ionized Calcium 4.6 mg/dL (4.5-5.3)
[2022-12-22 04:30] LABS: ALT 41 U/L (4-49); AST 99 U/L (17-59); African American GFR (CKD) 48 (>60 ml/min/1.73 sqM); Albumin 2.6 g/dL (3.5-5.0); Alkaline Phosphatase 71 U/L (38-126); Anion Gap 7 mmol/L; Blood Urea Nitrogen 25 mg/dL (9-20); Calcium 7.7 mg/dL (8.4-10.2); Carbon Dioxide 22 mmol/L (22-30); Chloride 104 mmol/L (98-107); Glucose 107 mg/dL (74-99); Non-African American GFR(CKD) 41 (>60 ml/min/1.73 sqM); Potassium 5.1 mmol/L (3.5-5.1); Sodium 133 mmol/L (137-145); Total Bilirubin 0.7 mg/dL (0.2-1.3); Total Protein 4.7 g/dL (6.3-8.2)
[2022-12-22] MEDS: HYDROcodone/APAP 10-325MG 1 EACH TAB PO PRN (04:47)
[2022-12-22 04:58] LABS: Glucose,Whole Blood 106 mg/dL (70-110)
[2022-12-22 06:17] LABS: Glucose,Whole Blood 190 mg/dL (70-110)
[2022-12-22] MEDS: MILRINONE-D5W PMX 20 MG in DEXTROSE/WATER 1 100ML.BAG IV SCH (06:27)
[2022-12-22 07:11] LABS: Glucose,Whole Blood 167 mg/dL (70-110)
[2022-12-22] MEDS ORDERED: ASCORBIC ACID 500 MG TAB PO SCH (07:30)
[2022-12-22] MEDS ORDERED: FERROUS SULFATE 325 MG TAB PO SCH (07:30)
[2022-12-22] MEDS ORDERED: PANTOPRAZOLE 40 MG TABLET PO SCH (07:30)
[2022-12-22] MEDS: IPRATROPIUM-ALBUTEROL 3 ML NEB INHALATION SCH ×3 (07:47→15:14)
[2022-12-22 08:03] LABS: Glucose,Whole Blood 155 mg/dL (70-110)
--- NOTE | 2022-12-22 08:18 | XR ---
EXAMINATION TYPE: XR chest 1V portable DATE OF EXAM: 12/22/2022 COMPARISON: 12/21/2022 HISTORY: SOB, Follow Up FINDINGS: Cunningham-Agus catheter has been removed. Right IJ sheath noted to be in place. Mediastinal drain as well as left-sided chest tube are unchanged in position. Sternotomy wires and left atrial clip identified. No change in bibasilar opacities. Stable appearance of the cardio-mediastinal structures at this time. IMPRESSION: 1. Stable portable chest. Clinical correlation and follow up until resolution is recommended.
--- NOTE | 2022-12-22 08:37 | P.PN ---
Subjective Progress Note Date: 12/22/22 Principal diagnosis: Coronary artery disease, NSTEMI this admission, acute pulmonary edema, acute hypoxic respiratory failure, atrial fibrillation with RVR on admission, supratherapeutic INR on admission, severe PAD, aortic valve stenosis. History of hypertension, hyperlipidemia, chronic atrial fibrillation on coumadin outpatient, diabetes mellitus type 2, history of healed diabetic foot infection, deep tissue injury to left buttocks POD #2 coronary artery bypass graft 3 with free left internal mammary artery to left anterior descending artery, reverse saphenous vein graft to the obtuse marginal artery, reverse saphenous vein graft to the posterior descending artery, endoscopic vein harvest of the right greater saphenous vein, ligation of the left atrial appendage with a 35 mm AtriClip, aortic valve replacement with a 23 mm Medtronic Avalus bioprosthetic valve, epi-aortic ultrasound and intraoperative transesophageal echocardiogram Intraoperative and postoperative acute blood loss anemia, expected given hemodilution and cardiopulmonary bypass pump The patient was seen and examined this morning sitting up in a recliner in the intensive care unit in no acute distress. Does complain of postoperative pain especially with coughing. Currently in atrial fibrillation with heart rate in the 80s. Currently on low dose IV Primacor, amiodarone. Right internal jugular Cordis, right brachial arterial line, mediastinal/left pleural chest tubes all remain. Patient is on 2 L high flow nasal cannula with oxygen saturation in the mid to high 90s, only able to achieve 750 mL on his incentive spirometry with poor effort at coughing and deep breathing. Per nursing patient is very weak getting in and out of bed. Objective - Vital Signs Vital signs: Vital Signs Temp 97.9 F 12/22/22 04:00 Pulse 93 12/22/22 07:00 Resp 0 L 12/22/22 07:00 BP 105/60 12/22/22 07:00 Pulse Ox 92 L 12/22/22 07:00 FiO2 50 12/21/22 05:00 Intake & Output 12/21/22 12/22/22 12/22/22 18:59 06:59 18:59 Intake Total 1608.829 363.114 26 Output Total 555 575 15 Balance 1053.829 -211.886 11 Weight 94.6 kg 95.2 kg Intake: IV 402 312 26 0.9 sodium chloride for 102 72 6 pressure bag Lactated Ringers 1,000 ml 300 240 20 @ 20 mls/hr IV .Q24H [facility] Rx#:[id number] Intake, IV Titration 606.829 51.114 Amount Amiodarone 450 mg In 380.727 Dextrose 5% in Water 250 ml @ 0.5 MG/MIN 16.667 mls/hr IV .Q15H [facility] Rx#: [id number] Insulin Regular 100 unit 40.004 51.114 In Sodium Chloride 0.9% 100 ml @ Per Protocol IV .Q0M [facility] Rx#:[id number] Milrinone-D5w Pmx 20 mg 113.598 In Dextrose/Water 1 100ml .bag @ 0.1 MCG/KG/MIN 2. 535 mls/hr IV .Q24H [facility] Rx#:[id number] Nitroglycerin-D5w Pmx 50 22.5 mg In Dextrose/Water 1 250ml.bag @ 5 MCG/MIN 1.5 mls/hr IV .Q24H [facility] Rx#: [id number] ceFAZolin 2 gm In Sodium 50 Chloride 0.9% 50 ml @ 100 mls/hr IVPB Q8HR [facility] Rx# :[id number] Oral 600 Output: Chest Tube Drainage 270 270 0 Chest Tube Left 130 140 0 Chest Tube Mediastinal 140 130 0 Urine 285 305 15 Other: Voiding Method Indwelling Catheter Indwelling Catheter ABP, PAP, CO, CI - Last Documented Arterial Blood Pressure 112/45 Pulmonary Artery Pressure 28/20 Cardiac Output 6 Cardiac Index 3 - Exam CONSTITUTIONAL: Appears somewhat comfortable, cooperative, no acute distress RESPIRATORY: Lungs sounds diminished bilaterally with faint crackles heard in t he bases. Respirations even, nonlabored. Currently on 2 L nasal cannula with oxygen saturation 97% after making patient cough. Able to achieve 750 mL on incentive spirometry. Strong cough. CARDIOVASCULAR: S1, S2 present. Irregular rate and rhythm, atrial fibrillation on telemetry. Sternum stable. Palpable peripheral pulses bilaterally. Generalized edema present. No calf pain or tenderness noted. Heart hugger, antiembolism stockings, SCDs present. GASTROINTESTINAL: Abdomen soft, nontender, nondistended. Active bowel sounds present 4 quadrants. Tolerating diet. Positive flatus GENITOURINARY: Gunderson present draining clear, yellow urine. Output overnight 20-30 mL per hour, 590 mL in last 24 hours INTEGUMENTARY: Skin is warm and dry with evidence of good perfusion. Anterior chest incision well approximated and covered with dry intact dressing. Right lower extremity EVH site well approximated without redness or drainage, some edema/hematoma noted at proximal site, expected. NEUROLOGIC: Cranial nerves II through XII intact MUSKULOSKELETAL: Able to move all extremities, strength equal bilaterally, generalized weakness present PSYCHIATRIC: Alert and oriented to person place and time, flat affect, intact judgment and insight INVASIVE LINES AND TUBES: Mediastinal/left pleural chest tubes present and connected to wall suction, no air leaks present. Mediastinal tube with 100 mL serosanguineous drainage overnight, 250 mL in the last 24 hours. Left pleural chest tube with 110 mL serosanguineous drainage overnight, 250 mL in the last 24 hours. A/V epicardial pacemaker wires present, connected to generator, VVI mode with backup rate 50 bpm. Right internal jugular cordis, right brachial arterial line present. Last CVP 8 - Allied health notes Allied health notes reviewed: nursing - Labs CBC & Chem 7: 12/22/22 03:59 12/22/22 03:59 Labs: Abnormal Lab Results - Last 24 Hours (Table) 12/21/22 12/21/22 12/21/22 Range/Units 08:06 09:28 10:59 WBC (3.8-10.6) k/uL RBC (4.30-5.90) m/uL Hgb (13.0-17.5) gm/dL Hct (39.0-53.0) % RDW (11.5-15.5) % Neutrophils # (1.3-7.7) k/uL Monocytes # (0-1.0) k/uL Sodium (137-145) mmol/L BUN (9-20) mg/dL Creatinine (0.66-1.25) mg/dL Glucose (74-99) mg/dL POC Glucose (mg/dL) 185 H 208 H 156 H (70-110) mg/dL Calcium (8.4-10.2) mg/dL AST (17-59) U/L Total Protein (6.3-8.2) g/dL Albumin (3.5-5.0) g/dL 12/21/22 12/21/22 12/21/22 Range/Units 11:58 13:09 14:13 WBC (3.8-10.6) k/uL RBC (4.30-5.90) m/uL Hgb (13.0-17.5) gm/dL Hct (39.0-53.0) % RDW (11.5-15.5) % Neutrophils # (1.3-7.7) k/uL Monocytes # (0-1.0) k/uL Sodium (137-145) mmol/L BUN (9-20) mg/dL Creatinine (0.66-1.25) mg/dL Glucose (74-99) mg/dL POC Glucose (mg/dL) 141 H 137 H 133 H (70-110) mg/dL Calcium (8.4-10.2) mg/dL AST (17-59) U/L Total Protein (6.3-8.2) g/dL Albumin (3.5-5.0) g/dL 12/21/22 12/21/22 12/21/22 Range/Units 15:39 17:09 18:31 WBC (3.8-10.6) k/uL RBC (4.30-5.90) m/uL Hgb (13.0-17.5) gm/dL Hct (39.0-53.0) % RDW (11.5-15.5) % Neutrophils # (1.3-7.7) k/uL Monocytes # (0-1.0) k/uL Sodium (137-145) mmol/L BUN (9-20) mg/dL Creatinine (0.66-1.25) mg/dL Glucose (74-99) mg/dL POC Glucose (mg/dL) 139 H 128 H 125 H (70-110) mg/dL Calcium (8.4-10.2) mg/dL AST (17-59) U/L Total Protein (6.3-8.2) g/dL Albumin (3.5-5.0) g/dL 12/21/22 12/21/22 12/21/22 Range/Units 20:07 21:07 22:01 WBC (3.8-10.6) k/uL RBC (4.30-5.90) m/uL Hgb (13.0-17.5) gm/dL Hct (39.0-53.0) % RDW (11.5-15.5) % Neutrophils # (1.3-7.7) k/uL Monocytes # (0-1.0) k/uL Sodium (137-145) mmol/L BUN (9-20) mg/dL Creatinine (0.66-1.25) mg/dL Glucose (74-99) mg/dL POC Glucose (mg/dL) 123 H 116 H 119 H (70-110) mg/dL Calcium (8.4-10.2) mg/dL AST (17-59) U/L Total Protein (6.3-8.2) g/dL Albumin (3.5-5.0) g/dL 12/21/22 12/22/22 12/22/22 Range/Units 23:01 00:05 01:04 WBC (3.8-10.6) k/uL RBC (4.30-5.90) m/uL Hgb (13.0-17.5) gm/dL Hct (39.0-53.0) % RDW (11.5-15.5) % Neutrophils # (1.3-7.7) k/uL Monocytes # (0-1.0) k/uL Sodium (137-145) mmol/L BUN (9-20) mg/dL Creatinine (0.66-1.25) mg/dL Glucose (74-99) mg/dL POC Glucose (mg/dL) 113 H 145 H 155 H (70-110) mg/dL Calcium (8.4-10.2) mg/dL AST (17-59) U/L Total Protein (6.3-8.2) g/dL Albumin (3.5-5.0) g/dL 12/22/22 12/22/22 12/22/22 Range/Units 02:17 03:10 03:58 WBC (3.8-10.6) k/uL RBC (4.30-5.90) m/uL Hgb (13.0-17.5) gm/dL Hct (39.0-53.0) % RDW (11.5-15.5) % Neutrophils # (1.3-7.7) k/uL Monocytes # (0-1.0) k/uL Sodium (137-145) mmol/L BUN (9-20) mg/dL Creatinine (0.66-1.25) mg/dL Glucose (74-99) mg/dL POC Glucose (mg/dL) 143 H 124 H 115 H (70-110) mg/dL Calcium (8.4-10.2) mg/dL AST (17-59) U/L Total Protein (6.3-8.2) g/dL Albumin (3.5-5.0) g/dL 12/22/22 12/22/22 12/22/22 Range/Units 03:59 03:59 06:16 WBC 13.4 H (3.8-10.6) k/uL RBC 2.68 L (4.30-5.90) m/uL Hgb 8.0 L (13.0-17.5) gm/dL Hct 24.8 L (39.0-53.0) % RDW 16.4 H (11.5-15.5) % Neutrophils # 10.6 H (1.3-7.7) k/uL Monocytes # 1.1 H (0-1.0) k/uL Sodium 133 L (137-145) mmol/L BUN 25 H (9-20) mg/dL Creatinine 1.60 H (0.66-1.25) mg/dL Glucose 107 H (74-99) mg/dL POC Glucose (mg/dL) 190 H (70-110) mg/dL Calcium 7.7 L (8.4-10.2) mg/dL AST 99 H (17-59) U/L Total Protein 4.7 L (6.3-8.2) g/dL Albumin 2.6 L (3.5-5.0) g/dL 12/22/22 Range/Units 07:10 WBC (3.8-10.6) k/uL RBC (4.30-5.90) m/uL Hgb (13.0-17.5) gm/dL Hct (39.0-53.0) % RDW (11.5-15.5) % Neutrophils # (1.3-7.7) k/uL Monocytes # (0-1.0) k/uL Sodium (137-145) mmol/L BUN (9-20) mg/dL Creatinine (0.66-1.25) mg/dL Glucose (74-99) mg/dL POC Glucose (mg/dL) 167 H (70-110) mg/dL Calcium (8.4-10.2) mg/dL AST (17-59) U/L Total Protein (6.3-8.2) g/dL Albumin (3.5-5.0) g/dL - Imaging and Cardiology Chest x-ray: image reviewed Assessment and Plan Assessment: Coronary artery disease, NSTEMI this admission, status post three-vessel CABG Moderate aortic stenosis, ROBBY 1-1.2 cm, mild AI, status post bioprosthetic aortic valve replacement Mild to moderate central mitral regurgitation Acute pulmonary edema, resolved Acute hypoxic respiratory failure, resolved, currently on room air Atrial fibrillation with RVR on admission, status post ligation of the left atrial appendage Acute shortness of breath, secondary to above Supratherapeutic INR on admission measured as 5.0 Dilated RV with suggestion of VSD with [id number] shunting on TTE, not seen on [id number] the completed 12/15/22 Severe PAD, unable to obtain left and right ABIs History of hypertension History hyperlipidemia, treated, cholesterol 178, LDL 121 Chronic atrial fibrillation on coumadin outpatient Diabetes mellitus type 2, uncontrolled hyperglycemia, hemoglobin A1c 9.9% History of healed diabetic foot infection Deep tissue injury to left buttocks Elevated transaminases, resolving Postoperative acute blood loss anemia, expected Plan: Continue to maximize medical therapy with aspirin, statin, Plavix, beta shant. Will increase beta shant therapy as tolerated. Will discontinue Primacor Discontinue IV amiodarone. No anticoagulation until all lines and tubes have been discontinued Wean oxygen as tolerated. Encourage incentive spirometry use 10 times every hour while awake. Bronchodilators per pulmonology Increase activity as tolerated, PT/OT/cardiac rehab following GI/DVT prophylaxis Will monitor daily labs and x-rays. Electrolyte replacement per protocol. Will give 1 dose IV albumin, no lasix today. Will give 1 dose lokelma Insulin management per internal medicine. Patient is diabetic with preoperative hemoglobin A1c 9.9%, needs tight blood sugar control with blood sugars less than 180 to prevent infection and promote healing Pain management with current medication regimen, changed to norco yesterday. No toradol due to increased creatinine Will discontinue mediastinal chest tubes, continue left pleural chest tube for another 24 hours, monitor output CContinue cordis, discontinue arterial line Continue Gunderson catheter for another 24 hours Strict accurate intake and output Daily weights More recommendations to follow
[2022-12-22] MEDS: DIGOXIN 250 MCG TAB PO SCH (08:41)
[2022-12-22] MEDS: ASPIRIN 325 MG TAB PO SCH (08:42)
[2022-12-22] MEDS: CLOPIDOGREL 75 MG TAB PO SCH (08:42)
[2022-12-22] MEDS: ATORVASTATIN 40 MG TAB PO SCH (08:42)
[2022-12-22] MEDS: CHOLECALCIFEROL 25 MCG (1000 IU) TABLET PO SCH (08:42)
[2022-12-22] MEDS: METOPROLOL TARTRATE 25 MG TAB PO SCH (08:42)
[2022-12-22] MEDS: MULTIVITAMINS, THERA 1 EACH TAB PO SCH (08:42)
[2022-12-22] MEDS ORDERED: SODIUM ZIRCONIUM CYCLOSILICATE 10 GM PACKET PO ONE (08:55)
[2022-12-22] MEDS ORDERED: ALBUMIN HUMAN 5% 250 ML in EMPTY BAG 1 BAG IVPB STA (08:55)
[2022-12-22 08:58] LABS: Glucose,Whole Blood 129 mg/dL (70-110)
[2022-12-22 10:12] LABS: Glucose,Whole Blood 112 mg/dL (70-110)
--- NOTE | 2022-12-22 10:26 | P.PN ---
Subjective Progress Note Date: 12/22/22 Principal diagnosis: Status post open heart surgery. I'm seeing this patient in follow-up today 12/20/2022 in the intensive care unit status postoperative day #0 following a coronary artery bypass graft including a GARVIN to LAD, SVG to the PDA and OM. The patient also had an aortic valve replacement and left atrial appendage ligation. The patient was brought to the intensive care unit for recovery. Initial postoperative ABGs showed a pO2 of 67, pCO2 of 43, pH of 7.36. He did initially extubate from the mechanical ventilator to 6 L nasal cannula. The patient did become hypoxic and have some respiratory distress; and was ultimately placed on BiPAP with settings of 12/6 and FiO2 of 100%. The patient is currently sitting up in bed, on BiPAP, in no acute distress. He is tachypneic with a respiratory rate of 26 and achieving tidal volumes around 450. Postoperative chest x-ray showed mild interstitial prominence with left perihilar opacity. Patient's heart rhythm is currently atrial fibrillation with rapid ventricular rate around 130 bpm, and he is being started on amiodarone protocol at 1 mg/m. There is an epicardial pacemaker with settings VVI and a heart rate of 50 for back up pacing. Milrinone is also infusing at 0.375 mcg/kg/m. Last cardiac output/cardiac index was 6 and 3 respectively. PA diastolic pressure 25. Blood pressure is normotensive. Nit roglycerin infusing at 5 mcg/m. Urine output has been adequate in the order of 30-50 mL per hour. Patient has 2 mediastinal chest tubes that are Y'd together with a total output 190 ML's of serosanguineous drainage. He also has a left pleural chest tube with 140 ML's of serosanguineous drainage. No obvious air leaks. Patient's estimated blood loss was around 1500 ML's intraoperatively, and he received 1 unit PRBC, 2 FFP, and 1 platelet intraoperatively. Most recent postoperative CBC shows a WBC count of 17.3, hemoglobin 8.4, hematocrit 25.6, platelets 200. Postoperative BMP shows a sodium 138, potassium 4.5, chloride 110, serum bicarb 22, BUN 13, creatinine 0.76, glucose 119. Patient is on lactated Ringer's infusing at 50 ML's per hour. There is also an insulin infusion per protocol. Patient will be monitored in the intensive care unit during his recovery. Progress note dated 12/22/2022. 77-year-old male, postop day #2, status post aortic valve replacement, three- vessel bypass grafting, and ligation of the left atrial appendage. The patient is seen today in room 262. Currently, he's on 2 L of oxygen. He is getting lactated Ringer's at 20 mL an hour, insulin drip at 3.5 units an hour, and amiodarone at 0.5 mg/m. He had a very uneventful night last night. White count 13.4, hemoglobin 8, hematocrit 24.8, with a normal platelet count. Sodium 133, potassium 5.1, chlorides 104, CO2 22, BUN 25, and creatinine 1.6. Chest x-ray shows stable postoperative chest, with typical findings. Objective - Vital Signs Vital signs: Vital Signs Temp 98.1 F 12/22/22 08:00 Pulse 90 12/22/22 09:00 Resp 23 12/22/22 09:00 BP 130/63 12/22/22 09:00 Pulse Ox 93 L 12/22/22 09:00 FiO2 50 12/22/22 07:47 Intake & Output 12/21/22 12/22/22 12/22/22 18:59 06:59 18:59 Intake Total 1608.829 363.114 342.957 Output Total 555 575 135 Balance 1053.829 -211.886 207.957 Weight 94.6 kg 95.2 kg Intake: IV 402 312 328 0.9 sodium chloride for 102 72 18 pressure bag Albumin Human 5% 250 ml 250 In Empty Bag 1 bag @ 250 mls/hr IVPB ONCE [facility] Rx#: [id number] Lactated Ringers 1,000 ml 300 240 60 @ 20 mls/hr IV .Q24H [facility] Rx#:[id number] Intake, IV Titration 606.829 51.114 14.957 Amount Amiodarone 450 mg In 380.727 Dextrose 5% in Water 250 ml @ 0.5 MG/MIN 16.667 mls/hr IV .Q15H PRN Rx#: [id number] Insulin Regular 100 unit 40.004 51.114 14.957 In Sodium Chloride 0.9% 100 ml @ Per Protocol IV .Q0M [facility] Rx#:[id number] Milrinone-D5w Pmx 20 mg 113.598 In Dextrose/Water 1 100ml .bag @ 0.1 MCG/KG/MIN 2. 535 mls/hr IV .Q24H [facility] Rx#:[id number] Nitroglycerin-D5w Pmx 50 22.5 mg In Dextrose/Water 1 250ml.bag @ 5 MCG/MIN 1.5 mls/hr IV .Q24H [facility] Rx#: [id number] ceFAZolin 2 gm In Sodium 50 Chloride 0.9% 50 ml @ 100 mls/hr IVPB Q8HR [facility] Rx# :[id number] Oral 600 Output: Chest Tube Drainage 270 270 80 Chest Tube Left 130 140 40 Chest Tube Mediastinal 140 130 40 Urine 285 305 55 Other: Voiding Method Indwelling Catheter Indwelling Catheter Indwelling Catheter ABP, PAP, CO, CI - Last Documented Arterial Blood Pressure 96/34 Pulmonary Artery Pressure 28/20 Cardiac Output 6 Cardiac Index 3 - Exam No acute distress, oriented 3. Currently on 2 L of oxygen. Saturations are 93% HEENT examination is grossly unremarkable. Mucous membranes are moist. No oral lesions. Neck supple. Full range of motion. No adenopathy thyromegaly or neck vein distention. Cardiovascular examination reveals regular rhythm rate. S1-S2 normal. No S3 or S4. No discernible murmur noted. Heart rate 90 bpm. Lungs reveal scattered bilateral rhonchi. No wheezes or crackles. Breath sounds equal bilaterally. Abdomen soft bowel sounds are heard. No masses or tenderness. Extremities are intact. No cyanosis clubbing or edema. Skin is without rash or lesion. Neurologic examination is brief but nonfocal. - Labs CBC & Chem 7: 12/22/22 03:59 12/22/22 03:59 Labs: Abnormal Lab Results - Last 24 Hours (Table) 12/21/22 12/21/22 12/21/22 Range/Units 10:59 11:58 13:09 WBC (3.8-10.6) k/uL RBC (4.30-5.90) m/uL Hgb (13.0-17.5) gm/dL Hct (39.0-53.0) % RDW (11.5-15.5) % Neutrophils # (1.3-7.7) k/uL Monocytes # (0-1.0) k/uL Sodium (137-145) mmol/L BUN (9-20) mg/dL Creatinine (0.66-1.25) mg/dL Glucose (74-99) mg/dL POC Glucose (mg/dL) 156 H 141 H 137 H (70-110) mg/dL Calcium (8.4-10.2) mg/dL AST (17-59) U/L Total Protein (6.3-8.2) g/dL Albumin (3.5-5.0) g/dL 12/21/22 12/21/22 12/21/22 Range/Units 14:13 15:39 17:09 WBC (3.8-10.6) k/uL RBC (4.30-5.90) m/uL Hgb (13.0-17.5) gm/dL Hct (39.0-53.0) % RDW (11.5-15.5) % Neutrophils # (1.3-7.7) k/uL Monocytes # (0-1.0) k/uL Sodium (137-145) mmol/L BUN (9-20) mg/dL Creatinine (0.66-1.25) mg/dL Glucose (74-99) mg/dL POC Glucose (mg/dL) 133 H 139 H 128 H (70-110) mg/dL Calcium (8.4-10.2) mg/dL AST (17-59) U/L Total Protein (6.3-8.2) g/dL Albumin (3.5-5.0) g/dL 12/21/22 12/21/22 12/21/22 Range/Units 18:31 20:07 21:07 WBC (3.8-10.6) k/uL RBC (4.30-5.90) m/uL Hgb (13.0-17.5) gm/dL Hct (39.0-53.0) % RDW (11.5-15.5) % Neutrophils # (1.3-7.7) k/uL Monocytes # (0-1.0) k/uL Sodium (137-145) mmol/L BUN (9-20) mg/dL Creatinine (0.66-1.25) mg/dL Glucose (74-99) mg/dL POC Glucose (mg/dL) 125 H 123 H 116 H (70-110) mg/dL Calcium (8.4-10.2) mg/dL AST (17-59) U/L Total Protein (6.3-8.2) g/dL Albumin (3.5-5.0) g/dL 12/21/22 12/21/22 12/22/22 Range/Units 22:01 23:01 00:05 WBC (3.8-10.6) k/uL RBC (4.30-5.90) m/uL Hgb (13.0-17.5) gm/dL Hct (39.0-53.0) % RDW (11.5-15.5) % Neutrophils # (1.3-7.7) k/uL Monocytes # (0-1.0) k/uL Sodium (137-145) mmol/L BUN (9-20) mg/dL Creatinine (0.66-1.25) mg/dL Glucose (74-99) mg/dL POC Glucose (mg/dL) 119 H 113 H 145 H (70-110) mg/dL Calcium (8.4-10.2) mg/dL AST (17-59) U/L Total Protein (6.3-8.2) g/dL Albumin (3.5-5.0) g/dL 12/22/22 12/22/22 12/22/22 Range/Units 01:04 02:17 03:10 WBC (3.8-10.6) k/uL RBC (4.30-5.90) m/uL Hgb (13.0-17.5) gm/dL Hct (39.0-53.0) % RDW (11.5-15.5) % Neutrophils # (1.3-7.7) k/uL Monocytes # (0-1.0) k/uL Sodium (137-145) mmol/L BUN (9-20) mg/dL Creatinine (0.66-1.25) mg/dL Glucose (74-99) mg/dL POC Glucose (mg/dL) 155 H 143 H 124 H (70-110) mg/dL Calcium (8.4-10.2) mg/dL AST (17-59) U/L Total Protein (6.3-8.2) g/dL Albumin (3.5-5.0) g/dL 12/22/22 12/22/22 12/22/22 Range/Units 03:58 03:59 03:59 WBC 13.4 H (3.8-10.6) k/uL RBC 2.68 L (4.30-5.90) m/uL Hgb 8.0 L (13.0-17.5) gm/dL Hct 24.8 L (39.0-53.0) % RDW 16.4 H (11.5-15.5) % Neutrophils # 10.6 H (1.3-7.7) k/uL Monocytes # 1.1 H (0-1.0) k/uL Sodium 133 L (137-145) mmol/L BUN 25 H (9-20) mg/dL Creatinine 1.60 H (0.66-1.25) mg/dL Glucose 107 H (74-99) mg/dL POC Glucose (mg/dL) 115 H (70-110) mg/dL Calcium 7.7 L (8.4-10.2) mg/dL AST 99 H (17-59) U/L Total Protein 4.7 L (6.3-8.2) g/dL Albumin 2.6 L (3.5-5.0) g/dL 12/22/22 12/22/22 12/22/22 Range/Units 06:16 07:10 08:02 WBC (3.8-10.6) k/uL RBC (4.30-5.90) m/uL Hgb (13.0-17.5) gm/dL Hct (39.0-53.0) % RDW (11.5-15.5) % Neutrophils # (1.3-7.7) k/uL Monocytes # (0-1.0) k/uL Sodium (137-145) mmol/L BUN (9-20) mg/dL Creatinine (0.66-1.25) mg/dL Glucose (74-99) mg/dL POC Glucose (mg/dL) 190 H 167 H 155 H (70-110) mg/dL Calcium (8.4-10.2) mg/dL AST (17-59) U/L Total Protein (6.3-8.2) g/dL Albumin (3.5-5.0) g/dL 12/22/22 12/22/22 Range/Units 08:57 10:11 WBC (3.8-10.6) k/uL RBC (4.30-5.90) m/uL Hgb (13.0-17.5) gm/dL Hct (39.0-53.0) % RDW (11.5-15.5) % Neutrophils # (1.3-7.7) k/uL Monocytes # (0-1.0) k/uL Sodium (137-145) mmol/L BUN (9-20) mg/dL Creatinine (0.66-1.25) mg/dL Glucose (74-99) mg/dL POC Glucose (mg/dL) 129 H 112 H (70-110) mg/dL Calcium (8.4-10.2) mg/dL AST (17-59) U/L Total Protein (6.3-8.2) g/dL Albumin (3.5-5.0) g/dL Assessment and Plan Assessment: Multivessel coronary artery disease status postoperative day #2 following a coronary artery bypass graft including GARVIN to the LAD, saphenous vein graft to the PDA, and a saphenous vein graft to the OM. The patient also underwent aort ic valve replacement and left atrial appendage ligation. Acute hypoxic respiratory failure secondary to acute pulmonary edema/flash pulmonary edema, improved. The patient was weaned from the mechanical ventilator and ultimately transitioned to BiPAP with settings 12/6 and FiO2 100%. Atrial fibrillation with rapid ventricular rate, patient has chronic atrial fibrillation, and was started on amiodarone infusion per protocol. Acute blood loss anemia, and expected outcome of surgery. Leukocytosis, likely reactive to surgery. Acute non-ST elevation myocardial infarction. Type 2 diabetes mellitus, on insulin infusion per protocol. Dyslipidemia. History of diabetic foot infection, recovered. Deep tissue injury to his left buttocks. Plan: Plan dated 12/22/2022. The patient is seen today in room 262. Remains on oxygen at 2 L. Today's postop day #2, status post aortic valve replacement, and three-vessel bypass grafting. The patient is getting lactated Ringer's at 20 mL an hour, amiodarone at 0.5 mg/m, and insulin at 3.5 units an hour. We will continue to follow make recommendations along the way. The patient's overall prognosis remains very guarded. Time with Patient: Greater than 30
[2022-12-22 10:56] LABS: Glucose,Whole Blood 116 mg/dL (70-110)
[2022-12-22 12:04] LABS: Glucose,Whole Blood 175 mg/dL (70-110)
[2022-12-22] MEDS ORDERED: DEXTROSE 50% SYRINGE 50 ML IVP PRN ×2 (13:01)
--- NOTE | 2022-12-22 13:55 | P.PN ---
Subjective Progress Note Date: 12/22/22 Principal diagnosis: CAD The patient is a 77-year-old gentleman who underwent yesterday coronary artery that is grafting along with aortic valve replacement using bioprosthetic valve. 12/21/2022 The patient was seen and evaluated this morning. He might and agrees stable beside being slightly tachycardic and for that reason he was started on amiodarone IV was attempted with no bolus. His pressure is marginal as well. He is not on any vasopressors. He is on inotropic with milrinone. Beside that he is on small dose of beta shant. He is on a statin as well. He is on antiplatelet using Plavix. We will make a decision regarding starting the patient on oral anticoagulation down the line once his wires are out. He underwent left atrial appendage occlusion. The chest x-ray was reviewed. Blood work showed stable hemoglobin and stable GFR. December 222022 The patient was evaluated this morning. He remains stable from a cardiovascular standpoint of view. Amiodarone was systolic. Hemoglobin this morning is 8.0. GFR is 42. Electrolytes are within normal limits. Urine output has been marginal. From a cardiovascular standpoint of view, would continue the current medical regimen including antiplatelet and statin and continue follow-up with the patient. Assessment Status post aortic valve replacement and CABG Permanent atrial fibrillation Anemia seems to be stable Tachycardia Plan Continue the current medical regimen Continue statin Continue antiplatelet Make a decision regarding oral anticoagulation down the line Continue monitor the hemoglobin and kidney function Monitor the chest x-ray Objective - Vital Signs Vital signs: Vital Signs Temp 98.1 F 12/22/22 08:00 Pulse 76 12/22/22 11:30 Resp 18 12/22/22 11:30 BP 130/63 12/22/22 11:30 Pulse Ox 99 12/22/22 11:30 FiO2 50 12/22/22 07:47 Intake & Output 12/21/22 12/22/22 12/22/22 18:59 06:59 18:59 Intake Total 1608.829 363.114 620.957 Output Total 555 575 165 Balance 1053.829 -211.886 455.957 Weight 94.6 kg 95.2 kg Intake: IV 402 312 406 0.9 sodium chloride for 102 72 36 pressure bag Albumin Human 5% 250 ml 250 In Empty Bag 1 bag @ 250 mls/hr IVPB ONCE [facility] Rx#: [id number] Lactated Ringers 1,000 ml 300 240 120 @ 20 mls/hr IV .Q24H [facility] Rx#:[id number] Intake, IV Titration 606.829 51.114 14.957 Amount Amiodarone 450 mg In 380.727 Dextrose 5% in Water 250 ml @ 0.5 MG/MIN 16.667 mls/hr IV .Q15H PRN Rx#: [id number] Insulin Regular 100 unit 40.004 51.114 14.957 In Sodium Chloride 0.9% 100 ml @ Per Protocol IV .Q0M [facility] Rx#:[id number] Milrinone-D5w Pmx 20 mg 113.598 In Dextrose/Water 1 100ml .bag @ 0.1 MCG/KG/MIN 2. 535 mls/hr IV .Q24H [facility] Rx#:[id number] Nitroglycerin-D5w Pmx 50 22.5 mg In Dextrose/Water 1 250ml.bag @ 5 MCG/MIN 1.5 mls/hr IV .Q24H [facility] Rx#: [id number] ceFAZolin 2 gm In Sodium 50 Chloride 0.9% 50 ml @ 100 mls/hr IVPB Q8HR [facility] Rx# :[id number] Oral 600 200 Output: Chest Tube Drainage 270 270 80 Chest Tube Left 130 140 40 Chest Tube Mediastinal 140 130 40 Urine 285 305 85 Other: Voiding Method Indwelling Catheter Indwelling Catheter Indwelling Catheter ABP, PAP, CO, CI - Last Documented Arterial Blood Pressure 96/34 Pulmonary Artery Pressure 28/20 Cardiac Output 6 Cardiac Index 3 - Labs CBC & Chem 7: 12/22/22 03:59 12/22/22 03:59 Labs: Abnormal Lab Results - Last 24 Hours (Table) 12/21/22 12/21/22 12/21/22 Range/Units 14:13 15:39 17:09 WBC (3.8-10.6) k/uL RBC (4.30-5.90) m/uL Hgb (13.0-17.5) gm/dL Hct (39.0-53.0) % RDW (11.5-15.5) % Neutrophils # (1.3-7.7) k/uL Monocytes # (0-1.0) k/uL Sodium (137-145) mmol/L BUN (9-20) mg/dL Creatinine (0.66-1.25) mg/dL Glucose (74-99) mg/dL POC Glucose (mg/dL) 133 H 139 H 128 H (70-110) mg/dL Calcium (8.4-10.2) mg/dL AST (17-59) U/L Total Protein (6.3-8.2) g/dL Albumin (3.5-5.0) g/dL 12/21/22 12/21/22 12/21/22 Range/Units 18:31 20:07 21:07 WBC (3.8-10.6) k/uL RBC (4.30-5.90) m/uL Hgb (13.0-17.5) gm/dL Hct (39.0-53.0) % RDW (11.5-15.5) % Neutrophils # (1.3-7.7) k/uL Monocytes # (0-1.0) k/uL Sodium (137-145) mmol/L BUN (9-20) mg/dL Creatinine (0.66-1.25) mg/dL Glucose (74-99) mg/dL POC Glucose (mg/dL) 125 H 123 H 116 H (70-110) mg/dL Calcium (8.4-10.2) mg/dL AST (17-59) U/L Total Protein (6.3-8.2) g/dL Albumin (3.5-5.0) g/dL 12/21/22 12/21/22 12/22/22 Range/Units 22:01 23:01 00:05 WBC (3.8-10.6) k/uL RBC (4.30-5.90) m/uL Hgb (13.0-17.5) gm/dL Hct (39.0-53.0) % RDW (11.5-15.5) % Neutrophils # (1.3-7.7) k/uL Monocytes # (0-1.0) k/uL Sodium (137-145) mmol/L BUN (9-20) mg/dL Creatinine (0.66-1.25) mg/dL Glucose (74-99) mg/dL POC Glucose (mg/dL) 119 H 113 H 145 H (70-110) mg/dL Calcium (8.4-10.2) mg/dL AST (17-59) U/L Total Protein (6.3-8.2) g/dL Albumin (3.5-5.0) g/dL 12/22/22 12/22/22 12/22/22 Range/Units 01:04 02:17 03:10 WBC (3.8-10.6) k/uL RBC (4.30-5.90) m/uL Hgb (13.0-17.5) gm/dL Hct (39.0-53.0) % RDW (11.5-15.5) % Neutrophils # (1.3-7.7) k/uL Monocytes # (0-1.0) k/uL Sodium (137-145) mmol/L BUN (9-20) mg/dL Creatinine (0.66-1.25) mg/dL Glucose (74-99) mg/dL POC Glucose (mg/dL) 155 H 143 H 124 H (70-110) mg/dL Calcium (8.4-10.2) mg/dL AST (17-59) U/L Total Protein (6.3-8.2) g/dL Albumin (3.5-5.0) g/dL 12/22/22 12/22/22 12/22/22 Range/Units 03:58 03:59 03:59 WBC 13.4 H (3.8-10.6) k/uL RBC 2.68 L (4.30-5.90) m/uL Hgb 8.0 L (13.0-17.5) gm/dL Hct 24.8 L (39.0-53.0) % RDW 16.4 H (11.5-15.5) % Neutrophils # 10.6 H (1.3-7.7) k/uL Monocytes # 1.1 H (0-1.0) k/uL Sodium 133 L (137-145) mmol/L BUN 25 H (9-20) mg/dL Creatinine 1.60 H (0.66-1.25) mg/dL Glucose 107 H (74-99) mg/dL POC Glucose (mg/dL) 115 H (70-110) mg/dL Calcium 7.7 L (8.4-10.2) mg/dL AST 99 H (17-59) U/L Total Protein 4.7 L (6.3-8.2) g/dL Albumin 2.6 L (3.5-5.0) g/dL 12/22/22 12/22/22 12/22/22 Range/Units 06:16 07:10 08:02 WBC (3.8-10.6) k/uL RBC (4.30-5.90) m/uL Hgb (13.0-17.5) gm/dL Hct (39.0-53.0) % RDW (11.5-15.5) % Neutrophils # (1.3-7.7) k/uL Monocytes # (0-1.0) k/uL Sodium (137-145) mmol/L BUN (9-20) mg/dL Creatinine (0.66-1.25) mg/dL Glucose (74-99) mg/dL POC Glucose (mg/dL) 190 H 167 H 155 H (70-110) mg/dL Calcium (8.4-10.2) mg/dL AST (17-59) U/L Total Protein (6.3-8.2) g/dL Albumin (3.5-5.0) g/dL 12/22/22 12/22/22 12/22/22 Range/Units 08:57 10:11 10:55 WBC (3.8-10.6) k/uL RBC (4.30-5.90) m/uL Hgb (13.0-17.5) gm/dL Hct (39.0-53.0) % RDW (11.5-15.5) % Neutrophils # (1.3-7.7) k/uL Monocytes # (0-1.0) k/uL Sodium (137-145) mmol/L BUN (9-20) mg/dL Creatinine (0.66-1.25) mg/dL Glucose (74-99) mg/dL POC Glucose (mg/dL) 129 H 112 H 116 H (70-110) mg/dL Calcium (8.4-10.2) mg/dL AST (17-59) U/L Total Protein (6.3-8.2) g/dL Albumin (3.5-5.0) g/dL 12/22/22 Range/Units 12:03 WBC (3.8-10.6) k/uL RBC (4.30-5.90) m/uL Hgb (13.0-17.5) gm/dL Hct (39.0-53.0) % RDW (11.5-15.5) % Neutrophils # (1.3-7.7) k/uL Monocytes # (0-1.0) k/uL Sodium (137-145) mmol/L BUN (9-20) mg/dL Creatinine (0.66-1.25) mg/dL Glucose (74-99) mg/dL POC Glucose (mg/dL) 175 H (70-110) mg/dL Calcium (8.4-10.2) mg/dL AST (17-59) U/L Total Protein (6.3-8.2) g/dL Albumin (3.5-5.0) g/dL
[2022-12-22] MEDS ORDERED: ALBUMIN HUMAN 5% 250 ML in EMPTY BAG 1 BAG IVPB ONE (15:30)
[2022-12-22] MEDS ORDERED: METOPROLOL TARTRATE 25 MG TAB PO SCH (16:00)
[2022-12-22 16:05] VITALS: BP 140/48; PULSE 84; RESP 16; TEMP 98.3
[2022-12-22] MEDS ORDERED: DEXTROSE 50% SYRINGE 50 ML IVP ONE (16:15)
[2022-12-22] MEDS ORDERED: AMIODARONE 50 MG/ML 3 ML VIAL IV ONE (16:15)
[2022-12-22] MEDS ORDERED: MAGNESIUM SULFATE SYG 4.06 MEQ/ML SYRINGE ONE (16:15)
[2022-12-22] MEDS ORDERED: EPINEPHrine 10 ML SYRINGE (0.1 MG/ML) ONE ×2 (16:15→16:43)
[2022-12-22] MEDS ORDERED: SODIUM BICARB 8.4% 50 ML SYR (1 MEQ/ML) ONE ×2 (16:15→16:42)
[2022-12-22] MEDS ORDERED: DEXTROSE 5% IN WATER 50 ML BAG ONE (16:15)
[2022-12-22] MEDS ORDERED: CALCIUM CHLORIDE 100 MG/ML 10 ML SYRINGE ONE (16:15)
[2022-12-22 16:43] LABS: Glucose,Whole Blood 124 mg/dL (70-110)
--- NOTE | 2022-12-22 17:02 | P.EN ---
CODE BLUE Indication: pea arrest Arrived on Scene to find: CPR in progress with Epi already give. Patient was still in the chair. He had been doing well today. Had a widening of his QRS and then developing rapidly decreasing HR and went into PEA. Initial Rhythm: PEA Code Course: See code blue sheet for full details. Rhythm course was PEA, then V- tach, then possible Torsades then fine V fib, and then PEA Temporary pacer was disabled during the code course Defib X 4 Epi X 9 Bicarb X 4 Mag 5 grams Calcium chloride 1 gram Amio 300 IVP, then 150 IVP Dextrose 1 amp, BS 120 Intubated at [address] Gregg physically preformed CPR during CODE blue while I functioned as code steam fitter. Total Down Time: 29 minutes TOD: 1644, absent pulse, absent cardiac activity, absent respirations, pupils fixed and dilated. Nursing had already notified cardio thorasic and Dr. Rosenbaum called back, Abby umaña, [employer] presented to bedside. [facility] notified by Abby umaña Assessment: PEA arrest A Total of 35 minutes of critical care time was spent on the complex care of this patient. This dictation was prepared using [employer] voice recognition software. Though every attempt is made to correct errors during dictation some may still exist.
[2022-12-22] MEDS ORDERED: INSULIN ASPART (NovoLOG) 100 UNIT/ML VIAL SQ SCH (17:30)
--- NOTE | 2022-12-22 20:07 | P.PN ---
Subjective Progress Note Date: 12/22/22 This is a 77-year-old male who was recently admitted with toxic respiratory failure secondary to acute diastolic congestive heart failure being closely monitored. Patient was in the ICU currently on cardiac stepdown unit with multiple medical consultations including cardiology, pulmonary, wound care as well as CT surgery for evaluation is following. Chest x-ray today shows no acute cardiopulmonary process or disease and no evidence of acute heart failure. Patient underwent cardiac catheterization yesterday found to have triple-vessel coronary artery disease and being evaluated by cardiothoracic surgery and undergoing workup for possible surgery in the near future. Patient has been weaned off oxygen currently maintaining oxygen saturations above 90% on room air and denies any significant shortness of breath. Patient with significant weakness recommend physical therapy evaluation daily. Patient is afebrile with no reports of chest pain or palpitations. Patient tolerating diet with no r eported nausea or vomiting noted. Discussed with patient and family about possible rehab inpatient per case management refused rehab or home care. We'll discuss further after cardiothoracic evaluation for possible surgical intervention. 12/15/2022 Patient is seen and evaluated in follow-up with cardiology, pulmonary, cardiothoracic following undergoing extensive workup to initiate possible aroldo gical intervention with CABG as patient was found to have triple-vessel disease. Patient to undergo SANJEEV and report currently pending. Patient with significant weakness would recommend physical therapy evaluation and working with daily and increased activity as tolerated. Patient reports some improvement in his shortness of breath although continues to be generally weak. Patient reports unsure of what is currently going on. Awaiting on further testing and will follow-up with CT surgery. Patient is currently afebrile with no reports of chest pain or palpitations. Patient is tolerating diet and will continue with Accu-Cheks before meals and at bedtime along with current insulin regimen. Prognosis remains guarded. 12/16/2022 Patient is seen and evaluated in follow-up today undergoing thorough workup with CT surgery for possible CABG with valve replacement. Multiple medical consult ations including pulmonary and cardiology following maintained on IV heparin and will continue. Patient underwent SANJEEV which showed moderate aortic stenosis with some mitral regurgitation and LV systolic function is normal. Patient has been up more frequently today and encouraged to increase activity as tolerated with continued PT/OT therapy daily. Patient continuing to undergo workup for possib le surgical intervention and will continue. Patient currently on room air denies worsening shortness of breath. Encouraged continued incentive spirometer use at least 10 times every hour while awake. Patient is afebrile denies chest pain or shortness of breath. Patient tolerating diet with no reported nausea or vomiting. 12/17/2022 Patient is seen and evaluated today currently sitting up at the side of the bed with multiple family members present. Patient is undergoing further workup and maintained on IV heparin with cardiology and cardiothoracic surgery following. Plans are for CABG with valve replacement possibly early next week. Patient has been encouraged to increase activity as tolerated and continues with some left hip and pelvic pain and ordered x-rays. Patient does have a wound on the left buttock that is being controlled by wound care and continued wound care with offloading and OptiFoam. Patient has been increasing his activity and reports has been up and walking and walked up and down the [place] today. Family members with questions and concerns that were answered to the best of our ability. Patient is afebrile with no reported chest pain or worsening shortness of breath. Patient has been encouraged to continue using incentive spirometer at least 10 times every hour while awake. Patient is tolerating diet with no reported nausea or vomiting. 12/20/2022 Patient is scheduled to undergo CABG with valve replacement currently in the OR awaiting surgical report and patient will be going to room 262 in the ICU. Patient afebrile and vitals within normal limits and will await surgical report. 12/21/2022 Patient is seen and evaluated in follow-up this morning in the ICU currently sitting up in the chair and has just worked with physical therapy along with nursing staff getting up. Patient continues with multiple chest tubes, Barwick- Agus catheter, along with the urinary catheter and heart hugger noted. Patient's chest x-ray today shows stable postoperative appearance of the lungs with no evidence of pleural effusion focal consolidation or pneumothorax. Patient is currently maintained on insulin drip for tight glycemic control and is being started on diet. Patient reports extreme discomfort with minimal movement, fatigue, and tender chest with difficulty with inspiration. Incentive spirometer at the bedside and patient will need encouragement on continuing to use at least 10 times every hour. Patient is requiring 6 L high flow oxygen and will wean as tolerated. 12/22/2022 Patient is seen in follow-up this morning continues to be in the ICU working on weaning FiO2 as tolerated. Currently maintained on 4-6 L and does have incentive spirometer at bedside. Patient is up in the chair eating with family at bedside. Patient had swans catheter removed as well chest x-ray stable from previous recommending follow-up and repeat chest x-ray for a.m. is ordered. Patient has heart noted and is reporting some chest wall pain with movement and cough. Cough is weak. Patient was maintained on insulin drip and we'll transition to sliding scale along with long-acting twice daily and monitor Accu- Cheks before meals and at bedtime closely. Encouraged small frequent meals as patient reports not much of an appetite. Patient is afebrile with no reported worsening shortness of breath or palpitations. Family discussed possible rehab looking into an inpatient rehab near where they live. We will continue to follow with cardiothoracic surgery. . Review of systems: Constitutional: reports of fatigue, no fever, or chills Cardiovascular: No reports of chest pain or palpitations, reports chest wall discomfort Respiratory: No reports of worsening shortness of br, reports week cough GI: No reports of nausea, no reports of vomiting, no diarrhea : No reports of dysuria or retention Neurovascular: reports of generalized weakness, reports left hip and buttock pain that persists All medications have been reviewed PHYSICAL EXAMINATION: GENERAL: The patient is alert and oriented x3, appears fatigued. Well developed, well nourished. Ill-appearing, elderly appearing HEENT: Pupils are round and equally reacting to light. EOMI. no scleral icterus. No conjunctival pallor. Normocephalic, atraumatic. No pharyngeal erythema. No thyromegaly. CARDIOVASCULAR: S1 and S2 muffled, irregular PULMONARY: diminished breath sounds bilaterally with some scattered rhonchi noted. ABDOMEN: soft. Nontender on exam. non-distended, normoactive bowel sounds. No palpable organomegaly. MUSCULOSKELETAL: No joint swelling or deformity. EXTREMITIES: No cyanosis, clubbing, or pedal edema. Left hip wound currently dressed with Optefoam and extremely tender on palpation NEUROLOGICAL: Gross neurological examination did not reveal any focal deficits. Diffuse weakness SKIN: No rashes. pale. Assessment: Triple-vessel coronary artery disease, status post three-vessel CABG Moderate aortic stenosis status post bioprosthetic aortic valve replacement Congestive heart failure with acute on chronic diastolic dysfunction with acute hypoxic respiratory failure, present on admission Hypertensive urgency and emergency with shock, likely cardiogenic requiring pressor support, improved Acute NSTEMI Left hip pain, Left hip contusion with hematoma noted, no fractures on x-ray imaging Atrial fibrillation with RVR, currently rate controlled with history of paroxysmal atrial fibrillation Coumadin coagulopathy Hyperlipidemia Diabetes mellitus, type II, uncontrolled with hyperglycemia Diabetic foot infection recently, resolved Deep tissue injury, left buttocks Obesity with a BMI of 31.0 GI prophylaxis DVT prophylaxis Full code Plan: Multiple medical consultations following and cardiothoracic surgery is following and patient is postop day 2 CABG and bioprosthetic aortic valve replacement Currently continues with catheters and drains and chest tubes and Barwick-Agus catheter has been removed Incentive spirometer at bedside and encourage the patient continue using at least 10 times every hour Patient is currently maintained on insulin drip and will transition to sliding scale along with long-acting and recommend Accu-Cheks before meals and at bedtime Repeat labs and follow-up chest x-ray ordered for a.m. Given patient's significant comorbidities, overall prognosis is guarded at this time We will continue to follow with cardiothoracic surgery. The impression and plan of care has been dictated by Deyanira Andre, nurse practitioner as directed. Dr. Scott MD I have performed a history and examination and MDM of this patient, discussed the same with the dictator, and agree with the dictator's assessment and plan as written ,documented as a scribe. Based on total visit time, I have performed more than 50% of the visit. Any additional findings or plans will be noted. Objective - Vital Signs Vital signs: Vital Signs Temp 98.3 F 12/22/22 16:00 Pulse 84 12/22/22 16:00 Resp 16 12/22/22 16:00 BP 140/48 12/22/22 16:00 Pulse Ox 95 12/22/22 16:00 FiO2 100 12/22/22 16:59 Intake & Output 12/22/22 12/22/22 12/23/22 06:59 18:59 06:59 Intake Total 110.524 4648.957 Output Total 575 265 Balance -357.513 0745.957 Weight 95.2 kg Intake: IV 312 714 0.9 sodium chloride for 72 54 pressure bag Albumin Human 5% 250 ml 500 In Empty Bag 1 bag @ 250 mls/hr IVPB ONCE STA Rx#: [id number] Lactated Ringers 1,000 ml 240 160 @ 20 mls/hr IV .Q24H VIDAL Rx#:[id number] Intake, IV Titration 51.114 14.957 Amount Insulin Regular 100 unit 51.114 14.957 In Sodium Chloride 0.9% 100 ml @ Per Protocol IV .Q0M VIDAL Rx#:[id number] Oral 700 Output: Chest Tube Drainage 270 150 Chest Tube Left 140 110 Chest Tube Mediastinal 130 40 Urine 305 115 Other: Voiding Method Indwelling Catheter Indwelling Catheter ABP, PAP, CO, CI - Last Documented Arterial Blood Pressure 96/34 Pulmonary Artery Pressure 28/20 Cardiac Output 6 Cardiac Index 3 - Labs CBC & Chem 7: 12/22/22 03:59 12/22/22 03:59 Labs: Abnormal Lab Results - Last 24 Hours (Table) 12/21/22 12/21/22 12/21/22 Range/Units 20:07 21:07 22:01 WBC (3.8-10.6) k/uL RBC (4.30-5.90) m/uL Hgb (13.0-17.5) gm/dL Hct (39.0-53.0) % RDW (11.5-15.5) % Neutrophils # (1.3-7.7) k/uL Monocytes # (0-1.0) k/uL Sodium (137-145) mmol/L BUN (9-20) mg/dL Creatinine (0.66-1.25) mg/dL Glucose (74-99) mg/dL POC Glucose (mg/dL) 123 H 116 H 119 H (70-110) mg/dL Calcium (8.4-10.2) mg/dL AST (17-59) U/L Total Protein (6.3-8.2) g/dL Albumin (3.5-5.0) g/dL 12/21/22 12/22/22 12/22/22 Range/Units 23:01 00:05 01:04 WBC (3.8-10.6) k/uL RBC (4.30-5.90) m/uL Hgb (13.0-17.5) gm/dL Hct (39.0-53.0) % RDW (11.5-15.5) % Neutrophils # (1.3-7.7) k/uL Monocytes # (0-1.0) k/uL Sodium (137-145) mmol/L BUN (9-20) mg/dL Creatinine (0.66-1.25) mg/dL Glucose (74-99) mg/dL POC Glucose (mg/dL) 113 H 145 H 155 H (70-110) mg/dL Calcium (8.4-10.2) mg/dL AST (17-59) U/L Total Protein (6.3-8.2) g/dL Albumin (3.5-5.0) g/dL 12/22/22 12/22/22 12/22/22 Range/Units 02:17 03:10 03:58 WBC (3.8-10.6) k/uL RBC (4.30-5.90) m/uL Hgb (13.0-17.5) gm/dL Hct (39.0-53.0) % RDW (11.5-15.5) % Neutrophils # (1.3-7.7) k/uL Monocytes # (0-1.0) k/uL Sodium (137-145) mmol/L BUN (9-20) mg/dL Creatinine (0.66-1.25) mg/dL Glucose (74-99) mg/dL POC Glucose (mg/dL) 143 H 124 H 115 H (70-110) mg/dL Calcium (8.4-10.2) mg/dL AST (17-59) U/L Total Protein (6.3-8.2) g/dL Albumin (3.5-5.0) g/dL 12/22/22 12/22/22 12/22/22 Range/Units 03:59 03:59 06:16 WBC 13.4 H (3.8-10.6) k/uL RBC 2.68 L (4.30-5.90) m/uL Hgb 8.0 L (13.0-17.5) gm/dL Hct 24.8 L (39.0-53.0) % RDW 16.4 H (11.5-15.5) % Neutrophils # 10.6 H (1.3-7.7) k/uL Monocytes # 1.1 H (0-1.0) k/uL Sodium 133 L (137-145) mmol/L BUN 25 H (9-20) mg/dL Creatinine 1.60 H (0.66-1.25) mg/dL Glucose 107 H (74-99) mg/dL POC Glucose (mg/dL) 190 H (70-110) mg/dL Calcium 7.7 L (8.4-10.2) mg/dL AST 99 H (17-59) U/L Total Protein 4.7 L (6.3-8.2) g/dL Albumin 2.6 L (3.5-5.0) g/dL 12/22/22 12/22/22 12/22/22 Range/Units 07:10 08:02 08:57 WBC (3.8-10.6) k/uL RBC (4.30-5.90) m/uL Hgb (13.0-17.5) gm/dL Hct (39.0-53.0) % RDW (11.5-15.5) % Neutrophils # (1.3-7.7) k/uL Monocytes # (0-1.0) k/uL Sodium (137-145) mmol/L BUN (9-20) mg/dL Creatinine (0.66-1.25) mg/dL Glucose (74-99) mg/dL POC Glucose (mg/dL) 167 H 155 H 129 H (70-110) mg/dL Calcium (8.4-10.2) mg/dL AST (17-59) U/L Total Protein (6.3-8.2) g/dL Albumin (3.5-5.0) g/dL 12/22/22 12/22/22 12/22/22 Range/Units 10:11 10:55 12:03 WBC (3.8-10.6) k/uL RBC (4.30-5.90) m/uL Hgb (13.0-17.5) gm/dL Hct (39.0-53.0) % RDW (11.5-15.5) % Neutrophils # (1.3-7.7) k/uL Monocytes # (0-1.0) k/uL Sodium (137-145) mmol/L BUN (9-20) mg/dL Creatinine (0.66-1.25) mg/dL Glucose (74-99) mg/dL POC Glucose (mg/dL) 112 H 116 H 175 H (70-110) mg/dL Calcium (8.4-10.2) mg/dL AST (17-59) U/L Total Protein (6.3-8.2) g/dL Albumin (3.5-5.0) g/dL 12/22/22 Range/Units 16:32 WBC (3.8-10.6) k/uL RBC (4.30-5.90) m/uL Hgb (13.0-17.5) gm/dL Hct (39.0-53.0) % RDW (11.5-15.5) % Neutrophils # (1.3-7.7) k/uL Monocytes # (0-1.0) k/uL Sodium (137-145) mmol/L BUN (9-20) mg/dL Creatinine (0.66-1.25) mg/dL Glucose (74-99) mg/dL POC Glucose (mg/dL) 124 H (70-110) mg/dL Calcium (8.4-10.2) mg/dL AST (17-59) U/L Total Protein (6.3-8.2) g/dL Albumin (3.5-5.0) g/dL
[2022-12-22] MEDS ORDERED: INSULIN DETEMIR (LEVEMIR) 100 UNIT/ML SYR SQ SCH (21:00)
== END 2022-12-22 21:22 | disposition expired | DRG 216 ==
LOC: EC 12:51 → 2SICU 14:58 → 3SCARD 12-13 16:01 → 2SICU 12-20 07:15
PROVIDERS: ADMIT Surgery; ATTEND Surgery
PROC: 0D9670Z Drainage of Stomach with Drainage Device, Via Natural or Artificial Opening (ICD-10-PCS; 2022-12-08)
PROC: 0BH17EZ Insertion of Endotracheal Airway into Trachea, Via Natural or Artificial Opening (ICD-10-PCS; 2022-12-08)
PROC: 5A1945Z Respiratory Ventilation, 24-96 Consecutive Hours (ICD-10-PCS; 2022-12-08)
PROC: 4A133J1 Monitoring of Arterial Pulse, Peripheral, Percutaneous Approach (ICD-10-PCS; 2022-12-08)
PROC: 03HY32Z Insertion of Monitoring Device into Upper Artery, Percutaneous Approach (ICD-10-PCS; 2022-12-08)
PROC: 3E043XZ Introduction of Vasopressor into Central Vein, Percutaneous Approach (ICD-10-PCS; 2022-12-08)
PROC: 4A133B1 Monitoring of Arterial Pressure, Peripheral, Percutaneous Approach (ICD-10-PCS; 2022-12-08)
PROC: 02HV33Z Insertion of Infusion Device into Superior Vena Cava, Percutaneous Approach (ICD-10-PCS; 2022-12-08)
PROC: 5A09357 Assistance with Respiratory Ventilation, Less than 24 Consecutive Hours, Continuous Positive Airway Pressure (ICD-10-PCS; 2022-12-08)
PROC: 3E0G76Z Introduction of Nutritional Substance into Upper GI, Via Natural or Artificial Opening (ICD-10-PCS; 2022-12-09)
PROC: B2111ZZ Fluoroscopy of Multiple Coronary Arteries using Low Osmolar Contrast (ICD-10-PCS; 2022-12-15)
PROC: 4A023N7 Measurement of Cardiac Sampling and Pressure, Left Heart, Percutaneous Approach (ICD-10-PCS; 2022-12-15)
PROC: B24BZZ4 Ultrasonography of Heart with Aorta, Transesophageal (ICD-10-PCS; 2022-12-15)
PROC: B24BZZ4 Ultrasonography of Heart with Aorta, Transesophageal (ICD-10-PCS; 2022-12-20)
PROC: 30243K1 Transfusion of Nonautologous Frozen Plasma into Central Vein, Percutaneous Approach (ICD-10-PCS; 2022-12-20)
PROC: 30243R1 Transfusion of Nonautologous Platelets into Central Vein, Percutaneous Approach (ICD-10-PCS; 2022-12-20)
PROC: 30243N1 Transfusion of Nonautologous Red Blood Cells into Central Vein, Percutaneous Approach (ICD-10-PCS; 2022-12-20)
PROC: 06BP4ZZ Excision of Right Saphenous Vein, Percutaneous Endoscopic Approach (ICD-10-PCS; principal; 2022-12-20 08:00)
PROC: 021109W Bypass Coronary Artery, Two Arteries from Aorta with Autologous Venous Tissue, Open Approach (ICD-10-PCS; principal; 2022-12-20 08:00)
PROC: 02RF08Z Replacement of Aortic Valve with Zooplastic Tissue, Open Approach (ICD-10-PCS; principal; 2022-12-20 08:00)
PROC: 5A1221Z Performance of Cardiac Output, Continuous (ICD-10-PCS; principal; 2022-12-20 08:00)
PROC: 02L70CK Occlusion of Left Atrial Appendage with Extraluminal Device, Open Approach (ICD-10-PCS; principal; 2022-12-20 08:00)
PROC: 02100A9 Bypass Coronary Artery, One Artery from Left Internal Mammary with Autologous Arterial Tissue, Open Approach (ICD-10-PCS; principal; 2022-12-20 08:00)
PROC: 5A12012 Performance of Cardiac Output, Single, Manual (ICD-10-PCS; 2022-12-22)
PROC: 0BH17EZ Insertion of Endotracheal Airway into Trachea, Via Natural or Artificial Opening (ICD-10-PCS; 2022-12-22)
PROC: 5A1935Z Respiratory Ventilation, Less than 24 Consecutive Hours (ICD-10-PCS; 2022-12-22)
DX: I21.4 Non-ST elevation (NSTEMI) myocardial infarction (principal); I50.33 Acute on chronic diastolic (congestive) heart failure; J96.01 Acute respiratory failure with hypoxia; E87.3 Alkalosis; I47.20 Ventricular tachycardia, unspecified; Q24.5 Malformation of coronary vessels; R04.2 Hemoptysis; I48.21 Permanent atrial fibrillation; I16.1 Hypertensive emergency; D62 Acute posthemorrhagic anemia; I42.9 Cardiomyopathy, unspecified; I11.0 Hypertensive heart disease with heart failure; R57.0 Cardiogenic shock; L89.322 Pressure ulcer of left buttock, stage 2; E11.51 Type 2 diabetes mellitus with diabetic peripheral angiopathy without gangrene; E11.65 Type 2 diabetes mellitus with hyperglycemia; I46.2 Cardiac arrest due to underlying cardiac condition; I49.01 Ventricular fibrillation; Z20.822 Contact with and (suspected) exposure to COVID-19; Z79.4 Long term (current) use of insulin; Z68.31 Body mass index [BMI] 31.0-31.9, adult; I25.10 Atherosclerotic heart disease of native coronary artery without angina pectoris; I25.84 Coronary atherosclerosis due to calcified coronary lesion; I08.3 Combined rheumatic disorders of mitral, aortic and tricuspid valves; E66.9 Obesity, unspecified; E78.5 Hyperlipidemia, unspecified; S70.02XA Contusion of left hip, initial encounter; M54.9 Dorsalgia, unspecified; R74.01 Elevation of levels of liver transaminase levels; R79.1 Abnormal coagulation profile; T45.515A Adverse effect of anticoagulants, initial encounter; Z79.84 Long term (current) use of oral hypoglycemic drugs; Z79.01 Long term (current) use of anticoagulants; Z79.899 Other long term (current) drug therapy; Z86.16 Personal history of COVID-19; Z87.01 Personal history of pneumonia (recurrent); Z71.3 Dietary counseling and surveillance; Z88.0 Allergy status to penicillin; Z88.2 Allergy status to sulfonamides; Z82.49 Family history of ischemic heart disease and other diseases of the circulatory system
CPT/HCPCS: 36415; 71045; 71046; 71250; 73502; 74176; 80048; 80053; 80061; 80074; 81001; 82271; 82330; 82805; 83036; 83605; 83735; 83880; 84132; 84145; 84439; 84443; 84481; 84484; 85025; 85027; 85610; 85730; 86850; 86891; 86900; 86901; 86920; 87040; 87070; 87205; 87449; 87636; 88305; 93005; 93306; 93312; 93320; 93325; 93458; 93880; 93922; 93970; 94002; 94003; 94150; 94640; 94660; 94760; 96365; 96366; 96375; 99291